=== PATIENT | female | born 1935 | race Caucasian/White ===

== ENCOUNTER 2017-09-27 10:52 | Emergency (ER) | payer OTHER, MEDICARE ==
--- NOTE | 2017-09-27 11:46 | ER ---
Nurse's Notes [facility] Name: Lillian Cabrera Age: 81 yrs Sex: Female : 1935 Arrival Date: 09/27/2017 Time: 11:03 Bed 20 Private MD: Diagnosis: weakness Presentation: 09/27 11:04 Presenting complaint: states: They were shopping in [place] when she began to aj1 look really shaky, so he asked the staff for help, they gave her a chair and she sat down. states that she has been having leg pain for the past few nights. Patient states that she has no complaints and feels fine. Patient and are poor historians, states patient has no medical history or allergies, she does not have a PHCP. Patient was hypertensive upon EMS arrival. FSBS 126. Transition of care: patient was not received from another setting of care. Onset of symptoms was September 27, 2017. Care prior to arrival: None. 11:04 Method Of Arrival: EMS: [facility] aj1 11:04 Acuity: JOBY 3 aj1 Triage Assessment: 11:08 General: Appears in no apparent distress. comfortable, Behavior is calm, cooperative. aj1 Pain: Denies pain. Historical: - Allergies: 11:08 No Known Allergies; aj1 - Home Meds: 11:08 None [Active]; aj1 - PMHx: 11:08 None; aj1 - PSHx: 11:08 None; aj1 - Immunization history:: Adult Immunizations up to date. - Social history:: Smoking status: Patient/guardian denies using tobacco. - Family history:: not pertinent. - Hospitalizations: : No recent hospitalization is reported. - History obtained from: spouse. Screenin:27 Abuse screen: Denies threats or abuse. Denies injuries from another. Nutritional aj1 screening: No deficits noted. Tuberculosis screening: No symptoms or risk factors identified. 12:02 Fall Risk None identified. aj1 Assessment: 11:27 General: Appears in no apparent distress. comfortable, Behavior is calm, cooperative, aj1 appropriate for age. Pain: Denies pain. Neuro: Level of Consciousness is awake, alert, obeys commands, Yolk Spray Drier are equal bilaterally Moves all extremities. Full function Speech is normal, Facial symmetry appears normal, Pupils are PERRLA, Intact Denies weakness dizziness, numbness headache. Cardiovascular: Denies chest pain, lightheadedness, nausea, palpitations, shortness of breath, syncope, vomiting, Heart tones S1 S2 present Patient's skin is warm and dry. Respiratory: Airway is patent Respiratory effort is even, unlabored, Respiratory pattern is regular, symmetrical, Denies cough, shortness of breath. GI: No signs and/or symptoms were reported involving the gastrointestinal system. : No signs and/or symptoms were reported regarding the genitourinary system. EENT: No signs and/or symptoms were reported regarding the EENT system. Derm: No signs and/or symptoms reported regarding the dermatologic system. Skin is pink, warm \T\ dry. normal. Musculoskeletal: No signs and/or symptoms reported regarding the musculoskeletal system. Circulation, motion, and sensation intact. 11:35 Reassessment: Son at bedside, appears agitated, talking on cell phone. patient and aj1 family refusing head CT at this time, wants to talk to physician again because pt son states he does not feel like its needed. Dr. Osuna notified and will see the patient. 11:39 Reassessment: Dr. Osuna at bedside. aj1 11:45 Reassessment: Patient states that she does not want any tests to be done, she just aj1 wants to go home. Dr. Osuna to discharge patient. Vital Signs: 11:08 BP 148 / 97; Pulse 110; Resp 20; Temp 98.6; Pulse Ox 92% on R/A; Pain 0/10; aj1 ED Course: 11:03 Patient arrived in ED. aj1 11:07 Triage completed. aj1 11:08 Arm band placed on. aj1 11:10 Laverne Mendoza, RN is Primary Nurse. aj1 11:23 Deric Osuna MD is Attending Physician. wa 11:27 Patient has correct armband on for positive identification. Bed in low position. Call aj1 light in reach. Side rails up X 1. shelter monitor on. Pulse ox on. NIBP on. 11:27 No provider procedures requiring assistance completed. aj1 11:30 Maintain EMS IV. Good blood return noted. Site clean \T\ dry. Gauge \T\ site: 20 g left AC. aj 1 12:01 IV discontinued, intact, bleeding controlled, No redness/swelling at site. Pressure aj1 dressing applied. Administered Medications: No medications were administered Outcome: 11:45 Discharge ordered by . rodney 12:01 Discharged to home via wheelchair, with family. aj1 12:01 Condition: stable 12:01 Discharge instructions given to patient, family, Instructed on discharge instructions, follow up and referral plans. Demonstrated understanding of instructions, follow-up care. 12:02 Patient left the ED. aj1 Signatures: Laverne Mendoza RN RN aj1 Deric Osuna MD MD wa Corrections: (The following items were deleted from the chart) 11:10 11:04 Presenting complaint: states: They were shopping in [place] when she aj1 began to look really shaky, so he asked the staff for help, they gave her a chair and she sat down. states that she has been having leg pain for the past few nights. Patient states that she has no complaints and feels fine. Patient and are poor historians aj1
--- NOTE | 2017-09-27 11:46 | EDPHYS ---
Physician Documentation [facility] Name: Lillian Cabrera Age: 81 yrs Sex: Female : 1935 Arrival Date: 09/27/2017 Time: 11:03 Bed 20 Private MD: ED Physician Deric Osuna HPI: 09/27 11:53 This 81 yrs old Female presents to ER via EMS with complaints of shaking. wa 11:53 pt and spouse both poor historians. per spouse, pt was pushing the cart at [facility] and wa noted shaking. spouse asked personnel to get pt a chair which they did. pt otherwise denies complaints and wants to go home. states was just another day at the store and does not want to be seen. denies leg pain to me. denies CP, SOB, dizziness, PARSONS pr abd pain. denies fever, cough or dysuria. Onset: The symptoms/episode began/occurred just prior to arrival. Severity of symptoms: At their worst the symptoms were mild in the emergency department the symptoms have resolved. The patient has not experienced similar symptoms in the past. The patient has not recently seen a physician. . Historical: - Allergies: 11:08 No Known Allergies; aj1 - Home Meds: 11:08 None [Active]; aj1 - PMHx: 11:08 None; aj1 - PSHx: 11:08 None; aj1 - Immunization history:: Adult Immunizations up to date. - Social history:: Smoking status: Patient/guardian denies using tobacco. - Family history:: not pertinent. - Hospitalizations: : No recent hospitalization is reported. - History obtained from: spouse. ROS: 11:56 Constitutional: Negative for fever, chills, and weight loss, Eyes: Negative for injury, wa pain, redness, and discharge, ENT: Negative for injury, pain, and discharge, Neck: Negative for injury, pain, and swelling, Cardiovascular: Negative for chest pain, palpitations, and edema, Respiratory: Negative for shortness of breath, cough, wheezing, and pleuritic chest pain, Abdomen/GI: Negative for abdominal pain, nausea, vomiting, diarrhea, and constipation, Back: Negative for injury and pain, : Negative for injury, bleeding, discharge, and swelling, MS/Extremity: Negative for injury and deformity, Skin: Negative for injury, rash, and discoloration, Neuro: Negative for headache, weakness, numbness, tingling, and seizure, Psych: Negative for depression, anxiety, suicide ideation, homicidal ideation, and hallucinations. 11:56 All other systems are negative. Exam: 11:56 Constitutional: This is a well developed, well nourished patient who is awake, alert, wa and in no acute distress. Head/Face: Normocephalic, atraumatic. Eyes: Pupils equal round and reactive to light, extra-ocular motions intact. Lids and lashes normal. Conjunctiva and sclera are non-icteric and not injected. Cornea within normal limits. Periorbital areas with no swelling, redness, or edema. ENT: Nares patent. No nasal discharge, no septal abnormalities noted. Tympanic membranes are normal and external auditory canals are clear. Oropharynx with no redness, swelling, or masses, exudates, or evidence of obstruction, uvula midline. Mucous membranes moist. Neck: Trachea midline, no thyromegaly or masses palpated, and no cervical lymphadenopathy. Supple, full range of motion without nuchal rigidity, or vertebral point tenderness. No Meningismus. Chest/axilla: Normal chest wall appearance and motion. Nontender with no deformity. No lesions are appreciated. Respiratory: Lungs have equal breath sounds bilaterally, clear to auscultation and percussion. No rales, rhonchi or wheezes noted. No increased work of breathing, no retractions or nasal flaring. Abdomen/GI: Soft, non-tender, with normal bowel sounds. No distension or tympany. No guarding or rebound. No evidence of tenderness throughout. Back: No spinal tenderness. No costovertebral tenderness. Full range of motion. Skin: Warm, dry with normal turgor. Normal color with no rashes, no lesions, and no evidence of cellulitis. MS/ Extremity: Pulses equal, no cyanosis. Neurovascular intact. Full, normal range of motion. Neuro: Awake and alert, GCS 15, oriented to person, place, time, and situation. Cranial nerves II-XII grossly intact. Motor strength 5/5 in all extremities. Sensory grossly intact. Cerebellar exam normal. Normal gait. Psych: Awake, alert, with orientation to person, place and time. Behavior, mood, and affect are within normal limits. 11:56 Cardiovascular: Rate: tachycardic, Rhythm: Pulses: no pulse deficits are appreciated, Heart sounds: normal, Edema: is not appreciated, JVD: is not appreciated. Vital Signs: 11:08 BP 148 / 97; Pulse 110; Resp 20; Temp 98.6; Pulse Ox 92% on R/A; Pain 0/10; aj1 MDM: 11:23 Patient medically screened. in 11:57 Differential Diagnosis nml exam of lower extremities. no swelling or redness. no wa lateralizing neuro signs. tachy however. pt desires to go home and does not want anything done. discussed concern of tachycardia and to allow for further eval. pt agreed. However, after putting orders in computer, pt's son arrived in ED and wanted to know findings requiring work up. after further discussion, he and mom decided to decline further care and return if any concerns. risks discussed and accepted. understood may return if any symptoms of concern and to see PMD for f/u within 48 hours. Data reviewed: vital signs, nurses notes. 09/27 11:29 Order name: Urine Microscopic Only in 09/27 11:29 Order name: Basic Metabolic Panel in 09/27 11:29 Order name: Cardiac monitoring in 09/27 11:29 Order name: EKG - Nurse/Tech in 09/27 11:29 Order name: IV Saline Lock in 09/27 11:29 Order name: Labs collected and sent in 09/27 11:29 Order name: NPO; Complete Time: 11:31 in 09/27 11:29 Order name: O2 Per Protocol; Complete Time: 11:31 in 09/27 11:29 Order name: O2 Sat Monitoring; Complete Time: 11:31 in Administered Medications: No medications were administered Disposition: 09/27/17 11:45 Discharged to Home. Impression: weakness. - Condition is Stable. - Discharge Instructions: Weakness, [id number]. - Medication Reconciliation Form, Thank You Letter, Antibiotic Education, Prescription Opioid Use form. - Follow up: Private Physician; When: As needed. - Problem is new. - Symptoms have improved. - Notes: please return here immediately if any concerns such as dizziness, weakness, or shortness of breath. otherwise follow up with your doctor per your regular appointments Signatures: Dispatcher [employer] Laverne Diallo RN RN aj1 Deric Osuna MD MD in
[2017-09-27 12:15] VITALS: BP 148/97; TEMP 98.6; O2SAT 92
== END 2017-09-27 12:02 | disposition home or self-care (01) ==
LOC: ER 10:52
DX: R53.1 Weakness (principal)
CPT/HCPCS: 99284

== ENCOUNTER 2017-11-21 10:48 | Inpatient (IN) | payer OTHER, MEDICARE ==
--- NOTE | 2017-11-21 11:39 | EDPHYS ---
Physician Documentation [facility] Name: Lillian Cabrera Age: 82 yrs Sex: Female : 1935 Arrival Date: 11/21/2017 Time: 10:54 Bed 16 Private MD: ED Physician Geovany Han HPI: 11/21 16:21 This 82 yrs old Female presents to ER via Wheelchair with complaints of SENT gs BY 16:21 The patient presents with urinary symptoms, dysuria. Unable to obtain HPI due to gs baseline dementia. sent with positive urine culture needs iv abx. Historical: - Allergies: 11:03 No Known Allergies; aa5 - PMHx: 11:03 Glaucoma; Hyperlipidemia; Dementia; aa5 - PSHx: 11:03 None; aa5 - Immunization history:: Adult Immunizations unknown. - Social history:: Smoking status: Patient/guardian denies using tobacco. - Ebola Screening: : No symptoms or risks identified at this time. ROS: 16:21 All other systems are negative. gs Exam: 16:21 Head/Face: Normocephalic, atraumatic. Eyes: Pupils equal round and reactive to light, gs extra-ocular motions intact. Lids and lashes normal. Conjunctiva and sclera are non-icteric and not injected. Cornea within normal limits. Periorbital areas with no swelling, redness, or edema. ENT: Nares patent. No nasal discharge, no septal abnormalities noted. Tympanic membranes are normal and external auditory canals are clear. Oropharynx with no redness, swelling, or masses, exudates, or evidence of obstruction, uvula midline. Mucous membranes moist. Neck: Trachea midline, no thyromegaly or masses palpated, and no cervical lymphadenopathy. Supple, full range of motion without nuchal rigidity, or vertebral point tenderness. No Meningismus. Chest/axilla: Normal chest wall appearance and motion. Nontender with no deformity. No lesions are appreciated. Cardiovascular: Regular rate and rhythm with a normal S1 and S2. No gallops, murmurs, or rubs. Normal PMI, no JVD. No pulse deficits. Respiratory: Lungs have equal breath sounds bilaterally, clear to auscultation and percussion. No rales, rhonchi or wheezes noted. No increased work of breathing, no retractions or nasal flaring. Abdomen/GI: Soft, non-tender, with normal bowel sounds. No distension or tympany. No guarding or rebound. No evidence of tenderness throughout. Back: No spinal tenderness. No costovertebral tenderness. Full range of motion. Skin: Warm, dry with normal turgor. Normal color with no rashes, no lesions, and no evidence of cellulitis. MS/ Extremity: Pulses equal, no cyanosis. Neurovascular intact. Full, normal range of motion. 16:21 Constitutional: The patient appears alert, awake. 16:21 ECG was reviewed by the Attending Physician. gs 16:21 Neuro: Cranial nerves: CN II- XII are normal as tested, Motor: moves all fours, strength is normal, Sensation: no obvious gross deficits. Vital Signs: 11:03 BP 143 / 102; Pulse 92; Resp 16 S; Temp 98.9(TE); Pulse Ox 92% on R/A; Pain 0/10; aa5 12:35 BP 145 / 83; Pulse 70; Resp 16; Temp 98.3; Pulse Ox 99% on R/A; Pain 0/10; ch MDM: 11:17 Patient medically screened. gs 16:21 Differential diagnosis: nonspecific abdominal pain, urinary tract infection, sepsis gs pyelonephritis. Data reviewed: vital signs, nurses notes. 11/21 11:36 Order name: Basic Metabolic Panel 11/21 11:36 Order name: Blood Culture Adult (2) 11/21 11:36 Order name: CBC with Diff; Complete Time: 16:28 11/21 11:36 Order name: Lactate; Complete Time: 13:02 11/21 11:36 Order name: LFT's; Complete Time: 13:02 11/21 11:36 Order name: Lipase; Complete Time: 13:02 11/21 11:36 Order name: Procalcitonin; Complete Time: 16:28 11/21 11:36 Order name: Protime (+inr); Complete Time: 13:02 11/21 11:36 Order name: Troponin (emerg Dept Use Only); Complete Time: 13:02 11/21 11:36 Order name: Urine Culture 11/21 11:36 Order name: Urine Microscopic Only; Complete Time: 16:28 11/21 11:36 Order name: Basic Metabolic Panel; Complete Time: 13:02 EDMS 11/21 11:36 Order name: Blood Culture [facility] 11/21 13:09 Order name: Urine Dipstick--Ancillary (enter results) 11/21 11:36 Order name: Chest Single View XRAY 11/21 11:36 Order name: Cardiac monitoring; Complete Time: 13:46 11/21 11:36 Order name: EKG - Nurse/Tech; Complete Time: 13:46 11/21 11:36 Order name: IV Saline Lock - Large Bore; Complete Time: 12:42 11/21 11:36 Order name: Labs collected and sent; Complete Time: 12:42 11/21 11:36 Order name: O2 Per Protocol; Complete Time: 12:42 11/21 11:36 Order name: O2 Sat Monitoring; Complete Time: 12:43 11/21 11:36 Order name: Urine Dipstick-Ancillary (obtain specimen); Complete Time: 12:42 11/21 11:36 Order name: Cruz; Complete Time: 12:42 11/21 11:44 Order name: Regular; Complete Time: 12:59 [facility] 11/21 13:07 Order name: RAD; Complete Time: 16:28 [facility] 11/21 13:17 Order name: Urine Dipstick-Ancillary; Complete Time: 16:28 EDMS EC:21 Rate is 77 beats/min. Rhythm is regular. PA interval is normal. QRS interval is normal. gs Q waves are Old. T waves are Normal. No ST changes noted. Clinical impression: NSR w/ Non-specific ST/T Changes. Administered Medications: 13:23 Drug: Potassium Effervescent Tablet 50 mEq Route: PO; dm5 13:45 Follow up: Response: No adverse reaction; Marked relief of symptoms ch Disposition: 11/21/17 11:38 Hospitalization ordered by Dewayne Daigle for Observation. Preliminary diagnosis is Cystitis. - Bed requested for Telemetry/MedSurg (observation). - Status is Observation. ch - Condition is Stable. - Problem is new. - Symptoms are unchanged. UTI on Admission? Yes Signatures: Dispatcher [employer] EDAZ Xena Elmore Christina, RN RN Malorie Aquino RN RN dm5 Emiliana Pérez RN RN aa5 Geovany Han MD MD Corrections: (The following items were deleted from the chart) 13:26 11:35 Accucheck ordered. dm5 13:33 11:38 Hospitalization Ordered by Dewayne Daigle MD for Observation. Preliminary diagnosis bd is Cystitis. Bed requested for Telemetry/MedSurg (observation). Status is Observation. Condition is Stable. Problem is new. Symptoms are unchanged. UTI on Admission? Yes. 14:27 13:33 11/21/2017 11:38 Hospitalization Ordered by Dewayne Daigle MD for Observation. ch Preliminary diagnosis is Cystitis. Bed requested for Telemetry/MedSurg (observation). Status is Observation. Condition is Stable. Problem is new. Symptoms are unchanged. UTI on Admission? Yes. bd 16:26 16:21 Head/Face: Normocephalic, atraumatic. Eyes: Pupils equal round and reactive to gs light, extra-ocular motions intact. Lids and lashes normal. Conjunctiva and sclera are non-icteric and not injected. Cornea within normal limits. Periorbital areas with no swelling, redness, or edema. ENT: Nares patent. No nasal discharge, no septal abnormalities noted. Tympanic membranes are normal and external auditory canals are clear. Oropharynx with no redness, swelling, or masses, exudates, or evidence of obstruction, uvula midline. Mucous membranes moist. Neck: Trachea midline, no thyromegaly or masses palpated, and no cervical lymphadenopathy. Supple, full range of motion without nuchal rigidity, or vertebral point tenderness. No Meningismus. Chest/axilla: Normal chest wall appearance and motion. Nontender with no deformity. No lesions are appreciated. Cardiovascular: Regular rate and rhythm with a normal S1 and S2. No gallops, murmurs, or rubs. Normal PMI, no JVD. No pulse deficits. Respiratory: Lungs have equal breath sounds bilaterally, clear to auscultation and percussion. No rales, rhonchi or wheezes noted. No increased work of breathing, no retractions or nasal flaring. Abdomen/GI: Soft, non-tender, with normal bowel sounds. No distension or tympany. No guarding or rebound. No evidence of tenderness throughout. Back: No spinal tenderness. No costovertebral tenderness. Full range of motion. Skin: Warm, dry with normal turgor. Normal color with no rashes, no lesions, and no evidence of cellulitis. MS/ Extremity: Pulses equal, no cyanosis. Neurovascular intact. Full, normal range of motion. Neuro: Awake and alert, GCS 15, oriented to person, place, time, and situation. Cranial nerves II-XII grossly intact. Motor strength 5/5 in all extremities. Sensory grossly intact. Cerebellar exam normal. Normal gait. gs
--- NOTE | 2017-11-21 11:39 | ER ---
Nurse's Notes [facility] Name: Lillian Cabrera Age: 82 yrs Sex: Female : 1935 Arrival Date: 11/21/2017 Time: 10:54 Bed 16 Private MD: Diagnosis: Cystitis Presentation: 11/21 11:02 Presenting complaint: Pt's son states "her urine culture came back and Dr. Daigle sent us aa5 here for her to be treated". Transition of care: patient was not received from another setting of care. Onset of symptoms was November 21, 2017. Risk Assessment: Do you want to hurt yourself or someone else? Patient reports no desire to harm self or others. Initial Sepsis Screen: Does the patient meet any 2 criteria? No. Patient's initial sepsis screen is negative. Does the patient have a suspected source of infection? No. Patient's initial sepsis screen is negative. Care prior to arrival: None. 11:02 Method Of Arrival: Wheelchair aa5 11:02 Acuity: JOBY 3 aa5 Historical: - Allergies: 11:03 No Known Allergies; aa5 - PMHx: 11:03 Glaucoma; Hyperlipidemia; Dementia; aa5 - PSHx: 11:03 None; aa5 - Immunization history:: Adult Immunizations unknown. - Social history:: Smoking status: Patient/guardian denies using tobacco. - Ebola Screening: : No symptoms or risks identified at this time. Screenin:35 Abuse screen: Denies threats or abuse. Denies injuries from another. Nutritional ch screening: No deficits noted. Tuberculosis screening: No symptoms or risk factors identified. Fall Risk None identified. Assessment: 12:35 General: Appears in no apparent distress. comfortable, Behavior is calm, cooperative, ch appropriate for age. Pain: Denies pain. Neuro: Level of Consciousness is awake, alert, obeys commands, Oriented to person, place, Metal Rivet Machine Operator are equal bilaterally Moves all extremities. Weakness Gait is unsteady, pt uses walker. Speech is normal, Facial symmetry appears normal, Facial symmetry: tongue is midline, Pupils are PERRLA. Respiratory: Airway is patent Respiratory effort is even, unlabored, Breath sounds are clear. GI: No signs and/or symptoms were reported involving the gastrointestinal system. Abdomen is round non-distended, Bowel sounds present X 4 quads. Abd is soft and non tender X 4 quads. : No signs and/or symptoms were reported regarding the genitourinary system. Derm: Skin is pink, warm \\T\\ dry. 14:03 Reassessment: Patient appears in no apparent distress at this time. Patient and/or ch family updated on plan of care and expected duration. Pain level reassessed. Patient states feeling better. report called to claudia. . Vital Signs: 11:03 BP 143 / 102; Pulse 92; Resp 16 S; Temp 98.9(TE); Pulse Ox 92% on R/A; Pain 0/10; aa5 12:35 BP 145 / 83; Pulse 70; Resp 16; Temp 98.3; Pulse Ox 99% on R/A; Pain 0/10; ch ED Course: 10:54 Patient arrived in ED. jb7 11:02 Triage completed. aa5 11:02 Arm band placed on. aa5 11:07 Geovany Han MD is Attending Physician. gs 11:38 Dewayne Daigle MD is Hospitalizing Provider. gs 11:45 Yu Prabhakar, MARIANA is Primary Nurse. ch 12:35 No apparent distress. Resting quietly. ch 12:35 Patient has correct armband on for positive identification. Placed in gown. Bed in low ch position. Call light in reach. Side rails up X 1. Adult w/ patient. Pulse ox on. NIBP on. 12:35 No provider procedures requiring assistance completed. Initial lab(s) drawn, by me, ch sent to lab. Urine collected:. Cruz cath inserted, using sterile technique, 16 Fr., by me, balloon inflated, to gravity drainage, urine specimen collected. returned clear yellow urine. Patient tolerated well. Inserted saline lock: 20 gauge in left forearm, using aseptic technique. Blood collected. Patient maintains SpO2 saturation greater than 95% on room air. 13:08 Chest Single View XRAY Sent. iw 13:23 Urine Dipstick--Ancillary (enter results) Sent. dm5 13:23 Basic Metabolic Panel Sent. dm5 13:23 Blood Culture Adult (2) Sent. dm5 13:40 EKG done, by senior technical business analyst. reviewed by Geovany Han MD. at1 Administered Medications: 13:23 Drug: Potassium Effervescent Tablet 50 mEq Route: PO; dm5 13:45 Follow up: Response: No adverse reaction; Marked relief of symptoms ch Outcome: 11:38 Decision to Hospitalize by Provider. 14:27 Patient left the ED. Signatures: Yu Prabhakar RN RN Malorie Georges RN RN dm5 Juli Toledo RN Emiliana Dickson RN RN aa5 Nadine dickey, dishwashing machine operator EKG Tat1 Brandon Prado jb7 Geovany Han MD MD
[2017-11-21] MEDS ORDERED: ACETAMINOPHEN 500 MG TAB PO PRN (11:42)
[2017-11-21 12:36] LABS: Absolute Lymphocytes (CBC) 1.4 K/uL (0.7-4.9); Absolute Monocytes 0.4 K/uL (0.1-1.3); Absolute Neutrophil 4.4 K/uL (1.8-8.0); Basophils % 0.8 % (0-1.3); Eosinophils % 1.3 % (0-4.4); Hematocrit 34.2 % (36.0-45.0); MCH 31.7 pg (27.0-35.0); MCV 95.3 fL (80-100); MPV 6.9 fL (7.6-11.3); Monocytes % 6.7 % (3.3-12.3); RBC Red Blood Cell Count 3.59 M/uL (3.86-4.86)
[2017-11-21 12:37] LABS: Protime INR 1.16
[2017-11-21 12:47] LABS: Albumin 3.6 g/dL (3.2-5.5); Bilirubin Direct 0.1 mg/dL (0-0.2); Bilirubin Total 0.6 mg/dL (0.3-1.2)
[2017-11-21 12:57] LABS: Potassium 2.7 mEq/L (3.6-5.0)
--- NOTE | 2017-11-21 13:07 | RAD REPORT ---
EXAM DESCRIPTION: RAD - Chest Single View - 11/21/2017 12:47 pm CLINICAL HISTORY: Chest pain. COMPARISON: 03/30/2009 FINDINGS: Portable technique limits examination quality. The lungs are grossly clear. The heart is mildly prominent size with a tortuous thoracic aorta. No di splaced fractures. IMPRESSION: No acute intrathoracic process suspected.
[2017-11-21] MEDS ORDERED: POTASSIUM 25 MEQ EFFERV TAB ONE (13:16)
[2017-11-21 13:17] LABS: Urine Blood TRACE (NEG); Urine Glucose NEGATIVE (NEG); Urine Protein NEGATIVE (NEG); Urine Specific Gravity 1.015 (1.005-1.030); Urine pH 6.5 (5.0-7.0)
[2017-11-21 13:20] LABS: Urine Amorphous Sediment 1+ /HPF (NONE SEEN); Urine Bacteria <20 /HPF (<20); Urine Mucus 2+ /HPF (NONE SEEN)
[2017-11-21 13:22] LABS: Urine Culture Reflex Order NOT NEEDED
[2017-11-21] MEDS: NA CHLORIDE 0.9% 1,000 ML IV SCH ×2 (14:48→20:05)
[2017-11-21 14:59] VITALS: BMI 20.7
[2017-11-21] MEDS: ENOXAPARIN 40 MG/0.4 ML SQ SCH (16:48)
[2017-11-21] MEDS: CEFTAZIDIME IV SCH (17:57)
[2017-11-21] MEDS: FLUCONAZOLE 200mg IVPB 200 MG/100 ML BAG IV SCH (18:00)
[2017-11-21] MEDS: KCL 20 MEQ/100 mL IVPB 20 MEQ/100 ML BAG IV SCH ×2 (20:05→21:51)
[2017-11-21] MEDS: CIPROFLOXACIN HCL 500 MG TAB PO SCH (21:50)
[2017-11-22] MEDS: MIRTAZAPINE 15 MG TAB PO SCH ×2 (00:49→22:16)
[2017-11-22] MEDS: CEFTAZIDIME IV SCH ×3 (00:49→17:48)
[2017-11-22] MEDS ORDERED: CEFTAZIDIME 1 GM VIAL IV SCH (01:00)
--- NOTE | 2017-11-22 01:59 | HP ---
Date of Admission: 11/21/2017 Reason For Admission: Urinary tract infection. History Of Present Illness: Ms. Cabrera is a pleasant 82-year-old female patient, who was admitted to [facility] recently. She had urinary tract infection and she received antibiotic for that. She had a repeat urine analysis, [facility] and her repeat urine culture, this was a straight cath urine specimen, grew Jose Alfredo, E. coli and Pseudomonas. E. coli is sensitive to multip le antibiotics including Cipro and Levaquin, also sensitive to nitrofurantoin, cephalexin, cefuroxime , and some other cephalosporins. Pseudomonas is sensitive only to IV antibiotics like ceftazidime, Z osyn, Azactam, colistin, gentamicin, and cefepime. Her jose alfredo is sensitive to fluconazole, amphoter icin. Once I receive this culture result this morning, decision was made to send patient to emergenc y room. After she was evaluated, she was admitted to the hospital. When I saw her this evening, her son and were present with her at bedside. Allergies: NO KNOWN ALLERGIES. Medications: List reviewed. Review of Systems: Genitourinary; as mentioned above. PERFORATOR: The patient has impaired memory. All other systems reviewed and negative. Past Medical History: Significant for senile dementia, mixed hyperlipidemia, glaucoma, and weight lo ss. Past Surgical History: Negative. Family History: Significant for unknown type of cancer and cardiovascular disease. Social History: Negative for smoking or alcohol use. Physical Examination: Vital Signs: Height 5 feet 5 inches, weight 160 pounds, temperature 98.3, pulse 82, blood pressure 1 60/89, oxygen saturation 92%. General: The patient is awake, alert but not oriented. HEENT: Head atraumatic, normocephalic. Conjunctivae nonerythematous. Sclerae white. Mouth, no thr ush or edema noted. Ears/Nose, no mass, lesion, discharge noted. Neck: Supple. No JVD, lymph nodes, bruit, thyromegaly noted. Lungs: Bilateral good equal air entry. Clear to auscultation. No rhonchi. No rales. Heart: Normal heart sounds, no murmur or gallop. Abdomen: Soft, bowel sounds normal. No guarding, rigidity, tenderness, mass, hepatosplenomegaly, dis tention, or bruit noted. Extremities: No leg edema. No calf tenderness. Skin: No rash, ulcer, cellulitis. Lymphatics: No lymph node enlargement in neck, supraclavicular, infraclavicular region. Neuro: No focal neurological deficit. Chest: Unremarkable. External Genitalia: Deferred. Rectal: Deferred. Laboratory Data: White count 6.3, hemoglobin 11.4, platelets 330. Sodium 140, potassium 2.7, chlori de 99, bicarb 29. BUN 15, creatinine 1.06, glucose 90. Liver function test unremarkable. Procalcit onin less than 0.05. INR 1.16. Urinalysis; 1+ esterase, 10-20 wbc's, bacteria less than 20. Trace blood. Impression: 1.Urinary tract infection. 2.Senile dementia. 3.Hypokalemia. 4.Glaucoma. 5.Mixed hyperlipidemia. 6.Weight loss. Plan: Admit the patient to hospital for further evaluation and management of this problem. The armida ent is appropriate for inpatient and is expected to spend 2 midnights in hospital. We will continue [facility] medications. Start the patient on IV fluconazole, IV ceftazidime, and oral Cipro. PICC line was ordered. Details and plan of treatment discussed with the patient's and family member. I will see her tomorrow for followup. DVT prophylaxis will be given per order. DANIELA/ADRIEL Voice ID: [id number]
--- NOTE | 2017-11-22 07:43 | EKG ---
Test Date: 2017-11-21 Test Time: 13:32:23 Therapist Rrt: AAMIR MEASUREMENT RESULTS: Intervals: Rate: 80 NC: 190 QRSD: 84 QT: 362 QTc: 417 [place]: P: 22 NC: 190 QRS: -41 T: -9 INTERPRETIVE STATEMENTS: Sinus rhythm with occasional premature ventricular complexes and premature atrial complexes Left axis deviation Inferior infarct, age undetermined Anterolateral infarct, age undetermined Abnormal ECG Compared to ECG 03/30/2009 14:58:04 Atrial premature complex(es) now present Ventricular premature complex(es) now present Left-axis deviation now present Sinus arrhythmia no longer present Myocardial infarct finding still present Electronically Signed On 11-22-17 07:42:55 CDT by Eric Bermeo
[2017-11-22] MEDS: DONEPEZIL HCL 5 MG TAB PO SCH (08:26)
[2017-11-22] MEDS: CIPROFLOXACIN HCL 500 MG TAB PO SCH ×2 (08:26→22:16)
[2017-11-22] MEDS: DOCUSATE NA 100 MG CAP PO SCH ×2 (08:26→22:16)
[2017-11-22] MEDS: ACETAMINOPHEN 500 MG TAB PO SCH (08:37)
[2017-11-22] MEDS ORDERED: MAGNESIUM SULFATE 1 gm IVPB 1 GM/100 ML BAG IV ONE (08:40)
[2017-11-22] MEDS ORDERED: POTASSIUM 25 MEQ EFFERV TAB PO ONE ×2 (09:00→21:00)
--- NOTE | 2017-11-22 15:09 | RAD REPORT ---
EXAM DESCRIPTION: RAD - Chest Single View - 11/22/2017 2:57 pm CLINICAL HISTORY: PICC line placement COMPARISON: November 21 FINDINGS: Portable chest was obtained following placement of a right upper extremity PICC line. The catheter tip is in the right atrium. Retraction of the PICC line [address] the tip in the mid to distal SVC.
[2017-11-22] MEDS: ENOXAPARIN 40 MG/0.4 ML SQ SCH (17:47)
[2017-11-22] MEDS: FLUCONAZOLE 200mg IVPB 200 MG/100 ML BAG IV SCH (17:48)
[2017-11-22] MEDS ORDERED: LIDOCAINE 1% 20 ML MDV ONE (18:43)
--- NOTE | 2017-11-22 19:17 | PN ---
Date of Progress Note: 11/22/2017 Subjective: The patient was seen this morning for followup. No new complaints or problems reported by her. Objective: Vital Signs: Reviewed. HEENT: Unremarkable. Lungs: Clear to auscultation. Heart: Heart sounds normal. Abdomen: Soft, bowel sounds normal. No guarding, rigidity, tenderness, or distention. Extremities: No leg edema. Laboratory Data: Potassium is 3.3. Impression: 1.Urinary tract infection. 2.Senile dementia. 3.Hypokalemia. Plan: We will continue current medications. Replace potassium per protocol. Check magnesium and if it is low then replace per protocol as well. Continue current antibiotics. Repeat urine culture do ne at the hospital. Result is pending. PICC line order is in place and hopefully we will get PICC i n place today, and Social Service to assist with arrangements for IV antibiotics to be done at [facility] upon discharge. DANIELA/MODL Voice ID: [id number] Report ID: [id number]
[2017-11-22] MEDS: NA CHLORIDE 0.9% 1,000 ML IV SCH (22:18)
[2017-11-23] MEDS: CEFTAZIDIME IV SCH ×3 (00:10→17:41)
[2017-11-23 05:23] LABS: Absolute Lymphocytes (CBC) 1.2 K/uL (0.7-4.9); Absolute Monocytes 0.4 K/uL (0.1-1.3); Absolute Neutrophil 3.6 K/uL (1.8-8.0); Eosinophils % 1.2 % (0-4.4); Lymphocytes % 23.2 % (15.3-44.8); MCH 32.7 pg (27.0-35.0); MCV 94.3 fL (80-100); MPV 6.9 fL (7.6-11.3); Monocytes % 8.4 % (3.3-12.3)
[2017-11-23 05:46] LABS: Magnesium 1.9 mg/dL (1.8-2.5); Potassium 3.7 mEq/L (3.6-5.0)
[2017-11-23] MEDS: DOCUSATE NA 100 MG CAP PO SCH ×2 (08:49→20:59)
[2017-11-23] MEDS: CIPROFLOXACIN HCL 500 MG TAB PO SCH ×2 (08:49→21:00)
[2017-11-23] MEDS: ACETAMINOPHEN 500 MG TAB PO SCH (08:49)
[2017-11-23] MEDS: CARVEDILOL 3.125 MG TAB PO SCH ×2 (08:50→21:00)
[2017-11-23] MEDS: DONEPEZIL HCL 5 MG TAB PO SCH (08:52)
[2017-11-23] MEDS ORDERED: POTASSIUM 25 MEQ EFFERV TAB PO ONE (09:00)
[2017-11-23] MEDS: FLUCONAZOLE 200mg IVPB 200 MG/100 ML BAG IV SCH (17:41)
[2017-11-23] MEDS: ENOXAPARIN 40 MG/0.4 ML SQ SCH (17:41)
[2017-11-23] MEDS: MIRTAZAPINE 15 MG TAB PO SCH (21:00)
[2017-11-24] MEDS: CEFTAZIDIME IV SCH ×2 (00:23→09:17)
[2017-11-24 02:49] VITALS: O2SAT 96
--- NOTE | 2017-11-24 08:36 | RAD REPORT ---
EXAM DESCRIPTION: RAD - Chest Single View - 11/23/2017 11:44 pm CLINICAL HISTORY: PICC line placement. COMPARISON: None. FINDINGS: Portable chest was obtained following placement of a right upper extremity PICC line. The catheter tip is in the SVC.
[2017-11-24 08:48] VITALS: BP 171/101; TEMP 98.8
[2017-11-24] MEDS: ACETAMINOPHEN 500 MG TAB PO SCH (09:16)
[2017-11-24] MEDS: DONEPEZIL HCL 5 MG TAB PO SCH (09:17)
[2017-11-24] MEDS: CARVEDILOL 3.125 MG TAB PO SCH (09:17)
[2017-11-24] MEDS: CIPROFLOXACIN HCL 500 MG TAB PO SCH (09:17)
[2017-11-24] MEDS: DOCUSATE NA 100 MG CAP PO SCH (09:17)
--- NOTE | 2017-11-25 11:12 | PN ---
Date of Progress Note: 11/23/2017 Subjective: The patient was seen for followup in the morning. No new complaints, problems reported by her, lying in bed, not in any distress. Objective: Vital Signs: Reviewed. Blood pressure remains elevated. HEENT: Unremarkable. Lungs: Clear to auscultation. Heart: Sounds normal. Abdomen: Soft, bowel sounds normal. No guarding, rigidity, tenderness, or distention. Extremities: No leg edema. Laboratory Data: White count 5.4, hemoglobin 11.8, platelets 294. Sodium 140, potassium 3.7, chlori de 106, bicarb 28, BUN 9, creatinine 0.93, glucose 101, magnesium 1.9. Impression: 1.Urinary tract infection. 2.Hypertension. 3.Anemia. 4.Hypomagnesemia. Plan: The patient's magnesium is normal today. Anemia is stable. No need for any further intervent ion. Will continue current antibiotics for hypertension. Will go ahead and start the patient on car vedilol. Possible discharge to go to [facility] tomorrow with IV antibiotics which will be ceftazi dime and Cipro as well as fluconazole will be oral. DANIELA/MODL Voice ID: [id number] Report ID: [id number]
--- NOTE | 2017-11-26 16:21 | DS ---
Date of Discharge: 11/24/2017 Disposition: Discharged to go to [facility]. Discharge Medications And Instructions: 1.Continue all prior home medication. 2.The patient will take carvedilol 3.125 mg 2 times a day, ceftazidime 1 g IV piggyback every 8 hour s for 1 week, Cipro 500 mg twice a day for 1 week, fluconazole 100 mg p.o. daily for 1 week. 3.Nursing staff to flush PICC line per protocol. 4.Change PICC line dressing per protocol. 5.Obtain straight cath urine specimen for urinalysis and urine culture after 1 week of IV antibiotic therapy completed and notify Dr. Daigle with result and discuss about removal of PICC line at that [facility]. 6.Fall precautions. 7.Consult Physical Therapy. 8.Start medications as mentioned above. Physical Examination: HEENT: Unremarkable. Lungs: Clear to auscultation. Heart: Sounds normal. Abdomen: Soft. Bowel sounds normal. No guarding, rigidity, tenderness, or distention. Extremities: No leg edema. Hospital Course: This is an 82-year-old female patient, who was admitted to the hospital from [facility] after she was diagnosed as having urinary tract infection. The patient had a straight cath ur ine specimen collected at the [facility] for followup on urinary tract infection that she already h ad and this straight cath urine specimen was sent to lab in [place] and this is a new lab at [facility], has started using and according to that lab results, it grew Nolvia, E. coli and Pseudomonas a nd as per sensitivity result, Pseudomonas is only sensitive to IV antibiotics, so the patient was bro ught into hospital. After she was evaluated in the ER, she was admitted to the hospital. IV ceftazi dime was started and the patient was started on fluconazole and Cipro. The patient tolerated IV anti biotics very well and Social Service was consulted to help make arrangements for antibiotic IV ceftaz idime to be continued at the intermediate. The patient's blood pressure was elevated and she was sta rted on carvedilol. She tolerated that very well. Final Diagnoses: 1.Urinary tract infection. 2.Senile dementia. 3.Hypokalemia. 4.Hypertension. 5.Glaucoma. 6.Hyperlipidemia. 7.Weight loss. 8.Hypomagnesemia. Laboratory Data: Initial white count was 6.5, hemoglobin 11.4, platelets 330. Repeat white count 5. 4, hemoglobin 11.8, platelets 294. Last chemistry; sodium 140, potassium 4, chloride 104, bicarb 27, BUN 14, creatinine 1.08, glucose 97, lowest magnesium 1.6, lowest potassium 2.7 upon admission. DANIELA/MODL Voice ID: [id number] Report ID: [id number]
== END 2017-11-24 11:40 | DRG 690 ==
LOC: ER 10:48 → ERHOLD 11:42 → OBSVTOIN 13:01 → 2ND 14:04
PROVIDERS: ADMIT Internal Medicine; ATTEND Internal Medicine
PROC: 02HV33Z Insertion of Infusion Device into Superior Vena Cava, Percutaneous Approach (ICD-10-PCS; principal; 2017-11-22)
DX: N39.0 Urinary tract infection, site not specified (principal); B96.20 Unspecified Escherichia coli [E. coli] as the cause of diseases classified elsewhere; B96.5 Pseudomonas (aeruginosa) (mallei) (pseudomallei) as the cause of diseases classified elsewhere; F03.90 Unspecified dementia, unspecified severity, without behavioral disturbance, psychotic disturbance, mood disturbance, and anxiety; E78.2 Mixed hyperlipidemia; H40.9 Unspecified glaucoma; E87.6 Hypokalemia; E83.42 Hypomagnesemia; D64.9 Anemia, unspecified; R63.4 Abnormal weight loss; Z68.26 Body mass index [BMI] 26.0-26.9, adult
CPT/HCPCS: 36415; 51702; 71045; 80048; 80076; 81003; 81015; 83605; 83690; 83735; 84132; 84145; 84484; 85025; 85610; 87040; 87077; 87086; 87088; 87186; 93005; 99285; J0713; J1450; J1650; J3475; J7030

== ENCOUNTER 2018-08-27 07:39 | Inpatient (IN) | payer OTHER, MEDICARE ==
[2018-08-27 08:12] LABS: Absolute Lymphocytes (CBC) 1.4 K/uL (0.7-4.9); Absolute Monocytes 0.4 K/uL (0.1-1.3); Absolute Neutrophil 2.7 K/uL (1.8-8.0); Basophils % 1.2 % (0-1.3); Eosinophils % 2.1 % (0-4.4); Hematocrit 38.1 % (36.0-45.0); Lymphocytes % 30.1 % (15.3-44.8); MPV 7.1 fL (7.6-11.3); Monocytes % 7.9 % (3.3-12.3)
[2018-08-27 08:14] LABS: Protime INR 1.15
[2018-08-27 08:17] LABS: Potassium 3.6 mmol/L (3.5-5.1)
[2018-08-27] MEDS ORDERED: MORPHINE 2 MG/ML SYR ONE (08:28)
[2018-08-27] MEDS ORDERED: ONDANSETRON 4 MG/2 ML VIAL ONE (08:28)
--- NOTE | 2018-08-27 08:34 | ER ---
Nurse's Notes [facility] Name: Lillian Cabrera Age: 82 yrs Sex: Female : 1935 Arrival Date: 08/27/2018 Time: 07:40 Bed 17 Private MD: Diagnosis: Displaced subtrochanteric fracture of left femur Presentation: 08/27 07:45 Acuity: JOBY 3 bp 07:45 Care prior to arrival: None. Mechanism of Injury: Fall from standing position. Trauma bp event details: Injury occurred in the [facility], Injury occurred: at home. Injury occurred: August 27, 2018 Injury occurred at: 07:00. 07:46 Presenting complaint: Patient states: left leg pain secondary to fall from standing pc1 position at [facility]. Transition of care: [facility]. Onset of symptoms was August 27, 2018 at 07:20. Risk Assessment: Do you want to hurt yourself or someone else? Patient reports no desire to harm self or others. Initial Sepsis Screen: Does the patient meet any 2 criteria? No. Patient's initial sepsis screen is negative. Does the patient have a suspected source of infection? No. Patient's initial sepsis screen is negative. 07:46 Method Of Arrival: EMS: [facility] pc1 Triage Assessment: 07:55 General: Appears distressed, uncomfortable, Behavior is calm, cooperative. Pain: pc1 Complains of pain in left leg Pain does not radiate. Pain currently is 8 out of 10 on a pain scale. Quality of pain is described as Aggravated by increased activity, weight bearing. Musculoskeletal: Shorting and external rotation of the left leg noted. Left leg skin is warn dry and appropriate color. Tenderness present in left leg Reports pain in left leg. Injury Description: Deformity sustained to left leg. Trauma Activation: Consult Physician: ED Physician; Name: ; Notified At: ; Arrived At: Physician: General Surgeon; Name: ; Notified At: ; Arrived At: Physician: Radiology; Name: ; Notified At: ; Arrived At: Physician: Respiratory; Name: ; Notified At: ; Arrived At: Physician: Lab; Name: ; Notified At: ; Arrived At: Historical: - Allergies: 07:55 No Known Allergies; pc1 - Home Meds: 07:55 acetaminophen 500 mg Oral tab [Active]; Acidophilus Oral chew [Active]; Aricept 23 mg pc1 Oral tab [Active]; aspirin 81 mg Oral chew [Active]; carvedilol 3.125 mg oral tab [Active]; Docusate Sodium Oral [Active]; mirtazapine 15 mg Oral TbDL [Active]; Namenda 10 mg oral tab [Active]; - PMHx: 07:55 Hyperlipidemia; Glaucoma; UTI; Hypertension; pc1 - Immunization history:: Adult Immunizations unknown. - Social history:: Smoking status: unknown. - Immunization history: Last tetanus immunization: - up to date. - Family history:: not pertinent. - Ebola Screening: : Patient negative for fever greater than or equal to 101.5 degrees Fahrenheit, and additional compatible Ebola Virus Disease symptoms Patient denies exposure to infectious person Patient denies travel to an Ebola-affected area in the 21 days before illness onset. - Hospitalizations: : No recent hospitalization is reported. Screenin:01 Abuse screen: Denies threats or abuse. Denies injuries from another. Nutritional pc1 screening: No deficits noted. Tuberculosis screening: No symptoms or risk factors identified. Fall Risk Fall in past 12 months (25 points). Secondary diagnosis (15 points) dementia, Gait- Mental Status-. Primary Survey: 08:00 NO uncontrolled hemorrhage observed. A: Airway: patent. Breathing/Chest: Respiratory bp pattern: regular, Respiratory effort: spontaneous, unlabored, Breath sounds: clear. Circulation: Skin color: pink, Skin temperature: warm, dry. Disability Alert. Exposure/Environment: All clothing and personal items were removed. Forensic evidence collection is not deemed to be indicated at this time. Items placed in patient belonging bag. There is no evidence of uncontrolled external bleeding. Obvious injury(ies) are noted at this time: SHORTENING AND EXTERNAL ROTATION OF LEFT LEG A warming method has been applied: A warm blanket has been provided to the patient. 15:18 Reassessment Airway Airway Patent Breathing/Chest Respiratory pattern Regular bp Respiratory effort Spontaneous Unlabored. Secondary Survey: 08:00 HEENT: No deficits noted. Gastrointestinal: No deficits noted. : No signs and/or bp symptoms were reported regarding the genitourinary system. Musculoskeletal: Bony deformity noted of left leg. Assessment: 08:03 Reassessment: Patient and/or family updated on plan of care and expected duration. Pain pc1 level reassessed. Patient is alert, oriented x 3, equal unlabored respirations, skin warm/dry/pink. See Triage notes. 09:24 Reassessment: Patient and/or family updated on plan of care and expected duration. Pain pc1 level reassessed. Pain: Complains of pain in left leg Pain currently is 5 out of 10 on a pain scale. Quality of pain is described as sharp, Alleviated by rest, Aggravated by increased activity. 11:32 Reassessment: ALL CURRENT ORDERS COMPLETED, ADMIT IN PROCESS. bp Vital Signs: 07:55 BP 191 / 95; Pulse 50; Resp 17; Temp 97.9; Pulse Ox 95% on R/A; Weight 63.5 kg; Height pc1 5 ft. 3 in. (160.02 cm); Pain 8/10; 09:25 BP 167 / 87; Pulse 57; Resp 16; Pulse Ox 95% on R/A; Pain 5/10; pc1 10:30 BP 145 / 94; Pulse 56; Resp 14; Pulse Ox 95% ; bp 11:30 BP 148 / 86; Pulse 72; Resp 14; Pulse Ox 95% ; bp 13:00 BP 140 / 76; Pulse 62; Resp 14; Pulse Ox 95% ; bp 14:00 BP 126 / 87; Pulse 64; Resp 16; Pulse Ox 98% ; bp 15:00 BP 132 / 83; Pulse 67; Resp 14; Pulse Ox 91% on R/A; bp 07:55 Body Mass Index 24.80 (63.50 kg, 160.02 cm) pc1 Eulalia Coma Score: 08:00 Eye Response: spontaneous(4). Verbal Response: oriented(5). Motor Response: obeys bp commands(6). Total: 15. Trauma Score (Adult): 08:00 Eye Response: spontaneous(1); Verbal Response: oriented(1); Motor Response: obeys bp commands(2); Systolic BP: > 89 mm Hg(4); Respiratory Rate: 10 to 29 per min(4); [place] Score: 15; Trauma Score: 12 ED Course: 07:40 Patient arrived in ED. hj 07:40 Varghese Shafer, MARIANA is Primary Nurse. bp 07:42 Bobby Flores MD is Attending Physician. rn 07:50 Initial lab(s) drawn, by al, sent to lab. Inserted saline lock: 22 gauge in right hj antecubital area, using aseptic technique. Blood collected. 07:57 CBC with Diff Sent. hj 07:57 Basic Metabolic Panel Sent. hj 07:57 Ptt, Activated Sent. hj 07:57 Protime (+inr) Sent. hj 08:00 Patient maintains SpO2 saturation greater than 95% on room air. Thermoregulation: warm bp blanket given to patient. 08:01 Arm band placed on. pc1 08:02 Patient has correct armband on for positive identification. Call light in reach. Side pc1 rails up X2. Warm blanket given. 08:08 X-ray completed. Portable x-ray completed in exam room. Patient tolerated procedure jb2 well. 08:09 XRAY Pelvis In Process Unspecified. EDMS 08:09 XRAY Hip LEFT 2 view In Process Unspecified. EDMS 08:19 EKG done, by photo technologist. reviewed by Bobby Flores MD. at1 08:32 Larissa Daigle MD is Hospitalizing Provider. rn 09:35 Triage completed. bp 14:24 Cruz cath inserted, using sterile technique, 16 Fr., by al, balloon inflated, to ag gravity drainage, clamped. urine specimen collected. 15:17 No provider procedures requiring assistance completed. Patient admitted, IV remains in bp place. Administered Medications: 08:10 Drug: morphine 2 mg Route: IVP; Site: right antecubital; bp 10:11 Follow up: Response: No adverse reaction bp 08:10 Drug: Zofran 4 mg Route: IVP; Site: right antecubital; bp 10:12 Follow up: Response: No adverse reaction bp Intake: 08:00 PO: 0ml; Total: 0ml. bp Output: 08:00 Urine: 0ml; Total: 0ml. bp Outcome: 08:33 Decision to Hospitalize by Provider. rn 15:16 Admitted to Med/surg accompanied by tech, family with patient, via stretcher, room 217, bp with chart, Report called to LAURA PEÑA 15:16 Condition: stable 15:16 Patient's length of stay was extended due to the trauma surgeon being unavailable when called. 15:17 Attestation : I AGREE TO THE ABOVE. bp 15:48 Patient left the ED. bp Signatures: Dispatcher [employer] EDMS Sae Monaco jb2 Bobby Flores MD MD rn Nadine Knott, crocodile farmer EKG Tat1 Ara Rodriguez Henry, RN RN hj Peltier, Brian, RN RN Lazaro Card pc1 Corrections: (The following items were deleted from the chart) 09: 08:03 Reassessment: Patient and/or family updated on plan of care and expected pc1 duration. Pain level reassessed. Patient is alert, oriented x 3, equal unlabored respirations, skin warm/dry/pink. See Triage notes pc1
--- NOTE | 2018-08-27 08:34 | EDPHYS ---
Physician Documentation [facility] Name: Lillian Cabrera Age: 82 yrs Sex: Female : 1935 Arrival Date: 08/27/2018 Time: 07:40 Bed 17 Private MD: ED Physician Bobby Flores HPI: 08/27 07:48 This 82 yrs old Female presents to ER via Unassigned with complaints of Fall rn Injury. 07:48 The patient or guardian reports decreased range of motion, an injury, pain. that rn occurred at a jail or assisted living facility, sustained from a fall, the left lower extremity is shortened, left leg is externally rotated, The patient is not able to ambulate. Patient is not able to bear weight. There is no radiation of the patient's discomfort. The complaints affect the left leg. Onset: The symptoms/episode began/occurred just prior to arrival. Modifying factors: The symptoms are alleviated by nothing, the symptoms are aggravated by any movement. Severity of symptoms: At their worst the symptoms were moderate, in the emergency department the symptoms are unchanged. The patient has not experienced similar symptoms in the past. The patient has not recently seen a physician. Reports went to bathroom, slipped on way out, + left hip injury and pain, no other injury, no LOC, no head injury, not on blood thinners, remembers all events. . Historical: - Allergies: 07:55 No Known Allergies; pc1 - Home Meds: 07:55 acetaminophen 500 mg Oral tab [Active]; Acidophilus Oral chew [Active]; Aricept 23 mg pc1 Oral tab [Active]; aspirin 81 mg Oral chew [Active]; carvedilol 3.125 mg oral tab [Active]; Docusate Sodium Oral [Active]; mirtazapine 15 mg Oral TbDL [Active]; Namenda 10 mg oral tab [Active]; - PMHx: 07:55 Hyperlipidemia; Glaucoma; UTI; Hypertension; pc1 - Immunization history:: Adult Immunizations unknown. - Social history:: Smoking status: unknown. - Immunization history: Last tetanus immunization: - up to date. - Family history:: not pertinent. - Ebola Screening: : Patient negative for fever greater than or equal to 101.5 degrees Fahrenheit, and additional compatible Ebola Virus Disease symptoms Patient denies exposure to infectious person Patient denies travel to an Ebola-affected area in the 21 days before illness onset. - Hospitalizations: : No recent hospitalization is reported. ROS: 07:48 Constitutional: Negative for fever, chills, and weight loss, Eyes: Negative for injury, rn pain, redness, and discharge, Neck: Negative for injury, pain, and swelling, Cardiovascular: Negative for chest pain, palpitations, and edema, Respiratory: Negative for shortness of breath, cough, wheezing, and pleuritic chest pain, Abdomen/GI: Negative for abdominal pain, nausea, vomiting, diarrhea, and constipation, MS/Extremity: + left hip injury and pain Skin: Negative for injury, rash, and discoloration, Neuro: Negative for headache, weakness, numbness, tingling, and seizure. Exam: 07:48 Constitutional: This is a well developed, well nourished patient who is awake, alert, rn and in no acute distress. Neck: No midline tenderness Chest/axilla: Normal chest wall, Nontender with no deformity. Cardiovascular: Regular rate and rhythm. No pulse deficits. Respiratory: Lungs have equal breath sounds bilaterally, clear to auscultation. No increased work of breathing, no retractions or nasal flaring. Abdomen/GI: soft, non-tender, no ecchymosis Skin: Warm, dry MS/ Extremity: Pulses equal, no cyanosis. Neurovascular intact. LLE externally rotated and shortened. + proximal left hip tenderness and painful ROM. No tenderness or deformity at knee or below. Neuro: Awake and alert, GCS 15, oriented to person, place, and situation. Motor strength 5/5 in all extremities. Sensory grossly intact. Vital Signs: 07:55 BP 191 / 95; Pulse 50; Resp 17; Temp 97.9; Pulse Ox 95% on R/A; Weight 63.5 kg; Height pc1 5 ft. 3 in. (160.02 cm); Pain 8/10; 09:25 BP 167 / 87; Pulse 57; Resp 16; Pulse Ox 95% on R/A; Pain 5/10; pc1 10:30 BP 145 / 94; Pulse 56; Resp 14; Pulse Ox 95% ; bp 11:30 BP 148 / 86; Pulse 72; Resp 14; Pulse Ox 95% ; bp 13:00 BP 140 / 76; Pulse 62; Resp 14; Pulse Ox 95% ; bp 14:00 BP 126 / 87; Pulse 64; Resp 16; Pulse Ox 98% ; bp 15:00 BP 132 / 83; Pulse 67; Resp 14; Pulse Ox 91% on R/A; bp 07:55 Body Mass Index 24.80 (63.50 kg, 160.02 cm) pc1 Eulalia Coma Score: 08:00 Eye Response: spontaneous(4). Verbal Response: oriented(5). Motor Response: obeys bp commands(6). Total: 15. Trauma Score (Adult): 08:00 Eye Response: spontaneous(1); Verbal Response: oriented(1); Motor Response: obeys bp commands(2); Systolic BP: > 89 mm Hg(4); Respiratory Rate: 10 to 29 per min(4); [place] Score: 15; Trauma Score: 12 MDM: 07:43 Patient medically screened. rn 08:31 Differential diagnosis: hip fracture, intertrochanteric fracture, femoral neck rn fracture. Data reviewed: vital signs, nurses notes, lab test result(s), EKG, radiologic studies, and as a result, I will admit patient. Counseling: I had a detailed discussion with the patient and/or guardian regarding: the historical points, exam findings, and any diagnostic results supporting the discharge/admit diagnosis, lab results, radiology results, the need for further work-up and treatment in the hospital. Admission orders: after a detailed discussion of the patient's condition and case, the admit orders are written by me. ED course: Pt with left hip fracture, Dr. Daigle in ER evaluating patient, will admit and consult Dr. Henao.. 08/27 07:43 Order name: CBC with Diff; Complete Time: 08:23 rn 08/27 07:43 Order name: Basic Metabolic Panel; Complete Time: 08:23 rn 08/27 07:43 Order name: Protime (+inr); Complete Time: 08:23 rn 08/27 07:43 Order name: Ptt, Activated; Complete Time: 08:23 rn 08/27 14:20 Order name: Urine Culture aa5 08/27 14:25 Order name: Urine Dipstick--Ancillary (enter results) bd 08/27 07:43 Order name: XRAY Pelvis; Complete Time: 08:56 rn 08/27 07:43 Order name: XRAY Hip LEFT 2 view rn 08/27 07:43 Order name: IV Start; Complete Time: 07:57 rn 08/27 07:52 Order name: EKG; Complete Time: 07:52 rn 08/27 07:52 Order name: EKG - Nurse/Tech; Complete Time: 08:15 rn 08/27 09:52 Order name: NPO; Complete Time: 10:11 rn Administered Medications: 08:10 Drug: morphine 2 mg Route: IVP; Site: right antecubital; bp 10:11 Follow up: Response: No adverse reaction bp 08:10 Drug: Zofran 4 mg Route: IVP; Site: right antecubital; bp 10:12 Follow up: Response: No adverse reaction bp Disposition: 08/27/18 08:33 Hospitalization ordered by Larissa Daigle for Inpatient Admission. Preliminary diagnosis is Displaced subtrochanteric fracture of left femur. - Bed requested for Telemetry/MedSurg (Inpatient). - Status is Inpatient Admission. bp - Condition is Stable. - Problem is new. - Symptoms have improved. UTI on Admission? No Signatures: Dispatcher [employer] EDMS Xena Elmore Roman, MD MD rn Peltier, Brian, RN RN Lazaro Card Corrections: (The following items were deleted from the chart) 14:52 08:33 Hospitalization Ordered by A Pilo ROBERTSON for Inpatient Admission. Preliminary bd diagnosis is Displaced subtrochanteric fracture of left femur. Bed requested for Telemetry/MedSurg (Inpatient). Status is Inpatient Admission. Condition is Stable. Problem is new. Symptoms have improved. UTI on Admission? No. rn 15:48 14:52 08/27/2018 08:33 Hospitalization Ordered by A Pilo ROBERTSON for Inpatient Admission. bp Preliminary diagnosis is Displaced subtrochanteric fracture of left femur. Bed requested for Telemetry/MedSurg (Inpatient). Status is Inpatient Admission. Condition is Stable. Problem is new. Symptoms have improved. UTI on Admission? No. bd
--- NOTE | 2018-08-27 08:51 | RAD REPORT ---
EXAM DESCRIPTION: RAD - Pelvis - 08/27/2018 8:12 am CLINICAL HISTORY: BLUNT TRAUMA Fall, trauma, pain COMPARISON: None FINDINGS: AP pelvis and left hip - multiple projections are submitted Intratrochanteric and subtrochanteric fracture of the proximal left femur is seen with varus angulati on. No dislocation. Amorphous calcification in the pelvis likely related to a calcified fibroid.
--- NOTE | 2018-08-27 10:15 | RAD REPORT ---
EXAM DESCRIPTION: RAD - Hip Left 2 View - 08/27/2018 8:10 am CLINICAL HISTORY: BLUNT TRAUMA Fall, trauma, pain COMPARISON: None FINDINGS: AP pelvis and left hip - multiple projections are submitted Intratrochanteric and subtrochanteric fracture of the proximal left femur is seen with varus angulati on. No dislocation. Amorphous calcification in the pelvis likely related to a calcified fibroid.
[2018-08-27] MEDS ORDERED: ONDANSETRON 4 MG/2 ML VIAL IV PRN (15:42)
[2018-08-27] MEDS: D5.45NS W/KCL 20MEQ 1,000 ML IV SCH (16:29)
--- NOTE | 2018-08-27 18:44 | P.CNS ---
Date of Consult: 08/27/18 Reason for Consult: left hip fracture Chief Complaint: left hip pain History of Present Illness: slef hip pain s/p fall at a nursing faility today. she has deformity to her left hip and her left foot is turned out, she was not able to bare weight on her left leg. pain is exacerbated by motion. she was admitted thought the ED with a left hip intertrochanteric fracture. she has dementia and memory loss but was able to localize her pain to her left lower extremity. she has been cleared by cardiology Allergies No Known Allergies Allergy (Unverified 09/27/17 12:06) Home medications list reviewed: Yes Home Medications: Acetaminophen [Acetaminophen Extra Strength] 1 tab PO Q6HP PRN 11/21/17 Docusate Sodium 100 mg PO BID 11/21/17 Mirtazapine 15 mg PO BEDTIME 11/21/17 Acidophilus/Bifido Longum [Lactobacillus Capsule] 16 mg PO BID 08/27/18 Carvedilol [Coreg*] 6.25 mg PO BID 08/27/18 Cholecalciferol (Vitamin D3) [Vitamin D3] 1 cap PO BID 08/27/18 Donepezil HCl [Aricept] 23 mg PO BEDTIME 08/27/18 Memantine HCl [Namenda] 10 mg PO BID 08/27/18 - Past Medical/Surgical History Diabetic: No -: dementia -: hyperlipidemia -: glaucoma -: elevated wbc -: volume depeletion -: uti (chronic) -: constipation -: muscle weakness (generalized) - Social History Smoking Status: Unknown if ever smoked Alcohol use: No CD- Drugs: No Caffeine use: Yes Place of Residence: [facility] Review of Systems is unable to be obtained Physical Examination Temp Pulse Resp BP Pulse Ox 98.7 F 71 20 158/85 H 91 08/27/18 16:00 08/27/18 16:00 08/27/18 16:00 08/27/18 16:00 08/27/18 16:00 General: Alert, Cooperative, Demented HEENT: Atraumatic, Normocephalic Respiratory: Normal air movement Musculoskeletal: Other (she has deformity to her left hip and her left foot is turned out) Laboratory Data (last 24 hrs) 08/27/18 07:50: PT 13.5 H, INR 1.15, APTT 31.5 08/27/18 07:50: Sodium 141, Potassium 3.6, BUN 16, Creatinine 1.06, Glucose 86 08/27/18 07:50: WBC 4.5, Hgb 13.3, Hct 38.1, Plt Count 207 - Problems (1) Closed intertrochanteric fracture of left hip Onset Date: ~08/27/18 Current Visit: Yes Status: Acute Plan: she has been cleared by cardiology, we will plan to do a left hip intramedulary rodding tomorrow at 5:00 pm, NPO after midnight. her family was INTERVIEWED AND CONSENTED BY Dr. Puentes Qualifiers: Encounter type: initial encounter Fracture alignment: displaced Qualified Code(s): S72.142A - Displaced intertrochanteric fracture of left femur , initial encounter for closed fracture
[2018-08-27] MEDS: MORPHINE 2 MG/ML SYR IV PRN (20:14)
--- NOTE | 2018-08-27 21:37 | HP ---
Date of Admission: 08/27/2018 Chief Complaint: Fall and hip pain. History Of Present Illness: This is an 82-year-old very pleasant female patient living at [facility], ambulates with a walker, and this morning she slipped and fell down in her room as she was coming out of the bathroom as I understand by talking to nursing staff. The patient immediately started complaining of hip pain and she was brought into the emergency room where further evaluation revealed presence of left hip fracture. I saw her in the emergency room this morning. Her son was with her at bedside. The patient has significant dementia problem and her memory has declined significantly. She does not remember when was the last time she saw me and in fact the last time I visited her at assisted was yesterday. Allergies: NO KNOWN ALLERGIES. Medications: List reviewed. Review of Systems: Musculoskeletal: As mentioned above. All other systems reviewed and negative. Past Medical History: Significant for dementia, mixed hyperlipidemia, glaucoma. Also significant for urinary tract infection. Past Surgical History: Negative. Family History: Significant for unknown type of cancer and cardiovascular disease. Social History: Negative for smoking and alcohol use. Physical Examination: Vital Signs: Height 5 feet, 3 inches, weight 63.5 kg, blood pressure 191/95, pulse 50, respiratory rate 17, temperature 97.9, oxygen saturation 95%. General: The patient awake alert, but not oriented due to her underlying dementia problem. HEENT: Head atraumatic, normocephalic. Conjunctivae nonerythematous. Sclerae white. Mouth, no thrush or edema noted. Ears/Nose, no mass, lesion, discharge noted. Neck: Supple. No JVD, lymph nodes, bruit, thyromegaly noted. Lungs: Bilateral good equal air entry. Clear to auscultation. No rhonchi. No rales. Heart: Normal heart sounds, no murmur or gallop. Abdomen: Soft, bowel sounds normal. No guarding, rigidity, tenderness, mass, hepatosplenomegaly, distention, or bruit noted. Extremities: Left leg is externally rotated. Skin: No rash, ulcer, cellulitis. Lymphatics: No lymph node enlargement in neck, supraclavicular, infraclavicular region. Neuro: No focal neurological deficit. Chest: Unremarkable. External Genitalia: Deferred. Rectal: Deferred. Laboratory Data: INR 1.15. White count 4.5, hemoglobin 13.3, platelets 207. Sodium 141, potassium 3.6, chloride 104, bicarb 31, BUN 16, creatinine 10.6, glucose 86. Hip and pelvis x-ray shows presence of left hip fracture. Impression: 1. Fracture, left hip. 2. Senile dementia. 3. Mixed hyperlipidemia. 4. Glaucoma. Plan: We will go ahead and admit the patient to hospital for further evaluation and management of this problem. The patient is appropriate for inpatient and is expected to spend 2 midnights in hospital. The patient's home medications will be continued per order. Dr. Puentes from Orthopedic Surgery has been consulted. He is planning to do surgery later today, so we will keep her n.p.o. and the patient is at acceptable risk from planned surgery. Her electrocardiogram was normal sinus rhythm. No acute ST-T changes noted. The patient may have some problem with the confusion, hallucination, agitation, etc. , during this hospitalization, which is expected with her underlying history and all these details were discussed with the patient's son and if such problem arises, requiring certain medications, then we will consider appropriate intervention at that time. All these details were discussed with the patient and her son in the emergency room. I will see her tomorrow for followup. After the surgery, once her condition is stable, our plan is to discharge her to go back to assisted for rehab therapy to be done at assisted for her. DANIELA/ADRIEL Voice ID: [id number] MTDMarco Antonio
--- NOTE | 2018-08-27 22:34 | CON ---
History Of Present Illness: Mrs. Cabrera is 82. She has enjoyed good health most of her life. She is 2, para 2. Never had any surgeries before other than LASIK eye surgery. She lives in a nurs ing home and stumbled and fell yesterday. Her left femur is fractured. It is below the trochanters. At this point, she has not had surgery. I am asked to evaluate her to see if she would be a good s urgical candidate. The patient does not have any cardiac symptoms. No history of syncope. No histo ry of pacemakers, heart surgery, stents, myocardial infarction, or stroke. She has never used tobacc o or alcohol. Yesterday's event was a trip and fall, not a dizzy spell or loss of consciousness. Physical Examination: General: 5 feet 3 inches, 150 pounds. She appears to be her stated age. No acute distress. Lungs: Clear. Cardiac Exam: Normal. Abdomen: Soft. Extremities: Normal. Imaging Data: EKG reveals a questionable old anterior MD. It is actually just poor R-wave progressi on and may not mean an infarct at all, but it is unchanged from old EKGs. Impression: My impression is that the patient has a fracture that will need surgical repair most lik radha. The surgeon has not seen her yet, but I believe she is a very good candidate for going through the surgery. We do not need to do any other tests before she has it. AVILA/ADRIEL Voice ID: [id number] Report ID: [id number]
[2018-08-28] MEDS: D5.45NS W/KCL 20MEQ 1,000 ML IV SCH ×2 (02:17→11:22)
[2018-08-28] MEDS: MORPHINE 2 MG/ML SYR IV PRN ×2 (03:08→15:04)
[2018-08-28 06:06] LABS: Potassium 3.8 mmol/L (3.5-5.1)
[2018-08-28 06:14] LABS: Absolute Lymphocytes (CBC) 0.9 K/uL (0.7-4.9); Absolute Monocytes 0.7 K/uL (0.1-1.3); Absolute Neutrophil 5.6 K/uL (1.8-8.0); Basophils % 0.3 % (0-1.3); Hematocrit 31.8 % (36.0-45.0); Lymphocytes % 12.4 % (15.3-44.8); MPV 7.7 fL (7.6-11.3); Monocytes % 9.3 % (3.3-12.3); RBC Red Blood Cell Count 3.29 M/uL (3.86-4.86)
[2018-08-28] MEDS ORDERED: ONDANSETRON 4 MG/2 ML VIAL IV PRN (07:23)
--- NOTE | 2018-08-28 14:26 | PN ---
Date of Progress Note: 08/28/2018 Subjective: The patient was seen this morning for followup. No new complaints or problems reported by patient. Lying in bed, not in distress. Complains of left hip pain but no nausea, vomiting, ches t pain. No shortness of breath. Objective: Vital Signs: Reviewed. HEENT: Unremarkable. Lungs: Clear to auscultation. Heart: Sounds normal. Abdomen: Soft. Bowel sounds normal. No guarding, rigidity, tenderness, distention. Extremities: No leg edema. Laboratory Data: White count 7.2, hemoglobin 10.9, platelets 185. Sodium 139, potassium 3.8, chlori de 105, bicarb 27, BUN 26, creatinine 1.31, glucose 129. Impression: 1.Left hip fracture. 2.Senile dementia. 3.Anemia due to acute blood loss. 4.Volume depletion. Plan: We will go ahead and continue IV fluid that she is currently getting. Continue to monitor blo od work. The patient's hemoglobin has dropped between yesterday and today, but no need for any blood transfusion yet. We will consider blood transfusion if it becomes necessary during this hospitaliza tion. The patient is at acceptable risk for planned hip surgery and my understanding is that she pro bably will have hip surgery today after talking to nursing staff this morning. Continue current pain medication and nausea medication and her custodial medications will be resumed after surgery as the patient is currently n.p.o. for her surgery. DANIELA/MODL Voice ID: [id number] Report ID: [id number]
[2018-08-28] MEDS ORDERED: Ringers Lactate 1,000 ML IV ONE (15:31)
[2018-08-28] MEDS ORDERED: PROPOFOL 200 MG/20 ML VIAL IV ONE (16:07)
[2018-08-28] MEDS ORDERED: FENTANYL CITR 100 MCG/2 ML ONE (16:07)
[2018-08-28] MEDS ORDERED: LIDOCAINE 2% MPF 5 ML VIAL ONE (16:07)
[2018-08-28] MEDS: CEFAZOLIN SODIUM 1 GM/VIAL ONE ×2 (16:44→17:00)
[2018-08-28] MEDS ORDERED: EPHEDRINE SULF 50 MG/ML VIAL ONE (17:02)
--- NOTE | 2018-08-28 18:12 | RAD REPORT ---
EXAM DESCRIPTION: RAD - Hip In Or - 08/28/2018 6:01 pm CLINICAL HISTORY: LEFT HIP RODDING COMPARISON: Pelvis dated 08/27/2018 FINDINGS: Fluoroscopy time 2.4 minutes.
[2018-08-28] MEDS ORDERED: HYDROMORPHONE HCL 1 MG/ML INJ ONE (18:37)
--- NOTE | 2018-08-28 18:49 | RAD REPORT ---
EXAM DESCRIPTION: RAD - Pelvis - 08/28/2018 6:40 pm CLINICAL HISTORY: post op Left hip fracture COMPARISON: Hip In Or dated 08/28/2018 FINDINGS: IM rodding has been performed with reduction of the previously noted proximal femur fractu re. Calcification of the pelvis is compatible with a calcified fibroid.
[2018-08-28] MEDS ORDERED: NACHLORIDE 0.45% 1,000 ML IV ONE (19:20)
--- NOTE | 2018-08-28 20:17 | OP ---
Surgeon: Chano Puentes MD Preoperative Diagnosis: Left 4-part intertrochanteric hip fracture. Postoperative Diagnosis: Left 4-part intertrochanteric hip fracture. Procedure Performed: Left hip intramedullary rodding. Licensed Massage Practitioner: Remberto Morales PA-C. Complications: None. Disposition: Recovery room, stable. Procedure In Detail: The patient was taken to the operative suite, placed in supine position, induce d anesthesia. Left hip was prepped and draped in usual sterile fashion. Incision created at tip of the greater trochanter. Reduction maneuver was quite difficult to achieve. The fracture shaft had b een fractured and twisted completely posteriorly to the neck and shaft. The neck and shaft were osorio rectly reduced with a guidewire. An 11 mm x 125 nail was placed across the fracture site in the subc hondral bone of the femoral head. Verified on biplane radiography. The patient tolerated the proced ure well, was reversed from anesthesia, and should be in the recovery room shortly. TINY/ADRIEL Voice ID: [id number] Report ID: [id number]
[2018-08-28] MEDS: DOCUSATE NA 100 MG CAP PO SCH (21:00)
[2018-08-29] MEDS: MORPHINE 2 MG/ML SYR IV PRN ×3 (00:55→23:06)
[2018-08-29] MEDS: D5.45NS W/KCL 20MEQ 1,000 ML IV SCH ×3 (00:56→17:42)
[2018-08-29] MEDS: DOCUSATE NA 100 MG CAP PO SCH ×3 (00:56→21:57)
[2018-08-29] MEDS ORDERED: CEFAZOLIN/NS 1gm 1 GM/50 ML BAG IVPB SCH (01:00)
[2018-08-29] MEDS ORDERED: CEFAZOLIN SODIUM 1 GM/VIAL ONE (01:59)
[2018-08-29] MEDS ORDERED: NA CHLORIDE 0.9% 50 ML ONE (02:03)
[2018-08-29 04:49] LABS: Absolute Lymphocytes (CBC) 0.5 K/uL (0.7-4.9); Absolute Monocytes 0.7 K/uL (0.1-1.3); Absolute Neutrophil 7.8 K/uL (1.8-8.0); Basophils % 0.2 % (0-1.3); Lymphocytes % 5.3 % (15.3-44.8); MPV 7.2 fL (7.6-11.3); Monocytes % 7.9 % (3.3-12.3); RBC Red Blood Cell Count 2.78 M/uL (3.86-4.86)
[2018-08-29 05:10] LABS: Albumin 2.8 g/dL (3.4-5.0); Bilirubin Total 0.4 mg/dL (0.2-1.0); Potassium 4.4 mmol/L (3.5-5.1); Protein, Total 5.9 g/dL (6.4-8.2)
[2018-08-29 05:27] LABS: Blood Morphology Comment NOT SEEN (NOT SEEN); Platelet Estimate ADEQ
[2018-08-29 06:56] VITALS: BMI 26.4
[2018-08-29] MEDS: SMZ./TMP. 800/160 MG TABLET PO SCH ×2 (08:42→21:57)
[2018-08-29] MEDS: MEMANTINE HCL 10 MG TABLET PO SCH ×2 (08:42→21:58)
[2018-08-29] MEDS ORDERED: CEFAZOLIN/SWI 1gm 1 GM/10 ML SYR IV SCH (09:00)
[2018-08-29] MEDS ORDERED: HOME MED 1 EA UNK (Docusate Sodium [Docusate Sodium] 100 MG) PO SCH (09:00)
[2018-08-29] MEDS ORDERED: CARVEDILOL 3.125 MG TAB PO ONE (09:09)
--- NOTE | 2018-08-29 13:48 | PN ---
Date of Progress Note: 08/29/2018 Subjective: The patient was seen for followup. She was in ICU after her hip surgery. She was admit bethel to intensive care unit. Overnight, her condition has remained stable. This morning when I saw h er, she was sleeping, arousable, not in distress. She has underlying dementia problem and after surg chelita she has little more harder time communicating or following simple commands. She was noted to be moving her head and eyes when we call her, she also moves both upper extremities spontaneously. Ther e was no focal weakness or any facial asymmetry noted. Objective: Vital Signs: Reviewed. HEENT: Unremarkable. Lungs: Clear to auscultation. Heart: Sounds normal. Abdomen: Soft. Bowel sounds normal. No guarding, rigidity, tenderness, or distention. Extremities: No leg edema. Laboratory Data: White count 9, hemoglobin 9.3, platelets 156. Sodium 140, potassium 4.4, chloride 107, bicarb 28, BUN 25, creatinine 1.16, glucose 148. Liver function tests unremarkable. Impression: 1.Left hip fracture. 2.Anemia due to acute blood loss. 3.Mild dementia. 4.Volume depletion. 5.Urinary tract infection. Plan: We will continue current medications. Continue current IV fluid. The patient's urine culture that was collected on a urine specimen when she first came into emergency room. We will start armidae nt on Bactrim according to sensitivity result and this urinary tract infection she has, was present u tianna admission and it is not related to Cruz catheter placement. We will transfer her out of ICU to regular room today. The patient will receive Xarelto for DVT prophylaxis. DANIELA/MODL Voice ID: [id number] Report ID: [id number]
[2018-08-29] MEDS: RIVAROXABAN 10 MG TABLET PO SCH (15:00)
--- NOTE | 2018-08-29 20:00 | P.PN ---
Subjective Date of Service: 08/29/18 Chief Complaint: left hip pain Subjective: No new changes Review of Systems 10-point ROS is otherwise unremarkable Physical Examination - Vital Signs Temperature: 98.6 F Blood Pressure: 132/72 Pulse: 96 Respirations: 18 Pulse Ox (%): 92 - Physical Exam General: Demented HEENT: Atraumatic, Normocephalic Musculoskeletal: Other (dressings c/d/i) Assessment And Plan - Current Problems (Diagnosis) (1) Closed intertrochanteric fracture of left hip Onset Date: ~08/27/18 Current Visit: Yes Status: Acute Plan: s/p intretrochanteric fracture of left hip intramedullary rodding pod1, she can transfer to a rehab facility when she is safe and stable, she will be touchdown weight baring only for 6 weeks post op, follow up in the office 2 weeks post op. she should have anticoagulation with Xarelto 10 mg po qd for 28 days from discharge Qualifiers: Encounter type: initial encounter Fracture alignment: displaced Qualified Code(s): S72.142A - Displaced intertrochanteric fracture of left femur , initial encounter for closed fracture Discharge Plan: Other (rehab or custodial unit)
[2018-08-29] MEDS ORDERED: CARVEDILOL 3.125 MG TAB PO SCH (21:00)
[2018-08-29] MEDS: DONEPEZIL HCL 5 MG TAB PO SCH (21:57)
[2018-08-29] MEDS: MIRTAZAPINE 15 MG TAB PO SCH (21:58)
[2018-08-30] MEDS: D5.45NS W/KCL 20MEQ 1,000 ML IV SCH ×3 (00:44→13:42)
[2018-08-30 06:02] LABS: Absolute Lymphocytes (CBC) 1.3 K/uL (0.7-4.9); Absolute Monocytes 0.9 K/uL (0.1-1.3); Absolute Neutrophil 6.3 K/uL (1.8-8.0); Basophils % 0.6 % (0-1.3); Eosinophils % 0.4 % (0-4.4); Hematocrit 25.4 % (36.0-45.0); Lymphocytes % 14.8 % (15.3-44.8); MPV 7.2 fL (7.6-11.3); Monocytes % 10.8 % (3.3-12.3); RBC Red Blood Cell Count 2.63 M/uL (3.86-4.86)
[2018-08-30 06:21] LABS: Albumin 2.5 g/dL (3.4-5.0); Bilirubin Total 0.4 mg/dL (0.2-1.0); Potassium 4.6 mmol/L (3.5-5.1); Protein, Total 5.6 g/dL (6.4-8.2)
[2018-08-30] MEDS ORDERED: CARVEDILOL 6.25 MG TAB PO SCH (09:00)
[2018-08-30] MEDS: RIVAROXABAN 10 MG TABLET PO SCH (09:00)
[2018-08-30] MEDS: DOCUSATE NA 100 MG CAP PO SCH ×2 (09:28→22:05)
[2018-08-30] MEDS: MEMANTINE HCL 10 MG TABLET PO SCH ×2 (09:28→22:04)
[2018-08-30] MEDS: SMZ./TMP. 800/160 MG TABLET PO SCH ×2 (09:29→22:03)
--- NOTE | 2018-08-30 11:09 | RAD REPORT ---
EXAM DESCRIPTION: CT - Head Brain Wo Cont - 08/30/2018 10:57 am CLINICAL HISTORY: Alteration of awareness/confusion COMPARISON: January 2008 MRI TECHNIQUE: Computed axial tomography of the head was obtained. IV contrast was not requested. All CT scans are performed using dose optimization technique as appropriate and may include automated exposure control or mA/KV adjustment according to patient size. FINDINGS: A 5 centimeter low-density area has developed within the left parietal lobe. 3 centimeter low-density area has developed within the right frontal lobe An intracranial bleed is not seen . The ventricles are normal in caliber. No extra-axial fluid collection is noted. Moderate low-density areas within periventricular, deep and subcortical white matter likely represent ischemic changes secondary to small vessel disease. Fluid within the sinuses/ mastoids is not seen. IMPRESSION: Development of a 5 centimeter low-density area within the left parietal lobe. 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 Further evaluation with MRI recommended Patient's nurse Ladonna notified 11 a.m. August 30, 2018
[2018-08-30] MEDS ORDERED: ASPIRIN EC 81 MG TAB PO ONE (11:27)
--- NOTE | 2018-08-30 12:43 | RAD REPORT ---
EXAM DESCRIPTION: USCarotid Artery Bilateral08/30/2018 12:31 pm CLINICAL HISTORY: CVA COMPARISON: None FINDINGS: The velocity of the right internal carotid artery equals 62 cm/sec. The right ICA/CCA rati o 0.9 The velocity of the left internal carotid artery equals 76 cm/sec. The left ICA/CCA ratio 1 Mild plaque is present within the carotid arteries. The vertebral arteries demonstrate antegrade flow IMPRESSION: Mild plaque within the carotid arteries without evidence of a hemodynamically significan t stenosis NASCET criteria used. Mild 0-49% stenosis Moderate 50-69% stenosis Severe 70-99% stenosis
--- NOTE | 2018-08-30 14:30 | PN ---
Date of Progress Note: 08/30/2018 Subjective: The patient was seen this morning for followup. She was lying in bed, sleeping, arousable, but did not communicate with me like she did yesterday and did not follow commands, but she was noted to be moving her hands spontaneously. Objective: Vital Signs: Reviewed. HEENT: Unremarkable. Lungs: Clear to auscultation. Heart: Sounds normal. Abdomen: Soft. Bowel sounds normal. No guarding, rigidity, tenderness, or distention. Extremities: No leg edema. Laboratory Data: White count 8.6, hemoglobin 8.8, platelets 162. Sodium 139, potassium 4.6, chloride 106, bicarb 28, BUN 24, creatinine 1.01, glucose 116. Liver function tests unremarkable. Impression: 1. Hip fracture, status post surgery. 2. Acute blood loss anemia. 3. Senile dementia. 4. Hypertension. 5. Urinary tract infection. Plan: We will continue current antibiotics, which is her Bactrim. Continue DVT prophylaxis with Xarelto. We will increase dose of her antihypertensive medication carvedilol from 3.125 mg to 6.25 mg 2 times a day, which is her usual dose at the shelter. She had low-grade fever around 99.0 to 99.3 and we will continue to monitor that. As per my discussion with the nursing staff, she is taking her oral medications very well and she is not eating quite well, but she does drink her Ensure very well, so nurse as advised to give her Ensure 4 times a day. We will get a CAT scan of the head done today, considering she is not quite communicating as well as yesterday to rule out stroke, but at the same time, other explanation for this is her underlying dementia and could be the urinary tract infection plus after effect of surgery anesthesia and pain medication, etc. I will see her tomorrow for followup. DANIELA/MODL Voice ID: [id number] Report ID: [id number] MEME
[2018-08-30] MEDS: D5 0.45 NS 1,000 ML IV SCH (16:18)
[2018-08-30] MEDS: ENSURE ENLIVE 237 ML CAN PO SCH ×2 (16:19→22:02)
--- NOTE | 2018-08-30 17:09 | ECHO ---
HEIGHT: 5 ft 3 in WEIGHT: 148 lb 14.4 oz DATE OF STUDY: 08/30/[address]: Dewayne Daigle MD 2-DIMENSIONAL: YES M.MODE: YES DOPPLER: YES COLOR FLOW: YES TDS: PORTABLE: DEFINITY: BUBBLE STUDY: DIAGNOSIS: STROKE CARDIAC HISTORY: CATHERIZATION: NO SURGERY: NO PROSTHETIC VALVE: NO PACEMAKER: NO MEASUREMENTS (cm) DIASTOLIC (NORMALS) SYSTOLIC (NORMALS) IVSd 0.9 (0.6-1.2) LA Diam 3.8 (1.9-4.0) LVEF 73% LVIDd 3.6 (3.5-5.7) LVIDs 2.1 (2.0-3.5) %FS 41% LVPWd 1.2 (0.6-1.2) Ao Diam 2.9 (2.0-3.7) 2 DIMENSIONAL ASSESSMENT: RIGHT ATRIUM: NORMAL LEFT ATRIUM: NORMAL RIGHT VENTRICLE: NORMAL LEFT VENTRICLE: NORMAL TRICUSPID VALVE: NORMAL MITRAL VALVE: MITRAL ANNULAR CALCIFICATION PULMONIC VALVE: NORMAL AORTIC VALVE: NORMAL PERICARDIAL EFFUSION: NONE AORTIC ROOT: NORMAL LEFT VENTRICULAR WALL MOTION: NORMAL DOPPLER/COLOR FLOW: MILD TRICUSPID REGURGITATION. NORMAL RIGHT VENTRICULAR SYSTOLIC PRESSURE. COMMENTS: NORMAL LEFT VENTRICULAR EJECTION FRACTION. MITRAL ANNULAR CALCIFICATION. MILD TRICUSPID REGURGITATION. TECHNOLOGIST: LONNIE LOPEZ
--- NOTE | 2018-08-30 18:29 | P.PN ---
Subjective Date of Service: 08/30/18 Chief Complaint: left hip pain Subjective: No new changes Review of Systems 10-point ROS is otherwise unremarkable Physical Examination - Vital Signs Temperature: 98.8 F Blood Pressure: 133/77 Pulse: 94 Respirations: 17 Pulse Ox (%): 94 - Physical Exam Musculoskeletal: Other (dressing C/D/I) Assessment And Plan - Current Problems (Diagnosis) (1) Closed intertrochanteric fracture of left hip Onset Date: ~08/27/18 Current Visit: Yes Status: Acute Plan: s/p intretrochanteric fracture of left hip intramedullary rodding pod1, she can transfer to a rehab facility when she is safe and stable, she will be touchdown weight baring only for 6 weeks post op, follow up in the office 2 weeks post op. she should have anticoagulation with Xarelto 10 mg po qd for 28 days from discharge Qualifiers: Encounter type: initial encounter Fracture alignment: displaced Qualified Code(s): S72.142A - Displaced intertrochanteric fracture of left femur , initial encounter for closed fracture
[2018-08-30] MEDS: DONEPEZIL HCL 5 MG TAB PO SCH (22:03)
[2018-08-30] MEDS: CARVEDILOL 3.125 MG TAB PO SCH (22:04)
[2018-08-30] MEDS: MIRTAZAPINE 15 MG TAB PO SCH (22:05)
[2018-08-31] MEDS ORDERED: AMPICILLIN/SULBACT 1.5GM VIAL IVPB SCH (09:00)
[2018-08-31] MEDS: AMPICILLIN/SULB 1.5 GM/100 ML BAG IV SCH ×3 (09:46→18:11)
[2018-08-31] MEDS: ASPIRIN EC 81 MG TAB PO SCH (09:47)
[2018-08-31] MEDS: FOLIC ACID 1 MG TABLET PO SCH (09:47)
[2018-08-31] MEDS: DOCUSATE NA 100 MG CAP PO SCH ×2 (09:47→21:43)
[2018-08-31] MEDS: MEMANTINE HCL 10 MG TABLET PO SCH ×2 (09:47→21:43)
[2018-08-31] MEDS: CARVEDILOL 3.125 MG TAB PO SCH ×2 (09:48→21:00)
[2018-08-31] MEDS: ENOXAPARIN 40 MG/0.4 ML SQ SCH (09:48)
[2018-08-31] MEDS: ENSURE ENLIVE 237 ML CAN PO SCH ×4 (09:48→21:44)
--- NOTE | 2018-08-31 12:44 | PN ---
Date of Progress Note: 08/31/2018 Subjective: The patient was seen this morning for followup. She was lying in bed with her eyes open, not in distress. Did not communicate or did not follow any commands, but when I was trying to talk to her, she was trying to talk back , but she could not communicate much. Objective: Vital signs: Reviewed. Temperature this morning was 99.7, pulse 110, respiratory rate 19, blood pressure 133/77, oxygen saturation 96%. HEENT: Unremarkable. Lungs: Clear to auscultation. Heart: Sounds normal. Abdomen: Soft. Bowel sounds normal. No guarding, rigidity, tenderness, distention. Extremities: No leg edema. Neurologic: The patient does not follow any commands. She does withdraw both upper extremity on gentle painful stimuli at the nail bed. Laboratory Data: Urine culture growing Klebsiella. Carotid Doppler from yesterday shows mild plaquing without any hemodynamically significant stenotic lesion. Echocardiogram shows normal ejection fraction, otherwise echocardiogram was unremarkable. CAT scan of the brain had shown evidence of acute stroke involving frontal and parietal region. Impression: 1. Stroke. 2. Urinary tract infection. 3. Hip fracture. 4. Senile dementia. 5. Hypertension. Plan: After yesterday CAT scan was ordered, result was available and I immediately contacted the neurologist, Dr. Hernandes, requested his consultation. Details were discussed with him. Carotid Doppler and echocardiogram were ordered. The patient is not a candidate for any other aggressive treatment except supportive care. So aspirin was started, folic acid was started, and order was written to reduce carvedilol dose down to 3.125 mg twice a day again with the holding parameter to hold this if systolic blood pressure less than 150. We will continue IV fluid. Speech therapy was ordered. The patient was evaluated by speech therapist and diet order was written per recommendation from speech therapist which is pureed diet. So far, the patient is swallowing okay and we will continue that. We will continue to monitor for any worsening problem. We will consult Physical Therapy. Considering her having low grade fever, will discontinue oral antibiotic and start her on IV antibiotic, Unasyn per order. I did contact the patient's son yesterday after the CAT scan result was available, and details were discussed with him as well. DANIELA/MODL Voice ID: [id number] Report ID: [id number] MTDD
[2018-08-31] MEDS: D5 0.45 NS 1,000 ML IV SCH (12:53)
--- NOTE | 2018-08-31 20:20 | CON ---
Reason For Consultation: Consultation called because of altered mental status by Dr. Daigle. History Of Present Illness: Ms. Cabrera is an 82-year-old patient whom I see in clinic for moderate to advanced vascular dementia with possible Alzheimer's component. She came into [facility] af ter a fall while at [facility]. She slipped and fell in the room as she was coming out of the bathroom and developed pain in the left hip. When she was brought in, her evaluation identified by a hip and pelvic x-ray, intertrochanteric and subtrochanteric fracture of the proximal left femur with valgus angulation. There was no dislocation. Also amorphous calcification in the pelvis was l ikely related to calcified fibroid, it was an incidental finding. The patient was evaluated by Dr. Logan Yu of the Orthopedic [facility] and determined to require acute surgery for the hip fracture. On t , a day following admission, she did have a left 4-part intertrochanteric fracture treated by left hip intramedullary fito fixation. There was an 11 mm x 125 mm nail placed across the fracture si te. During her recovery, it was determined that she did not respond as she did previously to verbal interaction or tactile stimulation and she had the following day a head CT scan done. The study iden tified a 5 cm acute stroke in the left parietal lobe that is acute and a 3 cm right frontal lobe that is also acute. She has not had an MRI. It was determined that these findings likely occurred at th e same time from acute stroke. Her echocardiogram of the heart, which is a possible source, did not show a thrombus. There was normal left ventricular ejection fraction of 72%. There was mitral annul ar calcification and tricuspid regurgitation. Her carotid artery ultrasound showed mild plaque in th e carotid arteries without evidence of hemodynamically significant stenosis. Her blood pressures sin ce being in the operating room have not shown any significant hypotension. The blood pressures durin g the operative procedure are not available in the system for review at this time. However, from her admission, blood pressure on was systolic 191/95 and throughout her hospitalization as document ed in the charting system, the lowest systolic blood pressure was around 117. Her recent blood press ures are actually in the 130s. At the time I came to evaluate the patient, she is asleep. The nurse at bedside said she had to be a ssisted with her meals and was not following even simple commands, but appeared to be alert at the ti me of her meal and then became very sleepy and went back to sleep right after. Past Medical History: Significant for a moderate to advanced vascular dementia in addition to dyslip idemia, glaucoma, and recent urinary tract infection. Surgical History: Left hip surgery now. Social History: No alcohol, tobacco, or IV drug use. She does reside at [facility]. Review of Systems: Not possible as the patient is not able to give any verbal responses to verbal stimulation. Physical Examination: Vital Signs: Blood pressure 118/68, pulse 90, respiratory rate 18, temperature 98.2, oxygen saturati on 94%. Weight 148 pounds. Height 5 feet 3 inches, BMI 26. General: Ms. Cabrera is resting in bed. She is somewhat sleepy, but arousable and does track with eyes . She makes what appears to be an attempt at smiling when has to, but no clear smiling seen. She do es not follow verbal commands to move her arms, open her eyes, blink, lifts her legs or arms off the bed, or point towards objects when asked to. She does have good air movement bilaterally. No signif icant edema, cyanosis, or clubbing noted. Abdomen: Soft. Neurologic: Again, she is somewhat sleepy, but easily aroused, and will track with eyes, but not fol low verbal commands. She has good facial symmetry with obvious change side to side, but a full smili ng could not be obtained as the patient did not follow instructions for that. She has good, however, nasolabial folds appearing on both sides. Her motor examination, she does move her arms when stimul ated symmetrically, but no voluntary movement there. She does also move her legs when stimulating th e feet by withdrawing and symmetrically. Unable to fully assess sensory responses other than she res ponds to stimulation by withdrawal equally. Coordination unable to assess. Gait unable to assess. Tone and reflexes are symmetric. Laboratory Studies: White blood cell count 8.6, hemoglobin 8.8, hematocrit 25.4, platelets 162. INR 1.15. Chemistries show creatinine 1.01. Sodium and carbon dioxide are normal. BUN is slightly colin vated at 24. Liver function studies essentially unremarkable, although AST and ALT are slightly low. Her alkaline phosphatase is normal. Glucose ranged from 89 to 148. Urine cultures from did g row Klebsiella pneumoniae and she is on Unasyn for that. Assessment: Ms. Cabrera is an 82-year-old patient with multifactorial reasons for her encephalopathy. She has an acute and chronic process. Her acute process is likely urinary tract infection, recent falcon rgery, and the after effects of the anesthesia and pain medications which is morphine, which she has received yesterday and Mcneal, which she has not received today. That is superimposed on moderate vas cular dementia with possibility of Alzheimer's as well. At this point, she has had acute strokes ayaka aterally that is a significant contributing factor to her encephalopathy. The strokes likely produce d a global aphasia superimposed on a moderate to advanced vascular dementia. This was discussed with Dr. Daigle. Plan: The patient's current cognitive state of functioning is likely to leave her with need for 24-h our care and supervision because of very poor safety awareness and inability to communicate very effe ctively. However, some patients can recover more meaningful communication with time even with bilate ral strokes. She is not in any significant risk of herniation as she does have significant atrophy t o her brain and these areas likely will result in some swelling but not swelling that is expected to cause herniation. In any event, she needs to be watched for the possibility of any acute worsening, which may signal hemorrhagic conversion. At this point, aspirin 81 mg, folate 1 mg. Continue Aricept and donepezil. Continue DVT prophylaxis . Continue antibiotics as per Dr. Daigle and try to hold off on sedation as much as possible. The pat ient will likely have a great need for 24-hour supervision and care at this point that can be done at her long-term and in the future depending on how she is doing given the risk of possible aspiration and poor safety awareness, family may want to discuss other means of managing her condition including down the road potentially hospice. However, at this point, it too early to determine how the patien t outcome may be months down the road. After discharge, she may follow up in Dr. Hernandes's office in 1 month. BULMARO/ADRIEL Voice ID: [id number] Report ID: [id number]
[2018-08-31] MEDS: MIRTAZAPINE 15 MG TAB PO SCH (21:43)
[2018-08-31] MEDS: DONEPEZIL HCL 5 MG TAB PO SCH (21:43)
[2018-09-01] MEDS: AMPICILLIN/SULB 1.5 GM/100 ML BAG IV SCH ×4 (00:23→17:09)
[2018-09-01 06:57] LABS: Absolute Lymphocytes (CBC) 1.1 K/uL (0.7-4.9); Absolute Monocytes 0.6 K/uL (0.1-1.3); Absolute Neutrophil 3.7 K/uL (1.8-8.0); Basophils % 0.9 % (0-1.3); Eosinophils % 1.6 % (0-4.4); Hematocrit 24.2 % (36.0-45.0); Lymphocytes % 20.3 % (15.3-44.8); MPV 7.2 fL (7.6-11.3); Monocytes % 10.2 % (3.3-12.3); RBC Red Blood Cell Count 2.49 M/uL (3.86-4.86)
[2018-09-01 07:42] LABS: Potassium 4.6 mmol/L (3.5-5.1)
[2018-09-01] MEDS: D5 0.45 NS 1,000 ML IV SCH (08:50)
[2018-09-01] MEDS: MEMANTINE HCL 10 MG TABLET PO SCH ×2 (08:51→21:05)
[2018-09-01] MEDS: FOLIC ACID 1 MG TABLET PO SCH (08:51)
[2018-09-01] MEDS: ASPIRIN EC 81 MG TAB PO SCH (08:51)
[2018-09-01] MEDS: DOCUSATE NA 100 MG CAP PO SCH ×2 (08:51→21:05)
[2018-09-01] MEDS: CARVEDILOL 3.125 MG TAB PO SCH ×2 (08:52→21:00)
[2018-09-01] MEDS: ENSURE ENLIVE 237 ML CAN PO SCH ×4 (08:53→21:08)
[2018-09-01] MEDS: ENOXAPARIN 40 MG/0.4 ML SQ SCH (08:53)
--- NOTE | 2018-09-01 10:38 | P.PN ---
Subjective Date of Service: 09/01/18 Chief Complaint: left hip pain Subjective: No C/O voiced (patient nonverbal this am but alert), Working w/ PT (slow progress with p.t. not sure of rehab potential at this time), Demented ( labs okay for now) Physical Examination - Vital Signs Temperature: 98 F Blood Pressure: 137/81 Pulse: 81 Respirations: 16 Pulse Ox (%): 98
--- NOTE | 2018-09-01 13:27 | PN ---
Date of Progress Note: 09/01/2018 Subjective: The patient was seen this morning for followup. No new complaints or problems reported by patient. Lying in bed. She tries to communicate. Her son was present with her at bedside. Toda y, her condition was better than last couple of days. Today, she started to turn her head and roll h er eyes on the right side that she did not do it for last couple of days. Also noted that she is mor e awake, alert today, and she is speaking few words and a small sentence today and tries to communica te and answer simple questions. She is tolerating diet well. Objective: Vital Signs: Reviewed. She remains afebrile now. HEENT: Unremarkable. Lungs: Clear to auscultation. Heart: Sounds normal. Abdomen: Soft. Bowel sounds normal. No guarding, rigidity, tenderness, distention. Extremities: No leg edema. Neurologic: The patient is not showing any focal deficit. No facial asymmetry. She is smiling, jena mati few words as well as able to move both upper extremities equally. Laboratory Data: White count 5.4, hemoglobin 8.4, platelets 214. Sodium 138, potassium 3.6, chlorid e 106, bicarb 26, BUN 30, creatinine 0.89, glucose 96. Impression: 1.Stroke. 2.Hip fracture. 3.Hypertension. 4.Senile dementia. 5.Urinary tract infection. 6.Acute blood loss anemia. Plan: We will go ahead and continue current IV antibiotic Unasyn, and the patient has become afebril e after this IV antibiotic was started. We will continue that. Continue aspirin and folic acid. Co beth Carvalhox and current diet order, and physical therapy and speech therapy to work with the patie nt. I will see her tomorrow for followup. Yesterday, Dr. Hernandes did call me and details were disc ussed with him as well. I did talk to patient's son, explained him details, and I will see her again tomorrow for followup. Our plan is to discharge her [facility] time next week, whic h may happen Monday or Monday depending on her condition. DANIELA/MODL Voice ID: [id number] Report ID: [id number]
[2018-09-01] MEDS: DONEPEZIL HCL 5 MG TAB PO SCH (21:05)
[2018-09-01] MEDS: MIRTAZAPINE 15 MG TAB PO SCH (21:08)
[2018-09-01] MEDS: MORPHINE 2 MG/ML SYR IV PRN (22:49)
[2018-09-02] MEDS: AMPICILLIN/SULB 1.5 GM/100 ML BAG IV SCH ×4 (00:26→17:26)
[2018-09-02] MEDS: D5 0.45 NS 1,000 ML IV SCH (04:00)
[2018-09-02] MEDS: ENSURE ENLIVE 237 ML CAN PO SCH ×4 (09:00→21:45)
[2018-09-02] MEDS: CARVEDILOL 3.125 MG TAB PO SCH ×2 (09:00→21:00)
[2018-09-02] MEDS: ASPIRIN EC 81 MG TAB PO SCH (10:26)
[2018-09-02] MEDS: DOCUSATE NA 100 MG CAP PO SCH ×2 (10:26→21:44)
[2018-09-02] MEDS: FOLIC ACID 1 MG TABLET PO SCH (10:26)
[2018-09-02] MEDS: MEMANTINE HCL 10 MG TABLET PO SCH ×2 (10:26→21:45)
[2018-09-02] MEDS: ENOXAPARIN 40 MG/0.4 ML SQ SCH (10:26)
[2018-09-02] MEDS: HYDROCODONE/APAP 5/325 MG TAB PO PRN ×2 (15:43→21:44)
--- NOTE | 2018-09-02 15:44 | PN ---
Date of Progress Note: 09/02/2018 Subjective: The patient was seen this morning for followup. She was lying in bed, not in distress, and she was trying to communicate just like yesterday, no better, no worse. There were no family mem bers at bedside when I saw her this morning. Objective: Vital Signs: Reviewed. HEENT: Unremarkable. Lungs: Clear to auscultation. Heart: Sounds normal. Abdomen: Soft. Bowel sounds normal. No guarding, rigidity, tenderness, or distention. Extremities: No leg edema. Impression: 1.Left hip fracture. 2.Stroke. 3.Hypertension. 4.Senile dementia. 5.Urinary tract infection. Plan: We will continue current medication, IV antibiotic, aspirin, Lovenox, folic acid. We will see her tomorrow for followup, possible discharge to go to intermediate in next day or 2 days. We will repeat blood work tomorrow morning. DANIELA/ADRIEL Voice ID: [id number] Report ID: [id number]
[2018-09-02] MEDS: MIRTAZAPINE 15 MG TAB PO SCH (21:45)
[2018-09-02] MEDS: DONEPEZIL HCL 5 MG TAB PO SCH (21:45)
[2018-09-02] MEDS: MORPHINE 2 MG/ML SYR IV PRN (23:56)
[2018-09-03] MEDS: AMPICILLIN/SULB 1.5 GM/100 ML BAG IV SCH ×5 (01:05→23:38)
[2018-09-03] MEDS: HYDROCODONE/APAP 5/325 MG TAB PO PRN (02:38)
[2018-09-03 06:39] LABS: Absolute Lymphocytes (CBC) 0.7 K/uL (0.7-4.9); Absolute Monocytes 0.6 K/uL (0.1-1.3); Basophils % 0.6 % (0-1.3); Eosinophils % 1.9 % (0-4.4); Lymphocytes % 10.5 % (15.3-44.8); MPV 7.2 fL (7.6-11.3); Monocytes % 8.8 % (3.3-12.3); RBC Red Blood Cell Count 2.37 M/uL (3.86-4.86)
[2018-09-03 06:47] LABS: Potassium 4.1 mmol/L (3.5-5.1)
[2018-09-03] MEDS: ASPIRIN EC 81 MG TAB PO SCH (08:55)
[2018-09-03] MEDS: DOCUSATE NA 100 MG CAP PO SCH ×2 (08:55→23:23)
[2018-09-03] MEDS: FOLIC ACID 1 MG TABLET PO SCH (08:55)
[2018-09-03] MEDS: ENSURE ENLIVE 237 ML CAN PO SCH ×4 (08:55→23:35)
[2018-09-03] MEDS: MEMANTINE HCL 10 MG TABLET PO SCH ×2 (08:55→23:23)
[2018-09-03] MEDS: ENOXAPARIN 40 MG/0.4 ML SQ SCH (08:55)
[2018-09-03] MEDS: CARVEDILOL 3.125 MG TAB PO SCH ×2 (08:56→23:23)
[2018-09-03] MEDS: CODEINE 30MG/APAP 300MG TAB PO PRN (08:59)
--- NOTE | 2018-09-03 14:12 | CON ---
Date of Consultation: 09/03/2018 Reason: Sacral decubitus. History Of Present Illness: The patient is an 82-year-old female with multiple medical problems, inc luding dementia, who fell at her care home about a week ago, had a left hip fracture, underwent falcon rgery and then on evaluation was found to have sacral decubitus. I was asked to evaluate. No fever or chills and no purulent discharge. Review of Systems: The patient is unable to provide an adequate review of systems because of her dementia and review of systems was otherwise unremarkable. Past Medical History: Significant for dementia, hyperlipidemia, glaucoma and history of UTI. Past Surgical History: Recent left hip surgery. Allergies: NO ALLERGIES. Social History: She does not smoke or drink. Family History: Significant for cardiovascular disease. Physical Examination: Vital Signs: Stable. Blood pressure is 157/81, she is afebrile. General: She is awake, confused. Head and Neck: No masses. Chest: Clear. Heart: S1, S2. Abdomen: Soft. Extremities: Neurovascularly intact. Neuro: Nonfocal. Skin: On the sacrum, there are area mostly of stage I, there are two areas of stage II with a little blistering of the skin which was removed with gauze. There is some fibrin present on the dermis. I t does not appear to be a stage III at this time and on the right superior side, there is approximate ly a 1 cm area. On the left side, there is approximately a 2 cm area. There is no surrounding eryth dwight, warmth, or edema. Laboratory Data: Reviewed. Her white count is normal. H and H are 8 and 23. Her albumin is 2.5. Assessment: An 82-year-old female with multiple medical problems, and recent left hip fracture, now with sacral decubitus stage I and II. Recommendation: Nutritional optimization. The patient is getting Ensure, vitamins, and offloading a ir mattress. Once the patient is sent to [facility], I will follow her over there and col lagenase dressing for the time being, until the fibrin is under better control, then a collagen based dressing will be applied. SEAN/ADRIEL Voice ID: [id number] Report ID: [id number]
--- NOTE | 2018-09-03 18:15 | P.PN ---
Please not that Ms. Cabrera has multifactorial reasons for her acute on chronic cognitive impairment including toxic encephalopathy secondary to the systemic effects of her bacterial urinary tract infection.
[2018-09-03 21:07] VITALS: O2SAT 92
[2018-09-03] MEDS: D5 0.45 NS 1,000 ML IV SCH ×2 (23:22)
[2018-09-03] MEDS: DONEPEZIL HCL 5 MG TAB PO SCH (23:23)
[2018-09-03] MEDS: MIRTAZAPINE 15 MG TAB PO SCH (23:23)
--- NOTE | 2018-09-04 02:34 | PN ---
Date of Progress Note: 09/03/2018 Subjective: The patient was seen this morning for followup. No new complaints or problems reported by nursing staff. She was lying in bed, communicating, and answering simple questions. Objective: Vital Signs: Reviewed. HEENT: Unremarkable. Lungs: Clear to auscultation. Heart: Sounds normal. Abdomen: Soft. Bowel sounds normal. No guarding, rigidity, tenderness, or distention. Extremities: No leg edema. Skin: Two small decubitus ulcers on each side, 1 on each buttock noted. It is about 2 mm in size. DuoDERM was present, which was removed for examination purpose and new patch was applied by nursing s laurie. Heel examination does not show any decubitus. Laboratory Data: White count 6.4, hemoglobin 8, and platelets 262. Sodium 137, potassium 4.1, chlor omero 102, bicarb 29, BUN 26, creatinine 0.75, and glucose 123. Impression: 1.Left hip fracture. 2.Decubitus ulcer. 3.Stroke. 4.Anemia due to acute blood loss. 5.Senile dementia. 6.Hypertension. Plan: We will go ahead and continue current Lovenox for DVT prophylaxis, aspirin, folic acid. Osman nue current antibiotic for urinary tract infection. Dr. Regalado was requested to provide consultation for wound management and he will continue to follow up on the patient at skilled nursing as well. [facility] was consulted to assist with discharge planning with possible discharge to go to skilled nursing tomorrow. The nurse was advised to change position every 2 hours, and I will see her to [facility]dr[facility] for followup. DANIELA/MODL Voice ID: [id number] Report ID: [id number]
[2018-09-04] MEDS: AMPICILLIN/SULB 1.5 GM/100 ML BAG IV SCH ×2 (05:07→11:04)
[2018-09-04] MEDS ORDERED: COLLAGENASE 30 GM OINTMENT TOP SCH (09:00)
[2018-09-04] MEDS: ENSURE ENLIVE 237 ML CAN PO SCH ×2 (09:00→13:00)
[2018-09-04] MEDS: ASPIRIN EC 81 MG TAB PO SCH (09:16)
[2018-09-04] MEDS: MEMANTINE HCL 10 MG TABLET PO SCH (09:16)
[2018-09-04] MEDS: FOLIC ACID 1 MG TABLET PO SCH (09:16)
[2018-09-04] MEDS: DOCUSATE NA 100 MG CAP PO SCH (09:16)
[2018-09-04] MEDS: ENOXAPARIN 40 MG/0.4 ML SQ SCH (09:17)
[2018-09-04] MEDS: CARVEDILOL 3.125 MG TAB PO SCH (09:17)
[2018-09-04] MEDS: CODEINE 30MG/APAP 300MG TAB PO PRN (13:22)
[2018-09-04 15:13] VITALS: BP 141/77; TEMP 98.6
--- NOTE | 2018-09-05 05:53 | DS ---
Date of Discharge: 09/04/2018 Disposition: Discharged to go to [facility]. Physical Examination: HEENT: Unremarkable. Lungs: Clear to auscultation. Heart: Sounds normal. Abdomen: Soft, bowel sounds normal. No guarding, rigidity, tenderness, or distention. Extremities: No leg edema. Laboratory Data: Yesterday, white count 6.4, hemoglobin 8, platelets 262. When she first came in, w caitlin count 4.5, hemoglobin 13.3, platelets 207. Yesterday, sodium 137, potassium 4.1, chloride 102, bicarb 29, BUN 26, creatinine 0.75, glucose 123. When she came in, sodium 141, potassium 3.6, chlori de 104, bicarb 31, BUN 16, creatinine 1.06, glucose 86. Urine culture growing Klebsiella. Hospital Course: This is an 82-year-old pleasant female [place], fell down at [facility], was brought into the emergency room. After she was evaluated in the ER, she was jordyn gnosed as having left hip fracture and she was admitted to the hospital. After the patient was admit bethel to the hospital, she was evaluated by orthopedic surgeon and the patient had surgery done for thi s by Dr. Puentes. The patient did very well during surgery. After the surgery, she was in ICU and once her condition was stable, she was transferred out of ICU. The patient has significant senile de mentia problem, but it was noted that after surgery she was not quite responding as well as what she should and she was neglecting on the right side and kept on looking at the left side, not communicati ve quite as well and did not follow commands, so we started getting some concerns about possibility o f stroke. CAT scan of the brain was done which unfortunately did reveal presence of non-hemorrhagic stroke involving both right and left side and it was frontal lobe on 1 side, parietal lobe on other s omero. With that in mind, Neurology consultation was obtained from Dr. Hernandes. The patient was not a candidate for any kind of thrombolytic therapy. Aspirin was started on her for this and Cruz cath eter was started. Her blood pressure medication was ordered to be kept on hold if systolic blood pre ssure remains less than 150. IV fluid was given. Physical Therapy and Speech Therapy were consulted . Speech therapist gave order for pureed diet and she tolerated diet very well. She was tolerating medications very well. Urine culture grew Klebsiella and initially she was given oral antibiotic Christine trim, but because she had low-grade fever, it was changed to Unasyn and she became afebrile when she was started on Unasyn. Carotid Doppler was unremarkable for any hemodynamically significant stenotic lesion. Echocardiogram showed normal ejection fraction, otherwise unremarkable. All these details and findings were discussed with the patient's son. Over a period of last few days, her condition gaines s stabilized and improved. Her speech has improved. She is communicating. Today was probably her day, she was communicating well, answering questions, and did not have any complaints. She was d ischarged to go to [facility] in stable condition with following discharge medications and instruct ions. Final Diagnoses: 1.Left hip intertrochanteric fracture, status post surgery. 2.Stroke. 3.Anemia due to acute blood loss. 4.Senile dementia. 5.Mixed hyperlipidemia. 6.Glaucoma. 7.Urinary tract infection. Discharge Medications And Instructions: Continue all prior home medications and take following new m edications: 1.Augmentin 875 mg 1 tablet by mouth 2 times a day with food for 1 week. 2.Ferrous sulfate 325 mg p.o. daily. 3. . 4.Change position every 2 hours. 5.Wound care dressing changes to decubitus ulcer as per instruction from Dr. Regalado and consult Dr. Tabatha emanuel at [facility] for wound care management. 6.Fall precautions. 7.Consult Physical Therapy, Occupational Therapy, and Speech Therapy at [facility]. 8.Pureed diet, treat the patient in upright position, support while treating with assistance. 9.Ensure 1 can by mouth 2 times a day. 10.Lovenox 40 mg subcutaneous injection daily for 1 month. 11.CBC, Chem-7 in 1 week, 2 weeks, and then in 1 month. 12.Check blood pressure before giving carvedilol and hold if systolic blood pressure less than 140, pulse less than 60. 13.Aspirin 81 mg p.o. daily. 14.Follow up with Dr. Puentes next week and remove lewis as per instruction from Dr. Puentes. DANIELA/MODL Voice ID: [id number] Report ID: [id number]
== END 2018-09-04 15:17 | DRG 480 ==
LOC: ER 07:39 → ERHOLD 08:54 → 2ND 15:17 → 3RD-ICU 08-28 17:31 → 2ND 08-29 11:45
PROVIDERS: ADMIT Internal Medicine; ATTEND Internal Medicine
PROC: 0QS706Z Reposition Left Upper Femur with Intramedullary Internal Fixation Device, Open Approach (ICD-10-PCS; principal; 2018-08-28 17:00)
DX: S72.142A Displaced intertrochanteric fracture of left femur, initial encounter for closed fracture (principal); I63.9 Cerebral infarction, unspecified; G92 Toxic encephalopathy; D62 Acute posthemorrhagic anemia; N39.0 Urinary tract infection, site not specified; R47.01 Aphasia; W01.0XXA Fall on same level from slipping, tripping and stumbling without subsequent striking against object, initial encounter; Y93.01 Activity, walking, marching and hiking; Y92.122 Bedroom in nursing home as the place of occurrence of the external cause; E78.2 Mixed hyperlipidemia; H40.9 Unspecified glaucoma; E86.9 Volume depletion, unspecified; B96.1 Klebsiella pneumoniae [K. pneumoniae] as the cause of diseases classified elsewhere; F01.50 Vascular dementia, unspecified severity, without behavioral disturbance, psychotic disturbance, mood disturbance, and anxiety; L89.151 Pressure ulcer of sacral region, stage 1; L89.152 Pressure ulcer of sacral region, stage 2; R41.841 Cognitive communication deficit; I10 Essential (primary) hypertension; I36.1 Nonrheumatic tricuspid (valve) insufficiency
CPT/HCPCS: 36415; 51702; 70450; 72170; 73530; 80048; 80053; 83735; 85025; 85610; 85730; 87077; 87086; 87088; 87186; 92523; 92610; 93005; 93306; 93880; 96374; 96375; 97110; 97161; 97530; 99285; J0295; J0690; J1170; J1650; J2270; J2405; J2704; J3010; J3590

== ENCOUNTER 2018-10-01 16:46 | Inpatient (IN) | payer OTHER, MEDICARE ==
--- OUTSIDE RECORDS SUMMARY | 2018-10-01 16:48 | XMS REPORT ---
:1935 [facility] Address [address] [place] [address] Dr. Pimentel [address] [place] [id number] Care Team Providers Name Role Phone Unavailable Unavailable Unavailable Problems This patient has no known problems. Allergies, Adverse Reactions, Alerts This patient has no known allergies or adverse reactions. Medications This patient has no known medications.
--- NOTE | 2018-10-01 18:00 | ER ---
Nurse's Notes [facility] Name: Lillian Cabrera Age: 82 yrs Sex: Female : 1935 Arrival Date: 10/01/2018 Time: 17:01 Bed 16 Private MD: Diagnosis: Fever, unspecified;Weakness;Volume depletion;Altered mental status, unspecified;Urinary tract infection, site not specified;Hydronephrosis with renal and ureteral calculous obstruction-11 mm distal right ureter stone Presentation: 10/01 17:02 Presenting complaint: EMS states: Pt from [place], staff reports fever of 99.9, ph axillary temp for EMS 97.1, staff also reports that pt is normally A\T\O x 1-2 and is only A\T\O x 1 today, pt denies pain, N/V, drowsy upon arrival. Transition of care: patient was not received from another setting of care. Onset of symptoms was October 01, 2018. Risk Assessment: Do you want to hurt yourself or someone else? Patient reports no desire to harm self or others. Initial Sepsis Screen: Does the patient meet any 2 criteria? No. Patient's initial sepsis screen is negative. Does the patient have a suspected source of infection? No. Patient's initial sepsis screen is negative. Care prior to arrival: None. 17:02 Method Of Arrival: EMS: [facility] ph 17:02 Acuity: JOBY 3 ph Historical: - Allergies: 17:08 No Known Allergies; ph - Home Meds: 17:44 acetaminophen 500 mg Oral tab [Active]; Acidophilus Oral chew [Active]; Aricept 23 mg ph Oral tab [Active]; aspirin 81 mg Oral chew [Active]; carvedilol 3.125 mg Oral tab [Active]; Depakote Sprinkles 125 mg Oral cpSP 2 caps every 12 hours [Active]; Docusate Sodium Oral [Active]; enoxaparin 40 mg/0.4 mL subcutaneous syrg once daily [Active]; ferrous sulfate 325 mg (65 mg iron) Oral tab [Active]; folic acid 1 mg Oral tab 1 tab once daily [Active]; mirtazapine 15 mg Oral TbDL 1 tab nightly [Active]; Namenda 10 mg Oral tab 1 tab 2 times per day [Active]; tramadol 50 mg Oral tab 1 tab every 6 hours [Active]; Vitamin D Oral [Active]; - PMHx: 17:44 Dementia; Glaucoma; Hyperlipidemia; Hypertension; UTI; ph - Immunization history:: Adult Immunizations unknown. - Social history:: Smoking status: Patient/guardian denies using tobacco. - Ebola Screening: : No symptoms or risks identified at this time. Screenin:34 Abuse screen: Denies threats or abuse. Denies injuries from another. Nutritional ph screening: No deficits noted. Tuberculosis screening: No symptoms or risk factors identified. Fall Risk No fall in past 12 months (0 pts). Secondary diagnosis (15 points) dementia, IV access (20 points). Ambulatory Aid- None/Bed Rest/Nurse Assist (0 pts). Gait- Weak (10 pts.). Mental Status- Overestimates/Forgets Limitations (15 pts.). Total Easley Fall Scale indicates High Risk Score (45 or more points). Fall prevention measures have been instituted. Side Rails Up X 2 Placed Close to Nursing Station Frequent Obs/Assessments Occuring As available patient and family educated on Fall Prevention Program and Strategies. Assessment: 17:33 General: Appears in no apparent distress. comfortable, Behavior is cooperative, drowsy, ph quiet. Pain: Denies pain. Neuro: Level of Consciousness is obeys commands, confused, lethargic, Oriented to person, Moves all extremities. Cardiovascular: Capillary refill < 3 seconds in bilateral fingers Patient's skin is warm and dry. Respiratory: Airway is patent Respiratory effort is even, unlabored, Respiratory pattern is regular, symmetrical. GI: Abdomen is flat, non-distended, Patient currently denies abdominal pain, nausea. Derm: Skin is fragile, is thin, Skin is pink, warm \T\ dry. Musculoskeletal: Circulation, motion, and sensation intact. Range of motion: intact in all extremities. 18:45 Reassessment: Patient appears in no apparent distress at this time. No changes from previously documented assessment. Patient and/or family updated on plan of care and expected duration. Pain level reassessed. Pt denies pain or nausea at this time VSS, son at bedside. 19:00 General: Appears in no apparent distress. comfortable, Behavior is calm, cooperative, rr5 quiet. Pain: Denies pain. Neuro: Level of Consciousness is obeys commands, confused, Oriented to person, Moves all extremities. Cardiovascular: Capillary refill < 3 seconds Patient's skin is warm and dry. Respiratory: Airway is patent Respiratory effort is even, unlabored, Respiratory pattern is regular, symmetrical. GI: Patient currently denies abdominal pain, nausea. : Urine is cloudy. EENT: No signs and/or symptoms were reported regarding the EENT system. Derm: Skin is fragile, is thin. Musculoskeletal: Circulation, motion, and sensation intact. Range of motion:. 20:00 Reassessment: Patient appears in no apparent distress at this time. complaints of IV rr5 site pain. positive swelling. IV removed pressure dressing applied.explained patient is for admission. patient and disability insurance claim examiner agreed. 21:00 Reassessment: Patient appears in no apparent distress at this time. no complaints made. rr5 patient responded to her disability insurance claim examiner appropriately. Vital Signs: 17:07 BP 115 / 82; Pulse 97; Resp 18; Temp 98.2(A); Pulse Ox 95% on R/A; ph 18:20 BP 127 / 86; Pulse 78; Resp 18; Pulse Ox 97% on R/A; ph 19:15 BP 123 / 70; Pulse 86; Resp 17; Temp 98.1; Pulse Ox 98% on R/A; rr5 20:06 BP 135 / 94; Pulse 84; Resp 20; Pulse Ox 99% on R/A; mt 21:00 BP 133 / 85; Pulse 80; Resp 19; Pulse Ox 99% ; rr5 Vitals: 18:20 Cardiac Rhythm Assessment Atrial fibrillation. ph Eulalia Coma Score: 19:15 Eye Response: spontaneous(4). Verbal Response: confused(4). Motor Response: obeys rr5 commands(6). Total: 14. ED Course: 17:01 Patient arrived in ED. ph 17:02 Olayinka Rothman MD is Attending Physician. kasie 17:07 Triage completed. ph 17:33 Annika Mauro, RN is Primary Nurse. ph 17:35 Arm band placed on. ph 17:35 Patient has correct armband on for positive identification. Placed in gown. Bed in low ph position. Call light in reach. Side rails up X2. card puncher on. Pulse ox on. NIBP on. Warm blanket given. 17:40 No provider procedures requiring assistance completed. Inserted saline lock: 22 gauge ph in left hand, using aseptic technique. Patient admitted, IV remains in place. 17:[address] via stretcher. jg6 17:59 Dewayne Daigle MD is Hospitalizing Provider. [facility] 18:00 CT completed. Patient tolerated procedure well. Patient moved back from CT. wi 18:00 CT Stone Protocol In Process Unspecified. EDMS 19:00 Lazaro Quintero NP is PHCP. pm1 19:40 Cruz cath inserted, using sterile technique, 16 Fr., by ms, balloon inflated, to ph gravity drainage, urine specimen collected. returned walker urine. Patient tolerated well. 20:00 IV discontinued, positive infiltration at left hand. Inserted saline lock: 22 gauge in rr5 left forearm, using aseptic technique. Administered Medications: 19:15 Drug: NS 0.9% 1000 ml Route: IV; Rate: 1 bolus; Site: left hand; ph 20:35 Follow up: Response: No adverse reaction; IV Status: Completed infusion; IV Intake: rr5 1000ml 19:15 Drug: Rocephin - (cefTRIAXone) 1 grams Route: IVPB; Infused Over: 30 mins; Site: left ph hand; 19:44 Follow up: IV Status: Completed infusion ph 20:35 Drug: Potassium Effervescent Tablet 50 mEq Route: PO; rr5 21:12 Follow up: Response: No adverse reaction rr5 20:40 Drug: NS 0.9% 1000 ml Route: IV; Rate: 125 ml/hr; Site: right forearm; rr5 21:15 Follow up: Response: No adverse reaction; IV Status: Infusion continued upon admission; rr5 IV Intake: 62.5ml 20:40 Drug: levofloxacin 500 mg Volume: 100 ml; Route: IVPB; Infused Over: 60 mins; Site: rr5 left forearm; 21:15 Follow up: IV Status: Infusion continued upon admission rr5 Intake: 20:35 IV: 1000ml; Total: 1000ml. rr5 21:15 IV: 63ml; Total: 1063ml. rr5 Outcome: 18:00 Decision to Hospitalize by Provider. kasie 21:15 Admitted to Med/surg accompanied by tech, via stretcher, with chart, Report called to rr5 quan 21:15 Condition: stable rr5 21:15 Instructed on the need for admit. 21:29 Patient left the ED. rr5 Signatures: Dispatcher [employer] Olayinka Fishman MD MD cha Hall, Patricia, RN RN ph Lazaro Quintero, INSPECTOR BARREL INSPECTOR BARREL pm1 Ck Cardenas Moriah mt Garcia, Jessica j Josh Anton, RN RN rr5
--- NOTE | 2018-10-01 18:00 | EDPHYS ---
Physician Documentation [facility] Name: Lillian Cabrera Age: 82 yrs Sex: Female : 1935 Arrival Date: 10/01/2018 Time: 17:01 Bed 16 Private MD: ED Physician Olayinka Rothman HPI: 10/01 17:46 This 82 yrs old Female presents to ER via EMS with complaints of Fever. kasie 17:46 The patient reports fever, that was measured at 100 degrees Fahrenheit. Onset: The kasie symptoms/episode began/occurred 2 day(s) ago. Modifying factors: there are no obvious modifying factors. Associated signs and symptoms: Pertinent positives: cough. Severity of symptoms: At their worst the symptoms were moderate in the emergency department the symptoms are unchanged. The patient has experienced similar episodes in the past, a few times. Historical: - Allergies: 17:08 No Known Allergies; ph - Home Meds: 17:44 acetaminophen 500 mg Oral tab [Active]; Acidophilus Oral chew [Active]; Aricept 23 mg ph Oral tab [Active]; aspirin 81 mg Oral chew [Active]; carvedilol 3.125 mg Oral tab [Active]; Depakote Sprinkles 125 mg Oral cpSP 2 caps every 12 hours [Active]; Docusate Sodium Oral [Active]; enoxaparin 40 mg/0.4 mL subcutaneous syrg once daily [Active]; ferrous sulfate 325 mg (65 mg iron) Oral tab [Active]; folic acid 1 mg Oral tab 1 tab once daily [Active]; mirtazapine 15 mg Oral TbDL 1 tab nightly [Active]; Namenda 10 mg Oral tab 1 tab 2 times per day [Active]; tramadol 50 mg Oral tab 1 tab every 6 hours [Active]; Vitamin D Oral [Active]; - PMHx: 17:44 Dementia; Glaucoma; Hyperlipidemia; Hypertension; UTI; ph - Immunization history:: Adult Immunizations unknown. - Social history:: Smoking status: Patient/guardian denies using tobacco. - Ebola Screening: : No symptoms or risks identified at this time. ROS: 17:48 Constitutional: Negative for fever, chills, and weight loss, Eyes: Negative for injury, kasie pain, redness, and discharge, ENT: Negative for injury, pain, and discharge, Neck: Negative for injury, pain, and swelling, Cardiovascular: Negative for chest pain, palpitations, and edema, Abdomen/GI: Negative for abdominal pain, nausea, vomiting, diarrhea, and constipation, Back: Negative for injury and pain, : Negative for injury, bleeding, discharge, and swelling, MS/Extremity: Negative for injury and deformity, Skin: Negative for injury, rash, and discoloration, Neuro: Negative for headache, weakness, numbness, tingling, and seizure, Allergy/Immunology: Negative for hives, rash, and allergies, Endocrine: Negative for neck swelling, polydipsia, polyuria, polyphagia, and marked weight changes, Hematologic/Lymphatic: Negative for swollen nodes, abnormal bleeding, and unusual bruising. 17:48 Respiratory: Positive for cough, shortness of breath. 17:48 Neuro: Positive for weakness. Exam: 17:48 Head/Face: Normocephalic, atraumatic. Eyes: Pupils equal round and reactive to light, kasie extra-ocular motions intact. Lids and lashes normal. Conjunctiva and sclera are non-icteric and not injected. Cornea within normal limits. Periorbital areas with no swelling, redness, or edema. ENT: Nares patent. No nasal discharge, no septal abnormalities noted. Tympanic membranes are normal and external auditory canals are clear. Oropharynx with no redness, swelling, or masses, exudates, or evidence of obstruction, uvula midline. Mucous membranes moist. Neck: Trachea midline, no thyromegaly or masses palpated, and no cervical lymphadenopathy. Supple, full range of motion without nuchal rigidity, or vertebral point tenderness. No Meningismus. Chest/axilla: Normal chest wall appearance and motion. Nontender with no deformity. No lesions are appreciated. Cardiovascular: Regular rate and rhythm with a normal S1 and S2. No gallops, murmurs, or rubs. Normal PMI, no JVD. No pulse deficits. Respiratory: Lungs have equal breath sounds bilaterally, clear to auscultation and percussion. No rales, rhonchi or wheezes noted. No increased work of breathing, no retractions or nasal flaring. Abdomen/GI: Soft, non-tender, with normal bowel sounds. No distension or tympany. No guarding or rebound. No evidence of tenderness throughout. Back: No spinal tenderness. No costovertebral tenderness. Full range of motion. Skin: Warm, dry with normal turgor. Normal color with no rashes, no lesions, and no evidence of cellulitis. MS/ Extremity: Pulses equal, no cyanosis. Neurovascular intact. Full, normal range of motion. Neuro: Awake and alert, GCS 15, oriented to person, place, time, and situation. Cranial nerves II-XII grossly intact. Motor strength 5/5 in all extremities. Sensory grossly intact. Cerebellar exam normal. Normal gait. Psych: Awake, alert, with orientation to person, place and time. Behavior, mood, and affect are within normal limits. 17:48 Constitutional: The patient appears febrile, lethargic. Vital Signs: 17:07 BP 115 / 82; Pulse 97; Resp 18; Temp 98.2(A); Pulse Ox 95% on R/A; ph 18:20 BP 127 / 86; Pulse 78; Resp 18; Pulse Ox 97% on R/A; ph 19:15 BP 123 / 70; Pulse 86; Resp 17; Temp 98.1; Pulse Ox 98% on R/A; rr5 20:06 BP 135 / 94; Pulse 84; Resp 20; Pulse Ox 99% on R/A; mt 21:00 BP 133 / 85; Pulse 80; Resp 19; Pulse Ox 99% ; rr5 [place] Coma Score: 19:15 Eye Response: spontaneous(4). Verbal Response: confused(4). Motor Response: obeys rr5 commands(6). Total: 14. MDM: 17:02 Patient medically screened. [facility] [place] 17:48 Data reviewed: vital signs, nurses notes, lab test result(s), EKG, radiologic studies, [facility] [place] CT scan, plain films. 10/01 17:46 Order name: Basic Metabolic Panel; Complete Time: 20:01 [facility] [place] 10/01 17:46 Order name: CBC with Diff; Complete Time: 19:39 [facility] [place] 10/01 17:46 Order name: LFT's; Complete Time: 20:01 [facility] [place] 10/01 17:46 Order name: Magnesium; Complete Time: 20:01 [facility] [place] 10/01 17:46 Order name: NT PRO-BNP; Complete Time: 20:01 [facility] [place] 10/01 17:46 Order name: PT-INR [facility] [place] 10/01 17:46 Order name: Troponin (emerg Dept Use Only); Complete Time: 20:01 [facility] [place] 10/01 17:46 Order name: Blood Culture Adult (2) 10/01 17:46 Order name: Urine Culture [facility] [place] 10/01 17:46 Order name: Procalcitonin; Complete Time: 20:01 [facility] [place] 10/01 17:46 Order name: Lactate; Complete Time: 19:39 [facility] [place] 10/01 17:48 Order name: Flu; Complete Time: 19:39 [facility] [place] 10/01 17:48 Order name: Depakote; Complete Time: 20:01 [facility] [place] 10/01 19:44 Order name: Urine Dipstick--Ancillary (enter results) fl 10/01 17:46 Order name: XRAY Chest (1 view) [facility] [place] 10/01 17:46 Order name: EKG; Complete Time: 17:47 [facility] [place] 10/01 17:46 Order name: Cardiac monitoring; Complete Time: 19:44 [facility] [place] 10/01 17:46 Order name: IV Saline Lock; Complete Time: 19:44 [facility] [place] 10/01 17:46 Order name: Labs collected and sent; Complete Time: 19:44 [facility] [place] 10/01 17:46 Order name: O2 Per Protocol; Complete Time: 19:45 [facility] [place] 10/01 17:46 Order name: CT Stone Protocol; Complete Time: 18:39 [facility] [place] 10/01 19:29 Order name: RAD; Complete Time: 19:39 EDMS 10/01 20:14 Order name: Urine Dipstick-Ancillary; Complete Time: 20:35 EDMS 10/01 17:46 Order name: O2 Sat Monitoring; Complete Time: 19:45 [facility] [place] 10/01 17:46 Order name: Urine Dipstick-Ancillary (obtain specimen); Complete Time: 19:44 [facility] [place] 10/01 17:46 Order name: Cruz; Complete Time: 19:44 [facility] [place] 10/01 19:16 Order name: Labs - recollect needed; Complete Time: 20:13 ms Administered Medications: 19:15 Drug: NS 0.9% 1000 ml Route: IV; Rate: 1 bolus; Site: left hand; ph 20:35 Follow up: Response: No adverse reaction; IV Status: Completed infusion; IV Intake: rr5 1000ml 19:15 Drug: Rocephin - (cefTRIAXone) 1 grams Route: IVPB; Infused Over: 30 mins; Site: left ph hand; 19:44 Follow up: IV Status: Completed infusion ph 20:35 Drug: Potassium Effervescent Tablet 50 mEq Route: PO; rr5 21:12 Follow up: Response: No adverse reaction rr5 20:40 Drug: NS 0.9% 1000 ml Route: IV; Rate: 125 ml/hr; Site: right forearm; rr5 21:15 Follow up: Response: No adverse reaction; IV Status: Infusion continued upon admission; rr5 IV Intake: 62.5ml 20:40 Drug: levofloxacin 500 mg Volume: 100 ml; Route: IVPB; Infused Over: 60 mins; Site: rr5 left forearm; 21:15 Follow up: IV Status: Infusion continued upon admission rr5 Disposition: 10/01/18 18:00 Hospitalization ordered by Dewayne Daigle for Inpatient Admission. Preliminary diagnosis are Fever, unspecified, Weakness, Volume depletion, Altered mental status, unspecified, Urinary tract infection, site not specified, Hydronephrosis with renal and ureteral calculous obstruction - 11 mm distal right ureter stone. - Bed requested for Telemetry/MedSurg (Inpatient). - Status is Inpatient Admission. rr5 - Condition is Stable. - Problem is new. - Symptoms have improved. UTI on Admission? Yes Signatures: Dispatcher [employer] EDSC Xena Elmore Corey, MD MD cha Solis, Maria ms Hall, Patricia, RN RN ph Lazaro Quintero, HORTENSIA LENS EXAMINER pm1 Josh Anton RN RN rr5 Corrections: (The following items were deleted from the chart) 18:09 18:00 Hospitalization Ordered by Dewayne Daigle MD for Inpatient Admission. Preliminary kasie diagnosis is Fever, unspecified; Weakness; Volume depletion. Bed requested for Telemetry/MedSurg (Inpatient). Status is Inpatient Admission. Condition is Stable. Problem is new. Symptoms have improved. UTI on Admission? No. kasie 18:23 18:04 Head Brain Wo Cont+CT.RAD.BRZ ordered. EDSC EDSC 18:42 18:09 10/01/2018 18:00 Hospitalization Ordered by Dewayne Daigle MD for Inpatient bd Admission. Preliminary diagnosis is Fever, unspecified; Weakness; Volume depletion; Altered mental status, unspecified. Bed requested for Telemetry/MedSurg (Inpatient). Status is Inpatient Admission. Condition is Stable. Problem is new. Symptoms have improved. UTI on Admission? No. kasie 18:42 18:42 10/01/2018 18:00 Hospitalization Ordered by Dewayne Daigle MD for Inpatient kasie Admission. Preliminary diagnosis is Fever, unspecified; Weakness; Volume depletion; Altered mental status, unspecified. Bed requested for Telemetry/MedSurg (Inpatient). Status is Inpatient Admission. Condition is Stable. Problem is new. Symptoms have improved. UTI on Admission? No. bd 21:29 18:42 10/01/2018 18:00 Hospitalization Ordered by Dewayne Daigle MD for Inpatient rr5 Admission. Preliminary diagnosis is Fever, unspecified; Weakness; Volume depletion; Altered mental status, unspecified; Urinary tract infection, site not specified; Hydronephrosis with renal and ureteral calculous obstruction - 11 mm distal right ureter stone. Bed requested for Telemetry/MedSurg (Inpatient). Status is Inpatient Admission. Condition is Stable. Problem is new. Symptoms have improved. UTI on Admission? Yes. kasie
--- NOTE | 2018-10-01 18:33 | RAD REPORT ---
EXAM DESCRIPTION: CT - Stone Protocol - 10/01/2018 6:00 pm CLINICAL HISTORY: Abdominal pain. COMPARISON: 2008 TECHNIQUE: Computed axial tomography of the abdomen pelvis was obtained without oral or IV contrast. Lack of IV and oral contrast limits evaluation of solid organs, bowel, and vessels. Coronal reformat bethel images were obtained and reviewed. All CT scans are performed using dose optimization technique as appropriate and may include automated exposure control or mA/KV adjustment according to patient size. FINDINGS: Tiny nonobstructing right renal calculus. Moderate right hydronephrosis. The right ureter is dilated. The millimeter calculus distal right ureter Hounsfield unit 1452. Staghorn calculus left kidney measuring 4.5 centimeters. No hydronephrosis. The liver, spleen, pancreas and adrenals appear grossly normal There is no evidence of diverticulitis. The rectum is mildly distended with stool. Calcified uterine fibroids. 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
[2018-10-01 19:22] LABS: Absolute Lymphocytes (CBC) 1.9 K/uL (0.7-4.9); Absolute Monocytes 0.7 K/uL (0.1-1.3); Absolute Neutrophil 4.6 K/uL (1.8-8.0); Basophils % 0.5 % (0-1.3); Hematocrit 39.8 % (36.0-45.0); MPV 7.3 fL (7.6-11.3); Monocytes % 9.2 % (3.3-12.3); RBC Red Blood Cell Count 3.99 M/uL (3.86-4.86)
--- NOTE | 2018-10-01 19:26 | RAD REPORT ---
EXAM DESCRIPTION: Facundo Single View10/01/2018 7:14 pm CLINICAL HISTORY: Cough COMPARISON: November 2017 FINDINGS: The lungs appear clear of acute infiltrate. The heart is mildly enlarged IMPRESSION: No acute abnormalities displayed
[2018-10-01] MEDS ORDERED: Levofloxacin500mg IV 500 MG/100 ML BAG IV ONE (19:29)
[2018-10-01] MEDS ORDERED: NA CHLORIDE 0.9% 1,000 ML ONE ×2 (19:29→19:30)
[2018-10-01] MEDS ORDERED: CEFTRIAXONE/SWI 1gm 1 GM/10 ML SYR ONE (19:29)
[2018-10-01 19:39] LABS: ALT/SGPT 14 U/L (12-78); AST/SGOT 12 U/L (15-37); Alkaline Phosphatase 131 U/L (45-117); BUN Blood Urea Nitrogen 48 mg/dL (7-18); Bicarbonate 31 mmol/L (21-32); Bilirubin Direct 0.1 mg/dL (0-0.2); Bilirubin Total 0.4 mg/dL (0.2-1.0); Glucose Level 101 mg/dL (74-106); Magnesium 2.2 mg/dL (1.8-2.4); NT PRO-BNP 383 pg/mL (<450); Protein, Total 6.9 g/dL (6.4-8.2); Sodium Level 146 mmol/L (136-145); Troponin (Emerg Dept Use Only) < 0.02 ng/mL (0.0-0.045)
[2018-10-01 20:13] LABS: Urine Blood 2+ (NEG); Urine Glucose NEGATIVE (NEG); Urine Protein 2+ (NEG); Urine Specific Gravity 1.015 (1.005-1.030); Urine pH 8.5 (5.0-7.0)
[2018-10-01 20:30] LABS: Protime INR 1.24
[2018-10-01] MEDS ORDERED: POTASSIUM 25 MEQ EFFERV TAB ONE (20:41)
[2018-10-01] MEDS ORDERED: CEFTRIAXONE 1 GM/NS 50 ML 1 GM/50 ML BAG IV SCH (21:38)
[2018-10-01] MEDS ORDERED: ONDANSETRON 4 MG/2 ML VIAL IV PRN (21:38)
[2018-10-01] MEDS: LEVALBUTEROL 1.25 MG/3 ML NEB NEB SCH (21:38)
[2018-10-01] MEDS ORDERED: ACETAMINOPHEN 500 MG TAB PO PRN (21:38)
[2018-10-01] MEDS: Levofloxacin 250mg IV 250 MG/50 ML BAG IV SCH (21:38)
[2018-10-01] MEDS: NA CHLORIDE 0.9% 1,000 ML IV SCH (21:38)
[2018-10-01 22:04] VITALS: BMI 24.4
[2018-10-01] MEDS: FAMOTIDINE 20 MG/2 ML VIAL IV SCH (23:53)
[2018-10-02] MEDS: LEVALBUTEROL 1.25 MG/3 ML NEB NEB SCH ×4 (02:00→20:01)
[2018-10-02 04:16] LABS: Absolute Lymphocytes (CBC) 1.8 K/uL (0.7-4.9); Absolute Monocytes 0.5 K/uL (0.1-1.3); Absolute Neutrophil 3.5 K/uL (1.8-8.0); Basophils % 0.5 % (0-1.3); Eosinophils % 1.4 % (0-4.4); Hematocrit 37.3 % (36.0-45.0); Lymphocytes % 29.9 % (15.3-44.8); MPV 7.2 fL (7.6-11.3); Monocytes % 8.7 % (3.3-12.3); RBC Red Blood Cell Count 3.71 M/uL (3.86-4.86)
[2018-10-02 04:25] LABS: Potassium 3.7 mmol/L (3.5-5.1)
--- NOTE | 2018-10-02 05:43 | EKG ---
Test Date: 2018-10-01 Test Time: 23:01:52 [employer] Chain Offbearer: TAYLOR MEASUREMENT RESULTS: Intervals: Rate: 79 TX: 152 QRSD: 66 QT: 398 QTc: 456 [place]: P: 15 TX: 152 QRS: -45 T: 23 INTERPRETIVE STATEMENTS: Sinus rhythm with premature supraventricular complexes Left axis deviation Inferior infarct, age undetermined Abnormal ECG Compared to ECG 10/01/2018 23:00:50 no significant change from previous ECG Electronically Signed On 10-02-18 05:42:59 CDT by Eric Bermeo
--- NOTE | 2018-10-02 05:43 | EKG ---
Test Date: 2018-10-01 Test Time: 23:03:09 Exchange Clerk: TAYLOR MEASUREMENT RESULTS: Intervals: Rate: 77 IA: 156 QRSD: 88 QT: 412 QTc: 466 [place]: P: 16 IA: 156 QRS: -43 T: 27 INTERPRETIVE STATEMENTS: Sinus rhythm with premature atrial complexes Left axis deviation Low voltage QRS Inferior infarct, age undetermined Abnormal ECG Compared to ECG 10/01/2018 23:01:52 Low QRS voltage now present Supraventricular premature complex(es) no longer present Myocardial infarct finding still present Electronically Signed On 10-02-18 05:42:14 CDT by Eric Bermeo
--- NOTE | 2018-10-02 05:43 | EKG ---
Test Date: 2018-10-01 Test Time: 23:00:50 School Cleaner: TAYLOR MEASUREMENT RESULTS: Intervals: Rate: 83 [place]: QRSD: 94 QT: 394 QTc: 462 [place]: P: [place]: QRS: -35 T: 25 INTERPRETIVE STATEMENTS: Sinus rhythm with premature atrial complexes Left axis deviation Inferior infarct, age undetermined Abnormal ECG Compared to ECG 08/27/2018 07:13:34 Sinus bradycardia no longer present Myocardial infarct finding still present Electronically Signed On 10-02-18 05:43:29 CDT by Eric Bermeo
[2018-10-02] MEDS: NA CHLORIDE 0.9% 1,000 ML IV SCH (06:44)
--- NOTE | 2018-10-02 08:38 | RAD REPORT ---
EXAM DESCRIPTION: Facundo Single View10/02/2018 4:43 am CLINICAL HISTORY: Chest pain COMPARISON: October 01, 2018 FINDINGS: The lungs appear clear of acute infiltrate. The heart is mildly enlarged. Aorta is tortuous/ectatic the. The patient is rotated limiting evaluation of mediastinum IMPRESSION: No acute abnormalities displayed
[2018-10-02] MEDS: DONEPEZIL HCL 5 MG TAB PO SCH ×2 (09:00→21:59)
[2018-10-02] MEDS: FOLIC ACID 1 MG TABLET PO SCH (09:00)
[2018-10-02] MEDS: FERROUS SULFATE 325 MG TAB PO SCH (09:00)
[2018-10-02] MEDS: DIVALPROEX DR 250 MG TAB PO SCH ×2 (09:00→21:58)
[2018-10-02] MEDS: MEMANTINE HCL 10 MG TABLET PO SCH ×2 (09:00→21:59)
[2018-10-02] MEDS: DOCUSATE NA 100 MG CAP PO SCH ×2 (09:00→21:58)
[2018-10-02] MEDS: D5 0.45 NS 1,000 ML IV SCH ×3 (09:17→21:20)
[2018-10-02] MEDS: CARVEDILOL 6.25 MG TAB PO SCH ×2 (09:18→21:58)
[2018-10-02] MEDS: CEFTRIAXONE/SWI 1gm 1 GM/10 ML SYR IV SCH ×2 (09:19→21:50)
--- NOTE | 2018-10-02 09:34 | HP ---
Date of Admission: 10/01/2018 Chief Complaint: Fever and chills. History Of Present Illness: This is a pleasant 82-year-old female patient [facility] who has prior history of recurrent urinary tract infection, was doing fine in her normal usual state of health until this afternoon all of a sudden she had low-grade fever and chills. Nurse contacted me w ith this information and it was advised to send the patient to emergency room. One dose of Tylenol w as ordered. After she was evaluated in the emergency room, she was diagnosed as having urinary tract infection with kidney stone and hydronephrosis and decision was made to admit her to the hospital. Allergies: NO KNOWN ALLERGIES. Medications: List reviewed. Review of Systems: Constitutional: As mentioned above. Genitourinary: As mentioned above. All other systems reviewed and negative. Medications: List reviewed. Past Surgical History: Surgery for hip fracture done last month. Family History: Significant for unknown type of cancer and cardiovascular disease. Social History: Negative for smoking or alcohol use. Past Medical History: Significant for dementia, mixed hyperlipidemia, glaucoma, urinary tract infect ion and stroke during last month's hospital admission. Physical Examination: Vital Signs: When she first came in, blood pressure 115/82, pulse 97, respiratory rate 18, temperatu re 98.2, pulse ox 95%. General: Awake, alert, oriented, not in distress. HEENT: Head atraumatic, normocephalic. Conjunctivae nonerythematous. Sclerae white. Mouth, no thr ush or edema noted. Ears/Nose, no mass, lesion, discharge noted. Neck: Supple. No JVD, lymph nodes, bruit, thyromegaly noted. Lungs: Bilateral good equal air entry. Clear to auscultation. No rhonchi. No rales. Heart: Normal heart sounds, no murmur or gallop. Abdomen: Soft, bowel sounds normal. No guarding, rigidity, tenderness, mass, hepatosplenomegaly, dis tention, or bruit noted. Extremities: No leg edema. No calf tenderness. Skin: No rash, ulcer, cellulitis. Lymphatics: No lymph node enlargement in neck, supraclavicular, infraclavicular region. Neuro: No focal neurological deficit. Chest: Unremarkable. External Genitalia: Deferred. Rectal: Deferred. Laboratory Data: White count 7.3, hemoglobin 13.6, platelet count 287. Sodium 146, potassium 3, chl oride 106, bicarb 31, BUN 48, creatinine 1.02, glucose 101. Liver function tests unremarkable. Proc alcitonin less than 0.05. Urinalysis, nitrite negative, leukocyte esterase 3+, protein 2+. CAT scan of the abdomen per kidney stone protocol, 11-mm calculus, distal right ureter resulting in moderate hydronephrosis on the right side. Chest x-ray, no acute cardiopulmonary changes. Impression: 1.Right-sided ureteric stone with hydronephrosis. 2.Urinary tract infection. 3.Rule out sepsis. 4.Senile dementia. 5.Stroke. 6.Mixed hyperlipidemia. 7.Urinary tract infection. Plan: Admit the patient to hospital for further evaluation and management of this problem. The armida ent is appropriate for inpatient and is expected to spend 2 midnights in the hospital. We will quinton nue current medications, IV fluid, IV antibiotics. Consult Dr. Maciel for Urology, and I will see her tomorrow for followup. Details and plan of treatment discussed with the patient and her son, who wa s at bedside in the emergency room. We will continue empiric antibiotics. Follow up on the urine cu lture and then decide about culture specific antibiotics. The patient had a Cruz catheter placed in emergency room. It is showing presence of dark yellow urine and it is cloudy. For her kidney stone , she may need a cystoscopy with possibility of either right ureter stent and/or lithotripsy procedur e with Urologist. Details were discussed with family and the patient. DANIELA/ADRIEL Voice ID: [id number]
[2018-10-02] MEDS ORDERED: GENTAMICIN 100 MG/100 ML BAG 100 ML IV ONE (10:34)
[2018-10-02] MEDS ORDERED: PROPOFOL 200 MG/20 ML VIAL IV ONE (10:39)
[2018-10-02] MEDS ORDERED: FENTANYL CITR 100 MCG/2 ML ONE (10:39)
[2018-10-02] MEDS ORDERED: LIDOCAINE 2% MPF 5 ML VIAL ONE (10:39)
[2018-10-02] MEDS ORDERED: EPHEDRINE SULF 50 MG/ML VIAL ONE (10:49)
[2018-10-02] MEDS ORDERED: Ringers Lactate 1,000 ML IV ONE (11:03)
--- NOTE | 2018-10-02 12:11 | RAD REPORT ---
EXAM DESCRIPTION: RAD - Cystography - 10/02/2018 12:04 pm CLINICAL HISTORY: CYSTO WITH STENT COMPARISON: Pelvis dated 08/28/2018 FINDINGS: Fluoroscopic imaging from cystoscopy procedure is submitted. Details of the procedure not available. Total fluoro time: 0.36 minutes
--- NOTE | 2018-10-02 14:35 | CON ---
History Of Present Illness: An 82-year-old female, demented, came in from [facility], low -grade fever at 99.9. In the ER, she got a CT scan revealing a staghorn stone on the left, but no hy dronephrosis on the left. Staghorn stone I measured was 25 x 26 cm from the mid pole to the lower po le about half of the kidney. Then, she had a small stone in the right lower pole of the kidney and a nother 11 mm stone in right lower ureter. She is afebrile, white count is normal, now she is not sep tic, I was going to plan to do a stent. Probably, she can do a ureteroscopy stone extraction and josé miguel nt placement on that side. She will also need another stent on the left side to do the left staghorn another time, possible ESWL. Verbal consent has been obtained from the children and her son. Allergies: NO KNOWN DRUG ALLERGIES. Medications: Tylenol, acidophilus, Aricept, aspirin, carvedilol, Depakote, docusate, enoxaparin, bautista dixie sulfate, folic acid, mirtazapine, Namenda, tramadol, vitamin D. Past Medical History: Dementia, glaucoma, hyperlipidemia, hypertension, UTI. Immunizations: Up-to-date. Social History: No smoking or tobacco reported. Physical Examination: Current Vital Signs: 97.3, 66, 20, 131/97, sats 96%. General: The patient is demented, alert, oriented x1. HEENT: Atraumatic, normocephalic. Lungs: Clear. Heart: S1, S2. Abdomen: Soft, nontender. Extremities: Normal range of motion. Laboratory Data: White count 6.0, H and H 12.6 and 37.3, platelets 241. Coags; PT 14.5, INR 1.2. C hemistry shows sodium of 139, potassium 3.7, chloride 110, carbon dioxide 32, BUN 35, creatinine 0.88 , GFR 62, glucose 86, calcium 8.6. Urine shows pH 8.5, ketone 1+, blood 2+, nitrite negative, estera se 3+. Microbiology is growing greater than 100,000 CFUs gram-negative rods. Assessment: The patient with Staghorn on the left and 11 mm stone on the right lower ureter, came in with fever. She needs to be unobstructed, possible stone removal, possible stent placement. We al l see how she is doing. Microbiology so far she is growing 100,000 CFU per/mL, which is not surprisi ng with a staghorn stone. In terms of antibiotics, she is getting Rocephin currently and Levaquin wh ich is an excellent coverage. SURYA/ADRIEL Voice ID: [id number] Report ID: [id number]
[2018-10-02] MEDS: FAMOTIDINE 20 MG/2 ML VIAL IV SCH (21:51)
[2018-10-02] MEDS: Levofloxacin 250mg IV 250 MG/50 ML BAG IV SCH (21:53)
[2018-10-02] MEDS: MIRTAZAPINE 15 MG TAB PO SCH (21:58)
--- NOTE | 2018-10-02 23:32 | PN ---
Date of Progress Note: 10/02/2018 Subjective: The patient was seen this morning for followup. She was lying in bed. Denied any compl aints. No abdominal pain, nausea, vomiting. Objective: Vital Signs: Reviewed. HEENT: Unremarkable. Lungs: Clear to auscultation. Heart: Sounds normal. Abdomen: Soft. Bowel sounds normal. No guarding, rigidity, tenderness, distention. Extremities: No leg edema. Laboratory Data: White count 6, hemoglobin 12.6, platelets 241. Sodium 149, potassium 3.7, chloride 110, bicarb 32, BUN 35, creatinine 0.88, glucose 86. Impression: 1.Right ureteric stone with hydronephrosis. 2.Hypertension. 3.Senile dementia. 4.Stroke. Plan: We will go ahead and continue current medications, antibiotics. IV fluid will be changed to D 5 half NS per order. Details were discussed with Dr. Maciel before and after surgery, which was done by him. He was able to remove the stone from the right ureter and he has placed a stent in the right ureter. He has given me his okay to restart aspirin, Plavix, Lovenox type of medications starting t omorrow. I will see her tomorrow for followup. DANIELA/MODL Voice ID: [id number] Report ID: [id number]
[2018-10-03] MEDS: LEVALBUTEROL 1.25 MG/3 ML NEB NEB SCH ×5 (01:31→20:00)
[2018-10-03] MEDS: D5 0.45 NS 1,000 ML IV SCH ×2 (03:49→07:45)
[2018-10-03] MEDS ORDERED: NACL 0.9% IRR SOLN 2,000 ML IRR ONE (04:12)
[2018-10-03 06:30] LABS: Absolute Lymphocytes (CBC) 1.5 K/uL (0.7-4.9); Absolute Monocytes 0.5 K/uL (0.1-1.3); Absolute Neutrophil 3.9 K/uL (1.8-8.0); Basophils % 0.5 % (0-1.3); Eosinophils % 1.8 % (0-4.4); Hematocrit 34.6 % (36.0-45.0); MPV 7.5 fL (7.6-11.3); Monocytes % 8.4 % (3.3-12.3); RBC Red Blood Cell Count 3.47 M/uL (3.86-4.86)
[2018-10-03 06:31] LABS: Magnesium 1.7 mg/dL (1.8-2.4); Potassium 3.1 mmol/L (3.5-5.1)
[2018-10-03] MEDS: ENOXAPARIN 40 MG/0.4 ML SQ SCH (08:11)
[2018-10-03] MEDS: DOCUSATE NA 100 MG CAP PO SCH ×2 (08:11→21:13)
[2018-10-03] MEDS: MEMANTINE HCL 10 MG TABLET PO SCH ×2 (08:12→21:14)
[2018-10-03] MEDS: FERROUS SULFATE 325 MG TAB PO SCH (08:12)
[2018-10-03] MEDS: DONEPEZIL HCL 5 MG TAB PO SCH ×2 (08:12→21:19)
[2018-10-03] MEDS: ASPIRIN 81 MG CHEWABLE TABLET PO SCH (08:12)
[2018-10-03] MEDS: CARVEDILOL 6.25 MG TAB PO SCH ×2 (08:12→21:13)
[2018-10-03] MEDS: FOLIC ACID 1 MG TABLET PO SCH (08:12)
[2018-10-03] MEDS ORDERED: POTASSIUM 25 MEQ EFFERV TAB PO ONE ×2 (09:00→17:00)
[2018-10-03] MEDS ORDERED: MAGNESIUM SULFATE 1 gm IVPB 1 GM/100 ML BAG IV ONE (09:00)
[2018-10-03] MEDS: DIVALPROEX DR 250 MG TAB PO SCH ×2 (09:31→21:13)
[2018-10-03] MEDS: SODIUM CHL 0.9% IRR SOLN 2000 ML IRR SCH ×2 (14:48→18:26)
--- NOTE | 2018-10-03 20:03 | PN ---
Subjective: The patient is resting. Spoke to her son today that she was recovering well from surger y. The patient is back on aspirin and Lovenox. Urine is looking pretty good. Still on very minimal CBI. We will keep the CBI going to possible tomorrow prior to her discharge, not sure how many days . Dr. No would like to keep her. Her urine culture did grow Klebsiella pneumoniae and sensitiviti es to Bactrim, Augmentin, Levaquin and ciprofloxacin, most antibiotics except ampicillin. She is rec eiving Levaquin right now, which is a good choice. Laboratory Data: White count stable 6.1, H and H 11 and 34, platelet 220. Chemistry, potassium slig htly low at 3.18. GFR is up to 82. Assessment: Status post ureteroscopy, laser lithotripsy, stone basket removal, stent placement and F oley catheter placement. Plan: Continue therapy. Continue antibiotics for the Klebsiella. Continue irrigation and plan for discharge soon. SURYA/MODL Voice ID: [id number] Report ID: [id number]
[2018-10-03] MEDS: Levofloxacin500mg IV 500 MG/100 ML BAG IV SCH (21:11)
[2018-10-03] MEDS: MIRTAZAPINE 15 MG TAB PO SCH (21:14)
[2018-10-03] MEDS: FAMOTIDINE 20 MG/2 ML VIAL IV SCH (21:19)
--- NOTE | 2018-10-03 22:54 | PN ---
Date of Progress Note: 10/03/2018 Subjective: The patient was seen this morning for followup. No new complaints or problems reported by her, lying in bed, not in distress. Nurse reported that the patient had a bowel movement yesterda y. Objective: Vital Signs: Reviewed. HEENT: Unremarkable. Lungs: Clear to auscultation. Heart: Sounds normal. Abdomen: Soft. Bowel sounds normal. No guarding, rigidity, tenderness, distention. Extremities: No leg edema. Laboratory Data: White count 6.1, hemoglobin 11.9, platelets 220. Sodium 142, potassium 3.1, chlori de 105, bicarb 30, BUN 18, creatinine 0.69, glucose 81, magnesium 1.7. Impression: 1.Urinary tract infection. 2.Right ureter stone with hydronephrosis, status post surgery. 3.Hypokalemia. 4.Hypomagnesemia. 5.Anemia. 6.Hypertension. 7.Dementia. Plan: We will replace electrolytes per protocol. Continue IV fluid, IV antibiotics per order. The patient's urine culture grew klebsiella and it is sensitive to ceftriaxone as well as Levaquin that t he patient is currently on. We will discontinue ceftriaxone and continue her Levaquin and upon disch arge from the hospital when she goes back to long term, we will continue Levaquin tablets. Jonnie dupreepardeep, she is on IV Levaquin. Possible discharge to go home either tomorrow or day after tomorrow depe nding on her condition and when okay with urologist. Currently, she has a 3-way Cruz catheter in place with bladder irrigation per urologist. DANIELA/MODL Voice ID: [id number] Report ID: [id number]
[2018-10-04] MEDS: SODIUM CHL 0.9% IRR SOLN 2000 ML IRR SCH (00:58)
[2018-10-04] MEDS: LEVALBUTEROL 1.25 MG/3 ML NEB NEB SCH ×4 (02:00→19:49)
[2018-10-04 02:49] VITALS: O2SAT 94
[2018-10-04 06:44] LABS: Magnesium 1.9 mg/dL (1.8-2.4); Potassium 4.1 mmol/L (3.5-5.1)
[2018-10-04 06:47] LABS: Absolute Lymphocytes (CBC) 1.3 K/uL (0.7-4.9); Absolute Monocytes 0.4 K/uL (0.1-1.3); Basophils % 0.6 % (0-1.3); Eosinophils % 3.3 % (0-4.4); Hematocrit 34.1 % (36.0-45.0); Lymphocytes % 26.6 % (15.3-44.8); MPV 7.5 fL (7.6-11.3); Monocytes % 8.2 % (3.3-12.3); RBC Red Blood Cell Count 3.44 M/uL (3.86-4.86)
[2018-10-04] MEDS ORDERED: FUROSEMIDE 40 MG/4 ML VIAL ONE (06:53)
[2018-10-04] MEDS: D5 0.45 NS 1,000 ML IV SCH (08:00)
--- NOTE | 2018-10-04 08:48 | RAD REPORT ---
EXAM DESCRIPTION: NM - Kidney Imag W/Flow F W - 10/04/2018 8:26 am CLINICAL HISTORY: Abnormal renal function, hydronephrosis, renal calculi COMPARISON: CT imaging October 01 TECHNIQUE: Patient was administered 10.9 millicuries technetium 99 M Mag 3. Dynamic flow imaging was performed with time activity curves generated and reviewed. Patient was administered 31.4 milligrams Lasix 10 minutes after initial radiopharmaceutical injection. FINDINGS: Patient demonstrated a steep slope in time activity curve row of the initial 2 minutes of the examination. Time activity curves flattened over the next 7-8 minutes of the examination. Peak ac tivity of the left kidney is approximately 8 minutes with peak activity of the right kidney approxima tely 7 minutes. Response to Lasix was observed bolus somewhat tempered. Split function measurements w ere 55% left and 45% right bilateral hydronephrosis is present. IMPRESSION: Bilateral hydronephrosis pattern showing minimal or no obstruction.
[2018-10-04] MEDS: MEMANTINE HCL 10 MG TABLET PO SCH ×2 (08:54→20:51)
[2018-10-04] MEDS: DOCUSATE NA 100 MG CAP PO SCH ×2 (08:54→20:51)
[2018-10-04] MEDS: CARVEDILOL 6.25 MG TAB PO SCH ×2 (08:54→20:51)
[2018-10-04] MEDS: DONEPEZIL HCL 5 MG TAB PO SCH ×2 (08:54→20:51)
[2018-10-04] MEDS: ASPIRIN 81 MG CHEWABLE TABLET PO SCH (08:54)
[2018-10-04] MEDS: FERROUS SULFATE 325 MG TAB PO SCH (08:54)
[2018-10-04] MEDS: DIVALPROEX DR 250 MG TAB PO SCH ×2 (08:55→20:56)
[2018-10-04] MEDS: FOLIC ACID 1 MG TABLET PO SCH (08:55)
[2018-10-04] MEDS: ENOXAPARIN 40 MG/0.4 ML SQ SCH (08:55)
[2018-10-04] MEDS: Levofloxacin500mg IV 500 MG/100 ML BAG IV SCH (20:49)
[2018-10-04] MEDS: MIRTAZAPINE 15 MG TAB PO SCH (20:50)
[2018-10-04] MEDS: FAMOTIDINE 20 MG/2 ML VIAL IV SCH (20:52)
--- NOTE | 2018-10-04 22:18 | PN ---
Subjective: The patient is stable. Objective: Vital Signs: Afebrile. Stable. Laboratory Data: Urine has been clear. Plan: The patient will be going home tomorrow. Nurse went ahead and removed the 3-way Cruz for me today. However, she said that the string is attached to the stent, so I came by and checked and inde ed there is no string on the urethral meatus. She will need flexible cystoscopy, stent removal in th e office, so she can follow up next week for that. SURYA/ADRIEL Voice ID: [id number] Report ID: [id number]
--- NOTE | 2018-10-05 00:28 | PN ---
Date of Progress Note: 10/04/2018 Subjective: The patient was seen this morning for followup. No new complaints , problems reported by the patient lying in bed, not in distress. Objective: Vital Signs: Reviewed. HEENT: Unremarkable. Lungs: Clear to auscultation. Heart: Normal. Abdomen: Soft. Bowel sounds normal. No guarding, rigidity, tenderness, distention. Extremities: No leg edema. Laboratory Data: White count 4.9, hemoglobin 12.1, platelets 224. Sodium 140, potassium 4.1, chloride 104, bicarb 29, BUN 13, creatinine 0.74, glucose 88, magnesium 1.9. Impression: 1. Right-sided ureteric stone with hydronephrosis. 2. Hypokalemia. 3. Hypomagnesemia. 4. Hypertension. 5. Senile dementia. 6. Urinary tract infection. Plan: Continue current antibiotic, I did talk to Dr. Maciel and he is going to remove her 3-way Cruz catheter that the patient currently has and getting bladder irrigation. He removed that as well as he will also remove stent from her right ureter and from his point of view, he has informed me that the patient can go back to residential tomorrow. I will see her tomorrow and if she is stable, I will plan to discharge her to go back to residential. DANIELA/ADRIEL Voice ID: [id number] Report ID: [id number] MTDD
[2018-10-05] MEDS: LEVALBUTEROL 1.25 MG/3 ML NEB NEB SCH ×3 (01:50→13:49)
[2018-10-05] MEDS: D5 0.45 NS 1,000 ML IV SCH (06:26)
[2018-10-05] MEDS: FERROUS SULFATE 325 MG TAB PO SCH (09:09)
[2018-10-05] MEDS: DIVALPROEX DR 250 MG TAB PO SCH (09:09)
[2018-10-05] MEDS: ENOXAPARIN 40 MG/0.4 ML SQ SCH (09:09)
[2018-10-05] MEDS: CARVEDILOL 6.25 MG TAB PO SCH (09:10)
[2018-10-05] MEDS: DONEPEZIL HCL 5 MG TAB PO SCH (09:10)
[2018-10-05] MEDS: ASPIRIN 81 MG CHEWABLE TABLET PO SCH (09:10)
[2018-10-05] MEDS: DOCUSATE NA 100 MG CAP PO SCH (09:10)
[2018-10-05] MEDS: FOLIC ACID 1 MG TABLET PO SCH (09:10)
[2018-10-05] MEDS: MEMANTINE HCL 10 MG TABLET PO SCH (09:10)
--- NOTE | 2018-10-05 10:49 | PN ---
Subjective: The patient is resting. The nurse had to straight cath around midnight last night for 5 00 cc. She was unable to void on her own. We called her senior care this morning. They said she d id have a chronic catheter in the senior care, so we are going to replace that. They do not want to do clean intermittent catheterization. She is afebrile, stable. Urine output is good. She does gaines ve her double-J stent inside. We are going to remove that next week in the office. She still has he r staghorn on the left side and her urine culture grew Klebsiella pneumoniae, so we can send her home on antibiotic for that, although it will make a difference since she has a staghorn stone on the lef t. She will always have a urinary tract infection with it. SURYA/ADRIEL Voice ID: [id number] Report ID: [id number]
[2018-10-05 16:12] VITALS: BP 146/92; TEMP 97.9
--- NOTE | 2018-10-10 18:26 | DS ---
Date of Discharge: 10/05/2018 Disposition: Discharged to go to senior care. Physical Examination: HEENT: Unremarkable. Lungs: Clear to auscultation. Heart: Sounds normal. Abdomen: Soft. Bowel sounds normal. No guarding, rigidity, tenderness, distention. Extremities: No leg edema. Discharge Medications And Instructions: 1.Continue all prior senior care medications. 2.Followup with Dr. Maciel. 3.Dr. Maciel to remove her Cruz catheter and stent next week. 4.Levaquin 500 mg by mouth daily for 1 week. Laboratory Data: Labs done during this hospitalization; initial white count 7.3, hemoglobin 13.6, pl atelets 287; last white count 4.9, hemoglobin 12.1, platelets 224. Last chemistry; sodium 140, potas sium 4.1, chloride 104, bicarb 29, BUN 13, creatinine 0.74, glucose 88. Initial chemistry; sodium 14 6, potassium 3, chloride 106, bicarb 31, BUN 48, creatinine 1.02, glucose 101. Hospital Course: This is an 82-year-old female patient admitted to the hospital after she presented to emergency room from senior care with problem of fever and chills. Please see dictated H and P fo r more information. The patient was evaluated in the ER and was diagnosed as having right-sided uret rachel stone with hydronephrosis and urinary tract infection. She also had volume depletion. IV fluid was started. IV antibiotics were started. Dr. Maciel was consulted from Urology Service and he did a cystoscopy, removal of stones from the right ureter, and was able to put a stent. Her IV antibioti cs were continued. Urine culture came back and culture specific antibiotic was given. Her urine cul ture grew 2 different bacteria. It was Klebsiella and Enterococcus. Postoperatively, she did very w ell. She had a 3-way Cruz catheter for bladder irrigation, which was removed by Dr. Maciel and after that, the patient had urinary retention, so he did replace Cruz catheter and his plan is to remove Cruz catheter when he sees her on outpatient basis. Dr. Maciel's impression was that the patient had an indwelling Cruz at senior care and he was made aware of the fact that the patient did not have a Cruz catheter at senior care. Final Diagnoses: 1.Right-sided ureteric stone with hydronephrosis. 2.Urinary tract infection. 3.Volume depletion. 4.Mild dementia. 5.Stroke. 6.Mixed hyperlipidemia. DANIELA/MODL Voice ID: [id number] Report ID: [id number]
== END 2018-10-05 17:50 | DRG 661 ==
LOC: ER 16:46 → ERHOLD 18:02 → 2ND 20:45
PROVIDERS: ADMIT Internal Medicine; ATTEND Internal Medicine
PROC: 0T768DZ Dilation of Right Ureter with Intraluminal Device, Via Natural or Artificial Opening Endoscopic (ICD-10-PCS; 2018-10-02)
PROC: BT1DZZZ Fluoroscopy of Right Kidney, Ureter and Bladder (ICD-10-PCS; 2018-10-02)
PROC: 0TC68ZZ Extirpation of Matter from Right Ureter, Via Natural or Artificial Opening Endoscopic (ICD-10-PCS; principal; 2018-10-02 12:00)
DX: N13.6 Pyonephrosis (principal); B95.2 Enterococcus as the cause of diseases classified elsewhere; B96.1 Klebsiella pneumoniae [K. pneumoniae] as the cause of diseases classified elsewhere; E86.9 Volume depletion, unspecified; F03.90 Unspecified dementia, unspecified severity, without behavioral disturbance, psychotic disturbance, mood disturbance, and anxiety; Z86.73 Personal history of transient ischemic attack (TIA), and cerebral infarction without residual deficits; E78.2 Mixed hyperlipidemia; N20.0 Calculus of kidney; Z87.442 Personal history of urinary calculi; E87.6 Hypokalemia; E83.42 Hypomagnesemia; I10 Essential (primary) hypertension
CPT/HCPCS: 36415; 51600; 51702; 71045; 74176; 74430; 76377; 78708; 80048; 80076; 80164; 81003; 82360; 83605; 83735; 83880; 84132; 84145; 84484; 85025; 85610; 87040; 87077; 87086; 87088; 87186; 87804; 88300; 93005; 94640; 99285; A9562; J0696; J1580; J1650; J1940; J2704; J3010; J3475; J7030; Q9967

== ENCOUNTER 2018-10-12 11:53 | Emergency (ER) | payer OTHER, MEDICARE ==
--- OUTSIDE RECORDS SUMMARY | 2018-10-12 11:54 | XMS REPORT ---
:1935 [facility] Address [address] [place] [address] Dr. Pimentel [address] [place] [id number] Care Team Providers Name Role Phone Unavailable Unavailable Unavailable Problems This patient has no known problems. Allergies, Adverse Reactions, Alerts This patient has no known allergies or adverse reactions. Medications This patient has no known medications.
--- NOTE | 2018-10-12 12:47 | RAD REPORT ---
EXAM DESCRIPTION: CT - Head C Spine Cap Wo Con - 10/12/2018 12:27 pm CLINICAL HISTORY: Fall, head, neck, chest and abdomen pain COMPARISON: CT October 01, 2018. TECHNIQUE: Axial [address] head images were obtained. Axial [address] cervical spine images were obtain ed with sagittal and coronal reconstruction images reviewed. Axial 5 mm images of the chest, abdomen and pelvis were obtained. All CT scans are performed using dose optimization technique as appropriate and may include automated exposure control or mA/KV adjustment according to patient size. FINDINGS: No intracranial hemorrhage, mass or edema. No midline shift or abnormal fluid collection. Mastoid air cells and paranasal sinuses are clear. No skull fracture. Patient has prominent hyperost osis frontalis interna. Moderate atrophy changes are present. Ventricles are in proportion to volume loss. Very extensive chronic ischemic change present. 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 No cortical edema or sulcal effacement. Cervical bodies are normal in height and alignment. No fracture or acute bone finding.C5-6 disc space narrowing present.No prevertebral soft tissue thickening or paraspinal mass.Central canal detail is inherently limited on CT imaging. CT chest shows no pneumothorax, pulmonary contusion or pleural fluid collection. In the posterior gut ter on the right there is a 17 millimeter focal opacification present. This is believed be remnant pa renchymal opacification from the changes seen October 01. Focal atelectasis or remnant infiltrate most likely. This is not suspicious for a mass lesion. No mediastinal hematoma and the aorta and pulmonary arteries are unremarkable. No chest will mass or abnormal axillary finding. No displaced rib fractur e or other significant bony finding. No posttraumatic injury to the solid abdominal viscera. Multiple upper pole left renal cysts are agai n noted. Lower pole staghorn calculus on the left again noted. Right-sided hydronephrosis is present. The large 11 millimeter distal ureteral calculus has been removed. A punctate 1 mm calcification is seen in the distal ureter and there is a punctate 1 mm calcification in the bladder. Gallbladder is distended without wall thickening or pericholecystic fluid. No biliary tree dilatatio n. No bowel injury or significant finding. No free air, free fluid or abnormal stranding. No hernia, mass or bulky lymphadenopathy. Punctate focus of air in the urinary bladder may be from catheterizat ion procedure or may be remnant from a stone extraction. Patient has advanced lower lumbar degenerative change spanning L2-L5. Foraminal stenosis is seen at m ultiple levels. New concavity has developed in the superior endplate L1 body. This is new from October 01. Posterior wall height is preserved with no encroachment into the canal. Height loss is estimated 10-15%. No fracture of the bony pelvis identified. Proximal right femur is intact. Surgical hardware is in pl dayana in the proximal left femur from prior fracture repair. No acute proximal left femur findings. IMPRESSION: Advanced chronic ischemic change and moderate atrophy with no acute intracranial finding . Chronic ischemic changes can mask nonhemorrhagic acute CVA. Cervical spine degenerative change without acute finding. No posttraumatic injury to the chest. Minimal nodularity posterior gutter on the right is believed be remnant atelectasis or infiltrate. Hydronephrosis of the right kidney remains. The large distal right ureter stone detailed October 01 has been removed. There is a remnant 1 mm calcification in the distal ureter and 1 mm calcification in t he bladder. No posttraumatic soft tissue injury to the abdomen or pelvis identifiable. Approximately 10-15% acute compression fracture L1 body. Posterior wall height is preserved with no c anal encroachment.
--- NOTE | 2018-10-12 12:58 | EDPHYS ---
Physician Documentation [facility] Name: Lillian Cabrera Age: 82 yrs Sex: Female : 1935 Arrival Date: 10/12/2018 Time: 12:01 Bed 20 Private MD: ED Physician Richard Kang HPI: 10/12 12:03 This 82 yrs old Female presents to ER via Unassigned with complaints of fall ma2 head trauma. 12:03 Details of fall: The patient fell from seated position, out of a chair. Onset: The ma2 symptoms/episode began/occurred suddenly, 1 day(s) ago. Associated injuries: The patient sustained injury to the head, neck injury. Severity of symptoms: in the emergency department the symptoms have resolved, shortness of breath. The patient has not experienced similar symptoms in the past. mechanical fall. Historical: - Allergies: 12:11 No Known Allergies; em - Home Meds: 12:11 acetaminophen 500 mg Oral tab [Active]; Acidophilus Oral chew [Active]; Aricept 23 mg em Oral tab [Active]; aspirin 81 mg Oral chew [Active]; carvedilol 3.125 mg Oral tab [Active]; Depakote Sprinkles 125 mg Oral cpSP 2 caps every 12 hours [Active]; Docusate Sodium Oral [Active]; folic acid 1 mg Oral tab 1 tab once daily [Active]; mirtazapine 30 mg oral tab [Active]; Namenda 10 mg Oral tab 1 tab 2 times per day [Active]; tramadol 50 mg Oral tab 1 tab every 6 hours [Active]; Vitamin D Oral [Active]; - PMHx: 12:11 Dementia; Glaucoma; Hyperlipidemia; Hypertension; UTI; em - Immunization history:: Adult Immunizations up to date. - Social history:: Patient/guardian denies using alcohol, street drugs, The patient lives with family, Smoking status: Patient/guardian denies using tobacco. - Family history:: not pertinent. - Ebola Screening: : Patient negative for fever greater than or equal to 101.5 degrees Fahrenheit, and additional compatible Ebola Virus Disease symptoms Patient denies exposure to infectious person Patient denies travel to an Ebola-affected area in the 21 days before illness onset No symptoms or risks identified at this time. ROS: 12:03 Constitutional: Negative for fever, chills, and weight loss. ma2 12:03 Unable to obtain ROS due to baseline dementia. Exam: 12:03 Constitutional: This is a well developed, well nourished patient who is awake, alert, ma2 and in no acute distress. Chest/axilla: Normal chest wall appearance and motion. Nontender with no deformity. No lesions are appreciated. Cardiovascular: Regular rate and rhythm with a normal S1 and S2. No gallops, murmurs, or rubs. Normal PMI, no JVD. No pulse deficits. Respiratory: Lungs have equal breath sounds bilaterally, clear to auscultation and percussion. No rales, rhonchi or wheezes noted. No increased work of breathing, no retractions or nasal flaring. Abdomen/GI: Soft, non-tender, with normal bowel sounds. No distension or tympany. No guarding or rebound. No evidence of tenderness throughout. MS/ Extremity: Pulses equal, no cyanosis. Neurovascular intact. Full, normal range of motion. Neuro: Awake and alert, GCS 15, oriented to person, place, time, and situation. Cranial nerves II-XII grossly intact. Motor strength 5/5 in all extremities. Sensory grossly intact. Cerebellar exam normal. Normal gait. 12:03 Back: pain, that is mild, of the thoracic area and lumbar area. Vital Signs: 12:11 BP 138 / 78; Pulse 72; Resp 21; Temp 98.6(O); Pulse Ox 98.6% on R/A; em 13:50 BP 132 / 81; Pulse 68; Resp 20; Pulse Ox 97% on R/A; em MDM: 12:01 Patient medically screened. ma2 12:03 Differential diagnosis: closed head injury, fracture, multiple trauma, sprain, strain. ma2 12:48 Data reviewed: vital signs, nurses notes. ma2 12:48 Counseling: I had a detailed discussion with the patient and/or guardian regarding: the [facility] historical points, exam findings, and any diagnostic results supporting the discharge/admit diagnosis, the presence of at least one elevated blood pressure reading (>120/80) during this emergency department visit, the need for outpatient follow up. Response to treatment: the patient's symptoms have mildly improved after treatment. 12:55 ED course: compression frx of L1 discussed with dr. caldwell . ma2 10/12 12:03 Order name: CT Traumagram (Head C Spine CAP wo con); Complete Time: 12:47 ma2 Administered Medications: No medications were administered Disposition: 10/12/18 12:57 Discharged to Home. Impression: Fall due to bumping against object, Stable burst fracture of first lumbar vertebra. - Condition is Stable. - Medication Reconciliation Form, Thank You Letter, Antibiotic Education, Prescription Opioid Use form. - Follow up: Dewayne Caldwell MD; When: Tomorrow; Reason: Continuance of care. Signatures: Dispatcher [employer] EDMS Nolberto Mast, POSTING CLERK POSTING CLERK Juli Page RN RN Richard Mahoney MD MD ma2 Corrections: (The following items were deleted from the chart) 14:12 12:57 10/12/2018 12:57 Discharged to Home. Impression: Fall due to bumping against iw object; Stable burst fracture of first lumbar vertebra. Condition is Stable. Forms are Medication Reconciliation Form, Thank You Letter, Antibiotic Education, Prescription Opioid Use. Follow up: Dewayne Caldwell; When: Tomorrow; Reason: Continuance of care. ma2
--- NOTE | 2018-10-12 12:58 | ER ---
Nurse's Notes [facility] Name: Lillian Cabrear Age: 82 yrs Sex: Female : 1935 Arrival Date: 10/12/2018 Time: 12:01 Bed 20 Private MD: Diagnosis: Fall due to bumping against object;Stable burst fracture of first lumbar vertebra Presentation: 10/12 12:03 Presenting complaint: EMS states: called out for a fall from wheelchair at [facility], Dr. Daigle wants her to have aykaa. hip x-rays and head CT, pt A\T\O x 2. Transition of care: patient was not received from another setting of care. Onset of symptoms was October 12, 2018. Risk Assessment: Do you want to hurt yourself or someone else? Unable to obtain. Initial Sepsis Screen: Does the patient meet any 2 criteria? No. Patient's initial sepsis screen is negative. Does the patient have a suspected source of infection? No. Patient's initial sepsis screen is negative. Care prior to arrival: None. 12:03 Method Of Arrival: EMS: [facility] em 12:21 Acuity: JOBY 3 iw Triage Assessment: 12:11 General: Appears in no apparent distress. comfortable, Behavior is calm, cooperative. em Pain: Complains of pain in pelvis. Historical: - Allergies: 12:11 No Known Allergies; em - Home Meds: 12:11 acetaminophen 500 mg Oral tab [Active]; Acidophilus Oral chew [Active]; Aricept 23 mg em Oral tab [Active]; aspirin 81 mg Oral chew [Active]; carvedilol 3.125 mg Oral tab [Active]; Depakote Sprinkles 125 mg Oral cpSP 2 caps every 12 hours [Active]; Docusate Sodium Oral [Active]; folic acid 1 mg Oral tab 1 tab once daily [Active]; mirtazapine 30 mg oral tab [Active]; Namenda 10 mg Oral tab 1 tab 2 times per day [Active]; tramadol 50 mg Oral tab 1 tab every 6 hours [Active]; Vitamin D Oral [Active]; - PMHx: 12:11 Dementia; Glaucoma; Hyperlipidemia; Hypertension; UTI; em - Immunization history:: Adult Immunizations up to date. - Social history:: Patient/guardian denies using alcohol, street drugs, The patient lives with family, Smoking status: Patient/guardian denies using tobacco. - Family history:: not pertinent. - Ebola Screening: : Patient negative for fever greater than or equal to 101.5 degrees Fahrenheit, and additional compatible Ebola Virus Disease symptoms Patient denies exposure to infectious person Patient denies travel to an Ebola-affected area in the 21 days before illness onset No symptoms or risks identified at this time. Screenin:05 Abuse screen: no apparent signs ntoed. Nutritional screening: No deficits noted. em Tuberculosis screening: No symptoms or risk factors identified. Fall Risk None identified. Assessment: 12:08 General: Appears in no apparent distress. comfortable, Behavior is calm, cooperative. em Pain: Complains of pain in pelvis Unable to use pain scale. FLACC scale score is 5 out of 10. Neuro: Level of Consciousness is awake, alert, obeys commands, Oriented to person, place. Cardiovascular: Capillary refill < 3 seconds Patient's skin is warm and dry. Respiratory: Airway is patent Respiratory effort is even, unlabored, Respiratory pattern is regular, symmetrical. Derm: Skin is intact, is fragile, Skin is pink, warm \T\ dry. Musculoskeletal: Capillary refill < 3 seconds, Range of motion: limited in left hip. 12:15 Reassessment: Patient appears in no apparent distress at this time. I agree with above iw assessment by Nolberto Mast. ACTIVITY THERAPIST. 12:35 Reassessment: grandson at bedside. em 13:47 Reassessment: report given to Chelsea at [facility], pending transportation. em Vital Signs: 12:11 BP 138 / 78; Pulse 72; Resp 21; Temp 98.6(O); Pulse Ox 98.6% on R/A; em 13:50 BP 132 / 81; Pulse 68; Resp 20; Pulse Ox 97% on R/A; em ED Course: 12:01 Patient arrived in ED. em 12:01 Richard Kang MD is Attending Physician. ma2 12:10 Patient has correct armband on for positive identification. Placed in gown. Bed in low em position. Call light in reach. Side rails up X2. Adult w/ patient. manager monitoring on. Pulse ox on. NIBP on. 12:11 Arm band placed on. em 12:21 Triage completed. iw 12:[address] via stretcher. vr 12:27 CT Traumagram (Head C Spine CAP wo con) In Process Unspecified. EDMS 12:36 Nolberto Mast LVN is Primary Nurse. em 12:55 Dewayne Daigle MD is Referral Physician. ma2 14:10 No provider procedures requiring assistance completed. Patient did not have IV access iw during this emergency room visit. Administered Medications: No medications were administered Outcome: 12:57 Discharge ordered by . ma2 14:11 Discharged to residential. Report called to Chelsea iw 14:11 Condition: good 14:11 Discharge instructions given to family, Instructed on discharge instructions, follow up and referral plans. 14:12 Patient left the ED. iw Signatures: Dispatcher [employer] EDWA Nolberto Mast LVN LVN em Williams, Irene, RN RN Iesha Carey vr Richard Kang MD MD orSamy
[2018-10-12 14:25] VITALS: TEMP 98.6
[2018-10-12 14:28] VITALS: BP 132/81; O2SAT 97
== END 2018-10-12 14:12 | disposition home or self-care (01) ==
LOC: ER 11:53
DX: S32.011A Stable burst fracture of first lumbar vertebra, initial encounter for closed fracture (principal); I10 Essential (primary) hypertension; F03.90 Unspecified dementia, unspecified severity, without behavioral disturbance, psychotic disturbance, mood disturbance, and anxiety; W17.89XA Other fall from one level to another, initial encounter; Y93.9 Activity, unspecified; Y92.129 Unspecified place in nursing home as the place of occurrence of the external cause
CPT/HCPCS: 70450; 71250; 72125; 99284

== ENCOUNTER 2019-05-07 07:48 | Emergency (ER) | payer OTHER ==
--- OUTSIDE RECORDS SUMMARY | 2019-05-07 07:49 | XMS REPORT ---
:1935 [facility] Address [address] [place] [address] Dr. Pimentel [address] [place] [id number] Care Team Providers Name Role Phone Unavailable Unavailable Unavailable Problems This patient has no known problems. Allergies, Adverse Reactions, Alerts This patient has no known allergies or adverse reactions. Medications This patient has no known medications.
--- NOTE | 2019-05-07 08:35 | RAD REPORT ---
EXAM DESCRIPTION: CT - CTHCSPWOC - 05/07/2019 8:23 am CLINICAL HISTORY: Trauma, head and neck injury. fall hx of dementia. COMPARISON: Head C Spine Cap Wo Con dated 10/12/2018 TECHNIQUE: Axial 5 mm thick images of the head were obtained. Axial 2 mm thick images of the cervical spine were obtained with sagittal and coronal reconstruction images generated and reviewed. All CT scans are performed using dose optimization technique as appropriate and may include automated exposure control or mA/KV adjustment according to patient size. FINDINGS: CT HEAD WITHOUT CONTRAST: No acute hemorrhage, hydrocephalus or extra-axial collection is identified.Advanced generalized brain atrophy is present with advanced periventricular and deep white matter chronic microvascular ischemi c changes.No areas of brain edema or midline shift. Mild paranasal sinus thickening involving the maxillary antra.The calvarium is intact. CT CERVICAL SPINE WITHOUT CONTRAST: No fracture or subluxation.No prevertebral soft tissues swelling is identified. IMPRESSION: No acute intracranial or cervical spine findings.
--- NOTE | 2019-05-07 09:17 | RAD REPORT ---
EXAM DESCRIPTION: RAD - Chest Single View - 05/07/2019 9:00 am CLINICAL HISTORY: fall Chest pain. COMPARISON: Chest Single View dated 10/02/2018; Chest Single View dated 10/01/2018; Chest Single View dated 11/23/2017; Chest Single View dated 11/22/2017 FINDINGS: Portable technique limits examination quality. The lungs are grossly clear. The heart is mildly prominent size with a tortuous thoracic aorta. No di splaced fractures. IMPRESSION: No acute intrathoracic process suspected.
--- NOTE | 2019-05-07 09:32 | ER ---
Nurse's Notes [facility] Name: Lillian Cabrera Age: 83 yrs Sex: Female : 1935 Arrival Date: 05/07/2019 Time: 07:48 Bed 5 Private MD: Diagnosis: Fall on anticoagulant therapy;Head injury;Hx of dementia Presentation: 05/07 07:49 Presenting complaint: EMS states: NH staff report finding the patient on the ground of sg the dining cooper at [facility]. It is believed the pt slid from her wheelchair while eating this morning. pt baseline mentation of aa\\T\\ox1 due to dementia, pt states "probably" when asked if she has pain in the head per EMS. Transition of care: patient was received from another setting of care (long-term care facility), [facility]. Mechanism of Injury: The problem was sustained at a assisted or assisted living facility, resulted from a fall, from a seated position. Onset of symptoms was May 07, 2019. Risk Assessment: Do you want to hurt yourself or someone else? Patient reports no desire to harm self or others. Initial Sepsis Screen: Does the patient meet any 2 criteria? No. Patient's initial sepsis screen is negative. Does the patient have a suspected source of infection? No. Patient's initial sepsis screen is negative. Care prior to arrival: None. Mechanism of Injury: Fall sitting position in wheelchair. 07:49 Method Of Arrival: EMS: [facility] 07:49 Acuity: JOBY 3 sg Historical: - Allergies: 08:02 No Known Allergies; sg - Home Meds: 08:02 acetaminophen 500 mg Oral tab 1 tab every 6 hours for Pain [Active]; Acidophilus Oral sg chew twice a day [Active]; Aricept 23 mg Oral tab 1 tab once daily [Active]; aspirin 81 mg Oral chew 1 tab once daily [Active]; Coreg 6.25 mg Oral tab 1 tab 2 times per day [Active]; Depakote Sprinkles 125 mg Oral cpSP 6 caps daily [Active]; docusate sodium 100 mg oral tab 1 tab 2 times per day [Active]; folic acid 1 mg Oral tab 1 tab once daily [Active]; mirtazapine 30 mg Oral tab 2 tab once daily [Active]; Namenda 10 mg Oral tab 1 tab 2 times per day [Active]; tramadol 50 mg Oral tab 1 tab every 6 hours [Active]; Vitamin D Oral [Active]; zinc sulfate 220 mg Oral tab 220 mg twice a day [Active]; Arginaid 4.5 gram-156 mg/9.2 gram oral pwpk twice a day [Active]; ascorbic acid (vitamin C) 500 mg tab daily [Active]; - PMHx: 08:02 Dementia; Glaucoma; Hyperlipidemia; Hypertension; UTI; sg - Immunization history:: Adult Immunizations up to date. - Social history:: Smoking status: Patient/guardian denies using tobacco. - Ebola Screening: : Patient negative for fever greater than or equal to 101.5 degrees Fahrenheit, and additional compatible Ebola Virus Disease symptoms Patient denies exposure to infectious person Patient denies travel to an Ebola-affected area in the 21 days before illness onset No symptoms or risks identified at this time. Screenin:38 Abuse screen: Denies threats or abuse. Denies injuries from another. Nutritional sg screening: No deficits noted. Tuberculosis screening: No symptoms or risk factors identified. Fall Risk None identified. Assessment: 07:53 General: Appears in no apparent distress. slender, well developed, well nourished, sg Behavior is cooperative, quiet. Pain: Complains of pain in back of head Quality of pain is described as "probably hurts". Neuro: Level of Consciousness is awake, confused, Oriented to person, Senior Qualitative Researcher are equal bilaterally Speech is normal, Facial symmetry appears normal. Cardiovascular: Patient's skin is warm and dry. Chest pain is denied. Respiratory: Airway is patent Respiratory effort is even, unlabored, Respiratory pattern is regular, symmetrical. GI: Abdomen is round non-distended. :. EENT: Nares are clear bilaterally Oral mucosa is dry. Throat is pink. Derm: Skin is pink, warm \\T\\ dry. Musculoskeletal: Swelling absent. 07:53 Reassessment: hematoma to occipital area of scalp. sg 08:40 Reassessment: Patient appears in no apparent distress at this time. Patient and/or sg family updated on plan of care and expected duration. Pain level reassessed. xray at bedside at this time. 08:50 Reassessment: Patient appears in no apparent distress at this time. Patient is alert, sg oriented x 3, equal unlabored respirations, skin warm/dry/pink. pt family at bedside at this time, awaiting radiology results, no new orders received, pt appears quiet and comfortable at this time. 09:55 Reassessment: Patient appears in no apparent distress at this time. Patient and/or sg family updated on plan of care and expected duration. Pain level reassessed. pt son/family at bedside at this time, report called to [facility], awaiting transport at this time. 10:24 Reassessment: Patient appears in no apparent distress at this time. Patient and/or sg family updated on plan of care and expected duration. Pain level reassessed. awaiting pt transport to [place], report has been called to Twila who took report for Wilber pt nurse at [facility]. 10:38 Reassessment: Patient appears in no apparent distress at this time. pt assisted to wheelchair, tolerated well, pt [place] to [place] transport service from [place]. Vital Signs: 07:53 BP 140 / 84; Pulse 66; Resp 18; Temp 97.6; Pulse Ox 93% on R/A; Weight 61.23 kg; Height sg 5 ft. 7 in. (170.18 cm); 07:53 Body Mass Index 21.14 (61.23 kg, 170.18 cm) Eulalia Coma Score: 07:49 Eye Response: spontaneous(4). Verbal Response: confused(4). Motor Response: withdraws sg from pain(4). Total: 12. 09:25 Eye Response: spontaneous(4). Verbal Response: oriented(5). Motor Response: obeys ps1 commands(6). Total: 15. ED Course: 07:48 Patient arrived in ED. sg 07:49 Maurice Gurrola MD is Attending Physician. ps1 07:53 Triage completed. sg 07:54 Arm band placed on. sg 08:00 Patient has correct armband on for positive identification. Bed in low position. Call light in reach. Pulse ox on. NIBP on. 08:03 Zan Phan, MARIANA is Primary Nurse. sg 08:10 EKG done, by plant and maintenance technician. reviewed by Maurice Gurrola MD. at1 08:20 Patient moved back from radiology. sg 08:23 CT Head C Spine In Process Unspecified. EDMS 08:36 CXR XRAY In Process Unspecified. EDMS 10:38 No provider procedures requiring assistance completed. sg 10:38 Patient did not have IV access during this emergency room visit. sg Administered Medications: No medications were administered Outcome: :31 Discharge ordered by . ps1 10:38 Discharged to home via wheelchair. sg 10:38 Condition: good 10:38 Discharge instructions given to assisted, Instructed on discharge instructions, follow up and referral plans. safety practices, Demonstrated understanding of instructions, follow-up care. 10:39 Patient left the ED. bd Signatures: Dispatcher [employer] EDMS Xena Elmore Steven, RN RN Nadine Sims, pulp operator EKG Tat1 Maurice Gurrola MD MD ps1
--- NOTE | 2019-05-07 09:32 | EDPHYS ---
Physician Documentation [facility] Name: Lillian Cabrera Age: 83 yrs Sex: Female : 1935 Arrival Date: 05/07/2019 Time: 07:48 Bed 5 Private MD: ED Physician Maurice Gurrola HPI: 05/07 07:50 This 83 yrs old Female presents to ER via Unassigned with complaints of Head ps1 Injury-Adult. 07:50 patient BIBEMS. Hx of dementia. From [facility]. Reportedly wheelchair bound and fell ps1 forward out of chair. Patient is pleasant and does not appear to be in pain. She is usually AOX1. She does not attest to any pain and when asked if she is in pain states "probably" but does not wince or react to palpation. No obvious signs of trauma. No LOC per EMS. On ASA therapy. . Historical: - Allergies: 08:02 No Known Allergies; sg - Home Meds: 08:02 acetaminophen 500 mg Oral tab 1 tab every 6 hours for Pain [Active]; Acidophilus Oral sg chew twice a day [Active]; Aricept 23 mg Oral tab 1 tab once daily [Active]; aspirin 81 mg Oral chew 1 tab once daily [Active]; Coreg 6.25 mg Oral tab 1 tab 2 times per day [Active]; Depakote Sprinkles 125 mg Oral cpSP 6 caps daily [Active]; docusate sodium 100 mg oral tab 1 tab 2 times per day [Active]; folic acid 1 mg Oral tab 1 tab once daily [Active]; mirtazapine 30 mg Oral tab 2 tab once daily [Active]; Namenda 10 mg Oral tab 1 tab 2 times per day [Active]; tramadol 50 mg Oral tab 1 tab every 6 hours [Active]; Vitamin D Oral [Active]; zinc sulfate 220 mg Oral tab 220 mg twice a day [Active]; Arginaid 4.5 gram-156 mg/9.2 gram oral pwpk twice a day [Active]; ascorbic acid (vitamin C) 500 mg tab daily [Active]; - PMHx: 08:02 Dementia; Glaucoma; Hyperlipidemia; Hypertension; UTI; sg - Immunization history:: Adult Immunizations up to date. - Social history:: Smoking status: Patient/guardian denies using tobacco. - Ebola Screening: : Patient negative for fever greater than or equal to 101.5 degrees Fahrenheit, and additional compatible Ebola Virus Disease symptoms Patient denies exposure to infectious person Patient denies travel to an Ebola-affected area in the 21 days before illness onset No symptoms or risks identified at this time. ROS: 07:50 Unable to obtain ROS due to baseline dementia. ps1 Exam: 07:50 Head/Face: Normocephalic, atraumatic. ENT: Nares patent. No nasal discharge, no ps1 septal abnormalities noted. Tympanic membranes are normal and external auditory canals are clear. Oropharynx with no redness, swelling, or masses, exudates, or evidence of obstruction, uvula midline. Mucous membranes moist. Chest/axilla: Normal chest wall appearance and motion. Nontender with no deformity. No lesions are appreciated. Cardiovascular: Regular rate and rhythm. No gallops, murmurs, or rubs. Normal PMI, no JVD. No pulse deficits. Respiratory: Lungs have equal breath sounds bilaterally, clear to auscultation and percussion. No rales, rhonchi or wheezes noted. No increased work of breathing, no retractions or nasal flaring. Abdomen/GI: Soft, non-tender, with normal bowel sounds. No distension or tympany. No guarding or rebound. No evidence of tenderness throughout. MS/ Extremity: Pulses equal, no cyanosis. Neurovascular intact. Full, normal range of motion. 07:50 Constitutional: The patient appears in no acute distress, alert, disoriented from baseline dementia 07:50 Head/face: Exam is negative for acute changes, obvious evidence of injury or deformity, abrasion(s), hematoma, tenderness. 07:50 Neuro: Orientation: unable to test, the patient has a history of dementia, Mentation: is normal, Memory: unable to test, the patient has a history of dementia, Motor: is normal. Vital Signs: 07:53 BP 140 / 84; Pulse 66; Resp 18; Temp 97.6; Pulse Ox 93% on R/A; Weight 61.23 kg; Height sg 5 ft. 7 in. (170.18 cm); 07:53 Body Mass Index 21.14 (61.23 kg, 170.18 cm) sg Eulalia Coma Score: 07:49 Eye Response: spontaneous(4). Verbal Response: confused(4). Motor Response: withdraws sg from pain(4). Total: 12. 09:25 Eye Response: spontaneous(4). Verbal Response: oriented(5). Motor Response: obeys ps1 commands(6). Total: 15. MDM: 07:49 Patient medically screened. ps1 09:25 Differential diagnosis: Contusion of head, Intracranial bleed- Concussion without LOC. ps1 Data reviewed: vital signs, nurses notes, EMS record, EKG, radiologic studies, and as a result, I will discharge patient. Counseling: I had a detailed discussion with the patient and/or guardian regarding: the historical points, exam findings, and any diagnostic results supporting the discharge/admit diagnosis, the presence of at least one elevated blood pressure reading (>120/80) during this emergency department visit, radiology results, to return to the emergency department if symptoms worsen or persist or if there are any questions or concerns that arise at home. ED course: No acute changes. CT Head and Cspine negative. CXR negative. No other complaints. Stable for discharge. . 05/07 07:49 Order name: CT Head C Spine; Complete Time: 08:42 ps1 05/07 07:54 Order name: CXR XRAY ps1 05/07 07:54 Order name: EKG - Nurse/Tech; Complete Time: 08:24 ps1 05/07 09:08 Order name: EKG Electrocardiogram EDMS EC:06 Rate is 63 beats/min. Rhythm is regular. Left axis deviation noted. SC interval is ps1 prolonged at 210 msec. QRS interval is normal. QT interval is normal. Q waves are Old in leads V5, V6. T waves are Normal. No ST changes noted. Clinical impression: Abnormal EKG without significant change and Lateral MD - age indeterminate. Administered Medications: No medications were administered Disposition: 09:32 Chart complete. ps1 Disposition: 05/07/19 09:31 Discharged to Home. Impression: Fall on anticoagulant therapy, Head injury, Hx of dementia. - Condition is Stable. - Discharge Instructions: Head Injury, Adult, Fall Prevention in Hospitals, Adult. - Medication Reconciliation Form, Thank You Letter, Antibiotic Education, Prescription Opioid Use form. - Follow up: Emergency Department; When: As needed; Reason: Further diagnostic work-up, Recheck today's complaints, Continuance of care, Re-evaluation by your physician. Follow up: Private Physician; When: As needed; Reason: Recheck today's complaints, Continuance of care, Re-evaluation by your physician. - Problem is new. - Symptoms have improved. Signatures: Dispatcher [employer] EDMS Xena Elmore Zan Donovan RN RN Maurice Abarca MD MD ps1 Corrections: (The following items were deleted from the chart) 10:39 09:31 05/07/2019 09:31 Discharged to Home. Impression: Fall on anticoagulant therapy; bd Head injury; Hx of dementia. Condition is Stable. Forms are Medication Reconciliation Form, Thank You Letter, Antibiotic Education, Prescription Opioid Use. Follow up: Emergency Department; When: As needed; Reason: Further diagnostic work-up, Recheck today's complaints, Continuance of care, Re-evaluation by your physician. Follow up: Private Physician; When: As needed; Reason: Recheck today's complaints, Continuance of care, Re-evaluation by your physician. Problem is new. Symptoms have improved. ps1
--- NOTE | 2019-05-07 09:42 | EKG ---
Test Date: 2019-05-07 Test Time: 08:06:21 Data Processing Systems Project Planner: AAMIR MEASUREMENT RESULTS: Intervals: Rate: 63 OR: 206 QRSD: 98 QT: 412 QTc: 421 [place]: P: 28 OR: 206 QRS: -60 T: 13 INTERPRETIVE STATEMENTS: Normal sinus rhythm Left axis deviation Possible Anterolateral infarct, age undetermined Abnormal ECG Compared to ECG 10/01/2018 23:03:09 Atrial premature complex(es) no longer present Myocardial infarct finding still present Electronically Signed On 05-07-19 09:41:36 TURRET PUNCH OPERATOR by Callum Bergeron
[2019-05-07 10:57] VITALS: BP 140/84; TEMP 97.6; O2SAT 93
== END 2019-05-07 10:39 | disposition home or self-care (01) ==
LOC: ER 07:48
DX: S09.90XA Unspecified injury of head, initial encounter (principal); W07.XXXA Fall from chair, initial encounter; Y93.89 Activity, other specified; Y92.128 Other place in nursing home as the place of occurrence of the external cause; F03.90 Unspecified dementia, unspecified severity, without behavioral disturbance, psychotic disturbance, mood disturbance, and anxiety; Z99.3 Dependence on wheelchair; I10 Essential (primary) hypertension; E78.5 Hyperlipidemia, unspecified
CPT/HCPCS: 70450; 71045; 72125; 93005; 99284

== ENCOUNTER 2019-06-19 16:44 | Emergency (ER) | payer OTHER ==
--- OUTSIDE RECORDS SUMMARY | 2019-06-19 16:45 | XMS REPORT ---
:1935 [facility] Address [address] [place] [address] Dr. Pimentel [address] [place] [id number] Care Team Providers Name Role Phone Unavailable Unavailable Unavailable Problems This patient has no known problems. Allergies, Adverse Reactions, Alerts This patient has no known allergies or adverse reactions. Medications This patient has no known medications.
--- NOTE | 2019-06-19 19:05 | RAD REPORT ---
EXAM DESCRIPTION: CT - [id number] - 06/19/2019 6:46 pm CLINICAL HISTORY: Fall, head and neck injury COMPARISON: CT head and cervical May 07, 2019 TECHNIQUE: Axial 5 mm thick images of the head were obtained. Axial 2 mm thick images of the cervic al spine were obtained with sagittal and coronal reconstruction images generated and reviewed. All CT scans are performed using dose optimization technique as appropriate and may include automated exposure control or mA/KV adjustment according to patient size. FINDINGS: No intracranial hemorrhage, mass, edema or acute intracranial finding. No acute cortical based infarc tion. Prominent atrophy and chronic ischemic change matches comparison. 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 Ventricles are in proportion to volume loss. Small left frontal scalp hematoma is prese nt. Mastoid air cells and paranasal sinuses are clear. No globe or orbit abnormality seen. Cervical body height and alignment are normal. C5-6 disc space narrowing present with mild endplate s purring and mild foraminal encroachment. No fracture or acute bony abnormality. Central canal detail is inherently limited. Facet degenerative changes mild. No paraspinal mass or hematoma. IMPRESSION: Advanced atrophy and chronic ischemic change similar to comparison. No acute intracrania l finding. Cervical spine degenerative change without acute finding identifiable.
--- NOTE | 2019-06-19 20:09 | ER ---
Nurse's Notes [facility] Name: Lillian Cabrera Age: 83 yrs Sex: Female : 1935 Arrival Date: 06/19/2019 Time: 16:50 Bed 18 Private MD: Diagnosis: Fall from bed Presentation: 06/19 16:53 Presenting complaint: EMS states: pt fell from seated position, hitting right side back sg of head, no LOC, pt is not currently on any blood thinning medications, pt reports pain in the right shoulder and right wrist as well, pt is aa\T\ox1 which is pt baseline per [place] staff. Transition of care: patient was received from another setting of care (long-term care facility). Onset of symptoms was June 19, 2019. Risk Assessment: Do you want to hurt yourself or someone else? Patient reports no desire to harm self or others. Initial Sepsis Screen: Does the patient meet any 2 criteria? No. Patient's initial sepsis screen is negative. Does the patient have a suspected source of infection? No. Patient's initial sepsis screen is negative. Care prior to arrival: None. 16:53 Method Of Arrival: EMS: [facility] sg 16:53 Acuity: JOBY 3 sg Historical: - Allergies: 16:53 No Known Allergies; sg - PMHx: 16:53 Dementia; Glaucoma; Hyperlipidemia; Hypertension; UTI; sg - Immunization history:: Adult Immunizations up to date. - Social history:: Smoking status: Patient/guardian denies using tobacco. - Ebola Screening: : Patient negative for fever greater than or equal to 101.5 degrees Fahrenheit, and additional compatible Ebola Virus Disease symptoms Patient denies exposure to infectious person Patient denies travel to an Ebola-affected area in the 21 days before illness onset No symptoms or risks identified at this time. Screenin:55 Abuse screen: Denies threats or abuse. Denies injuries from another. Nutritional sg screening: No deficits noted. Tuberculosis screening: No symptoms or risk factors identified. Never had TB. Fall Risk None identified. Assessment: 16:55 General: Appears in no apparent distress. well groomed, well developed, well nourished, sg Behavior is calm, cooperative, appropriate for age. 16:55 Pain: Pain: Complains of pain in right parietal area and right wrist Quality of pain is sg described as tender. 16:55 Neuro: Level of Consciousness is awake, alert, obeys commands, Oriented to person, sg Artist Woodblock are equal bilaterally Speech is normal, Facial symmetry appears normal. Cardiovascular: Patient's skin is warm and dry. Chest pain is denied. Respiratory: Airway is patent Respiratory effort is even, unlabored, Respiratory pattern is regular, symmetrical. GI: Abdomen is round non-distended. : No signs and/or symptoms were reported regarding the genitourinary system. EENT: No signs and/or symptoms were reported regarding the EENT system. Derm: Skin is pale, Skin temperature is warm. Musculoskeletal: Circulation, motion, and sensation intact. Range of motion: intact in all extremities. 17:50 Reassessment: Patient appears in no apparent distress at this time. Patient and/or sg family updated on plan of care and expected duration. Pain level reassessed. Patient is alert, oriented x 3, equal unlabored respirations, skin warm/dry/pink. pt family at bedside at this time, pt awaiting CT scan at this time. 19:18 Reassessment: Bradley CHIEF INSPECTOR in to speak with pt and her son re: test results. Pt to be fc discharged back to [facility]. 19:20 General: Appears in no apparent distress. comfortable, Behavior is calm, cooperative. fc Pain: Denies pain. Neuro: Level of Consciousness is awake, alert, confused, Oriented to person, hx dementia. Artist Woodblock are equal bilaterally Moves all extremities. Full function Weakness Gait is unable to access. Speech garbled at times with some occasional sentences which son states is normal for pt. Facial symmetry appears normal. Cardiovascular: Denies chest pain, Capillary refill < 3 seconds Pulses are all present. Chest pain is denied. Respiratory: Airway is patent Respiratory effort is even, unlabored, Respiratory pattern is regular, symmetrical, Breath sounds are clear bilaterally. GI: Abdomen is round non-distended, Bowel sounds present X 4 quads. : No signs and/or symptoms were reported regarding the genitourinary system. EENT: No signs and/or symptoms were reported regarding the EENT system. Derm: Skin is pink, warm \T\ dry. Musculoskeletal: Circulation, motion, and sensation intact. Capillary refill < 3 seconds, Range of motion: intact in all extremities. 19:25 Reassessment: Son spoke with [facility] and they will make arrangements to transport pt fc back to [facility]. 19:41 Reassessment: spoke with Casie from [facility] and gave her report. She states that fc [facility] transportation will be here within the hr. 20:17 Reassessment: No changes from previously documented assessment. Patient and/or family fc updated on plan of care and expected duration. Pain level reassessed. Pt resting quietly. 20:40 Reassessment: No changes from previously documented assessment. Patient and/or family fc updated on plan of care and expected duration. Pain level reassessed. Pt cleaned of incont urine. 20:51 Reassessment: [facility] here to transport pt back to [facility]. fc Vital Signs: 16:54 BP 145 / 94; Pulse 72; Resp 18; Temp 97.2; Pulse Ox 96% on R/A; Pain 7/10; sg 19:20 BP 112 / 77; Pulse 63; Resp 18; Pulse Ox 95% on R/A; fc 20:15 BP 107 / 72; Pulse 78; Resp 18; Pulse Ox 94% on R/A; Pain 0/10; fc 20:52 BP 132 / 87; Pulse 61; Resp 18; Temp 97.8; Pulse Ox 94% on R/A; Pain 0/10; fc ED Course: 16:50 Patient arrived in ED. iw 16:52 Zan Phan, RN is Primary Nurse. sg 16:55 Triage completed. sg 16:55 Arm band placed on. sg 16:55 No provider procedures requiring assistance completed. Patient did not have IV access sg during this emergency room visit. 16:56 Bradley Wing FNP-C [facility]. la1 16:56 Richard Kang MD is Attending Physician. la1 18:[address] sg 18:53 CT Head C Spine In Process Unspecified. EDMS 20:00 Patient has correct armband on for positive identification. Placed in gown. Bed in low fc position. Call light in reach. Side rails up X2. Pulse ox on. NIBP on. Administered Medications: No medications were administered Outcome: 19:24 Discharge ordered by . la1 20:53 Discharged to [facility]. Report called to [facility]ie Transfer form completed. per [facility] fc transportation 20:53 Condition: good 20:53 Discharge instructions given to [facility], Instructed on discharge instructions, follow up and referral plans. Demonstrated understanding of instructions, follow-up care, Prescriptions given X none 21:07 Patient left the ED. fc Signatures: Dispatcher [employer] Zan Miller RN RN Kamila Cross RN RN Juli Toledo RN RN Bradley Wing, PLUSH CUTTER-C PLUSH CUTTER-Cla1 Corrections: (The following items were deleted from the chart) 18:37 16:55 Pain: [facility] 20:52 20:15 BP 107 / ???; Pulse 78bpm; Resp 18bpm; Pulse Ox 94% RA; Pain 0/10; fc fc
--- NOTE | 2019-06-19 20:10 | EDPHYS ---
Physician Documentation [facility] Name: Lillian Cabrera Age: 83 yrs Sex: Female : 1935 Arrival Date: 06/19/2019 Time: 16:50 Bed 18 Private MD: ED Physician Richard Kang HPI: 06/19 17:09 This 83 yrs old Female presents to ER via EMS with complaints of fall injury. la1 17:09 Details of fall: The patient fell from a supine position, out of bed, and struck padded la1 floor. Onset: The symptoms/episode began/occurred just prior to arrival. Associated injuries: The patient sustained no obvious injury. Severity of symptoms: At their worst the symptoms were mild. The patient has experienced similar episodes in the past. Pt had reported fall from bed on to padded floor, pt oriented only person, no pain with passive ROM or palpation of extremities, chest, or abd.. Historical: - Allergies: 16:53 No Known Allergies; sg - PMHx: 16:53 Dementia; Glaucoma; Hyperlipidemia; Hypertension; UTI; sg - Immunization history:: Adult Immunizations up to date. - Social history:: Smoking status: Patient/guardian denies using tobacco. - Ebola Screening: : Patient negative for fever greater than or equal to 101.5 degrees Fahrenheit, and additional compatible Ebola Virus Disease symptoms Patient denies exposure to infectious person Patient denies travel to an Ebola-affected area in the 21 days before illness onset No symptoms or risks identified at this time. ROS: 17:10 Unable to obtain ROS due to baseline dementia. la1 Exam: 17:10 Eyes: Pupils equal round and reactive to light, extra-ocular motions intact. Lids and la1 lashes normal. Conjunctiva and sclera are non-icteric and not injected. Cornea within normal limits. Periorbital areas with no swelling, redness, or edema. ENT: Nares patent. No nasal discharge, no septal abnormalities noted. Tympanic membranes are normal and external auditory canals are clear. Oropharynx with no redness, swelling, or masses, exudates, or evidence of obstruction, uvula midline. Mucous membranes moist. Neck: Supple without nuchal rigidity, or vertebral point tenderness. No Meningismus. Chest/axilla: Normal chest wall appearance and motion. Nontender with no deformity. No lesions are appreciated. Cardiovascular: Regular rate and rhythm with a normal S1 and S2. No gallops, murmurs, or rubs. Normal PMI, no JVD. No pulse deficits. Respiratory: Lungs have equal breath sounds bilaterally, clear to auscultation. No rales, rhonchi or wheezes noted. No increased work of breathing, no retractions or nasal flaring. Abdomen/GI: Soft, non-tender, with normal bowel sounds. No distension or tympany. No guarding or rebound. No evidence of tenderness throughout. Back: No spinal tenderness. No costovertebral tenderness. Full range of motion. Skin: Warm, dry with normal turgor. Normal color with no rashes, no lesions, and no evidence of cellulitis. MS/ Extremity: Pulses equal, no cyanosis. Neurovascular intact. 17:10 Constitutional: The patient appears alert, awake. 17:10 Neuro: Orientation: to person, Mentation: confused. Vital Signs: 16:54 BP 145 / 94; Pulse 72; Resp 18; Temp 97.2; Pulse Ox 96% on R/A; Pain 7/10; sg 19:20 BP 112 / 77; Pulse 63; Resp 18; Pulse Ox 95% on R/A; fc 20:15 BP 107 / 72; Pulse 78; Resp 18; Pulse Ox 94% on R/A; Pain 0/10; fc 20:52 BP 132 / 87; Pulse 61; Resp 18; Temp 97.8; Pulse Ox 94% on R/A; Pain 0/10; fc MDM: 16:56 Patient medically screened. la1 19:22 Data reviewed: vital signs, nurses notes, radiologic studies, and as a result, I will la1 discharge patient. Data interpreted: Pulse oximetry: on room air is 96 %. Interpretation: normal. Counseling: I had a detailed discussion with the patient and/or guardian regarding: the historical points, exam findings, and any diagnostic results supporting the discharge/admit diagnosis, radiology results, the need for outpatient follow up, a family practitioner, to return to the emergency department if symptoms worsen or persist or if there are any questions or concerns that arise at home. ED course: Son at bedside, discussed plan of care, pt with no pain during passive ROM or palpation to any extremities, chest, or abd.. 06/19 17:09 Order name: CT Head C Spine; Complete Time: 19:11 la1 Administered Medications: No medications were administered Disposition: 06/19/19 19:24 Discharged to Home. Impression: Fall from bed. - Condition is Stable. - Discharge Instructions: Head Injury, Adult, Fall Prevention in the Home, Fall Prevention in Hospitals, Adult. - Medication Reconciliation Form, Thank You Letter form. - Follow up: Private Physician; When: 2 - 3 days; Reason: Recheck today's complaints, Re-evaluation by your physician. Follow up: Emergency Department; When: As needed. - Problem is new. - Symptoms are unchanged. Addendum: 06/30/2019 21:35 Co-signature as Attending Physician, Richard Kang MD. m a2 Signatures: Dispatcher [employer] EDMS Zan Phan, RN RN Kamila Wood RN RN fc Bradley Wing, BRADDISHER-C BRADDISHER-Cla1 Richard Kang MD MD ma2 Corrections: (The following items were deleted from the chart) 06/19 21:07 19:24 06/19/2019 19:24 Discharged to Home. Impression: Fall from bed. Condition is fc Stable. Forms are Medication Reconciliation Form, Thank You Letter, Antibiotic Education, Prescription Opioid Use. Follow up: Private Physician; When: 2 - 3 days; Reason: Recheck today's complaints, Re-evaluation by your physician. Follow up: Emergency Department; When: As needed. Problem is new. Symptoms are unchanged. la1
[2019-06-19 21:27] VITALS: O2SAT 94
[2019-06-19 21:28] VITALS: BP 132/87; TEMP 97.8
== END 2019-06-19 21:07 | disposition home or self-care (01) ==
LOC: ER 16:44
DX: M25.531 Pain in right wrist (principal); W06.XXXA Fall from bed, initial encounter; Y93.89 Activity, other specified; Y92.122 Bedroom in nursing home as the place of occurrence of the external cause; I10 Essential (primary) hypertension; F03.90 Unspecified dementia, unspecified severity, without behavioral disturbance, psychotic disturbance, mood disturbance, and anxiety
CPT/HCPCS: 70450; 72125; 99284

== ENCOUNTER 2019-07-25 08:16 | Emergency (ER) | payer OTHER ==
--- OUTSIDE RECORDS SUMMARY | 2019-07-25 08:19 | XMS REPORT ---
:1935 [facility] Address [address] [place] [address] Dr. Pimentel [address] [place] [id number] Care Team Providers Name Role Phone Unavailable Unavailable Unavailable Problems This patient has no known problems. Allergies, Adverse Reactions, Alerts This patient has no known allergies or adverse reactions. Medications This patient has no known medications.
--- NOTE | 2019-07-25 09:01 | RAD REPORT ---
EXAM DESCRIPTION: CT - Head C Spine Mpr Wo Con - 07/25/2019 8:39 am CLINICAL HISTORY: Head and neck injury status post fall. Head and neck pain COMPARISON: June 2019 TECHNIQUE: Computed axial tomography of the head and cervical spine was obtained. Sagittal and coronal reconstruction was performed. All CT scans are performed using dose optimization technique as appropriate and may include automated exposure control or mA/KV adjustment according to patient size. FINDINGS: A left occipital scalp hematoma is present. An underlying skull fracture is not noted. 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 Moderate low-density within periventricular, deep and subcortical white matter likely ischemic change s secondary to small vessel disease An intracranial bleed is not seen. The ventricles are normal in caliber. An extra-axial fluid collect ion is not noted.Fluid within the sphenoid sinus may indicate sinusitis A cervical fracture is not visualized. No dislocation is noted. IMPRESSION: No acute intracranial abnormality is seen. A cervical fracture is not visualized. If the patient continues to have symptoms to suggest intracra nial /spinal cord pathology then MRI would be recommended
--- NOTE | 2019-07-25 09:39 | RAD REPORT ---
EXAM DESCRIPTION: RAD - Pelvis - 07/25/2019 9:08 am CLINICAL HISTORY: Pelvic pain status post injury FINDINGS: Compression screw and intramedullary fito affix a relatively old left femoral fracture. The bones are osteoporotic. A linear area of increased density is present within the right femoral subcapital region. Lucency is present within the greater trochanter. One of these may represent a fracture. If clinically indicated MRI could be obtained for further evaluation
--- NOTE | 2019-07-25 09:39 | RAD REPORT ---
EXAM DESCRIPTION: RAD - Hip Right 2 View - 07/25/2019 9:09 am CLINICAL HISTORY: Right hip pain FINDINGS: The bones are osteoporotic. A linear area of increased density is present within the right femoral subcapital region. Lucency is present within the greater trochanter. One of these may represent a fracture. If clinically indicated MRI could be obtained for further evaluation
--- NOTE | 2019-07-25 09:39 | RAD REPORT ---
EXAM DESCRIPTION: RAD - Hip Left 2 View - 07/25/2019 9:09 am CLINICAL HISTORY: Left hip pain status post injury FINDINGS: Compression screw and intramedullary fito affix a relatively old left femoral fracture. The bones are osteoporotic. No dislocation
--- NOTE | 2019-07-25 10:50 | RAD REPORT ---
EXAM DESCRIPTION: CT - Hip Right Wo Con - 07/25/2019 10:41 am CLINICAL HISTORY: Right hip pain status post fall COMPARISON: X-rays on the same date. TECHNIQUE: Computed axial tomography of the right hip were obtained. Coronal and sagittal reconstruc tion was performed. All CT scans are performed using dose optimization technique as appropriate and may include automated exposure control or mA/KV adjustment according to patient size. FINDINGS: The bones are osteoporotic. No fracture or dislocation is seen. The surrounding muscles of the right hip are normal size and density. IMPRESSION: No evidence of a right hip fracture. If the patient continues to have symptoms to suggest an occult fracture MRI would be recommended
--- NOTE | 2019-07-25 11:25 | ER ---
Nurse's Notes [facility] Name: Lillian Cabrera Age: 83 yrs Sex: Female : 1935 Arrival Date: 07/25/2019 Time: 08:18 Bed 8 Private MD: Unknown, Unknown Diagnosis: Superficial injury of head;Contusion of right hip Presentation: 07/25 08:21 Presenting complaint: EMS states: Pt from [facility], had "unwitnessed" fall in dining ph room, normally does not ambulated and is in wheelchair, which was found with wheels locked, hematoma to L side of head and deformity noted to R hip, hx of hip fracture but staff did not know when or which hip, hx of dementia, A\\T\\O x 1 at baseline, no blood thinners. Care prior to arrival: Cervical collar in place. Mechanism of Injury: Fall wheelchair. Trauma event details: Injury occurred in the [facility], Injury occurred: [facility]. 08:21 Acuity: JOBY 3 ph 08:21 Method Of Arrival: EMS: [facility] ph 08:35 Transition of care: patient was received from another setting of care (long-term care facility), [facility]. Onset of symptoms was July 25, 2019. Risk Assessment: Do you want to hurt yourself or someone else? Patient reports no desire to harm self or others. Initial Sepsis Screen: Does the patient meet any 2 criteria? No. Patient's initial sepsis screen is negative. Does the patient have a suspected source of infection? No. Patient's initial sepsis screen is negative. Trauma Activation: Alert Physician: ED Physician; Name: ; Notified At: ; Arrived At: Physician: General Surgeon; Name: ; Notified At: ; Arrived At: Physician: Radiology; Name: ; Notified At: ; Arrived At: Physician: Respiratory; Name: ; Notified At: ; Arrived At: Physician: Lab; Name: ; Notified At: ; Arrived At: Historical: - Allergies: 08:29 No Known Allergies; ph - Home Meds: 08:29 acetaminophen 500 mg Oral tab 1 tab every 6 hours for Pain [Active]; Acidophilus Oral ph chew twice a day [Active]; Arginaid 4.5 gram-156 mg/9.2 gram Oral pwpk twice a day [Active]; Aricept 23 mg Oral tab 1 tab once daily [Active]; ascorbic acid (vitamin C) 500 mg tab daily [Active]; aspirin 81 mg Oral chew 1 tab once daily [Active]; Coreg 6.25 mg Oral tab 1 tab 2 times per day [Active]; Depakote Sprinkles 125 mg Oral cpSP 6 caps daily [Active]; docusate sodium 100 mg Oral tab 1 tab 2 times per day [Active]; folic acid 1 mg Oral tab 1 tab once daily [Active]; mirtazapine 30 mg Oral tab 2 tab once daily [Active]; Namenda 10 mg Oral tab 1 tab 2 times per day [Active]; tramadol 50 mg Oral tab 1 tab every 6 hours [Active]; Vitamin D Oral [Active]; zinc sulfate 220 mg Oral tab 220 mg twice a day [Active]; - PMHx: 08:29 Dementia; Glaucoma; Hyperlipidemia; Hypertension; UTI; ph - Immunization history: Last tetanus immunization: unknown. - Coronavirus screen:: The patient has NOT traveled to [place], [place], or [place] in the past 14 days. The patient has NOT had contact with known/suspected case of Coronavirus?. - Family history:: not pertinent. - Social history:: Smoking status: Patient denies any tobacco usage or history of. - Hospitalizations: : No recent hospitalization is reported. - Ebola Screening: : No symptoms or risks identified at this time. Screenin:34 Abuse screen: Denies threats or abuse. Denies injuries from another. Nutritional ph screening: No deficits noted. Tuberculosis screening: No symptoms or risk factors identified. Fall Risk Fall in past 12 months (25 points). Secondary diagnosis (15 points) Alzheimer's, No IV (0 pts). Ambulatory Aid- None/Bed Rest/Nurse Assist (0 pts). Gait- Impaired (20 pts.). Mental Status- Overestimates/Forgets Limitations (15 pts.). Total [place] Fall Scale indicates High Risk Score (45 or more points). Fall prevention measures have been instituted. Side Rails Up X 2 Placed Close to Nursing Station Frequent Obs/Assessments Occuring As available patient and family educated on Fall Prevention Program and Strategies. Primary Survey: 08:31 NO uncontrolled hemorrhage observed. A: The patient is alert. Airway: patent, No ph supplemental oxygen in use on arrival. Oral cavity: clear, Trachea midline. Breathing/Chest: Respiratory pattern: regular, Respiratory effort: spontaneous, unlabored. Circulation: Skin color: pink, Skin temperature: warm. Disability Alert. Exposure/Environment: There is no evidence of uncontrolled external bleeding. Obvious injury(ies) are noted at this time: bruising noted to L side of head A warming method has been applied: A warm blanket has been provided to the patient. 12:45 Reassessment Airway Airway Breathing/Chest Respiratory pattern Regular Respiratory ph effort Spontaneous Unlabored Circulation Color [place] Temperature Warm Dry Disability Alert. Assessment: 08:32 General: Appears in no apparent distress. uncomfortable, slender, Behavior is calm, ph cooperative. Pain: Denies pain. Neuro: Level of Consciousness is awake, alert, obeys commands, Oriented to person. Cardiovascular: Capillary refill < 3 seconds in bilateral fingers. Respiratory: Airway is patent Respiratory effort is even, unlabored. Derm: Skin is fragile, is thin, Skin is pink, warm \\T\\ dry. Musculoskeletal: Circulation, motion, and sensation intact. pt noted to be lying on L side w/ bilateral legs curled, has difficulty straightening both legs but denies pain. 10:06 Reassessment: Patient appears in no apparent distress at this time. Patient and/or ph family updated on plan of care and expected duration. Pain level reassessed. Pt resting quietly, continues to deny pain, c-collar removed per ERP, awaiting CT scan of hip to check for fracture. 11:00 Reassessment: Patient appears in no apparent distress at this time. No changes from ph previously documented assessment. Patient and/or family updated on plan of care and expected duration. Pain level reassessed. 12:12 Reassessment: Patient appears in no apparent distress at this time. No changes from ph previously documented assessment. Patient and/or family updated on plan of care and expected duration. Pain level reassessed. Report called to [facility], was told that he would call back when he arranged transportation for pt back to facility. 13:00 Reassessment: Patient appears in no apparent distress at this time. Patient and/or ph family updated on plan of care and expected duration. Pain level reassessed. 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 Vital Signs: 08:29 BP 153 / 97; Pulse 60; Resp 18; Temp 97.7; Pulse Ox 94% on R/A; Weight 58.97 kg; ph 09:30 BP 147 / 86; Pulse 61; Resp 18; Pulse Ox 97% on R/A; ph 11:00 BP 138 / 89; Pulse 61; Resp 18; Pulse Ox 95% on R/A; ph Eulalia Coma Score: 08:29 Eye Response: spontaneous(4). Verbal Response: confused(4). Motor Response: obeys ph commands(6). Total: 14. 11:00 Eye Response: spontaneous(4). Verbal Response: confused(4). Motor Response: obeys ph commands(6). Total: 14. Trauma Score (Adult): 08:29 Eye Response: spontaneous(1); Verbal Response: confused(1); Motor Response: obeys ph commands(2); Systolic BP: > 89 mm Hg(4); Respiratory Rate: 10 to 29 per min(4); [place] Score: 14; Trauma Score: 12 09:30 Eye Response: spontaneous(1); Verbal Response: confused(1); Motor Response: obeys ph commands(2); Systolic BP: > 89 mm Hg(4); Respiratory Rate: 10 to 29 per min(4); [place] Score: 14; Trauma Score: 12 11:00 Eye Response: spontaneous(1); Verbal Response: confused(1); Motor Response: obeys ph commands(2); Systolic BP: > 89 mm Hg(4); Respiratory Rate: 10 to 29 per min(4); [place] Score: 14; Trauma Score: 12 ED Course: 08:18 Patient arrived in ED. mr 08:19 None, None is Private Physician. mr 08:19 Unknown, Unknown is Private Physician. mr 08:20 Gentry Hernandez MD is Attending Physician. tw4 08:20 Attending Physician role handed off by Gentry Hernandez MD rn 08:20 Bobby Flores MD is Attending Physician. rn 08:21 Annika Mauro RN is Primary Nurse. ph 08:25 Triage completed. ph 08:31 Patient has correct armband on for positive identification. Bed in low position. Call ph light in reach. Side rails up X2. 08:35 Arm band placed on Patient placed in an exam room, on a stretcher. ph 08:35 Patient maintains SpO2 saturation greater than 95% on room air. Thermoregulation: warm ph blanket given to patient. 13:05 No provider procedures requiring assistance completed. Patient did not have IV access ph during this emergency room visit. Administered Medications: No medications were administered Intake: 08:29 PO: 0ml; Total: 0ml. ph Output: 08:29 Urine: 0ml; Total: 0ml. ph Outcome: 11:25 Discharge ordered by rn 13:06 Patient left the ED. ph 13:06 Discharged to [facility]. Report called to Johnie 13:06 Condition: good 13:06 Discharge instructions given to [facility], Instructed on discharge instructions, follow up and referral plans. Demonstrated understanding of instructions, follow-up care. 13:06 Patient's length of stay in the Emergency Department was greater than 2 hours. Awaiting ph transport from nursing homePatient's length of stay extended due to Signatures: Madhuri Garcia Roman, MD MD rn [place], MARIANA Roblero RN, ph, Terrence, MD MD tw4
--- NOTE | 2019-07-25 11:26 | EDPHYS ---
Physician Documentation [facility] Name: Lillian Cabrera Age: 83 yrs Sex: Female : 1935 Arrival Date: 07/25/2019 Time: 08:18 Bed 8 Private MD: Unknown, Unknown ED Physician Bobby Flores HPI: 07/25 08:23 This 83 yrs old Female presents to ER via Unassigned with complaints of Fall rn Injury. 08:23 Details of fall: The patient fell from an upright position, while standing. Onset: The rn symptoms/episode began/occurred just prior to arrival. Associated injuries: The patient sustained injury to the head. Severity of symptoms: At their worst the symptoms were mild, in the emergency department the symptoms are unchanged. The patient has experienced similar episodes in the past. The patient has not recently seen a physician. EMS reports fall, happened in cafeteria, not witnessed, + bump to head, takes aspirin but no other blood thinner. . Pt with dementia but denies focal pain. Historical: - Allergies: : No Known Allergies; ph - Home Meds: : acetaminophen 500 mg Oral tab 1 tab every 6 hours for Pain [Active]; Acidophilus Oral ph chew twice a day [Active]; Arginaid 4.5 gram-156 mg/9.2 gram Oral pwpk twice a day [Active]; Aricept 23 mg Oral tab 1 tab once daily [Active]; ascorbic acid (vitamin C) 500 mg tab daily [Active]; aspirin 81 mg Oral chew 1 tab once daily [Active]; Coreg 6.25 mg Oral tab 1 tab 2 times per day [Active]; Depakote Sprinkles 125 mg Oral cpSP 6 caps daily [Active]; docusate sodium 100 mg Oral tab 1 tab 2 times per day [Active]; folic acid 1 mg Oral tab 1 tab once daily [Active]; mirtazapine 30 mg Oral tab 2 tab once daily [Active]; Namenda 10 mg Oral tab 1 tab 2 times per day [Active]; tramadol 50 mg Oral tab 1 tab every 6 hours [Active]; Vitamin D Oral [Active]; zinc sulfate 220 mg Oral tab 220 mg twice a day [Active]; - PMHx: 08:29 Dementia; Glaucoma; Hyperlipidemia; Hypertension; UTI; ph - Immunization history: Last tetanus immunization: unknown. - Coronavirus screen:: The patient has NOT traveled to [place], [place], or [place] in the past 14 days. The patient has NOT had contact with known/suspected case of Coronavirus?. - Family history:: not pertinent. - Social history:: Smoking status: Patient denies any tobacco usage or history of. - Hospitalizations: : No recent hospitalization is reported. - Ebola Screening: : No symptoms or risks identified at this time. ROS: 08:23 Constitutional: Negative for fever, chills, and weight loss, Eyes: Negative for injury, rn pain, redness, and discharge, Neck: Negative for injury, pain, and swelling, Cardiovascular: Negative for chest pain, palpitations, and edema, Respiratory: Negative for shortness of breath, cough, wheezing, and pleuritic chest pain, Abdomen/GI: Negative for abdominal pain, nausea, vomiting, diarrhea, and constipation, MS/Extremity: Negative for injury and deformity, Skin: Negative for injury, rash, and discoloration, Neuro: Negative for headache, weakness, numbness, tingling, and seizure. Exam: 08:23 Constitutional: Thin female, no acute distress, both legs flexed and in ccollar rn Head/Face: + small contusion/hematoma left fronto-parietal region ENT: no oral trauma Neck: In ccollar, no midline tenderness Chest/axilla: Normal chest wall appearance and motion. Nontender with no deformity. No lesions are appreciated. Cardiovascular: Regular rate and rhythm. No pulse deficits. Respiratory: Equal breath sounds. No increased work of breathing, no retractions or nasal flaring. Abdomen/GI: soft, non-tender Back: No spinal tenderness. No costovertebral tenderness. Full range of motion. MS/ Extremity: Pulses equal, no cyanosis. Mild painful ROM bilateral hips without swelling or deformity. NO shortening or rotation. Neuro: Awake and alert, moves all 4 ext Vital Signs: 08:29 BP 153 / 97; Pulse 60; Resp 18; Temp 97.7; Pulse Ox 94% on R/A; Weight 58.97 kg; ph 09:30 BP 147 / 86; Pulse 61; Resp 18; Pulse Ox 97% on R/A; ph 11:00 BP 138 / 89; Pulse 61; Resp 18; Pulse Ox 95% on R/A; ph [place] Coma Score: 08:29 Eye Response: spontaneous(4). Verbal Response: confused(4). Motor Response: obeys ph commands(6). Total: 14. 11:00 Eye Response: spontaneous(4). Verbal Response: confused(4). Motor Response: obeys ph commands(6). Total: 14. Trauma Score (Adult): 08:29 Eye Response: spontaneous(1); Verbal Response: confused(1); Motor Response: obeys ph commands(2); Systolic BP: > 89 mm Hg(4); Respiratory Rate: 10 to 29 per min(4); [place] Score: 14; Trauma Score: 12 09:30 Eye Response: spontaneous(1); Verbal Response: confused(1); Motor Response: obeys ph commands(2); Systolic BP: > 89 mm Hg(4); Respiratory Rate: 10 to 29 per min(4); [place] Score: 14; Trauma Score: 12 11:00 Eye Response: spontaneous(1); Verbal Response: confused(1); Motor Response: obeys ph commands(2); Systolic BP: > 89 mm Hg(4); Respiratory Rate: 10 to 29 per min(4); [place] Score: 14; Trauma Score: 12 MDM: 08:21 Patient medically screened. rn 11:23 Differential diagnosis: closed head injury, contusion, fracture, sprain, strain. Data rn reviewed: vital signs, nurses notes, radiologic studies, CT scan, plain films, and as a result, I will discharge patient. Counseling: I had a detailed discussion with the patient and/or guardian regarding: the historical points, exam findings, and any diagnostic results supporting the discharge/admit diagnosis, radiology results, the need for outpatient follow up, to return to the emergency department if symptoms worsen or persist or if there are any questions or concerns that arise at home. Special discussion: I discussed with the patient/guardian in detail that at this point there is no indication for admission to the hospital. It is understood, however, that if the symptoms persist or worsen the patient needs to return immediately for re-evaluation. ED course: Questionable lucency right hip on xray, ct hip neg for acute fracture, neg ct head/cspine, will dc home.. 07/25 08:22 Order name: CT Head C Spine rn 07/25 08:22 Order name: XRAY Pelvis rn 07/25 08:22 Order name: XRAY Hip LEFT 2 view rn 07/25 08:22 Order name: XRAY Hip RIGHT 2 view rn Administered Medications: No medications were administered Disposition: 07/25/19 11:25 Discharged to Home. Impression: Superficial injury of head, Contusion of right hip. - Condition is Stable. - Discharge Instructions: Contusion, Head Injury, Adult. - Medication Reconciliation Form, Thank You Letter, Antibiotic Education, Prescription Opioid Use form. - Follow up: Private Physician; When: As needed; Reason: Recheck today's complaints, Re-evaluation by your physician. - Problem is new. - Symptoms have improved. Signatures: Dispatcher [employer] EDMS Bobby Flores MD MD rn Hall, Patricia, RN RN ph Corrections: (The following items were deleted from the chart) 13:06 11:25 07/25/2019 11:25 Discharged to Home. Impression: Superficial injury of head; ph Contusion of right hip. Condition is Stable. Forms are Medication Reconciliation Form, Thank You Letter, Antibiotic Education, Prescription Opioid Use. Follow up: Private Physician; When: As needed; Reason: Recheck today's complaints, Re-evaluation by your physician. Problem is new. Symptoms have improved. rn
[2019-07-25 13:46] VITALS: TEMP 97.7
[2019-07-25 13:49] VITALS: BP 138/89; O2SAT 95
== END 2019-07-25 13:06 | disposition home or self-care (01) ==
LOC: ER 08:16
DX: S70.01XA Contusion of right hip, initial encounter (principal); W19.XXXA Unspecified fall, initial encounter; Y93.9 Activity, unspecified; Y92.511 Restaurant or cafe as the place of occurrence of the external cause; I10 Essential (primary) hypertension; E78.5 Hyperlipidemia, unspecified; F03.90 Unspecified dementia, unspecified severity, without behavioral disturbance, psychotic disturbance, mood disturbance, and anxiety; Z79.82 Long term (current) use of aspirin
CPT/HCPCS: 70450; 72125; 72170; 73700; 99284

== ENCOUNTER 2019-09-11 10:50 | Inpatient (IN) | payer OTHER ==
[2019-09-11 18:04] VITALS: BMI 22.1
[2019-09-18 06:00] VITALS: O2SAT 95
[2019-09-19 17:10] VITALS: BP 116/87; TEMP 97.8
== END 2019-09-19 18:31 | DRG 682 ==
LOC: ER 10:50 → ERHOLD 13:45 → 4TH 14:58 → 2ND 09-17 18:01
PROVIDERS: ADMIT Internal Medicine; ATTEND Internal Medicine
PROC: 0DB78ZX Excision of Stomach, Pylorus, Via Natural or Artificial Opening Endoscopic, Diagnostic (ICD-10-PCS; principal; 2019-09-17)
PROC: 0DH63UZ Insertion of Feeding Device into Stomach, Percutaneous Approach (ICD-10-PCS; 2019-09-17)
PROC: 30233R1 Transfusion of Nonautologous Platelets into Peripheral Vein, Percutaneous Approach (ICD-10-PCS; 2019-09-17)
DX: N17.9 Acute kidney failure, unspecified (principal); G92 Toxic encephalopathy; N39.0 Urinary tract infection, site not specified; E87.0 Hyperosmolality and hypernatremia; Z66 Do not resuscitate; I10 Essential (primary) hypertension; E86.9 Volume depletion, unspecified; F03.90 Unspecified dementia, unspecified severity, without behavioral disturbance, psychotic disturbance, mood disturbance, and anxiety; R63.4 Abnormal weight loss; E78.2 Mixed hyperlipidemia; Z79.899 Other long term (current) drug therapy; Z11.59 Encounter for screening for other viral diseases; E87.6 Hypokalemia; Z79.82 Long term (current) use of aspirin; D69.6 Thrombocytopenia, unspecified; D64.9 Anemia, unspecified; E83.42 Hypomagnesemia; Z86.73 Personal history of transient ischemic attack (TIA), and cerebral infarction without residual deficits; E86.0 Dehydration; K22.2 Esophageal obstruction; K29.70 Gastritis, unspecified, without bleeding; I48.0 Paroxysmal atrial fibrillation
CPT/HCPCS: 36415; 51702; 71045; 80048; 80076; 80164; 81003; 81015; 82550; 82553; 82607; 82746; 83605; 83690; 83735; 83880; 84132; 84145; 84484; 85025; 85049; 85610; 85730; 86900; 86901; 87040; 87086; 87088; 87804; 88305; 88312; 93005; 96361; 96365; 99285; C9113; J0360; J0690; J0696; J2704; J3475; J7030; J7799; P9035; U0001

== ENCOUNTER 2019-10-15 11:26 | Inpatient (IN) | payer OTHER ==
[2019-10-15 12:01] LABS: Absolute Lymphocytes (CBC) 1.3 K/uL (0.7-4.9); Basophils % 0.7 % (0-1.3); Hematocrit 34.7 % (36.0-45.0); Lymphocytes % 18.2 % (15.3-44.8); MPV 7.4 fL (7.6-11.3); RBC Red Blood Cell Count 3.23 M/uL (3.86-4.86)
--- OUTSIDE RECORDS SUMMARY | 2019-10-15 12:02 | XMS REPORT ---
:[address] [facility] t Address [address] [place] [address] Dr. Pimentel [address] [place] [id number] Care Team Providers Name Role Phone Unavailable Unavailable Unavailable Problems This patient has no known problems. Allergies, Adverse Reactions, Alerts This patient has no known allergies or adverse reactions. Medications This patient has no known medications.
[2019-10-15 12:04] LABS: Protime INR 1.07
[2019-10-15 12:19] LABS: BUN Blood Urea Nitrogen 32 mg/dL (7-18); Bicarbonate 32 mmol/L (21-32); Ferritin 672.8 ng/mL (8-388); Glucose Level 104 mg/dL (74-106); Sodium Level 139 mmol/L (136-145); Troponin (Emerg Dept Use Only) < 0.02 ng/mL (0.0-0.045)
--- NOTE | 2019-10-15 13:14 | RAD REPORT ---
EXAM DESCRIPTION: Facundo Single View10/15/2019 1:00 pm CLINICAL HISTORY: cough COMPARISON: August 2019 FINDINGS: The lungs appear clear of acute infiltrate. The heart is mildly enlarged. Aorta is tortuo us/ectatic IMPRESSION: No acute abnormalities displayed
[2019-10-15 13:24] LABS: Blood Morphology Comment NOTED (NOT SEEN); Macrocytosis 1+; Platelet Estimate ADEQ; Urine White Blood Cell Casts OK
[2019-10-15 13:40] LABS: Calcium Oxalate Crystals- Ur PRESENT (NONE SEEN); Urine Bacteria <20 /HPF (<20); Urine Culture Reflex Order REFLEXED
[2019-10-15] MEDS ORDERED: CEFTRIAXONE/SWI 1gm 0 GM/0 ML SYR ONE (13:52)
--- NOTE | 2019-10-15 13:53 | EDPHYS ---
Physician Documentation [facility] Name: Lillian Cabrera Age: 83 yrs Sex: Female : 1935 Arrival Date: 10/15/2019 Time: 11:31 Bed 3 Private MD: ED Physician Bobby Flores HPI: 10/14 11:36 This 83 yrs old Female presents to ER via Unassigned with complaints of rn cough, sob. 11:36 The patient or guardian reports cough, difficulty breathing. Onset: The rn symptoms/episode began/occurred this morning. Severity of symptoms: At their worst the symptoms were moderate, in the emergency department the symptoms have improved. Modifying factors: The symptoms are alleviated by nothing, the symptoms are aggravated by nothing. It is unknown whether or not the patient has had similar symptoms in the past. The patient has been recently been admitted at [facility]. Per EMS and jail, patient began with "wet cough" and difficulty breathing since this AM, no known fever, patient near baseline per jail. Oxygen mid 80s per EMS, improved with 3 then 5L O2. . Historical: - Allergies: 12:32 No Known Allergies; sv - Home Meds: 14:41 acetaminophen 500 mg Oral tab 1 tab every 6 hours for Pain [Active]; Acidophilus Oral jl7 chew twice a day [Active]; Arginaid 4.5 gram-156 mg/9.2 gram Oral pwpk twice a day [Active]; Aricept 23 mg Oral tab 1 tab once daily [Active]; ascorbic acid (vitamin C) 500 mg tab daily [Active]; aspirin 81 mg Oral chew 1 tab once daily [Active]; Coreg 6.25 mg Oral tab 1 tab 2 times per day [Active]; Depakote Sprinkles 125 mg Oral cpSP 6 caps daily [Active]; docusate sodium 100 mg Oral tab 1 tab 2 times per day [Active]; folic acid 1 mg Oral tab 1 tab once daily [Active]; mirtazapine 30 mg Oral tab 2 tab once daily [Active]; Namenda 10 mg Oral tab 1 tab 2 times per day [Active]; tramadol 50 mg Oral tab 1 tab every 6 hours [Active]; Vitamin D Oral [Active]; zinc sulfate 220 mg Oral tab 220 mg twice a day [Active]; - PMHx: 12:32 Dementia; Glaucoma; Hyperlipidemia; Hypertension; UTI; sv - Immunization history:: Adult Immunizations up to date. - Family history:: not pertinent. - Social history:: Smoking status: Patient denies any tobacco usage or history of. - Hospitalizations: : No recent hospitalization is reported. ROS: 11:36 Unable to obtain ROS due to baseline dementia. rn Exam: 11:36 Constitutional: Elderly female, moderate tachypnea, follows commands, difficult to rn understand. Head/Face: Normocephalic, atraumatic. ENT: dry MM, no stridor Cardiovascular: Irregular rhythm, regular rate, intact distal pulses Respiratory: Moderate tachypnea with crackles at bases Abdomen/GI: soft, non-tender Skin: Warm, dry MS/ Extremity: Pulses equal, no cyanosis. Neuro: Awake, alert, follows commands Vital Signs: 11:45 BP 122 / 77; Pulse 81; Resp 26 S; Pulse Ox 84% on R/A; jl7 12:05 BP 159 / 84; Pulse 88; Resp 22 S; Pulse Ox 100% on Non-rebreather mask; jl7 12:31 BP 142 / 92; Pulse 88; Resp 19 S; Temp 98(C); Pulse Ox 99% on Non-rebreather mask; jl7 13:37 BP 110 / 85; Pulse 90; Resp 14; Temp 98.5(C); Pulse Ox 96% on 100% Non-rebreather mask; sv 14:15 BP 130 / 87; Pulse 95; Resp 12; Temp 98.6; Pulse Ox 95% on Non-rebreather mask; sv 15:00 BP 145 / 86; Pulse 85; Resp 15; Temp 98.3(C); Pulse Ox 100% on Non-rebreather mask; sv MDM: 11:34 Patient medically screened. rn 12:54 ED course: No code status supplied or informed by jail or EMS, contacted Dr. solomon Daigle, her physician, is going to check with family and get back to me. . 13:47 Differential Diagnosis: Bronchitis Influenza Upper Respiratory Infection Viral Syndrome rn Pneumonia Other pulmonary edema. Data reviewed: vital signs, nurses notes, lab test result(s), EKG, radiologic studies, plain films, and as a result, I will admit patient. 13:49 Counseling: I had a detailed discussion with the patient and/or guardian regarding: the rn historical points, exam findings, and any diagnostic results supporting the discharge/admit diagnosis, lab results, radiology results, the need for further work-up and treatment in the hospital. Response to treatment: the patient's symptoms have mildly improved after treatment, and as a result, I will admit patient. Admission orders: after a detailed discussion of the patient's condition and case, the admit orders are written by me. ED course: Pt with no acute findings on xray, COVID-19 test sent, will cover with abx given productive cough and hypoxemia, admitted to Dr. Daigle. . 10/14 11:33 Order name: Blood Culture Adult (2) rn 10/14 11:33 Order name: BMP; Complete Time: 12:53 rn 10/14 11:33 Order name: C-Reactive Protein; Complete Time: 12:53 rn 10/14 11:33 Order name: CBC with Diff; Complete Time: 13:36 rn 10/14 11:33 Order name: COVID-19 rn 10/14 11:33 Order name: Ferritin; Complete Time: 12:53 10/14 11:33 Order name: Flu; Complete Time: 12:53 rn 10/14 11:33 Order name: Lactate; Complete Time: 12:53 rn 10/14 11:33 Order name: Procalcitonin; Complete Time: 13:26 rn 10/14 11:33 Order name: PT-INR; Complete Time: 12:53 rn 10/14 11:33 Order name: Ptt, Activated; Complete Time: 12:53 rn 10/14 11:33 Order name: Strep; Complete Time: 12:53 rn 10/14 11:33 Order name: Troponin (emerg Dept Use Only); Complete Time: 12:53 rn 10/14 11:33 Order name: Urine Microscopic Only; Complete Time: 13:47 10/14 11:33 Order name: CXR XRAY; Complete Time: 13:26 10/14 11:33 Order name: EKG; Complete Time: 11:34 10/14 11:33 Order name: Cardiac monitoring; Complete Time: 12:46 10/14 11:33 Order name: Droplet/Contact Precautions; Complete Time: 12:47 10/14 11:33 Order name: EKG - Nurse/Tech; Complete Time: 12:47 10/14 11:33 Order name: IV Start; Complete Time: 12:47 rn 10/14 11:33 Order name: Labs collected and sent; Complete Time: 12:47 rn 10/14 12:08 Order name: Throat Culture [facility] 10/14 12:55 Order name: BNP; Complete Time: 13:26 rn 10/14 13:24 Order name: CBC Smear Scan; Complete Time: 13:36 EDOR 10/14 13:41 Order name: Urine Culture [facility] 10/14 13:57 Order name: Urine Dipstick--Ancillary (enter results) [facility] 10/14 11:33 Order name: O2 Per Protocol; Complete Time: 12:47 rn 10/14 11:33 Order name: O2 Sat Monitoring; Complete Time: 12:47 rn 10/14 11:33 Order name: Urine Dipstick-Ancillary (obtain specimen); Complete Time: 12:47 rn Administered Medications: 13:51 CANCELLED (Duplicate Order): Rocephin 1 grams IV at calculated rate once; Given slow delivery rn push per pharmacy instructions 13:51 CANCELLED (Duplicate Order): Zithromax 500 mg IVPB once over 1 hrs; mix in 250 mL NS rn 14:34 Drug: NS 0.9% 250 ml Route: IV; Rate: bolus; Site: left hand; [facility] 15:00 Follow up: Response: No adverse reaction; IV Status: Completed infusion; IV Intake: jl7 250ml 14:35 Drug: Zosyn 3.375 grams Route: IVPB; Infused Over: 60 mins; Site: left hand; [facility] 15:10 Follow up: Response: No adverse reaction; IV Status: Infusion continued upon admission jl Disposition: 10/15/19 13:54 Hospitalization ordered by Larissa Daigle for Inpatient Admission. Preliminary diagnosis are Hypoxemia, Pneumonia, unspecified organism, Dehydration. - Bed requested for Telemetry/MedSurg (Inpatient). - Status is Inpatient Admission. jl7 - Condition is Stable. - Problem is new. - Symptoms have improved. Critical care time excluding procedures: 13:53 Critical care time: Bedside Care: 20 minutes, Consultation: 10 minutes. Total time: 30 rn minutes Signatures: Dispatcher [employer] Devi Rivers RN RN sv Woody, Diana, RN RN dw Nieto, Roman, MD MD rn Leal, Jahala RN RN jl7 Corrections: (The following items were deleted from the chart) 13:51 13:37 Rocephin 1 grams IV at calculated rate once; Given slow IV push per pharmacy rn instructions ordered. rn 13:51 13:37 Zithromax 500 mg IVPB once over 1 hrs; mix in 250 mL NS ordered. rn rn 13:53 13:52 10/15/2019 13:52 Discharged to Home. Impression: Hypoxemia; Dehydration; rn Pneumonia. Condition is Stable. Forms are Medication Reconciliation Form, Thank You Letter, Antibiotic Education, Prescription Opioid Use. Follow up: Private Physician; When: As needed; Reason: Recheck today's complaints, Re-evaluation by your physician. Problem is new. Symptoms have improved. rn 14:29 13:54 Hospitalization Ordered by A Pilo ROBERTSON for Inpatient Admission. Preliminary dw diagnosis is Hypoxemia; Pneumonia, unspecified organism; Dehydration. Bed requested for Telemetry/MedSurg (Inpatient). Status is Inpatient Admission. Condition is Stable. Problem is new. Symptoms have improved. rn 15:17 14:29 10/15/2019 13:54 Hospitalization Ordered by A Pilo ROBERTSON for Inpatient Admission. jl7 Preliminary diagnosis is Hypoxemia; Pneumonia, unspecified organism; Dehydration. Bed requested for Telemetry/MedSurg (Inpatient). Status is Inpatient Admission. Condition is Stable. Problem is new. Symptoms have improved. dw
--- NOTE | 2019-10-15 13:53 | ER ---
Nurse's Notes [facility] Name: Lillian Cabrera Age: 83 yrs Sex: Female : 1935 Arrival Date: 10/15/2019 Time: 11:31 Bed 3 Private MD: Diagnosis: Hypoxemia;Pneumonia, unspecified organism;Dehydration Presentation: 10/14 11:26 Chief complaint: EMS states: called out for dyspnea that started this morning. On EMS sv arrival pt was on O2 \T\ 3L per NC with O2 sat of 88%. EMS increased it to 5L and O2 sat up to 93%. c/o productive cough and fci attempted to suction pt. EKG-Afib w/ PVCs BP 135/100 96.7 ax 20G L FA. Ebola Screen: No symptoms or risks identified at this time. Risk Assessment: Do you want to hurt yourself or someone else? Patient reports no desire to harm self or others. Onset of symptoms was October 15, 2019. 11:26 Method Of Arrival: EMS: [facility] sv 11:26 Acuity: JOBY 2 sv 11:30 Coronavirus screen: Surgical mask placed on patient. Patient moved to private room, jl7 placed in contact and droplet isolation with eye protection until further assessment. Patient reports a cough. Patient reports shortness of breath or difficulty breathing. Patient denies measured and/or subjective temperature greater than 100.4F prior to today's visit. Patient denies travel on a cruise ship or to a country the [facility] currently lists as an affected area. Patient denies contact with known and/or suspected case of COVID-19. 11:30 Initial Sepsis Screen: Does the patient meet any 2 criteria? No. Patient's initial jl7 sepsis screen is negative. Does the patient have a suspected source of infection? Yes: Productive cough/pneumonia. Triage Assessment: 11:30 General: Appears in no apparent distress. uncomfortable, slender, Behavior is jl7 uncooperative. Pain: Unable to use pain scale. FLACC scale score is 1 out of 10. Neuro: Level of Consciousness is awake, Oriented to none. Cardiovascular: Patient's skin is warm and dry. Respiratory: Reports fci reports wet cough Airway is patent Respiratory effort is even, unlabored, Respiratory pattern is regular, symmetrical, audible congestion noted Onset: The symptoms/episode began/occurred the patient has moderate shortness of breath. GI: PEG tube in place, clamped. Site clean. Derm: Skin is pink, warm \T\ dry. Historical: - Allergies: 12:32 No Known Allergies; sv - Home Meds: 14:41 acetaminophen 500 mg Oral tab 1 tab every 6 hours for Pain [Active]; Acidophilus Oral jl7 chew twice a day [Active]; Arginaid 4.5 gram-156 mg/9.2 gram Oral pwpk twice a day [Active]; Aricept 23 mg Oral tab 1 tab once daily [Active]; ascorbic acid (vitamin C) 500 mg tab daily [Active]; aspirin 81 mg Oral chew 1 tab once daily [Active]; Coreg 6.25 mg Oral tab 1 tab 2 times per day [Active]; Depakote Sprinkles 125 mg Oral cpSP 6 caps daily [Active]; docusate sodium 100 mg Oral tab 1 tab 2 times per day [Active]; folic acid 1 mg Oral tab 1 tab once daily [Active]; mirtazapine 30 mg Oral tab 2 tab once daily [Active]; Namenda 10 mg Oral tab 1 tab 2 times per day [Active]; tramadol 50 mg Oral tab 1 tab every 6 hours [Active]; Vitamin D Oral [Active]; zinc sulfate 220 mg Oral tab 220 mg twice a day [Active]; - PMHx: 12:32 Dementia; Glaucoma; Hyperlipidemia; Hypertension; UTI; sv - Immunization history:: Adult Immunizations up to date. - Family history:: not pertinent. - Social history:: Smoking status: Patient denies any tobacco usage or history of. - Hospitalizations: : No recent hospitalization is reported. Screenin:30 Abuse screen: Denies threats or abuse. Denies injuries from another. Nutritional jl7 screening: No deficits noted. Tuberculosis screening: No symptoms or risk factors identified. Fall Risk No fall in past 12 months (0 pts). Secondary diagnosis (15 points) dementia, IV access (20 points). Ambulatory Aid- None/Bed Rest/Nurse Assist (0 pts). Gait- Weak (10 pts.). Mental Status- Overestimates/Forgets Limitations (15 pts.). Total Easley Fall Scale indicates High Risk Score (45 or more points). Fall prevention measures have been instituted. Side Rails Up X 2 Placed Close to Nursing Station Frequent Obs/Assessments Occuring As available patient and family educated on Fall Prevention Program and Strategies. Assessment: 11:30 General: See triage assessment. jl7 12:05 Reassessment: COVID-19 obtained and sent to lab. sv 12:30 Reassessment: Patient appears in no apparent distress at this time. No changes from jl previously documented assessment. 14:36 Reassessment: Patient appears in no apparent distress at this time. Patient and/or jl7 family updated on plan of care and expected duration. Pain level reassessed. Neuro: Level of Consciousness is awake, alert, Oriented to person. Vital Signs: 11:45 BP 122 / 77; Pulse 81; Resp 26 S; Pulse Ox 84% on R/A; jl7 12:05 BP 159 / 84; Pulse 88; Resp 22 S; Pulse Ox 100% on Non-rebreather mask; jl7 12:31 BP 142 / 92; Pulse 88; Resp 19 S; Temp 98(C); Pulse Ox 99% on Non-rebreather mask; jl7 13:37 BP 110 / 85; Pulse 90; Resp 14; Temp 98.5(C); Pulse Ox 96% on 100% Non-rebreather mask; sv 14:15 BP 130 / 87; Pulse 95; Resp 12; Temp 98.6; Pulse Ox 95% on Non-rebreather mask; sv 15:00 BP 145 / 86; Pulse 85; Resp 15; Temp 98.3(C); Pulse Ox 100% on Non-rebreather mask; sv ED Course: 11:31 Patient arrived in ED. rn 11:34 Bobby Flores MD is Attending Physician. rn 12:00 Inserted saline lock: 20 gauge in left hand, using aseptic technique. Blood collected. jl7 12:00 Initial lab(s) drawn, by tn, sent to lab. First set of blood cultures drawn by tn. jl7 12:00 Speci-cath kit inserted, using sterile technique, 16 Fr., specimen obtained. returned jl7 clear yellow urine. Patient tolerated well. 12:02 Flu and/or RSV swab sent to lab. Strep swab sent to lab. sv 12:03 Triage completed. sv 12:15 Second set of blood cultures drawn by tn, Urine collected: Cruz catheter specimen, [facility] clear. 12:27 Wong, Jahala, RN is Primary Nurse. jl7 12:31 Arm band placed on right wrist. jl7 12:35 Patient has correct armband on for positive identification. Placed in gown. Bed in low jl7 position. Call light in reach. Side rails up X2. contract administration manager on. Pulse ox on. NIBP on. Warm blanket given. Patient is placed in psych hold. Patient is placed in psych hold. 12:46 X-ray(s) taken. 13:01 CXR XRAY In Process Unspecified. EDMS 13:53 Larissa Daigle MD is Hospitalizing Provider. rn 15:16 No provider procedures requiring assistance completed. Patient admitted, IV remains in jl7 place. intact, No redness/swelling at site. Administered Medications: 13:51 CANCELLED (Duplicate Order): Rocephin 1 grams IV at calculated rate once; Given slow antique furniture restorer push per pharmacy instructions 13:51 CANCELLED (Duplicate Order): Zithromax 500 mg IVPB once over 1 hrs; mix in 250 mL NS rn 14:34 Drug: NS 0.9% 250 ml Route: IV; Rate: bolus; Site: left hand; jl7 15:00 Follow up: Response: No adverse reaction; IV Status: Completed infusion; IV Intake: jl7 250ml 14:35 Drug: Zosyn 3.375 grams Route: IVPB; Infused Over: 60 mins; Site: left hand; jl7 15:10 Follow up: Response: No adverse reaction; IV Status: Infusion continued upon admission jl7 Intake: 15:00 IV: 250ml; Total: 250ml. jl7 Outcome: 13:52 Discharge ordered by MD. rn 13:54 Decision to Hospitalize by Provider. rn 15:16 Admitted to Tele accompanied by tech, via stretcher, room 414, with oxygen, with chart, jl7 Report called to MARIANA Reynaga 15:16 Condition: stable 15:16 Discharge instructions given to patient, Instructed on the need for admit. 15:17 Patient left the ED. jl7 Signatures: Dispatcher [employer] Devi Rivers, RN Bobby Peralta MD MD rn Leal, Jahala, RN RN jl7
[2019-10-15] MEDS ORDERED: AZITHROMYCIN IV 500 MG in NA CHLORIDE 0.9% 250 ML IVPB ONE (14:00)
[2019-10-15] MEDS ORDERED: NA CHLORIDE 0.9% 500 ML ONE (14:05)
[2019-10-15] MEDS ORDERED: PIPER/TAZO/NS 3.375gm 3.375 GM/100 ML BAG ONE (14:06)
[2019-10-15] MEDS ORDERED: ONDANSETRON 4 MG/2 ML VIAL IV PRN (14:50)
[2019-10-15 16:29] VITALS: BMI 26.8
[2019-10-15] MEDS: NA CHLORIDE 0.9% 1,000 ML IV SCH (16:57)
[2019-10-15] MEDS: PIPER/TAZO/NS 3.375gm 3.375 GM/100 ML BAG IVPB SCH (16:58)
[2019-10-15] MEDS: JEVITY 1.2 CAL LIQUID 1,000 ML BOT FT SCH (17:36)
[2019-10-16] MEDS: PIPER/TAZO/NS 3.375gm 3.375 GM/100 ML BAG IVPB SCH ×4 (01:06→23:59)
[2019-10-16 05:43] LABS: Absolute Lymphocytes (CBC) 1.2 K/uL (0.7-4.9); Basophils % 0.6 % (0-1.3); Hematocrit 31.8 % (36.0-45.0); Lymphocytes % 17.3 % (15.3-44.8); MPV 7.4 fL (7.6-11.3); RBC Red Blood Cell Count 2.93 M/uL (3.86-4.86)
[2019-10-16 06:14] LABS: Potassium 3.9 mmol/L (3.5-5.1)
--- NOTE | 2019-10-16 09:37 | RAD REPORT ---
EXAM DESCRIPTION: RAD - Chest Single View - 10/16/2019 9:28 am CLINICAL HISTORY: ?pneumonia Chest pain. COMPARISON: Chest Single View dated 10/15/2019; Chest Single View dated 09/11/2019; Chest Single View dated 05/07/2019; Chest Single View dated 10/02/2018 FINDINGS: Portable technique limits examination quality. Examination is limited by patient positioning and portable technique. Small opacity may be developing in the right base laterally which could be atelectasis or small pneumonia. The heart is prominent wi th a tortuous thoracic aorta, accentuated by patient positioning. No displaced fractures. IMPRESSION: Small opacity in the right lung base laterally may be atelectasis or a mild pneumonia de veloping.
[2019-10-16] MEDS: NA CHLORIDE 0.9% 1,000 ML IV SCH ×2 (13:00→23:58)
--- NOTE | 2019-10-16 18:08 | EKG ---
Test Date: 2019-10-15 Test Time: 11:50:30 Safety Aide: ALINA MEASUREMENT RESULTS: Intervals: Rate: 86 MT: 182 QRSD: 82 QT: 382 QTc: 457 Imbler: P: 53 MT: 182 QRS: -55 T: 52 INTERPRETIVE STATEMENTS: Sinus rhythm with frequent premature ventricular complexes and premature atrial complexes Left axis deviation Possible Lateral infarct, age undetermined Abnormal ECG Compared to ECG 09/17/2019 17:58:36 Atrial premature complex(es) now present Atrial fibrillation no longer present Myocardial infarct finding still present Electronically Signed On 10-16-19 18:06:40 CDT by Callum Bergeron
--- NOTE | 2019-10-16 22:45 | PN ---
Date of Progress Note: 10/16/2019 Subjective: Patient was seen this morning for followup. She was lying in bed, not in distress, smil ing, does not answer any questions with any pertinent details. Objective: Vital signs: Reviewed. HEENT: Unremarkable. Lungs: Clear to auscultation. Cardiac: Heart sounds normal. Abdomen: Soft, bowel sounds normal. No guarding, rigidity, tenderness, or distention. Extremities: No leg edema. Laboratory Data: White count 6.9, hemoglobin 10.9, platelets 224. Sodium 143, potassium 3.9, chlori de 109, bicarb 29, BUN 25, creatinine 0.83, glucose 97. Chest x-ray today shows right lower lobe inf iltrate. Impression: 1.Pneumonia. 2.Anemia. 3.Dementia. Plan: We will go ahead and continue current medication. IV fluid will be continued. Continue curre nt PEG tube feeding and will see her tomorrow for followup. I did call the patient's son and discuss ed details with him regarding her negative COVID-19 test and plan of treatment, possible discharge to go back to [facility] tomorrow depending on her condition. Her blood culture was reported as posi tive. We will phone upon finding culture results, chances are likely this could be skin contaminant, but we will wait until we get a more definitive answer on the blood culture results before we discha rge her. Patient has a DNR order in place while in the hospital. I talked to the son regarding out of hospital DNR today and he would like to have such order in place and I have advised him to sterlingi radha with the [facility] staff to fill out form for out of hospital DNR and I also called the [facility] tor of nurse at [facility] and communicated this information with the nurse, so that nurse can assist family member to go ahead and get such form ready for her. DANIELA/MODL Voice ID: [id number] Report ID: [id number]
[2019-10-17 05:37] LABS: Absolute Lymphocytes (CBC) 1.2 K/uL (0.7-4.9); Basophils % 0.5 % (0-1.3); Hematocrit 29.6 % (36.0-45.0); Lymphocytes % 20.8 % (15.3-44.8); MPV 7.4 fL (7.6-11.3); RBC Red Blood Cell Count 2.74 M/uL (3.86-4.86)
[2019-10-17 06:00] LABS: Magnesium 2.1 mg/dL (1.8-2.4); Potassium 3.7 mmol/L (3.5-5.1)
[2019-10-17] MEDS: D5 0.45 NS 1,000 ML IV SCH (08:45)
[2019-10-17] MEDS: PIPER/TAZO/NS 3.375gm 3.375 GM/100 ML BAG IVPB SCH ×2 (08:47→16:50)
[2019-10-17] MEDS: JEVITY 1.2 CAL LIQUID 1,000 ML BOT FT SCH (19:30)
--- NOTE | 2019-10-17 21:37 | PN ---
Date of Progress Note: 10/17/2019 Subjective: Patient was seen this morning for followup. She was lying in bed, not in distress. Objective: Vital Signs: Reviewed. HEENT: Unremarkable. Lungs: Clear to auscultation. Cardiac: Heart sounds normal. Abdomen: Soft, bowel sounds normal. No guarding, rigidity, tenderness, distention. Extremities: No leg edema. Laboratory Data: White count 5.9, hemoglobin 10.1, platelets 213. Sodium 147, potassium 3.7, chlori de 112, bicarb 29, BUN 24, creatinine 0.86, glucose 96. Procalcitonin less than 0.06. Magnesium 2.1 . Impression: 1.Pneumonia, likely aspiration pneumonia. 2.Senile dementia. 3.Anemia. 4.Volume depletion. Plan: We will continue current IV antibiotics. Repeat blood work tomorrow. Blood culture results s till growing gram-positive cocci, definite identification sensitivity results pending, hopefully to b e available tomorrow. Change IV fluid to D5 half-normal saline per order and I will see her tomorrow for followup. Continue back to feeding per order. Patient is already on air mattress per order. DANIELA/MODL Voice ID: [id number] Report ID: [id number]
--- NOTE | 2019-10-17 23:02 | HP ---
Date of Admission: 10/15/2019 Chief Complaint: Fever, cough, and hypoxia. History Of Present Illness: This is an 83-year-old female patient living at [facility] who has adv anced dementia recently about little over a month ago or so. She was admitted to the hospital with a cute kidney failure, volume depletion, and this was treated and subsequently she had a feeding tube p lacement. She has been getting all her medications and nutrition through PEG tube feeding. She was doing fine until today. Nurse from [facility] contacted and informed me that the patient was havin g low oxygen saturation anywhere between 82%-85% range. Cough and fever and with that I was concerne d about possibility of pneumonia. Patient was sent to emergency room. After she was evaluated, she was admitted to the hospital. Patient does not answer any questions because of her significant advan juan dementia problem and all the information on her was obtained by communicating with a nurse at [facility] as well as reviewing prior medical records. Allergies: NO KNOWN ALLERGIES. Medications: List reviewed. Review of Systems: Respiratory: As mentioned above. Constitutional: As mentioned above. All other systems reviewed and negative. Past Surgical History: Significant for hip fracture surgery, which was done in August 2018 and PEG tu be placement which was done last month. Family History: Significant for unknown type of cancer, cardiovascular disease. Social History: Negative for smoking or alcohol use. Past Medical History: Senile dementia, mixed hyperlipidemia, glaucoma, urinary tract infection, stro ke in August 2018. Physical Examination: Vital Signs: Temperature 98.1, pulse 86, respiratory rate 20, blood pressure 124/86, oxygen saturati on 95%. General: Patient is lying in bed, not in any distress, but does not answer any questions due to the dementia problem, not in any respiratory distress. HEENT: Head atraumatic, normocephalic. Conjunctivae nonerythematous. Sclerae white. Mouth, no thr ush or edema noted. Ears/Nose, no mass, lesion, discharge noted. Neck: Supple. No JVD, lymph nodes, bruit, thyromegaly noted. Lungs: Bilateral good equal air entry. Clear to auscultation. No rhonchi. No rales. Heart: Normal heart sounds, no murmur or gallop. Abdomen: PEG tube present left upper anterior abdominal wall. Surrounding skin looks normal. No gu arding, rigidity, tenderness, distention. Bowel sounds normoactive. Extremities: No leg edema. No calf tenderness. Skin: No rash, ulcer, cellulitis. Lymphatics: No lymph node enlargement in neck, supraclavicular, infraclavicular region. Neuro: No focal neurological deficit. Chest: Unremarkable. External Genitalia: Deferred. Rectal: Deferred. Laboratory Data: White count 7.2, hemoglobin 11.9, platelets 244. Sodium 139, potassium 4, chloride 103, bicarb 32, BUN 32, creatinine 0.83, glucose 104. Procalcitonin less than 0.05. C-reactive pro tein 90.20. Urinalysis negative. Chest x-ray was negative. Impression: 1.Rule out aspiration pneumonia. 2.Rule out Coronavirus disease-2019. 3.Senile dementia. 4.Volume depletion. 5.Mixed hyperlipidemia. 6.Glaucoma. 7.Stroke. Plan: Admit patient to hospital for further evaluation and management. Patient is appropriate for i npatient and is expected to spend 2 midnights in hospital. Patient will be kept in isolation. COVID -19 test was done in the emergency room and once the result comes back negative, then we will discont inue isolation. IV antibiotics will be given per order. [facility] medications will be continued per order. Give DVT prophylaxis per order. PEG tube feeding and IV fluid hydration will be given an d I did call the patient's son and details were discussed with him initially when patient was first b rought to emergency room and subsequently I talked to him second time to discuss advanced directives and he talked to his brother and they both decided to have DNR order in place and the patient's son h as medical power of attorney general as he reports. DNR order was written in the chart. We also talked abou t out of hospital DNR and he would like to have out of hospital DNR in place for [facility] as well and I did inform him to talk to director of nurse at the nursing facility to go ahead and get approp riate paperwork filled out for out of hospital DNR and soon after my discussion with the patient's so n, I did call director of nurse to inform her and see if she can assist family with appropriate paper work. I will see her tomorrow for followup. DANIELA/MODL Voice ID: [id number]
[2019-10-18] MEDS: PIPER/TAZO/NS 3.375gm 3.375 GM/100 ML BAG IVPB SCH ×3 (01:24→17:23)
[2019-10-18] MEDS: D5 0.45 NS 1,000 ML IV SCH (04:00)
[2019-10-18 05:39] LABS: Absolute Lymphocytes (CBC) 1.1 K/uL (0.7-4.9); Basophils % 0.9 % (0-1.3); Lymphocytes % 20.9 % (15.3-44.8); MPV 7.2 fL (7.6-11.3); RBC Red Blood Cell Count 2.76 M/uL (3.86-4.86)
[2019-10-18 05:54] LABS: Magnesium 2.1 mg/dL (1.8-2.4); Potassium 4.3 mmol/L (3.5-5.1)
--- NOTE | 2019-10-18 08:57 | RAD REPORT ---
EXAM DESCRIPTION: RAD - Chest Single View - 10/18/2019 8:09 am CLINICAL HISTORY: pneumonia COMPARISON: Portable October 15, portable October 14 TECHNIQUE: AP portable chest image was obtained 10/18/2019 8:09 am . FINDINGS: Lung volumes remain relatively low. No new or progressive lung parenchymal process. Defini tive infiltrate is not evident on chest imaging. Small calcified granuloma seen in the right lung fie ld. Scan artifacts overlie the left chest. Heart and vasculature are normal. No measurable pleural ef fusion and no pneumothorax. No acute bony abnormality seen. No acute aortic findings suspected. IMPRESSION: No new or progressive cardiopulmonary finding. No focal pneumonia evident on this examination.
--- NOTE | 2019-10-18 09:18 | PN ---
Date of Progress Note: 10/18/2019 Subjective: Patient was seen this morning for followup. She was lying in bed, awake, not in any dis tress. This morning, she did answer back by saying good morning. Objective: Vital Signs: Reviewed. HEENT: Unremarkable. Lungs: Clear to auscultation. Heart: Sounds normal. Abdomen: Soft. Bowel sounds normal. No guarding, rigidity, tenderness, or distention. Extremities: No leg edema. Laboratory Data: White count 5.4, hemoglobin 10.1, platelets 180. Sodium 148, potassium 4.3, chlori de 112, bicarb 31, BUN 21, creatinine 0.81, glucose 99, magnesium 2.1. Impression: 1.Aspiration pneumonia. 2.Volume depletion. 3.Senile dementia. 4.Anemia. Plan: We will go ahead and continue current medications. Final report on the blood culture is pendi keon. Hopefully, it will be ready today. Once we get that results, then we will decide if we can poss ibly discharge her to go back to retirement or not. Continue back to feeding water through feeding tube and IV fluid. DANIELA/MODL Voice ID: [id number] Report ID: [id number]
[2019-10-18] MEDS: D5W 1,000 ML IV SCH (16:05)
[2019-10-18] MEDS: JEVITY 1.2 CAL LIQUID 1,000 ML BOT FT SCH (20:15)
[2019-10-18] MEDS: carvediloL 6.25 MG TAB FT SCH (20:48)
[2019-10-19] MEDS: PIPER/TAZO/NS 3.375gm 3.375 GM/100 ML BAG IVPB SCH ×2 (00:13→09:37)
[2019-10-19] MEDS: D5W 1,000 ML IV SCH (03:20)
[2019-10-19 07:18] LABS: Absolute Lymphocytes (CBC) 1.1 K/uL (0.7-4.9); Basophils % 0.8 % (0-1.3); Hematocrit 28.7 % (36.0-45.0); Lymphocytes % 18.6 % (15.3-44.8); MPV 7.4 fL (7.6-11.3); RBC Red Blood Cell Count 2.67 M/uL (3.86-4.86)
[2019-10-19 07:22] LABS: Magnesium 1.9 mg/dL (1.8-2.4); Potassium 3.8 mmol/L (3.5-5.1)
[2019-10-19] MEDS: carvediloL 6.25 MG TAB FT SCH (09:36)
[2019-10-19 09:37] VITALS: BP 127/73
[2019-10-19 10:25] VITALS: TEMP 97.7
[2019-10-19 10:51] VITALS: O2SAT 94
--- NOTE | 2019-10-19 23:21 | DS ---
Date of Discharge: 10/19/2019 Disposition: Discharged to go to long term. Physical Examination: HEENT: Unremarkable. Lungs: Clear to auscultation. Cardiac: Heart sounds normal. Abdomen: Soft, bowel sounds normal. No guarding, rigidity, tenderness, or distention. Extremities: No leg edema. Laboratory Data: Upon admission, white count 7.2, hemoglobin 11.9, platelets 244. Today, white coun t 5.9, hemoglobin 10, platelets 179. On admission, sodium 139, potassium 4, chloride 103, bicarb 32, BUN 32, creatinine 0.83, glucose 104. Procalcitonin less than 0.05. Today, sodium 141, potassium 3 .8, chloride 107, bicarb 29, BUN 22, creatinine 0.74, glucose 115, magnesium 1.9. Hospital Course: 83-year-old female patient living at long term was sent to emergency room with f ever, cough, and hypoxia. Please see dictated H and P for more information. The patient was sent to emergency room. She was evaluated and admitted to the hospital. Initially, she was kept in isolati on to rule out COVID-19 and once her test came back negative, she was moved out of isolation to regul ar room. She was started on IV antibiotics Zosyn from the time of admission until the time of discha rge. This antibiotic was continued. Initial chest x-ray was negative for any acute infiltrate. Rep eat chest x-ray showed some small area of right lung infiltrate in the basal region and the last ches t x-ray was negative again. The patient remained afebrile, maintaining adequate level of oxygenation and her PEG tube feeding was started. IV fluid was given for her dehydration problem. Blood cultur e came back positive, which was gram-positive cocci in cluster and it is Staphylococcus coagulase neg ative, so I suspect that this is a skin contamination. Patient is hemodynamically stable. Afebrile, tolerating feeding very well and she is back to her normal baseline and today she will be discharged to go back to long term. Final Diagnoses: 1.Pneumonia, probable aspiration pneumonia. 2.Volume depletion. 3.Senile dementia. 4.Mixed hyperlipidemia. 5.Glaucoma. 6.Stroke. Discharge Medications And Instructions: 1.Continue all prior long term medications, PEG tube feeding and water per PEG tube as per dietit miranda at long term. 2.Give Augmentin 500 mg via PEG tube 2 times a day for 5 days. 3.Advance directive, DNR order was written in the chart as per discussion with the patient's son, griselda o has medical power of city attorney and he also has expressed desire to have out of hospital DNR in place at long term and he was advised to get appropriate paperwork taken care of at the long term [facility] director of nurse at long term was also made aware of this. DANIELA/MODL Voice ID: [id number] Report ID: [id number]
== END 2019-10-19 14:51 | DRG 179 ==
LOC: ER 11:26 → ERHOLD 13:56 → 4TH 14:46 → 2ND 21:56
PROVIDERS: ADMIT Internal Medicine; ATTEND Internal Medicine
PROC: 8E0ZXY6 Isolation (ICD-10-PCS; principal; 2019-10-15)
DX: J69.0 Pneumonitis due to inhalation of food and vomit (principal); E78.2 Mixed hyperlipidemia; E86.9 Volume depletion, unspecified; D64.9 Anemia, unspecified; H40.9 Unspecified glaucoma; B96.89 Other specified bacterial agents as the cause of diseases classified elsewhere; Z66 Do not resuscitate; Z93.1 Gastrostomy status; Z20.828 Contact with and (suspected) exposure to other viral communicable diseases; Z86.73 Personal history of transient ischemic attack (TIA), and cerebral infarction without residual deficits; Z79.82 Long term (current) use of aspirin; Z79.899 Other long term (current) drug therapy
CPT/HCPCS: 36415; 71045; 80048; 81015; 82728; 83605; 83735; 83880; 84145; 84484; 85025; 85610; 85730; 86140; 87040; 87070; 87077; 87081; 87086; 87088; 87186; 87205; 87804; 93005; 94760; 96365; 99285; J0456; J0696; J2543; J7030; J7040; J7799; U0002

== ENCOUNTER 2019-10-31 10:41 | Inpatient (IN) | payer OTHER ==
[2019-10-31 11:27] LABS: Protime INR 1.29
[2019-10-31 11:29] LABS: Absolute Lymphocytes (CBC) 1.3 K/uL (0.7-4.9); Basophils % 0.2 % (0-1.3); Lymphocytes % 9.6 % (15.3-44.8); MPV 7.3 fL (7.6-11.3); RBC Red Blood Cell Count 3.23 M/uL (3.86-4.86)
[2019-10-31 11:32] LABS: Arterial Blood Carboxyhemoglob 1.6 % (0-1.5); Blood Gas Oxyhemoglobin 90.9 % (94-97); Blood O2 Saturation 92.8 % (92-98.5)
--- OUTSIDE RECORDS SUMMARY | 2019-10-31 11:42 | XMS REPORT ---
:1935 Author Organization [facility] t Address [address] [place] [address] Dr. Pimentel [address] [place] [id number] Care Team Providers Name Role Phone Unavailable Unavailable Unavailable Problems This patient has no known problems. Allergies, Adverse Reactions, Alerts This patient has no known allergies or adverse reactions. Medications This patient has no known medications. Procedures This patient has no known procedures. Results This patient has no known results.
[2019-10-31 11:43] LABS: Albumin 2.8 g/dL (3.4-5.0); Bilirubin Direct 0.2 mg/dL (0-0.2); Bilirubin Total 0.4 mg/dL (0.2-1.0); Magnesium 2.4 mg/dL (1.8-2.4); Potassium 3.5 mmol/L (3.5-5.1); Protein, Total 7.1 g/dL (6.4-8.2); Troponin (Emerg Dept Use Only) 0.02 ng/mL (0.0-0.045)
[2019-10-31 12:12] LABS: Anisocytosis SLIGHT; Blood Morphology Comment NOTED (NOT SEEN); Macrocytosis 1+; Platelet Estimate ADEQ
--- NOTE | 2019-10-31 12:17 | RAD REPORT ---
EXAM DESCRIPTION: RAD - Chest Single View - 10/31/2019 12:03 pm CLINICAL HISTORY: DYSPNEA Chest pain. COMPARISON: Chest Single View dated 10/18/2019; Chest Single View dated 10/16/2019; Chest Single View d ated 10/15/2019; Chest Single View dated 09/11/2019 FINDINGS: Portable technique limits examination quality. The lungs are mildly emphysematous but grossly clear. The heart is normal in size. Tortuous thoracic aorta.
[2019-10-31] MEDS ORDERED: NA CHLORIDE 0.9% 1,000 ML ONE (12:33)
[2019-10-31] MEDS ORDERED: VANCOMYCIN/NS 1 gm 1 GM/250 ML BAG IV ONE (12:45)
[2019-10-31 13:12] LABS: Urine Blood TRACE (NEG); Urine Glucose 1+ (NEG); Urine Protein 1+ (NEG)
--- NOTE | 2019-10-31 13:26 | EDPHYS ---
Physician Documentation [facility] Name: Lillian Cabrera Age: 83 yrs Sex: Female : 1935 Arrival Date: 10/31/2019 Time: 10:47 Bed 2 Private MD: ED Physician Olayinka Rothman HPI: 10/30 11:50 This 83 yrs old Female presents to ER via EMS with complaints of Respiratory jr8 Distress. 11:50 The patient has shortness of breath at rest. Onset: The symptoms/episode began/occurred jr8 acutely, yesterday. Duration: The symptoms are continuous. The patient's shortness of breath has no apparent modifying factors. Associated signs and symptoms: The patient has no apparent associated signs or symptoms. Severity of symptoms: At their worst the symptoms were moderate in the emergency department the symptoms are unchanged. It is unknown whether or not the patient has had similar symptoms in the past. It is unknown whether or not the patient has recently seen a physician. [facility] who had been having breathing problems since last night but that are worsening. Stated that patient has audible crackles upon there arrival. Patient with dementia history and is non verbal. Patient in distress upon arrival . Historical: - Allergies: 10:56 No Known Allergies; jl7 - Home Meds: 10:56 Aricept 23 mg Oral tab 1 tab once daily [Active]; ascorbic acid (vitamin C) 500 mg tab jl7 daily [Active]; Coreg 6.25 mg Oral tab 1 tab 2 times per day [Active]; docusate sodium 100 mg Oral tab 1 tab 2 times per day [Active]; mirtazapine 30 mg Oral tab 2 tab once daily [Active]; acetaminophen 500 mg Oral tab 1 tab every 6 hours for Pain [Active]; - PMHx: 10:56 Hyperlipidemia; Glaucoma; Dementia; Hypertension; UTI; Atrial Fib; CVA; jl7 - Immunization history:: Adult Immunizations up to date. - Social history:: Smoking status: Patient denies any tobacco usage or history of. ROS: 11:50 Unable to obtain ROS due to baseline dementia. jr8 Exam: 11:50 Eyes: Pupils equal round and reactive to light, extra-ocular motions intact. Lids and jr8 lashes normal. Conjunctiva and sclera are non-icteric and not injected. Cornea within normal limits. Periorbital areas with no swelling, redness, or edema. ENT: Nares patent. No nasal discharge, no septal abnormalities noted. Tympanic membranes are normal and external auditory canals are clear. Oropharynx with no redness, swelling, or masses, exudates, or evidence of obstruction, uvula midline. Mucous membranes moist. Cardiovascular: Regular rate and rhythm with a normal S1 and S2. No gallops, murmurs, or rubs. Normal PMI, no JVD. No pulse deficits. 11:50 Respiratory: moderate respiratory distress is noted, Respirations: labored breathing, tachypnea, Breath sounds: rales, that are moderate, are heard diffusely. 11:50 Abdomen/GI: Inspection: distension, is not seen, Gastrostomy site present and patent with tube in place , Bowel sounds: active, Palpation: soft, in all quadrants. 11:50 Skin: cool and diaphoretic . 11:50 Neuro: Orientation: Not oriented to person, place, time, situation, Mentation: unable to follow commands, seizure activity, is not displayed by the patient, Abnormal movements: there are no abnormal movements. Vital Signs: 10:48 BP 167 / 110; Pulse 111; Resp 24; Pulse Ox 74% on Non-rebreather mask; jl7 11:29 BP 145 / 99; Pulse 89; Resp 29 A; Temp 97.5(A); Pulse Ox 95% on BiPAP; jl7 11:42 BP 122 / 95; Pulse 98; Resp 30; Pulse Ox 93% on BiPAP; jl7 12:00 BP 126 / 92; Pulse 97; Resp 29; Pulse Ox 100% ; 7 12:30 BP 126 / 87; Pulse 89; Resp 28; Pulse Ox 100% ; jl7 13:00 BP 134 / 98; Pulse 98; Resp 24; Pulse Ox 100% ; jl7 13:22 Weight 49.9 kg (R); jl7 13:30 BP 134 / 83; Pulse 94; Resp 21; Pulse Ox 100% ; jl7 14:00 BP 131 / 98; Pulse 90; Resp 21; Pulse Ox 100% ; jl7 14:30 BP 121 / 94; Pulse 76; Resp 20; Pulse Ox 100% ; jl7 15:00 BP 111 / 76; Pulse 79; Resp 21; Pulse Ox 100% ; jl7 15:30 BP 125 / 86; Pulse 75; Resp 19; Pulse Ox 100% ; jl7 16:27 BP 150 / 76; Pulse 83; Resp 19 A; Temp 99.8(R); Pulse Ox 100% on BiPAP; jl7 Eulalia Coma Score: 11:50 Eye Response: to voice(3). Verbal Response: none(1). Motor Response: withdraws from jr pain(4). Total: 8. MDM: 10:47 Patient medically screened. [facility] 11:50 ED course: Called patients son to notify him of his mothers state. Wants DNR revoked at [facility] this time. 13:21 Data reviewed: vital signs, nurses notes, lab test result(s), EKG, radiologic studies, [facility] plain films. Data interpreted: Pulse oximetry: on room air is 73 %. Interpretation: hypoxia. Counseling: I had a detailed discussion with the patient and/or guardian regarding: the historical points, exam findings, and any diagnostic results supporting the discharge/admit diagnosis, lab results, radiology results, the need for further work-up and treatment in the hospital. Response to treatment: the patient's symptoms have markedly improved after treatment. Physician consultation: A Pilo ROBERTSON was called at 13:23, was contacted at 13:23, regarding admission, to the ICU, and will see patient in unit. 10/30 10:48 Order name: Basic Metabolic Panel; Complete Time: 12:10/30 10:48 Order name: CBC with Diff; Complete Time: 12:22 10/30 10:48 Order name: LFT's; Complete Time: 12:22 10/30 10:48 Order name: Magnesium; Complete Time: 12:22 10/30 10:48 Order name: NT PRO-BNP; Complete Time: 12:22 10/30 10:48 Order name: PT-INR; Complete Time: 11:34 10/30 10:48 Order name: Troponin (emerg Dept Use Only); Complete Time: 12:22 10/30 10:48 Order name: Blood Culture Adult (2) 10/30 10:48 Order name: Procalcitonin; Complete Time: 12:01 10/30 10:49 Order name: Lactate; Complete Time: 12:22 10/30 11:16 Order name: ABG; Complete Time: 11:34 10/30 12:13 Order name: Manual Differential; Complete Time: 12:22 EDMS 10/30 12:24 Order name: Urine Microscopic Only; Complete Time: 14:12 10/30 13:06 Order name: Urine Dipstick--Ancillary (enter results); Complete Time: 13:18 em1 10/30 10:48 Order name: XRAY Chest (1 view); Complete Time: 12:22 10/30 10:48 Order name: EKG; Complete Time: 10:49 10/30 10:48 Order name: Cardiac monitoring; Complete Time: :58 10/30 10:48 Order name: EKG - Nurse/Tech; Complete Time: 10/30 10:48 Order name: IV Saline Lock; Complete Time: 10/30 10:48 Order name: Labs collected and sent; Complete Time: [facility] 10/30 10:48 Order name: O2 Per Protocol; Complete Time: 10/30 10:48 Order name: O2 Sat Monitoring; Complete Time: 10/30 10:49 Order name: BIPAP 10/30 13:36 Order name: Urine Culture [facility] 10/30 15:11 Order name: Lactate Sepsis 2 HR Follow-up; Complete Time: 15:13 EDDC 10/30 12:24 Order name: Urine Dipstick-Ancillary (obtain specimen); Complete Time: 13:00 jr8 Administered Medications: 11:46 Not Given (Physician Discretion): Nitro Drip - (Nitroglycerin 50 mg, D5W 250 ml) IV at jl7 5 mcg/min continuous; titrate until desired hemodynamic response. 12:30 Drug: Cefepime 1 grams Route: IVPB; Rate: 200 ml/hr; Infused Over: 30 mins; Site: left jl7 forearm; 13:07 Follow up: Response: No adverse reaction; IV Status: Completed infusion jl7 12:30 Drug: NS 0.9% 1000 ml Route: IV; Rate: 1000 ml; Site: left forearm; jl7 15:30 Follow up: IV Status: Completed infusion; IV Intake: 1000ml em 13:20 Drug: vancoMYCIN 1 grams Route: IVPB; Infused Over: 2 hrs; Site: left forearm; jl7 15:30 Follow up: Response: No adverse reaction; IV Status: Completed infusion; IV Intake: em 250ml 13:31 Drug: NS 0.9% (30 ml/kg) 30 ml/kg Route: IV; Rate: bolus; Site: left forearm; jl7 14:05 Follow up: IV Status: Completed infusion; IV Intake: 500ml jl7 Disposition: 10/31 05:42 Co-signature as Attending Physician, Olayinka Rothman MD I agree with the assessment and kasie plan of care. Disposition: 10/31/19 13:25 Hospitalization ordered by Larissa Daigle for Inpatient Admission. Preliminary diagnosis are Severe sepsis, Acute respiratory failure, Urinary tract infection, site not specified. - Bed requested for Intensive Care Unit. - Status is Inpatient Admission. jl7 - Condition is Fair. - Problem is new. - Symptoms have improved. Signatures: Dispatcher [employer] EDMS Xena Elmore Corey, MD MD cha Roszak, Josh, PA PA jr8 Adelina Wong RN RN jl7 Nolberto Mast RN em Corrections: (The following items were deleted from the chart) 10/30 14:13 13:25 Hospitalization Ordered by A Pilo ROBERTSON for Inpatient Admission. Preliminary jr8 diagnosis is Severe sepsis; Acute respiratory failure. Bed requested for Intensive Care Unit. Status is Inpatient Admission. Condition is Fair. Problem is new. Symptoms have improved. jr8 15:52 14:13 10/31/2019 13:25 Hospitalization Ordered by A Pilo ROBERTSON for Inpatient Admission. bd Preliminary diagnosis is Severe sepsis; Acute respiratory failure; Urinary tract infection, site not specified. Bed requested for Intensive Care Unit. Status is Inpatient Admission. Condition is Fair. Problem is new. Symptoms have improved. jr8 17:36 15:52 10/31/2019 13:25 Hospitalization Ordered by A Pilo ROBERTSON for Inpatient Admission. jl7 Preliminary diagnosis is Severe sepsis; Acute respiratory failure; Urinary tract infection, site not specified. Bed requested for Intensive Care Unit. Status is Inpatient Admission. Condition is Fair. Problem is new. Symptoms have improved. bd
--- NOTE | 2019-10-31 13:26 | ER ---
Nurse's Notes [facility] Name: Lillian Cabrera Age: 83 yrs Sex: Female : 1935 Arrival Date: 10/31/2019 Time: 10:47 Bed 2 Private MD: Diagnosis: Severe sepsis;Acute respiratory failure;Urinary tract infection, site not specified Presentation: 10/30 10:48 Chief complaint: EMS states: X-ray done at [facility] read negative; pt O2 sat at 85% on jl7 NC, changed to NRB and O2 sat at 88-90%, audible congestion. Ebola Screen: No symptoms or risks identified at this time. Risk Assessment: Do you want to hurt yourself or someone else? Patient reports no desire to harm self or others. Onset of symptoms was October 30, 2019. Care prior to arrival: Medication(s) given: 0.25 mg terbutaline IVP IV initiated. 22 GA, in the left forearm. Transition of care: patient was received from another setting of care (long-term care facility), [facility]. 10:48 Method Of Arrival: EMS: [facility] jl7 10:48 Acuity: JOBY 2 jl7 10:48 Coronavirus screen: Proceed with normal triage. Patient reports a cough. Patient jl7 reports shortness of breath or difficulty breathing. Patient denies measured and/or subjective temperature greater than 100.4F prior to today's visit. Patient denies travel on a cruise ship or to a country the [facility] currently lists as an affected area. Patient denies contact with known and/or suspected case of COVID-19. Initial Sepsis Screen: Does the patient meet any 2 criteria? RR > 20 per min. HR > 90 bpm. Does the patient have a suspected source of infection? Yes: Productive cough/pneumonia If YES to both, name of provider notified: Dario VELÁZQUEZ Triage Assessment: 10:48 General: Appears distressed, uncomfortable, Behavior is agitated, restless. Pain: jl7 Unable to use pain scale. FLACC scale score is 2 out of 10. Neuro: Level of Consciousness is awake, alert, Oriented to none. Cardiovascular: Heart tones present. Respiratory: Reports shortness of breath Airway is patent Respiratory effort is labored, Respiratory pattern is symmetrical, tachypnea audible congestion Onset: The symptoms/episode began/occurred yesterday, the patient has severe shortness of breath. Derm: Skin is diaphoretic, Skin is pale, Skin temperature is cool. Historical: - Allergies: 10:56 No Known Allergies; jl7 - Home Meds: 10:56 Aricept 23 mg Oral tab 1 tab once daily [Active]; ascorbic acid (vitamin C) 500 mg tab jl7 daily [Active]; Coreg 6.25 mg Oral tab 1 tab 2 times per day [Active]; docusate sodium 100 mg Oral tab 1 tab 2 times per day [Active]; mirtazapine 30 mg Oral tab 2 tab once daily [Active]; acetaminophen 500 mg Oral tab 1 tab every 6 hours for Pain [Active]; - PMHx: 10:56 Hyperlipidemia; Glaucoma; Dementia; Hypertension; UTI; Atrial Fib; CVA; jl7 - Immunization history:: Adult Immunizations up to date. - Social history:: Smoking status: Patient denies any tobacco usage or history of. Screenin:29 Abuse screen: unable to obtain. Abuse screen:. Nutritional screening: On NPO diet, jl7 Enteral feeding. Tuberculosis screening: No symptoms or risk factors identified. Fall Risk No fall in past 12 months (0 pts). Secondary diagnosis (15 points) dementia, IV access (20 points). Ambulatory Aid- None/Bed Rest/Nurse Assist (0 pts). Gait- Weak (10 pts.). Mental Status- Overestimates/Forgets Limitations (15 pts.). Total Easley Fall Scale indicates High Risk Score (45 or more points). Fall prevention measures have been instituted. Side Rails Up X 2 Placed Close to Nursing Station Frequent Obs/Assessments Occuring As available patient and family educated on Fall Prevention Program and Strategies. Assessment: 10:48 General: See triage assessment. jl7 11:00 Reassessment: RT at bedside with BiPap. jl7 12:00 Cardiovascular: Patient's skin is warm and dry. Rhythm is sinus tachycardia. jl7 Respiratory: Airway is patent Respiratory effort is even, labored, Respiratory pattern is symmetrical, tachypnea. 12:35 Reassessment: Pt's brief changed, red, excoriated skin noted around buttocks, calazime jl7 cream applied to skin. 12:40 Reassessment: Ladonna, RT at bedside to deep suction pt. jl7 13:30 Reassessment: Pt laying in bed, BiPap in use, no apparent distress noted. jl7 14:37 Reassessment: repeat lactate sent. em 16:20 Reassessment: Cleaned pt of BM, hemorrhoids and red, excoriated skin noted noted, pt jl7 pulled away when wiping her, applied viscous lidocaine to hemorrhoids and calazime cream applied to excoriated skin. Vital Signs: 10:48 BP 167 / 110; Pulse 111; Resp 24; Pulse Ox 74% on Non-rebreather mask; jl7 11:29 BP 145 / 99; Pulse 89; Resp 29 A; Temp 97.5(A); Pulse Ox 95% on BiPAP; jl7 11:42 BP 122 / 95; Pulse 98; Resp 30; Pulse Ox 93% on BiPAP; jl7 12:00 BP 126 / 92; Pulse 97; Resp 29; Pulse Ox 100% ; jl7 12:30 BP 126 / 87; Pulse 89; Resp 28; Pulse Ox 100% ; jl7 13:00 BP 134 / 98; Pulse 98; Resp 24; Pulse Ox 100% ; jl7 13:22 Weight 49.9 kg (R); jl7 13:30 BP 134 / 83; Pulse 94; Resp 21; Pulse Ox 100% ; jl7 14:00 BP 131 / 98; Pulse 90; Resp 21; Pulse Ox 100% ; jl7 14:30 BP 121 / 94; Pulse 76; Resp 20; Pulse Ox 100% ; jl7 15:00 BP 111 / 76; Pulse 79; Resp 21; Pulse Ox 100% ; jl7 15:30 BP 125 / 86; Pulse 75; Resp 19; Pulse Ox 100% ; jl7 16:27 BP 150 / 76; Pulse 83; Resp 19 A; Temp 99.8(R); Pulse Ox 100% on BiPAP; jl7 Eulalia Coma Score: 11:50 Eye Response: to voice(3). Verbal Response: none(1). Motor Response: withdraws from jr8 pain(4). Total: 8. ED Course: 10:47 Patient arrived in ED. jl7 10:47 Dario Suggs PA is PHCP. jr8 10:47 Olayinka Rothman MD is Attending Physician. jr8 10:51 EKG done, by ED staff, reviewed by Olayinka Rothman MD. tc 10:53 Triage completed. jl7 10:56 Arm band placed on right wrist. jl7 10:58 Adelina Wong RN is Primary Nurse. jl7 11:00 Maintain EMS IV. Dressing intact. Site clean \T\ dry. Gauge \T\ site: 22 left FA. Inserted jl 7 saline lock: 22 gauge in left forearm, using aseptic technique. Blood collected. 11:00 Patient has correct armband on for positive identification. Placed in gown. Bed in low jl7 position. Call light in reach. Side rails up X2. compliance monitor on. Pulse ox on. NIBP on. 11:11 Initial lab(s) drawn, by ED staff, sent to lab. First set of blood cultures drawn by ED jl7 staff. 11:18 Second set of blood cultures drawn by me. jl7 11:21 BIPAP Sent. jl7 12:04 XRAY Chest (1 view) In Process Unspecified. EDMS 12:45 Straight cath inserted, using sterile technique, 14 Fr. Specimen obtained. Returned em cloudy urine. Patient tolerated well. 13:25 Larissa Daigle MD is Hospitalizing Provider. jr8 16:47 No provider procedures requiring assistance completed. Patient admitted, IV remains in jl7 place. intact, No redness/swelling at site. Administered Medications: 11:46 Not Given (Physician Discretion): Nitro Drip - (Nitroglycerin 50 mg, D5W 250 ml) IV at jl7 5 mcg/min continuous; titrate until desired hemodynamic response. 12:30 Drug: Cefepime 1 grams Route: IVPB; Rate: 200 ml/hr; Infused Over: 30 mins; Site: left jl7 forearm; 13:07 Follow up: Response: No adverse reaction; IV Status: Completed infusion jl7 12:30 Drug: NS 0.9% 1000 ml Route: IV; Rate: 1000 ml; Site: left forearm; jl7 15:30 Follow up: IV Status: Completed infusion; IV Intake: 1000ml em 13:20 Drug: vancoMYCIN 1 grams Route: IVPB; Infused Over: 2 hrs; Site: left forearm; jl7 15:30 Follow up: Response: No adverse reaction; IV Status: Completed infusion; IV Intake: em 250ml 13:31 Drug: NS 0.9% (30 ml/kg) 30 ml/kg Route: IV; Rate: bolus; Site: left forearm; jl7 14:05 Follow up: IV Status: Completed infusion; IV Intake: 500ml jl7 Intake: 14:05 IV: 500ml; Total: 500ml. jl7 15:30 IV: 250ml; Total: 750ml. em 15:30 IV: 1000ml; Total: 1750ml. em Outcome: 13:25 Decision to Hospitalize by Provider. jr8 16:50 Admitted to ICU accompanied by nurse, accompanied by tech, via stretcher, room 6, with jl7 oxygen, on monitor, with chart, Report called to MARIANA Diaz 16:50 Condition: stable jl7 16:50 Discharge instructions given to patient, Instructed on the need for admit. 17:36 Patient left the ED. jl7 Signatures: Dispatcher [employer] Nolberto Zepeda, RN RN Dario Gee PA PA jr8 Ophelia Willis, field support engineer EKG Ttc Adelina Wong RN RN jl7 Corrections: (The following items were deleted from the chart) 13:07 13:06 Cefepime 1 grams IVPB at 200 ml/hr in left forearm over 30 mins jl7 jl7
[2019-10-31 13:35] LABS: Urine Bacteria 20-50 /HPF (<20); Urine Culture Reflex Order REFLEXED
[2019-10-31] MEDS ORDERED: NA CHLORIDE 0.9% 500 ML ONE (13:36)
[2019-10-31] MEDS ORDERED: LIDOCAINE VISCOUS 2% SOLN 15 ML UDC ONE (16:16)
[2019-10-31] MEDS ORDERED: ONDANSETRON 4 MG/2 ML VIAL IV PRN (17:13)
[2019-10-31] MEDS ORDERED: CEFEPIME/SWI 1gm 10 ML IVP SCH (18:00)
[2019-10-31 18:02] VITALS: BMI 22.3
[2019-10-31] MEDS: NA CHLORIDE 0.9% 1,000 ML IV SCH (19:32)
[2019-10-31] MEDS: ENOXAPARIN 40 MG/0.4 ML SQ SCH (19:34)
[2019-10-31] MEDS ORDERED: ACETAMINOPHEN 500 MG TAB FT PRN (20:50)
[2019-10-31] MEDS ORDERED: VANCOMYCIN 250 MG in NA CHLORIDE 0.9% 100 ML IVPB ONE (21:00)
[2019-10-31] MEDS: CEFEPIME/SWI 1gm 10 ML IVP SCH (21:00)
[2019-10-31] MEDS ORDERED: PNEUMOCOCCAL VACCINE 0.5 ML IMVAC ONE (21:00)
[2019-10-31] MEDS ORDERED: CEFEPIME 1 GM/VIAL IV SCH (21:00)
[2019-10-31] MEDS ORDERED: ACETAMINOPHEN 500 MG TAB ONE (21:16)
--- NOTE | 2019-10-31 23:29 | HP ---
Date of Admission: 10/31/2019 Chief Complaint: Low blood pressure, low oxygen level, and cough. History Of Present Illness: This is an 83-year-old female patient living at [facility] who has a feeding tube and gets all her medication and nutrition through the feeding tube. Recently, she was in the hospital, maybe about a month ago or less than that for pneumonia type of illness. Yesterday, nurse from [facility] contacted and informed me that the patient was noted to have diminished breath sounds in both lung blair. She was not in any respiratory distress. Her temperature was around 99 degree or so and he had suctioned some thick mucus from her oral cavity. Stat chest x-ray was done at [facility], which came by another which was reported as negative for any kind of pneumonia. Subsequently today during the course of day, patient was noted to have hypoxia with hypotension and cough and she was sent to emergency room. After she arrived to the emergency room, emergency room provider evaluated her and she was in respiratory distress. BiPAP was placed. IV fluid, IV antibiotic was started and when emergency room provider contacted patient's son, he revoked decision for do not resuscitate which was in place during last hospital stay as well as at the [facility], but now since DNR order is revoked and she is a full code. Patient was admitted to ICU. When I saw her she was lying in bed, not in any distress. She did not tolerate BiPAP as well in ICU and when I saw her, she was on nasal cannula oxygen with oxygen saturation around 96% when I saw her. She did have 1 episode of vomiting in ICU and she vomited approximately 50 mL. Medications: List reviewed. Review of Systems: Respiratory: As mentioned above. Constitutional: Has fever. EDGER OPERATOR: Has advanced dementia problem. All other systems reviewed and negative. Allergies: NO KNOWN ALLERGIES. Medications: List reviewed. Past Surgical History: Significant for hip fracture surgery, which was done in August 2018, PEG tube placement which was done in August 2019. Family History: Significant for unknown type of cancer, cardiovascular disease. Social History: Negative for smoking, alcohol use. Past Medical History: Senile dementia, mixed hyperlipidemia, glaucoma, urinary tract infections, stroke in August 2018. Physical Examination: Vitals Signs: Temperature 99.3, pulse 92, respiratory rate 26, blood pressure 119/76, oxygen saturation 97%. General: Awake, alert, oriented, not in distress. HEENT: Head atraumatic, normocephalic. Conjunctivae nonerythematous. Sclerae white. Mouth, no thrush or edema noted. Ears/Nose, no mass, lesion, discharge noted. Neck: Supple. No JVD, lymph nodes, bruit, thyromegaly noted. Lungs: Bilateral good equal air entry. Clear to auscultation. No rhonchi. No rales. Heart: Normal heart sounds, no murmur or gallop. Abdomen: Presence of PEG tube in left upper anterior abdominal wall area. Abdomen is soft. Bowel sounds normoactive. No guarding, rigidity, tenderness, or distention. Extremities: No leg edema. No calf tenderness. Skin: No rash, ulcer, cellulitis. Lymphatics: No lymph node enlargement in neck, supraclavicular, infraclavicular region. Neuro: Patient not oriented, does not answer any questions, does not communicate. Chest: Unremarkable. External Genitalia: Deferred. Rectal: Deferred. Laboratory Data: White count 14, hemoglobin 11.7, platelets 380. Blood gas; pH 7.39, pCO2 41.6, PO2 72.9, oxygen saturation 92.8% on 100% FiO2. Sodium 141, potassium 3.5, chloride 103, bicarb 29, BUN 43, creatinine 1, glucose 176, magnesium 2.4. Liver function tests unremarkable. Procalcitonin 0.55. Urinalysis; 5 to 10 wbc, bacteria 20 to 50, 1+ protein, negative for nitrite. Imaging Studies: Chest x-ray; no acute cardiopulmonary changes noted. Impression: 1. Acute respiratory failure. 2. Rule out pneumonia. 3. Anemia. 4. Senile dementia. 5. Mixed hyperlipidemia. 6. Stroke. Plan: Admit patient to hospital for further evaluation and management. At this point, patient is appropriate for inpatient and is expected to spend 2 midnights in the hospital. Patient is in ICU, hemodynamically stable. We will continue IV fluid, IV antibiotics. PEG tube feeding will be started as of tomorrow. Home medications will be continued per order. I have ordered COVID-19 test on her and she will be kept in isolation until result comes back negative. Overall, prognosis is guarded. Empiric antibiotics started in the emergency room, we will continue that. She also has some diarrhea as reported by nursing staff and we will go ahead order stool for C. diff. DANIELA/ADRIEL Voice ID: [id number] MTDMarco Antonio
[2019-11-01] MEDS ORDERED: VANCOMYCIN/NS 1 gm 1 GM/250 ML BAG IVPB SCH (02:00)
[2019-11-01 05:21] LABS: MPV 7.7 fL (7.6-11.3)
[2019-11-01 05:28] LABS: Absolute Lymphocytes (CBC) 1.2 K/uL (0.7-4.9); Basophils % 0.2 % (0-1.3); Hematocrit 30.2 % (36.0-45.0); Lymphocytes % 13.4 % (15.3-44.8); RBC Red Blood Cell Count 2.81 M/uL (3.86-4.86)
[2019-11-01 05:29] LABS: Potassium 3.7 mmol/L (3.5-5.1)
[2019-11-01] MEDS: NA CHLORIDE 0.9% 1,000 ML IV SCH (06:01)
[2019-11-01] MEDS: CEFEPIME/SWI 1gm 10 ML IVP SCH ×2 (08:03→21:03)
[2019-11-01] MEDS: JEVITY 1.2 CAL LIQUID 1,000 ML BOT FT SCH ×4 (09:00→20:52)
[2019-11-01] MEDS ORDERED: ONDANSETRON 4 MG/2 ML VIAL IV PRN (09:24)
[2019-11-01] MEDS: D5 0.45 NS 1,000 ML IV SCH ×2 (10:51→20:51)
--- NOTE | 2019-11-01 11:24 | EKG ---
Test Date: 2019-10-31 Test Time: 10:49:47 Dye Winch Operator: ALINA MEASUREMENT RESULTS: Intervals: Rate: 109 TN: 180 QRSD: 92 QT: 358 QTc: 482 [place]: P: 59 TN: 180 QRS: -65 T: 40 INTERPRETIVE STATEMENTS: Sinus tachycardia Left axis deviation Possible Lateral infarct, age undetermined Abnormal ECG Compared to ECG 10/15/2019 11:50:30 Sinus rhythm no longer present Atrial premature complex(es) no longer present Ventricular premature complex(es) no longer present Myocardial infarct finding still present Electronically Signed On 11-01-19 11:21:52 CDT by Callum Bergeron
[2019-11-01] MEDS: ENOXAPARIN 40 MG/0.4 ML SQ SCH (16:48)
--- NOTE | 2019-11-01 18:43 | PN ---
Date of Progress Note: 11/01/2019 Subjective: Patient was seen this morning for followup. She was lying in bed. She was overall bett er this morning than yesterday, more awake, smiling, and trying to hold my hand when I was trying to examine her. Not in respiratory distress. Her COVID-19 test came back negative, so she does not nee d any isolation. Objective: Vital Signs: Reviewed. Hemodynamically, she is stable. HEENT: Unremarkable. Lungs: Clear to auscultation. Heart: Sounds normal. Abdomen: Soft. Bowel sounds normal. No guarding, rigidity, tenderness, dist ention. Extremities: No leg edema. Laboratory Data: White count 8.8, hemoglobin 9.6, platelets 210. Sodium 146, potassium 3.7, Chlorid e 114, bicarb 25, BUN 38, creatinine 0.82, glucose 74. Impression: 1.Possible pneumonia. 2.Volume depletion. 3.Anemia. 4.Senile dementia. Plan: The patient has excessive amount of oropharyngeal secretion and is a good possibility, she is having trouble clearing those secretions and this might increase her risk of recurrent pneumonia type of problem. We will continue antibiotics. White blood cell count is better today compared to yeste rday. Hemodynamically, she is stable. We will continue IV fluid for volume depletion problem. Malhotra ge IV fluid to D5 half NS per order. Repeat blood work tomorrow and depending on her condition and b lood work tomorrow, we will decide if she can possibly be discharged to go to assisted tomorrow o r not. I did call the patient's son, Michael Cabrera and details were discussed with him. We also talke d about advanced directives and she did confirm that family has revoked DNR and the patient is full c ode and I have contacted the nurse at the assisted and informed her about family's decision to re voke DNR and patient is full code, so she will put appropriate note in the patient's assisted kasie rt as well. Skin examination done today. There is no evidence of any decubitus ulcer. Patient will be transferred to medical floor, see transfer order for details. DANIELA/MODL Voice ID: [id number] Report ID: [id number]
[2019-11-01] MEDS: HOME MED 1 EA UNK (Donepezil Hcl [Aricept] 23 MG) FT SCH (20:41)
[2019-11-01] MEDS: MIRTAZAPINE FT SCH (20:41)
[2019-11-02] MEDS ORDERED: VANCOMYCIN 750 MG in NA CHLORIDE 0.9% 150 ML IVPB SCH ×2 (05:00→09:00)
[2019-11-02 07:40] LABS: Absolute Lymphocytes (CBC) 1.1 K/uL (0.7-4.9); Basophils % 0.8 % (0-1.3); Hematocrit 29.3 % (36.0-45.0); Lymphocytes % 17.2 % (15.3-44.8); MPV 7.3 fL (7.6-11.3); RBC Red Blood Cell Count 2.72 M/uL (3.86-4.86)
[2019-11-02 08:00] LABS: BUN Blood Urea Nitrogen 24 mg/dL (7-18); Bicarbonate 28 mmol/L (21-32); Glucose Level 96 mg/dL (74-106); Magnesium 2.1 mg/dL (1.8-2.4); Potassium 3.7 mmol/L (3.5-5.1); Sodium Level 142 mmol/L (136-145)
[2019-11-02] MEDS: JEVITY 1.2 CAL LIQUID 1,000 ML BOT FT SCH ×4 (09:46→21:12)
[2019-11-02] MEDS: CEFEPIME/SWI 1gm 10 ML IVP SCH ×2 (09:46→21:10)
[2019-11-02] MEDS: D5 0.45 NS 1,000 ML IV SCH (12:18)
[2019-11-02] MEDS: ENOXAPARIN 40 MG/0.4 ML SQ SCH (17:36)
[2019-11-02] MEDS: MIRTAZAPINE FT SCH (21:00)
[2019-11-02] MEDS: HOME MED 1 EA UNK (Donepezil Hcl [Aricept] 23 MG) FT SCH (21:00)
[2019-11-02 23:54] VITALS: O2SAT 91
[2019-11-03] MEDS: D5 0.45 NS 1,000 ML IV SCH (02:00)
[2019-11-03] MEDS: CEFEPIME/SWI 1gm 10 ML IVP SCH (08:52)
[2019-11-03] MEDS: JEVITY 1.2 CAL LIQUID 1,000 ML BOT FT SCH ×2 (08:53→13:29)
[2019-11-03] MEDS ORDERED: VANCOMYCIN 750 MG in NA CHLORIDE 0.9% 150 ML IVPB SCH (09:00)
--- NOTE | 2019-11-03 09:55 | PN ---
Date of Progress Note: 11/02/2019 Subjective: Patient was seen this morning for followup. No new complaints or problems reported. Ketan sherwood was lying in bed, tolerating her tube feeding well, not in any respiratory distress, smiling at me, but does not answer any questions. Objective: Vital Signs: Reviewed. HEENT: Unremarkable. Lungs: Clear to auscultation. Cardiac: Heart sounds normal. Abdomen: Soft, bowel sounds normal. No guarding, rigidity, tenderness, or distention. Extremities: No leg edema. Laboratory Data: White count 6.5, hemoglobin 10.1, platelets 260. Sodium 142, potassium 3.7, chlori de 110, bicarb 28, BUN 24, creatinine 0.60, glucose 96, magnesium 2.1. Impression: 1.Acute respiratory failure with hypoxia. 2.Rule out pneumonia. 3.Anemia. 4.Senile dementia. 5.Volume depletion. Plan: We will continue current medications. Continue current IV antibiotics, current tube feeding a nd I will see her tomorrow. Possible discharge to go to custodial tomorrow. DANIELA/MODL Voice ID: [id number] Report ID: [id number]
[2019-11-03 16:51] VITALS: BP 134/89; TEMP 98.7
--- NOTE | 2019-11-03 23:31 | DS ---
Date of Discharge: 11/03/2019 Disposition: Discharged to go home. Physical Examination: HEENT: Unremarkable. Lungs: Clear to auscultation. Heart: Heart sounds normal. Abdomen: Soft, bowel sounds normal. No guarding, rigidity, tenderness, or distention. Extremities: No leg edema. Discharge Medications And Instructions: 1.Continue all prior home medications. 2.Cefuroxime 250 mg 2 times a day per PEG tube for 1 week. 3.Keep chest and head elevated all the time. 4.Change position every 2 hours. 5.Offload heels all the time. Hospital Course: An 83-year-old female patient admitted to the hospital from intermediate after she was sent to emergency room with low blood pressure, low oxygen level, and cough. Please see dictated H and P for more information. The patient was evaluated in the ER, she was admitted to intensive ca re unit. Initially, she was in respiratory distress and BiPAP was started, but she did not tolerate BiPAP that well and she was doing fine with nasal cannula oxygen in ICU, maintaining adequate level o f oxygenation. She was kept in isolation until her COVID-19 test results came back negative and then isolation was discontinued. She was transferred to medical floor. Hemodynamically, she remained st able and empiric antibiotics were given to her cefepime and vancomycin. Cultures remained negative. Chest x-ray has not shown any definite infiltrate, but that is currently a concern on basis of clini adriana picture. There is a possibility that the patient may not be able to clear her own oropharyngeal secretion effectively and might result in this kind of problem with aspiration leading to infection l zaheer pneumonia. We definitely did not see any pneumonia on a chest x-ray, but we treated her as if sh e did have pneumonia and she has improved very well. Her initial white count was 14, and that has co me down to normal with appropriate antibiotics. Details were discussed with the patient's family andrae t is patient's son, Michael, may that family has decided to revoke DNR and patient is full code and I have called director of nurse at the intermediate to inform her about family's decision to revoke DNR and to make sure to put an order that the patient is full code in intermediate documentation as well . Today, she is being discharged in stable condition to go back to intermediate. Final Diagnoses: 1.Acute respiratory failure with hypoxia. 2.Rule out pneumonia. 3.Anemia. 4.Senile dementia. 5.Mixed hyperlipidemia. 6.Stroke. Laboratory Data: Last chemistry from yesterday, sodium 142, potassium 3.7, chloride 110, bicarb 28, BUN 24, creatinine 0.60, glucose 96. Upon admission, sodium 141, potassium 3.5, chloride 103, bicarb 29, BUN 43, creatinine 1, glucose 176, procalcitonin 0.55. Lactic acid level 2.9. Her white count upon admission was 14, hemoglobin 11.7, platelets 387. Yesterday, white count 6.5, hemoglobin 10.1, platelets 260. DANIELA/MODL Voice ID: [id number] Report ID: [id number]
== END 2019-11-03 16:42 | DRG 189 ==
LOC: ER 10:41 → ERHOLD 14:30 → 3RD-ICU 16:53 → 2ND 11-01 10:47
PROVIDERS: ADMIT Internal Medicine; ATTEND Internal Medicine
PROC: 8E0ZXY6 Isolation (ICD-10-PCS; principal; 2019-10-31)
DX: J96.01 Acute respiratory failure with hypoxia (principal); J18.9 Pneumonia, unspecified organism; D64.9 Anemia, unspecified; F03.90 Unspecified dementia, unspecified severity, without behavioral disturbance, psychotic disturbance, mood disturbance, and anxiety; E78.2 Mixed hyperlipidemia; I10 Essential (primary) hypertension; E86.9 Volume depletion, unspecified; Z79.899 Other long term (current) drug therapy; Z93.1 Gastrostomy status; Z20.828 Contact with and (suspected) exposure to other viral communicable diseases; Z86.73 Personal history of transient ischemic attack (TIA), and cerebral infarction without residual deficits
CPT/HCPCS: 36415; 51702; 71045; 80048; 80076; 80202; 81003; 81015; 82805; 83605; 83735; 83880; 84145; 84484; 85025; 85610; 87040; 87086; 87088; 93005; 94660; 94760; 96365; 96366; 96367; 96368; 99285; J0692; J1650; J2405; J3370; J7030; J7040; J7799

== ENCOUNTER 2019-12-08 07:05 | Emergency (ER) | payer OTHER ==
--- OUTSIDE RECORDS SUMMARY | 2019-12-08 07:08 | XMS REPORT | Continuity of Care Document ---
:1935 Author Organization [facility] t Address [address] [place] [address] Dr. Pimentel [address] [place] [id number] Care Team Providers Name Role Phone Unavailable Unavailable Unavailable Problems This patient has no known problems. Allergies, Adverse Reactions, Alerts This patient has no known allergies or adverse reactions. Medications This patient has no known medications. Procedures This patient has no known procedures. Results This patient has no known results.
--- NOTE | 2019-12-08 08:24 | RAD REPORT ---
EXAM DESCRIPTION: RAD - ENTEROSTOMY TUBE CHECK W/CONTR - 12/08/2019 8:15 am CLINICAL HISTORY: Gastrostomy tube placement FINDINGS: Contrast was administered into the percutaneous gastrostomy tube. The stomach and proximal duodenum are opacified.. No extravasation contrast Zero fluoroscopy performed. Zero fluoroscopic spot images obtained
--- NOTE | 2019-12-08 08:37 | ER ---
Nurse's Notes [facility] Name: Lillian Cabrera Age: 84 yrs Sex: Female : 1935 Arrival Date: 12/08/2019 Time: 07:10 Bed 7 Private MD: Diagnosis: Encounter for fitting and adjustment of other gastrointestinal appliance and device Presentation: 12/07 07:14 Chief complaint: EMS states: Pt from [facility], staff reports that while they were ph changing pt this morning she pulled out her PEG tube, VSS, PEG at bedside. Coronavirus screen: Patient denies a cough. Patient denies shortness of breath or difficulty breathing. Patient denies measured and/or subjective temperature greater than 100.4F prior to today's visit. Patient denies travel on a cruise ship or to a country the [facility] currently lists as an affected area. Patient denies contact with known and/or suspected case of COVID-19. Ebola Screen: No symptoms or risks identified at this time. Initial Sepsis Screen: Does the patient meet any 2 criteria? No. Patient's initial sepsis screen is negative. Does the patient have a suspected source of infection? No. Patient's initial sepsis screen is negative. Risk Assessment: Do you want to hurt yourself or someone else? Patient reports no desire to harm self or others. Onset of symptoms was December 08, 2019. 07:14 Method Of Arrival: EMS: [facility] 07:14 Acuity: JOBY 4 ph Historical: - Allergies: 07:19 No Known Allergies; ph - Home Meds: 07:19 Aricept 23 mg Oral tab 1 tab once daily [Active]; ascorbic acid (vitamin C) 500 mg tab ph daily [Active]; Coreg 6.25 mg Oral tab 1 tab 2 times per day [Active]; docusate sodium 100 mg Oral tab 1 tab 2 times per day [Active]; mirtazapine 30 mg Oral tab 2 tab once daily [Active]; acetaminophen 500 mg Oral tab 1 tab every 6 hours for Pain [Active]; - PMHx: 07:19 Atrial Fib; CVA; Dementia; Glaucoma; Hyperlipidemia; Hypertension; UTI; ph - Immunization history:: Adult Immunizations unknown. - Social history:: Smoking status: unknown. Screenin:14 Abuse screen: Denies threats or abuse. Denies injuries from another. Nutritional sv screening: No deficits noted. Tuberculosis screening: No symptoms or risk factors identified. Fall Risk None identified. Assessment: 07:19 General: Appears in no apparent distress. comfortable, slender, Behavior is calm, ph cooperative. Pain: Unable to use pain scale. Patient is disoriented. Does not appear to understand pain scale. Neuro: Level of Consciousness is awake, alert, obeys commands, Oriented to person. Cardiovascular: Capillary refill < 3 seconds in bilateral fingers Patient's skin is warm and dry. Respiratory: Airway is patent Respiratory effort is even, unlabored. 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 Derm: Skin is fragile, is thin, Skin is pink, warm \T\ dry. 07:32 Reassessment: Casie ANIMAL TRAINER at bedside placing the PEG tube. sv 09:27 Reassessment: Patient appears in no apparent distress at this time. Patient and/or ph family updated on plan of care and expected duration. Pain level reassessed. Report called to MARIANA Jett at [facility], awaiting transport back to facility. 10:04 Reassessment: Patient appears in no apparent distress at this time. Patient and/or ph family updated on plan of care and expected duration. Pain level reassessed. Dressing placed to PEG tube, [facility] at bedside, pt transported back to [facility]. Vital Signs: 07:14 BP 127 / 71; Pulse 62; Resp 18; Temp 97.8; Pulse Ox 95% on R/A; ph 08:18 BP 154 / 90; Pulse 74; Resp 18; Pulse Ox 95% ; sv 09:28 BP 139 / 93; Pulse 68; Resp 18; Temp 97.5; Pulse Ox 95% on R/A; ph ED Course: 07:10 Patient arrived in ED. em1 07:10 [facility] Graves [facility]C [facility]. snw 07:10 Richard Kang MD is Attending Physician. snw 07:11 Jose Guillen, RN is Primary Nurse. mg2 07:12 Annika Mauro, MARIANA is Primary Nurse. ph 07:14 Patient has correct armband on for positive identification. Bed in low position. Call sv light in reach. Side rails up X2. Pulse ox on. NIBP on. Head of bed elevated. 07:16 Triage completed. ph 07:19 Arm band placed on Patient placed in an exam room, on a stretcher, on pulse oximetry. ph 07:42 replacing PEG, 18 Fr tube inserted by Casie Lobo NP, balloon inflated w/ 20cc NS, pt ph tolerated well. 08:16 Enterostomy Tube Check w/contr In Process Unspecified. EDMS 09:29 Patient did not have IV access during this emergency room visit. ph Administered Medications: No medications were administered Outcome: 08:36 Discharge ordered by . bj 09:28 Discharged to residential. Report called to Joanna 09:28 Condition: good 09:28 Discharge instructions given to residential, Instructed on discharge instructions, follow up and referral plans. Demonstrated understanding of instructions, follow-up care. 10:05 Patient left the ED. ph Signatures: Dispatcher [employer] Devi Rivers, RN RN Casie Graves, TRIMMER OPERATOR THREE KNIFE-C TRIMMER OPERATOR THREE KNIFE-Nakul Newman em1 Annika Mauro, RN RN Jose Guillen RN RN mg2
--- NOTE | 2019-12-08 08:37 | EDPHYS ---
Physician Documentation [facility] Name: Lillian Cabrera Age: 84 yrs Sex: Female : 1935 Arrival Date: 12/08/2019 Time: 07:10 Bed 7 Private MD: ED Physician Richard Kang HPI: 12/07 07:46 This 84 yrs old Female presents to ER via EMS with complaints of PEG tub snw removed. 07:46 Onset: The symptoms/episode began/occurred acutely. Modifying factors: The patient snw symptoms are alleviated by nothing. It is unknown whether or not the patient has had similar symptoms in the past. It is unknown whether or not the patient has recently seen a physician. Historical: - Allergies: 07:19 No Known Allergies; ph - Home Meds: 07:19 Aricept 23 mg Oral tab 1 tab once daily [Active]; ascorbic acid (vitamin C) 500 mg tab ph daily [Active]; Coreg 6.25 mg Oral tab 1 tab 2 times per day [Active]; docusate sodium 100 mg Oral tab 1 tab 2 times per day [Active]; mirtazapine 30 mg Oral tab 2 tab once daily [Active]; acetaminophen 500 mg Oral tab 1 tab every 6 hours for Pain [Active]; - PMHx: 07:19 Atrial Fib; CVA; Dementia; Glaucoma; Hyperlipidemia; Hypertension; UTI; ph - Immunization history:: Adult Immunizations unknown. - Social history:: Smoking status: unknown. ROS: 07:45 Constitutional: Negative for fever, chills, and weight loss, Eyes: Negative for injury, snw pain, redness, and discharge, ENT: Negative for injury, pain, and discharge, Neck: Negative for injury, pain, and swelling, Cardiovascular: Negative for chest pain, palpitations, and edema, Respiratory: Negative for shortness of breath, cough, wheezing, and pleuritic chest pain, Back: Negative for injury and pain, : Negative for injury, bleeding, discharge, and swelling, MS/Extremity: Negative for injury and deformity, Skin: Negative for injury, rash, and discoloration, Neuro: Negative for headache, weakness, numbness, tingling, and seizure, Psych: Negative for depression, anxiety, suicide ideation, homicidal ideation, and hallucinations. 07:45 Abdomen/GI: Positive for g-tube displacement. Exam: 07:44 Head/Face: Normocephalic, atraumatic. Eyes: Pupils equal round and reactive to light, snw extra-ocular motions intact. Lids and lashes normal. Conjunctiva and sclera are non-icteric and not injected. Cornea within normal limits. Periorbital areas with no swelling, redness, or edema. ENT: Nares patent. No nasal discharge, no septal abnormalities noted. Tympanic membranes are normal and external auditory canals are clear. Oropharynx with no redness, swelling, or masses, exudates, or evidence of obstruction, uvula midline. Mucous membranes moist. Neck: Trachea midline, no thyromegaly or masses palpated, and no cervical lymphadenopathy. Supple, full range of motion without nuchal rigidity, or vertebral point tenderness. No Meningismus. Chest/axilla: Normal chest wall appearance and motion. Nontender with no deformity. No lesions are appreciated. Cardiovascular: Regular rate and rhythm with a normal S1 and S2. No gallops, murmurs, or rubs. Normal PMI, no JVD. No pulse deficits. Respiratory: Lungs have equal breath sounds bilaterally, clear to auscultation and percussion. No rales, rhonchi or wheezes noted. No increased work of breathing, no retractions or nasal flaring. 07:44 Back: No spinal tenderness. No costovertebral tenderness. Full range of motion. Skin: Warm, dry with normal turgor. Normal color with no rashes, no lesions, and no evidence of cellulitis. MS/ Extremity: Pulses equal, no cyanosis. Neurovascular intact. Full, normal range of motion. 07:44 Constitutional: The patient appears awake, pale, unkempt. 07:44 Abdomen/GI: Inspection: scar(s), are noted in the left upper quadrant, Bowel sounds: normal, Palpation: abdomen is soft and non-tender, in all quadrants. 07:44 Neuro: Orientation: Not oriented to place, time, situation, Mentation: confused. Vital Signs: 07:14 BP 127 / 71; Pulse 62; Resp 18; Temp 97.8; Pulse Ox 95% on R/A; ph 08:18 BP 154 / 90; Pulse 74; Resp 18; Pulse Ox 95% ; sv 09:28 BP 139 / 93; Pulse 68; Resp 18; Temp 97.5; Pulse Ox 95% on R/A; ph Procedures: 07:43 Performed G-tube replacement s/p accidental removal. snw MDM: 07:10 Patient medically screened. snw 08:36 Data reviewed: vital signs, nurses notes. Data interpreted: Pulse oximetry: on room air snw is 95 %. Interpretation: acceptable. Counseling: I had a detailed discussion with the patient and/or guardian regarding: the historical points, exam findings, and any diagnostic results supporting the discharge/admit diagnosis, the presence of at least one elevated blood pressure reading (>120/80) during this emergency department visit, radiology results, the need for outpatient follow up, to return to the emergency department if symptoms worsen or persist or if there are any questions or concerns that arise at home. Special discussion: I have referred the patient to see his PCP for further evaluation of high blood pressure. Based on the history and exam findings, there is no indication for further emergent testing or inpatient evaluation. I discussed with the patient/guardian the need to see the arcgis developer for further evaluation of the symptoms. I discussed with the patient/guardian the need to see the primary care provider for further evaluation of the symptoms. 12/07 07:43 Order name: Enterostomy Tube Check w/contr; Complete Time: 08:37 snw Administered Medications: No medications were administered Disposition: 13:16 Co-signature as Attending Physician, Richard Kang MD. ma2 Disposition: 12/08/19 08:36 Discharged to Home. Impression: Encounter for fitting and adjustment of other gastrointestinal appliance and device. - Condition is Stable. - Discharge Instructions: Gastrostomy Tube Home Guide, Adult, Gastrostomy Tube Replacement, Care After. - Medication Reconciliation Form, Thank You Letter, Antibiotic Education, Prescription Opioid Use, SBAR form form. - Follow up: Emergency Department; When: As needed; Reason: Worsening of condition. Follow up: Private Physician; When: 1 - 2 days; Reason: Recheck today's complaints, Continuance of care, Re-evaluation by your physician. Signatures: Dispatcher [employer] EDFL Casie Graves, JESÚSC STORAGE FACILITY HOUSEKEEPER-Kongw Annika Mauro RN RN ph Alzahri, Mohammad, MD MD ma2 Corrections: (The following items were deleted from the chart) 10:05 08:36 12/08/2019 08:36 Discharged to Home. Impression: Encounter for fitting and ph adjustment of other gastrointestinal appliance and device. Condition is Stable. Forms are Medication Reconciliation Form, Thank You Letter, Antibiotic Education, Prescription Opioid Use. Follow up: Emergency Department; When: As needed; Reason: Worsening of condition. Follow up: Private Physician; When: 1 - 2 days; Reason: Recheck today's complaints, Continuance of care, Re-evaluation by your physician. snw
[2019-12-08 10:11] VITALS: O2SAT 95
[2019-12-08 10:14] VITALS: BP 139/93; TEMP 97.5
== END 2019-12-08 10:05 | disposition home or self-care (01) ==
LOC: ER 07:05
DX: Z46.59 Encounter for fitting and adjustment of other gastrointestinal appliance and device (principal); I10 Essential (primary) hypertension; E78.5 Hyperlipidemia, unspecified; I48.91 Unspecified atrial fibrillation; F03.90 Unspecified dementia, unspecified severity, without behavioral disturbance, psychotic disturbance, mood disturbance, and anxiety; Z86.73 Personal history of transient ischemic attack (TIA), and cerebral infarction without residual deficits
CPT/HCPCS: 49465; 99284

== ENCOUNTER 2019-12-19 23:26 | Emergency (ER) | payer OTHER ==
--- OUTSIDE RECORDS SUMMARY | 2019-12-19 23:29 | XMS REPORT | Continuity of Care Document ---
:1935 Author Organization [facility] t Address [address] [place] [address] Dr. Pimentel [address] [place] [id number] Care Team Providers Name Role Phone Unavailable Unavailable Unavailable Problems This patient has no known problems. Allergies, Adverse Reactions, Alerts This patient has no known allergies or adverse reactions. Medications This patient has no known medications. Procedures This patient has no known procedures. Results This patient has no known results.
[2019-12-19] MEDS ORDERED: ONDANSETRON 4 MG/2 ML VIAL ONE (23:50)
[2019-12-20 00:11] LABS: Absolute Lymphocytes (CBC) 0.5 K/uL (0.7-4.9); Basophils % 0.4 % (0-1.3); Hematocrit 42.1 % (36.0-45.0); Lymphocytes % 6.6 % (15.3-44.8); MPV 7.3 fL (7.6-11.3); RBC Red Blood Cell Count 4.14 M/uL (3.86-4.86)
[2019-12-20 00:17] LABS: Protime INR 1.19
[2019-12-20 00:38] LABS: ALT/SGPT 18 U/L (12-78); AST/SGOT 17 U/L (15-37); Albumin 3.3 g/dL (3.4-5.0); Alkaline Phosphatase 69 U/L (45-117); BUN Blood Urea Nitrogen 52 mg/dL (7-18); Bicarbonate 28 mmol/L (21-32); Bilirubin Direct 0.3 mg/dL (0-0.2); Bilirubin Total 0.7 mg/dL (0.2-1.0); Glucose Level 120 mg/dL (74-106); Lipase 121 U/L (73-393); Magnesium 2.4 mg/dL (1.8-2.4); NT PRO-BNP 2681 pg/mL (<450); Potassium 3.6 mmol/L (3.5-5.1); Protein, Total 7.7 g/dL (6.4-8.2); Sodium Level 145 mmol/L (136-145); Troponin (Emerg Dept Use Only) < 0.02 ng/mL (0.0-0.045)
[2019-12-20 00:43] LABS: Blood Morphology Comment NOT SEEN (NOT SEEN); Platelet Estimate ADEQ
[2019-12-20 01:36] LABS: Urine Blood 2+ (NEG); Urine Glucose NEGATIVE (NEG); Urine Protein 1+ (NEG); Urine Specific Gravity >1.030 (1.005-1.030); Urine pH 5.5 (5.0-7.0)
[2019-12-20 01:44] LABS: Urine Amorphous Sediment 1+ /HPF (NONE SEEN); Urine Bacteria >50 /HPF (<20); Urine Culture Reflex Order REFLEXED; Urine Mucus 2+ /HPF (NONE SEEN); Urine RBC >50 /HPF (NONE SEEN)
[2019-12-20 01:45] LABS: Calcium Oxalate Crystals- Ur MODERATE (NONE SEEN)
--- NOTE | 2019-12-20 03:08 | ER ---
Nurse's Notes [facility] Name: Lillian Cabrera Age: 84 yrs Sex: Female : 1935 Arrival Date: 12/19/2019 Time: 23:34 Bed 20 Private MD: Diagnosis: Urinary tract infection, site not specified;Nausea and vomiting Presentation: 12/18 23:34 Chief complaint: EMS states: she has vomiting for 2 days, last one an hour [employer]. mg2 Coronavirus screen: Proceed with normal triage. Patient denies a cough. Patient denies shortness of breath or difficulty breathing. Patient denies measured and/or subjective temperature greater than 100.4F prior to today's visit. Patient denies travel on a cruise ship or to a country the [facility] currently lists as an affected area. Patient denies contact with known and/or suspected case of COVID-19. Ebola Screen: No symptoms or risks identified at this time. Initial Sepsis Screen: Does the patient meet any 2 criteria? No. Patient's initial sepsis screen is negative. Does the patient have a suspected source of infection? No. Patient's initial sepsis screen is negative. Risk Assessment: Do you want to hurt yourself or someone else? Patient reports no desire to harm self or others. Onset of symptoms was December 18, 2019. 23:34 Method Of Arrival: EMS: [facility] [place] 23:34 Acuity: JOBY 3 mg2 Historical: - Allergies: 23:39 No Known Allergies; mg2 - PMHx: 23:39 Atrial Fib; CVA; Dementia; Glaucoma; Hyperlipidemia; Hypertension; UTI; mg2 - Immunization history:: Flu vaccine status is unknown. - Social history:: Smoking status: unknown. Screenin/03 00:18 Abuse screen: Denies threats or abuse. Denies injuries from another. Nutritional mg2 screening: No deficits noted. Tuberculosis screening: No symptoms or risk factors identified. Fall Risk Secondary diagnosis (15 points) dementia, IV access (20 points). Assessment: 00:17 General: Appears in no apparent distress. comfortable, Behavior is calm. Pain: Unable mg2 to use pain scale. Patient appears quiet. Neuro: Level of Consciousness is awake, alert, Oriented to none. Cardiovascular: Capillary refill < 3 seconds Patient's skin is warm and dry. Respiratory: Airway is patent Respiratory effort is even, unlabored, Respiratory pattern is regular, symmetrical. GI: EMS REPORTS VOMITING. : No signs and/or symptoms were reported regarding the genitourinary system. EENT: No signs and/or symptoms were reported regarding the EENT system. Derm: Skin is intact, is healthy with good turgor, Skin is pink, warm \T\ dry. normal. Musculoskeletal: Circulation, motion, and sensation intact. Capillary refill < 3 seconds. 02:30 Reassessment: Patient appears in no apparent distress at this time. Patient and/or mg2 family updated on plan of care and expected duration. Pain level reassessed. 03:30 Reassessment: Patient appears in no apparent distress at this time. Patient and/or mg2 family updated on plan of care and expected duration. Pain level reassessed. called [facility]) about the patient and transportation back to detention, she said she will try to find one and will call back. 04:35 Reassessment: report given to EMS. patient in good condition., IV dc. mg2 Vital Signs: 12/18 23:34 BP 160 / 91; Pulse 99; Resp 18; Temp 98.4; Pulse Ox 98% on 2 lpm NC; mg2 07 03:02 BP 156 / 104; Pulse 88; Resp 18; Pulse Ox 98% on 2 lpm NC; mg2 03:38 BP 155 / 100; Pulse 88; Resp 18; Temp 98.6; Pulse Ox 96% on 2 lpm NC; mg2 ED Course: 12/18 23:34 Patient arrived in ED. mg2 23:36 Triage completed. mg2 23:36 Arm band placed on. mg2 23:40 Gentry Hernandez MD is Attending Physician. tw4 23:50 Inserted saline lock: 20 gauge in right forearm, using aseptic technique. Blood mg2 collected. 23:52 Jose Guillen, MARIANA is Primary Nurse. mg2 12/19 00:19 Patient has correct armband on for positive identification. chicken boner on. Pulse mg2 ox on. NIBP on. Door closed. Warm blanket given. 00:19 No provider procedures requiring assistance completed. mg2 00:25 Radiology exam delayed due to lab results not completed at this time. (BUN/Creatinine). kw1 00:31 XRAY Chest (1 view) In Process Unspecified. EDMS 02:02 CT Abd/Pelvis - IV Contrast Only In Process Unspecified. EDMS 04:36 IV discontinued, intact, bleeding controlled, No redness/swelling at site. Pressure mg2 dressing applied. Administered Medications: 12/18 23:52 Drug: Zofran (Ondansetron) 4 mg Route: IVP; Site: left forearm; mg2 12/19 01:52 Follow up: Response: No adverse reaction mg2 03:04 Drug: Rocephin 1 grams Route: IV; Rate: calculated rate; Site: left forearm; mg2 03:30 Follow up: Response: No adverse reaction; IV Status: Completed infusion mg2 03:04 Drug: NS 0.9% 250 ml Route: IV; Rate: bolus; Site: left forearm; mg2 03:35 Follow up: Response: No adverse reaction; IV Status: Completed infusion; IV Intake: mg2 250ml Intake: 03:35 IV: 250ml; Total: 250ml. mg2 Outcome: 03:08 Discharge ordered by . snw 04:36 Discharged to detention. Report called to MARIANA Duke Transfer form completed. mg2 04:36 Condition: stable 04:36 Instructed on discharge instructions, follow up and referral plans. medication usage, Demonstrated understanding of instructions, follow-up care, medications, Prescriptions given X 2. 04:42 Patient left the ED. mg2 Signatures: Dispatcher [employer] EDMS Casie Graves, YVONNE-C NUCLEAR MEDICAL TECH-Crystal Gupta kw1 Gentry Hernandez MD MD tw4 Jose Guillen RN RN mg2
[2019-12-20] MEDS ORDERED: CEFTRIAXONE/SWI 1gm 1 GM/10 ML SYR ONE (03:14)
[2019-12-20] MEDS ORDERED: NA CHLORIDE 0.9% 250 ML ONE (03:14)
--- NOTE | 2019-12-20 04:44 | EDPHYS ---
Physician Documentation [facility] Name: Lillian Cabrera Age: 84 yrs Sex: Female : 1935 Arrival Date: 12/19/2019 Time: 23:34 Bed 20 Private MD: ED Physician Gentry Hernandez HPI: 12/19 06:41 This 84 yrs old Female presents to ER via EMS with complaints of Vomiting. tw4 06:41 The patient presents to the emergency department with nausea, vomiting. Possible tw4 causes: unknown. 06:41 Onset: The symptoms/episode began/occurred 2 day(s) ago. The symptoms are aggravated by tw4 nothing. The symptoms are alleviated by nothing. The patient has not experienced similar symptoms in the past. 06:41 Unable to obtain HPI due to baseline dementia. tw4 Historical: - Allergies: 12/18 23:39 No Known Allergies; mg2 - PMHx: 23:39 Atrial Fib; CVA; Dementia; Glaucoma; Hyperlipidemia; Hypertension; UTI; mg2 - Immunization history:: Flu vaccine status is unknown. - Social history:: Smoking status: unknown. ROS: 12/19 06:41 Constitutional: Negative for fever, chills, and weight loss, Eyes: Negative for injury, tw4 pain, redness, and discharge, Cardiovascular: Negative for chest pain, palpitations, and edema, Respiratory: Negative for shortness of breath, cough, wheezing, and pleuritic chest pain, Back: Negative for injury and pain, MS/Extremity: Negative for injury and deformity, Skin: Negative for injury, rash, and discoloration, Neuro: Negative for headache, weakness, numbness, tingling, and seizure. Abdomen/GI: Positive for nausea and vomiting, nausea, vomiting, and diarrhea, nausea, vomiting, Negative for abdominal pain, abdominal cramps, abdominal distension, anorexia, black/tarry stool, rectal pain, rectal bleeding. Exam: 06:41 Head/Face: Normocephalic, atraumatic. Chest/axilla: Normal chest wall appearance and tw4 motion. Nontender with no deformity. No lesions are appreciated. Cardiovascular: Regular rate and rhythm with a normal S1 and S2. No gallops, murmurs, or rubs. Normal PMI, no JVD. No pulse deficits. Respiratory: Lungs have equal breath sounds bilaterally, clear to auscultation and percussion. No rales, rhonchi or wheezes noted. No increased work of breathing, no retractions or nasal flaring. 06:41 MS/ Extremity: Pulses equal, no cyanosis. Neurovascular intact. Full, normal range of motion. Neuro: Awake and alert, GCS 15, oriented to person, place, time, and situation. Cranial nerves II-XII grossly intact. Motor strength 5/5 in all extremities. Sensory grossly intact. Cerebellar exam normal. Normal gait. 06:41 Constitutional: The patient appears awake. 06:41 Abdomen/GI: Inspection: abdomen appears normal, Bowel sounds: diminished, Palpation: abdomen is soft and non-tender. Vital Signs: 12/18 23:34 BP 160 / 91; Pulse 99; Resp 18; Temp 98.4; Pulse Ox 98% on 2 lpm NC; mg2 12/19 03:02 BP 156 / 104; Pulse 88; Resp 18; Pulse Ox 98% on 2 lpm NC; mg2 03:38 BP 155 / 100; Pulse 88; Resp 18; Temp 98.6; Pulse Ox 96% on 2 lpm NC; mg2 MDM: 12/18 23:40 Patient medically screened. tw4 12/19 06:41 Differential diagnosis: Nonspecific abd pain, gastritis, pancreatitis, appendicitis, tw4 diverticulitis, viral gastroenteritis, gastroenteritis. Data reviewed: vital signs, nurses notes. Data reviewed: lab test result(s), cardiac enzymes, CBC, electrolytes, hepatic panel. Data reviewed: radiologic studies, CT scan, plain films. Data interpreted: Pulse oximetry: Interpretation: normal. Counseling: I had a detailed discussion with the patient and/or guardian regarding: the historical points, exam findings, and any diagnostic results supporting the discharge/admit diagnosis, lab results, radiology results. Special discussion: Based on the patient's Hx, exam, and Dx evaluation, there is no indication for emergent surgery or inpatient Tx. It is understood by the patient/guardian that if the Sx's persist or worsen they need to return immediately for re-evaluation. I discussed with the patient/guardian in detail that at this point there is no indication for admission to the hospital. It is understood, however, that if the symptoms persist or worsen the patient needs to return immediately for re-evaluation. 12/18 23:40 Order name: CBC with Diff; Complete Time: 02:56 mg2 12/18 23:41 Order name: Basic Metabolic Panel; Complete Time: 02:56 tw4 12/18 23:41 Order name: Magnesium; Complete Time: 02:56 tw4 12/18 23:41 Order name: NT PRO-BNP; Complete Time: 02:56 tw4 12/18 23:41 Order name: PT-INR; Complete Time: 02:56 tw4 12/18 23:41 Order name: Troponin (emerg Dept Use Only); Complete Time: 02:56 tw4 12/19 00:02 Order name: Glucose, Ancillary Testing; Complete Time: 02:56 EDMS 12/19 00:03 Order name: Glucose, Ancillary Testing EDMS 12/19 00:10 Order name: Liver (Hepatic) Function; Complete Time: 02:56 EDMS 12/19 00:10 Order name: Lipase; Complete Time: 02:56 EDMS 12/19 00:18 Order name: Manual Differential; Complete Time: 02:56 EDMS 12/18 23:40 Order name: IV Saline Lock; Complete Time: 00:01 mg2 12/18 23:40 Order name: Labs collected and sent; Complete Time: 00:17 mg2 12/18 23:41 Order name: CT Abd/Pelvis - IV Contrast Only tw4 12/18 23:41 Order name: XRAY Chest (1 view) 12/18 23:41 Order name: EKG; Complete Time: 23:42 tw4 12/18 23:41 Order name: Cardiac monitoring; Complete Time: 00:17 tw4 12/18 23:41 Order name: EKG - Nurse/Tech; Complete Time: 00:17 tw4 12/18 23:41 Order name: IV Saline Lock; Complete Time: 00:17 tw4 12/18 23:41 Order name: O2 Per Protocol; Complete Time: 00:17 tw4 12/18 23:41 Order name: O2 Sat Monitoring; Complete Time: 00:17 tw4 12/19 00:57 Order name: Urine Dipstick--Ancillary (enter results); Complete Time: 02:56 tt3 12/19 01:04 Order name: Urine Microscopic Only; Complete Time: 02:56 mg2 12/19 01:47 Order name: Urine Culture EDMS EC:44 Rate is 82 beats/min. Rhythm is regular. QRS [place] is Normal. [place] interval is normal. QRS tw4 interval is normal. QT interval is normal. No Q waves. T waves are Normal. No ST changes noted. Clinical impression: NSR w/ Non-specific ST/T Changes. Interpreted by me. Reviewed by me. Administered Medications: 12/18 23:52 Drug: Zofran (Ondansetron) 4 mg Route: IVP; Site: left forearm; mg2 12/19 01:52 Follow up: Response: No adverse reaction mg2 03:04 Drug: Rocephin 1 grams Route: IV; Rate: calculated rate; Site: left forearm; mg2 03:30 Follow up: Response: No adverse reaction; IV Status: Completed infusion mg2 03:04 Drug: NS 0.9% 250 ml Route: IV; Rate: bolus; Site: left forearm; mg2 03:35 Follow up: Response: No adverse reaction; IV Status: Completed infusion; IV Intake: mg2 250ml Disposition: 12/20/19 03:08 Discharged to Home. Impression: Urinary tract infection, site not specified, Nausea and vomiting. - Condition is Stable. - Discharge Instructions: Hypertension, Urinary Tract Infection, Adult, Rehydration, Elderly. - Prescriptions for Phenergan 12.5 mg Rectal Suppository - insert 1 suppository by RECTAL route every 6 hours As needed; 12 suppository. Macrobid 100 mg Oral Capsule - take 1 capsule by ORAL route every 12 hours for 10 days; 20 capsule. - Medication Reconciliation Form, Thank You Letter, Antibiotic Education, Prescription Opioid Use form. - Follow up: Private Physician; When: 1 - 2 days; Reason: Recheck today's complaints, Continuance of care, Re-evaluation by your physician. Follow up: Emergency Department; When: As needed; Reason: Worsening of condition. - Notes: Continue current antibiotics Signatures: Dispatcher [employer] EDND Casie Graves, YVONNE-C OVERCOILER-Kongw Gentry Hernandez MD MD tw4 Jose Guillen RN RN mg2 Corrections: (The following items were deleted from the chart) 00:10 12/18 23:40 BASIC METABOLIC PANEL+C.LAB.BRZ ordered. EDMS EDMS 12/19 00:12/18 23:40 HEPATIC FUNCTION+C.LAB.BRZ ordered. EDMS EDMS 12/19 00:02 23:40 LIPASE+C.LAB.BRZ ordered. [facility] 12/19 04:16 03:08 12/20/2019 03:08 Discharged to Home. Impression: Urinary tract infection, site tw4 not specified. Condition is Stable. Forms are Medication Reconciliation Form, Thank You Letter, Antibiotic Education, Prescription Opioid Use. Follow up: Private Physician; When: 1 - 2 days; Reason: Recheck today's complaints, Continuance of care, Re-evaluation by your physician. Follow up: Emergency Department; When: As needed; Reason: Worsening of condition. snw 04:42 04:16 12/20/2019 03:08 Discharged to Home. Impression: Urinary tract infection, site mg2 not specified; Nausea and vomiting. Condition is Stable. Discharge Instructions: Hypertension, Urinary Tract Infection, Adult, Rehydration, Elderly. Prescriptions for Phenergan 12.5 mg Rectal Suppository - insert 1 suppository by RECTAL route every 6 hours As needed; 12 suppository. and Forms are Medication Reconciliation Form, Thank You Letter, Antibiotic Education, Prescription Opioid Use. Follow up: Private Physician; When: 1 - 2 days; Reason: Recheck today's complaints, Continuance of care, Re-evaluation by your physician. Follow up: Emergency Department; When: As needed; Reason: Worsening of condition. tw4
[2019-12-20 05:17] VITALS: BP 155/100; TEMP 98.6; O2SAT 96
--- NOTE | 2019-12-20 10:40 | RAD REPORT ---
EXAM DESCRIPTION: RAD - Chest Single View - 12/20/2019 12:30 am CLINICAL HISTORY: nause vomiting Chest pain. COMPARISON: Chest Single View dated 10/31/2019; Chest Single View dated 10/18/2019; Chest Single View d ated 10/16/2019; Chest Single View dated 10/15/2019 FINDINGS: Portable technique limits examination quality. The lungs are mildly emphysematous but grossly clear. The heart is normal in size. No displaced fract ures.Prominent tortuosity of the thoracic aorta. IMPRESSION: Mild diffuse COPD.
--- NOTE | 2019-12-20 20:09 | RAD REPORT ---
EXAM DESCRIPTION: CT ABDOMEN PELVIS WITH IV CONTRAST CLINICAL HISTORY: NAUSEA / VOMITING TECHNIQUE: Contiguous axial images obtained through the abdomen and pelvis following the uneventful administration of IV contrast. Coronal and sagittal reformatted images were provided. This exam was performed according to our departmental dose-optimization program, which includes autom ated exposure control, adjustment of the mA and/or kV according to patient size and/or use of iterati ve reconstruction technique. COMPARISON: None available for comparison. FINDINGS: Lung bases: Patchy left basilar groundglass opacities. Right basilar subsegmental atelecta sis/pleural parenchymal scar. The heart is enlarged. Coronary artery calcification. 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 Mild adjacent infiltrat venkat changes. No bowel wall thickening. Liver: Hepatic parenchymal calcifications compatible with remote granulomatous organism exposure. Gallbladder and biliary system: Gallstones within a mildly distended gallbladder. No gallbladder wall thickening or pericholecystic fluid. Pancreas: Unremarkable Spleen: Splenic parenchymal calcifications compatible with remote granulomatous organism exposure. Adrenals: Bilateral adrenal thickening. Kidneys: Normal renal cortical enhancement. Lobulated renal contour bilaterally with areas of cortica l thinning/scar. Bilateral renal cysts, the 2 largest exophytic at the upper pole on the left, both m easuring 4.5 cm. Staghorn calculus at the lower pole collecting system on the left. Additional smalle r calculi bilaterally. No hydronephrosis. Bowel: Gastrojejunostomy tube in place. Colonic diverticula without adjacent inflammatory change. No obstruction. No appreciable mucosal thickening. Appendix: Normal caliber appendix. No findings to suggest acute appendicitis. Urinary bladder: The urinary bladder is distended. Layering hyperdensity at the right posterior aspec t of the urinary bladder. Reproductive: Myometrial calcifications compatible with fibroids. No adnexal mass. Lymph nodes: No pathologically enlarged lymph nodes. Peritoneum: No focal fluid collection. No free air. Vessels: Moderate to severe atherosclerotic disease. No abdominal aortic aneurysm. High-grade stenosi s with areas of occlusion involving the right internal iliac artery and its branch vessels Abdominal wall: Unremarkable Bones: Multilevel spondylosis. Remote L1 anterior superior compression fracture. No acute fracture. R emote left femoral gamma nail fixation. IMPRESSION: 1. No bowel obstruction. 2. 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 Mi ld adjacent infiltrative changes which can be seen in the setting of incarceration. No bowel wall thi ckening to suggest strangulation. 3. Layering hyperdensity at the right posterior aspect of the urinary bladder thought in part relat ed to bladder calculi. Direct visualization may be necessary in order to exclude underlying bladder m ass. 4. Patchy left basilar groundglass opacities (atelectasis and/or infiltrate). 5. Other findings as above. Electronically signed by: Namita Moody MD 12/20/2019 2:33 AM CDT Due to temporary technical issues with the PACS/Fluency reporting system, reports are being signed by the in house radiologist without review as a courtesy to ensure prompt reporting. The interpreting r adiologist is fully responsible for the content of the report.
--- NOTE | 2019-12-21 08:59 | EKG ---
Test Date: 2019-12-20 Test Time: 00:12:34 Environmental Health Physician: MEASUREMENT RESULTS: Intervals: Rate: 82 FL: 170 QRSD: 94 QT: 394 QTc: 460 [place]: P: 69 FL: 170 QRS: -58 T: 51 INTERPRETIVE STATEMENTS: Sinus rhythm with premature supraventricular complexes Left axis deviation Abnormal ECG Compared to ECG 10/31/2019 10:49:47 Atrial premature complex(es) now present Sinus tachycardia no longer present Myocardial infarct finding no longer present Electronically Signed On 12-21-19 08:55:36 CDT by Callum Bergeron
== END 2019-12-20 04:42 | disposition home or self-care (01) ==
LOC: SUPCPDRO 23:26 → ER 23:26
DX: N39.0 Urinary tract infection, site not specified (principal); I10 Essential (primary) hypertension; F03.90 Unspecified dementia, unspecified severity, without behavioral disturbance, psychotic disturbance, mood disturbance, and anxiety
CPT/HCPCS: 96365; 96368; 93005; 87088; 85025; 80048; 36415; 83735; 85610; 82947; 80076; 84484; 83690; 83880; 74177; 71045; 96375; 99284; Q9967; J0696; J7030; J2405; 81003; 81015; 87086

== ENCOUNTER 2019-12-25 12:59 | Inpatient (IN) | payer OTHER ==
--- OUTSIDE RECORDS SUMMARY | 2019-12-25 13:10 | XMS REPORT | Continuity of Care Document ---
:1935 Author Organization [facility] t Address [address] [place] [address] Dr. Pimentel [address] [place] [id number] Care Team Providers Name Role Phone Unavailable Unavailable Unavailable Problems This patient has no known problems. Allergies, Adverse Reactions, Alerts This patient has no known allergies or adverse reactions. Medications This patient has no known medications. Procedures This patient has no known procedures. Results This patient has no known results.
[2019-12-25 13:31] LABS: Absolute Lymphocytes (CBC) 0.7 K/uL (0.7-4.9); Basophils % 0.1 % (0-1.3); Hematocrit 41.3 % (36.0-45.0); Lymphocytes % 10.4 % (15.3-44.8); MPV 8.2 fL (7.6-11.3); RBC Red Blood Cell Count 4.05 M/uL (3.86-4.86)
[2019-12-25 13:37] LABS: Protime INR 1.32
[2019-12-25 13:57] LABS: Albumin 2.6 g/dL (3.4-5.0); Bilirubin Direct 0.4 mg/dL (0-0.2); Ferritin 788.1 ng/mL (8-388); Potassium 3.1 mmol/L (3.5-5.1); Protein, Total 6.4 g/dL (6.4-8.2); Troponin (Emerg Dept Use Only) 0.03 ng/mL (0.0-0.045)
[2019-12-25] MEDS ORDERED: dexAMETHasone 10 MG/ML VIAL ONE (14:09)
[2019-12-25] MEDS ORDERED: PIPER/TAZO/NS 3.375gm 3.375 GM/100 ML BAG ONE (14:10)
[2019-12-25 14:18] LABS: Urine Blood TRACE (NEG); Urine Glucose NEGATIVE (NEG); Urine Protein TRACE (NEG); Urine Specific Gravity 1.015 (1.005-1.030); Urine pH 5.5 (5.0-7.0)
[2019-12-25 14:18] LABS: Urine Bacteria <20 /HPF (<20); Urine Culture Reflex Order REFLEXED; Urine Mucus 1+ /HPF (NONE SEEN)
--- NOTE | 2019-12-25 14:31 | RAD REPORT ---
EXAM DESCRIPTION: RAD - Chest Single View - 12/25/2019 1:27 pm CLINICAL HISTORY: SOB, decreased O2 saturation COMPARISON: Portable chest December 20, 2019 TECHNIQUE: AP portable chest image was obtained 12/25/2019 1:27 pm . FINDINGS: Baseline interstitial fibrotic pattern is present. Stranding in the left base is not clear ly different from comparison. No convincing evidence for a left lung field mass or infiltrate. No la eolar opacities are present in the mid and lower right lung field. This is superimposed on fibrosis. Heart and vasculature are normal. No measurable pleural effusion and no pneumothorax. No acute bony a bnormality seen. No acute aortic findings suspected. IMPRESSION: New airspace infiltrate in the mid and lower right lung field superimposed on a baseline fibrotic lung pattern. No new or progressive left lung field finding. Acute pneumonia is most likely for the right lung field finding. COVID-19 pneumonia is possible; allison wu, the pattern does not raise greater concern for COVID pneumonia versus community-acquired pneumon ia.
--- NOTE | 2019-12-25 14:48 | ER ---
Nurse's Notes [facility] Name: Lillian Cabrera Age: 84 yrs Sex: Female : 1935 Arrival Date: 12/25/2019 Time: 13:00 Bed 3 Private MD: Diagnosis: Pneumonia, unspecified organism;Dehydration Presentation: 12/24 13:03 Chief complaint: EMS states: called out for low O2 from [facility], was in the 80's, em [facility] staff reports productive cough, placed on 4 LPM, pt A\T\O x 1. Coronavirus screen: Surgical mask placed on patient. Patient moved to private room, placed in contact and droplet isolation with eye protection until further assessment. Patient reports a cough. Patient reports shortness of breath or difficulty breathing. Patient denies measured and/or subjective temperature greater than 100.4F prior to today's visit. Patient denies travel on a cruise ship or to a country the [facility] currently lists as an affected area. Patient denies contact with known and/or suspected case of COVID-19. Ebola Screen: Patient negative for fever greater than or equal to 101.5 degrees Fahrenheit, and additional compatible Ebola Virus Disease symptoms Patient denies exposure to infectious person. Patient denies travel to an Ebola-affected area in the 21 days before illness onset. No symptoms or risks identified at this time. Initial Sepsis Screen: Does the patient meet any 2 criteria? Does the patient have a suspected source of infection? Yes: Productive cough/pneumonia. Risk Assessment: Do you want to hurt yourself or someone else? Patient reports no desire to harm self or others. Onset of symptoms. 13:03 Method Of Arrival: EMS: [facility] em 13:03 Acuity: JOBY 2 em Historical: - Allergies: 13:13 No Known Allergies; em - PMHx: 13:13 UTI; Atrial Fib; Dementia; CVA; Glaucoma; Hyperlipidemia; Hypertension; em - Immunization history:: Adult Immunizations unknown. - Social history:: Smoking status: unknown. Screenin:01 Abuse screen: no apparent signs noted. em 13:01 Nutritional screening: No deficits noted. Tuberculosis screening: No symptoms or risk em factors identified. Fall Risk None identified. Assessment: 13:00 General: Appears ill, slender, Behavior is. Pain: Unable to use pain scale. Does not em appear to understand pain scale. Neuro: Level of Consciousness is obtunded, Oriented to none. Cardiovascular: Capillary refill < 3 seconds Patient's skin is warm and dry. Respiratory: Airway is patent Respiratory effort is even, Respiratory pattern is regular, tachypnea Parent/caregiver reports the patient having cough that is productive. GI: Abdomen is flat, PEG tube in place, Site clean. Derm: Skin is intact, is thin, Skin is dry, Skin is normal, Skin temperature is warm. Musculoskeletal: Range of motion: intact in all extremities. 13:50 Reassessment: respirations even and unlabored, SPO2 has improved to 96-99% on em nonrebreather, skin warm and dry, A\T\Ox0. 14:30 Reassessment: respirations even and unlabored, SPO2 has improved to 96-99% on em nonrebreather, skin warm and dry, A\T\Ox0. 15:30 Reassessment: respirations even and unlabored, skin warm and dry, A\T\Ox0. em 16:30 Reassessment: respirations even and unlabored, skin warm and dry, A\T\Ox0. em Vital Signs: 13:03 BP 107 / 77; Pulse 80; Resp 22; Temp 98.2(TE); Pulse Ox 75% on R/A; em 13:10 Pulse Ox 97% on Non-rebreather mask; em 14:24 BP 112 / 80; Pulse 80; Resp 22; Temp 99.7(C); Pulse Ox 97% on Non-rebreather mask; em 15:40 Pulse 99; Resp 26; Temp 99.6(C); Pulse Ox 95% on Non-rebreather mask; em 16:40 BP 126 / 76; Pulse 84; Resp 22; Temp 99.7(C); Pulse Ox 97% on Non-rebreather mask; em 13:03 placed on NC at 4 LPM em ED Course: 13:00 Patient arrived in ED. sv 13:01 Patient has correct armband on for positive identification. Placed in gown. Bed in low em position. Call light in reach. Side rails up X2. monitoring tech on. Pulse ox on. NIBP on. 13:02 Nolberto Mast RN is Primary Nurse. em 13:06 Kareem Diamond MD is Attending Physician. kdr 13:07 Triage completed. em 13:10 Oxygen administration via non-rebreather mask \T\ 15L/min. em 13:13 Arm band placed on. em 13:20 Initial lab(s) drawn, by me, sent to lab. Inserted saline lock: 20 gauge in right em antecubital area, using aseptic technique. Blood collected. 13:28 CXR XRAY In Process Unspecified. EDMS 13:46 Kareem Diamond MD is Attending Physician. kdr 13:49 [facility]il[facility]-C [facility]. snw 13:49 Kareem Diamond MD is Attending Physician. snw 13:50 Cruz cath inserted, using sterile technique, 16 Fr., by ED staff, balloon inflated, to em gravity drainage, urine specimen collected. 14:47 Larissa Daigle MD is Hospitalizing Provider. snw 16:41 No provider procedures requiring assistance completed. Patient admitted, IV remains in em place. Administered Medications: 14:10 Drug: Decadron - Dexamethasone 10 mg Route: IVP; Site: right antecubital; em 14:20 Follow up: Response: No adverse reaction em 14:12 Drug: Zosyn 3.375 grams Route: IVPB; Infused Over: 60 mins; Site: right antecubital; em 15:16 Follow up: Response: No adverse reaction; IV Status: Completed infusion; IV Intake: em 100ml 16:46 Drug: D5W 1000 ml Route: IV; Rate: 100 ml/hr; Site: right antecubital; em 16:50 Follow up: IV Status: Completed infusion em Intake: 15:16 IV: 100ml; Total: 100ml. em Outcome: 14:47 Decision to Hospitalize by Provider. snw 16:42 Admitted to Med/surg accompanied by tech, via wheelchair, room 428, with oxygen, Report em called to TJ 16:42 Condition: stable 16:42 Instructed on the need for admit. 17:04 Patient left the ED. em Signatures: Dispatcher [employer] Devi Rivers, Kareem Pradhan RN, MD MD kdr Waters, Shelly, FNP-C [employer] FLOOR-Nolberto Nicole RN RN em
--- NOTE | 2019-12-25 14:48 | EDPHYS ---
Physician Documentation [facility] Name: Lillian Cabrera Age: 84 yrs Sex: Female : 1935 Arrival Date: 12/25/2019 Time: 13:00 Bed 3 Private MD: ED Physician Kareem Diamond HPI: 12/24 14:42 This 84 yrs old Female presents to ER via EMS with complaints of dehydration, snw SOB. 14:42 The patient has shortness of breath at rest. Onset: The symptoms/episode began/occurred snw gradually, 2 day(s) ago, and became worse and became persistent. Duration: The symptoms are continuous. The patient's shortness of breath is aggravated by nothing. Associated signs and symptoms: Pertinent positives: This patient does not have any pertinent positive signs or symptoms associated with shortness of breath. Severity of symptoms: At their worst the symptoms were severe. It is unknown whether or not the patient has had similar symptoms in the past. The patient has been recently seen by a physician: the patient's primary care provider, Dr. Daigle. pt has rec'd total of 2 L over the past 24 hours of D5W, remains dehydrated but improved. NRB placed for room air SpO2 75%. Historical: - Allergies: 13:13 No Known Allergies; em - PMHx: 13:13 UTI; Atrial Fib; Dementia; CVA; Glaucoma; Hyperlipidemia; Hypertension; em - Immunization history:: Adult Immunizations unknown. - Social history:: Smoking status: unknown. ROS: 14:42 Eyes: Negative for injury, pain, redness, and discharge, ENT: Negative for injury, snw pain, and discharge, Neck: Negative for injury, pain, and swelling, Cardiovascular: Negative for chest pain, palpitations, and edema. 14:42 Abdomen/GI: Negative for abdominal pain, nausea, vomiting, diarrhea, and constipation, Back: Negative for injury and pain, : Negative for injury, bleeding, discharge, and swelling, MS/Extremity: Negative for injury and deformity, Skin: Negative for injury, rash, and discoloration, Neuro: Negative for headache, positive for weakness, no known numbness, tingling, or seizure. 14:42 Constitutional: Positive for malaise, poor PO intake. 14:42 Respiratory: Positive for shortness of breath, at rest. Exam: 14:30 Head/Face: Normocephalic, atraumatic. Eyes: Pupils equal round and reactive to light, snw extra-ocular motions intact. Lids and lashes normal. Conjunctiva and sclera are non-icteric and not injected. Cornea within normal limits. Periorbital areas with no swelling, redness, or edema. 14:30 Chest/axilla: Normal chest wall appearance and motion. Nontender with no deformity. No lesions are appreciated. 14:30 Abdomen/GI: Soft, non-tender, with normal bowel sounds. No distension or tympany. No guarding or rebound. No evidence of tenderness throughout. Back: No spinal tenderness. No costovertebral tenderness. Full range of motion. 14:30 Constitutional: The patient appears frail, lethargic, listless, dry, withdraws from painful stimulus (iv, lizama) 14:30 ENT: Mouth: Oral mucosa: dry. 14:30 Cardiovascular: Rate: normal, Rhythm: irregularly irregular, Pulses: no pulse deficits are appreciated, Heart sounds: murmur, Edema: is not appreciated. 14:30 ECG was reviewed by the Attending Physician. 14:30 Respiratory: moderate respiratory distress is noted, Respirations: shallow respirations, tachypnea, Breath sounds: decreased breath sounds, that are moderate. 14:30 Skin: breakdown at buttock. 14:30 Neuro: Orientation: to person, Mentation: responsive to pain, Memory: unable to test, Motor: moves all fours, Gait: not tested. seizure activity, is not displayed by the patient, Abnormal movements: there are no abnormal movements. Vital Signs: 13:03 BP 107 / 77; Pulse 80; Resp 22; Temp 98.2(TE); Pulse Ox 75% on R/A; em 13:10 Pulse Ox 97% on Non-rebreather mask; em 14:24 BP 112 / 80; Pulse 80; Resp 22; Temp 99.7(C); Pulse Ox 97% on Non-rebreather mask; em 15:40 Pulse 99; Resp 26; Temp 99.6(C); Pulse Ox 95% on Non-rebreather mask; em 16:40 BP 126 / 76; Pulse 84; Resp 22; Temp 99.7(C); Pulse Ox 97% on Non-rebreather mask; em 13:03 placed on NC at 4 LPM em MDM: 14:20 Patient medically screened. snw 14:45 Data reviewed: vital signs, nurses notes, EMS record, I have discussed the patient's snw presentation/case with the attending Emergency Department Physician;. Data interpreted: Pulse oximetry: on room air is 75 %. Interpretation: hypoxia. Plan: O2 by Mask applied. Counseling: I had a detailed discussion with the patient and/or guardian regarding: the historical points, exam findings, and any diagnostic results supporting the discharge/admit diagnosis. Physician consultation: A Pilo ROBERTSON was called at 14:46, was contacted at 14:46, regarding admission, patient's condition, would like medications started, D5W at 100 ml/hr, Zosyn, 100 ml/hr of water per peg tube q 4h. 12/24 13:10 Order name: Blood Culture Adult (2) kdr 12/24 13:10 Order name: BMP; Complete Time: 14:05 kdr 12/24 13:10 Order name: C-Reactive Protein; Complete Time: 14:05 kdr 12/24 13:10 Order name: CBC with Diff kdr 12/24 13:10 Order name: D-Dimer kdr 12/24 13:10 Order name: Ferritin; Complete Time: 14:05 kdr 12/24 13:10 Order name: Flu kdr 12/24 13:10 Order name: Lactate; Complete Time: 14:05 kdr 12/24 13:10 Order name: LFT's; Complete Time: 14:05 kdr 12/24 13:10 Order name: Lipase; Complete Time: 14:05 kdr 12/24 13:10 Order name: Procalcitonin; Complete Time: 14:19 kdr 12/24 13:10 Order name: PT-INR; Complete Time: 13:49 kdr 12/24 13:10 Order name: Ptt, Activated; Complete Time: 13:49 kdr 12/24 13:10 Order name: Strep kdr 12/24 13:10 Order name: Troponin (emerg Dept Use Only); Complete Time: 14:05 kdr 12/24 13:10 Order name: Urine Microscopic Only; Complete Time: 14:19 kdr 12/24 13:10 Order name: CXR XRAY; Complete Time: 14:35 kdr 12/24 13:10 Order name: EKG; Complete Time: 13:12 kdr 12/24 13:10 Order name: Cardiac monitoring; Complete Time: 14:23 kdr 12/24 13:10 Order name: Document PUI#; Complete Time: 14:12 kdr 12/24 13:10 Order name: Droplet/Contact Precautions; Complete Time: 14:12 kdr 12/24 13:10 Order name: EKG - Nurse/Tech; Complete Time: 14:23 kdr 12/24 13:12 Order name: D-Dimer; Complete Time: 13:49 EDMS 12/24 13:46 Order name: COVID-19 em1 12/24 13:56 Order name: Urine Dipstick--Ancillary (enter results); Complete Time: 14:19 hb 12/24 14:19 Order name: Urine Culture EDMS 12/24 13:10 Order name: Lizama; Complete Time: 14:12 kdr 12/24 13:10 Order name: IV Start; Complete Time: 14:12 kdr 12/24 13:10 Order name: Labs collected and sent; Complete Time: 14:12 kdr 12/24 13:10 Order name: Notify Health Dept [phone]/ ; Complete Time: 14:12 kdr 12/24 13:10 Order name: O2 Per Protocol; Complete Time: 14:12 kdr 12/24 13:10 Order name: O2 Sat Monitoring; Complete Time: 14:12 kdr 12/24 13:10 Order name: Urine Dipstick-Ancillary (obtain specimen); Complete Time: 14:12 kdr Administered Medications: 14:10 Drug: Decadron - Dexamethasone 10 mg Route: IVP; Site: right antecubital; em 14:20 Follow up: Response: No adverse reaction em 14:12 Drug: Zosyn 3.375 grams Route: IVPB; Infused Over: 60 mins; Site: right antecubital; em 15:16 Follow up: Response: No adverse reaction; IV Status: Completed infusion; IV Intake: em 100ml 16:46 Drug: D5W 1000 ml Route: IV; Rate: 100 ml/hr; Site: right antecubital; em 16:50 Follow up: IV Status: Completed infusion em Disposition: 18:58 Co-signature as Attending Physician, Kareem Diamond MD I agree with the assessment and kdr plan of care. Disposition: 12/25/19 14:47 Hospitalization ordered by Larsisa Daigle for Inpatient Admission. Preliminary diagnosis are Pneumonia, unspecified organism, Dehydration. - Bed requested for Telemetry/MedSurg (Inpatient). - Status is Inpatient Admission. em - Condition is Serious. - Problem is an acute exacerbation. - Symptoms have worsened. Signatures: Dispatcher [employer] EDCrystal Mello RN RN kl Rittger, Kevin, MD MD kdr Waters, Shelly, MATCHER OPERATOR-C MATCHER OPERATOR-Csnw Nolberto Mast RN RN em Attema, Lee, MATCHER OPERATOR-C MATCHER OPERATOR-Cla1 Corrections: (The following items were deleted from the chart) 16:10 14:47 Hospitalization Ordered by A Pilo ROBERTSON for Inpatient Admission. Preliminary diagnosis is Pneumonia, unspecified organism; Dehydration. Bed requested for Telemetry/MedSurg (Inpatient). Status is Inpatient Admission. Condition is Serious. Problem is an acute exacerbation. Symptoms have worsened. snw 17:04 16:10 12/25/2019 14:47 Hospitalization Ordered by A Pilo ROBERTSON for Inpatient Admission. em Preliminary diagnosis is Pneumonia, unspecified organism; Dehydration. Bed requested for Telemetry/MedSurg (Inpatient). Status is Inpatient Admission. Condition is Serious. Problem is an acute exacerbation. Symptoms have worsened. raymond
[2019-12-25] MEDS ORDERED: D5W 1,000 ML IV ONE (16:36)
[2019-12-25] MEDS ORDERED: ALBUTEROL 2.5 MG/3 ML NEB SOL NEB PRN (17:28)
[2019-12-25] MEDS: D5W 1,000 ML IV SCH (17:29)
[2019-12-25 18:00] VITALS: BMI 17.6
[2019-12-25] MEDS ORDERED: POTASSIUM 25 MEQ EFFERV TAB PO ONE ×2 (20:00→22:13)
[2019-12-25] MEDS ORDERED: PIPER/TAZO/NS 3.375gm 3.375 GM/100 ML BAG IVPB SCH (21:00)
[2019-12-25 21:58] LABS: Blood Morphology Comment NOT SEEN (NOT SEEN); Platelet Estimate ADEQ
[2019-12-25] MEDS ORDERED: JEVITY 1.5 CAL LIQUID 1,000 ML BOT FT SCH (23:00)
[2019-12-26] MEDS: JEVITY 1.5 CAL LIQUID 1,000 ML BOT FT SCH (00:01)
--- NOTE | 2019-12-26 00:01 | HP ---
Date of Admission: 12/25/2019 Chief Complaint: Cough, congestion, not feeling good. History Of Present Illness: 84-year-old female patient living at detention who recently visited [facility] emergency room, was diagnosed as having urinary tract infection and was sent back to emergency [facility] with antibiotics. She was getting her antibiotics, about 2-3 days ago we did some routine blood wo rk as patient was not feeling good at the detention. Has some cough and detention staff report ed weight loss and the patient looking very weak and sleepy, so routine blood work was done. Her sod ium level was 152, BUN around 70, creatinine around 0.9. She was started on IV fluid D5W at 75 cc/ho ur, 2 L of IV fluid was ordered. Her potassium was low and replacement for low potassium was ordered as well. Today, I talked to director of nurse at the detention who was concerned about patient's condition and informed me that the patient was not looking good. Still having some cough. No fever , but her oxygen saturation was low and she was advised to send the patient to the emergency room. A fter she was evaluated in the ER, she was admitted to the hospital with pneumonia problem. Her COVID -19 test was done in the emergency room, result is pending and patient was admitted to isolation on [facility] floor. When I saw her this evening, she was not in any distress. She was lying in bed, not using any accessory muscles of respiration. She was on supplemental oxygen. Allergies: NO KNOWN ALLERGIES. Medications: List reviewed. Review of Systems: Respiratory: As mentioned above. Constitutional: Patient has lost a significant amount of weight as reported by nursing staff. All other systems reviewed and negative. Past Surgical History: Significant for hip fracture and surgery for that, which was done in September 05, PEG tube placement in August 2019. Family History: Significant for unknown type of cancer and cardiovascular disease. Social History: Negative for smoking or alcohol use. Past Medical History: Senile dementia, mixed hyperlipidemia, glaucoma, urinary tract infection, stro ke in August 2018. Physical Examination: Vital Signs: When she came into emergency room, blood pressure 107/77, pulse 80, respiratory rate 22 , temperature 98.2, and oxygen saturation 75% on 4-5 L nasal cannula oxygen. General: Patient lying in bed, in the right lateral position, not in any distress. Does not answer any questions, awake. HEENT: Head atraumatic, normocephalic. Conjunctivae nonerythematous. Sclerae white. Mouth, no thr ush or edema noted. Ears/Nose, no mass, lesion, discharge noted. Neck: Supple. No JVD, lymph nodes, bruit, thyromegaly noted. Lungs: Presence of some rales noted in the right lower lung field. No wheezing. Not using accessor y muscles of respiration. Heart: Normal heart sounds, no murmur or gallop. Abdomen: Presence of PEG tube in the left upper anterior abdominal wall, otherwise abdomen soft, bow el sounds normal. No guarding, rigidity, tenderness, distention. Extremities: No leg edema. No calf tenderness. Skin: No rash, ulcer, cellulitis. Lymphatics: No lymph node enlargement in neck, supraclavicular, infraclavicular region. Neuro: No focal neurological deficit. Chest: Unremarkable. External Genitalia: Deferred. Rectal: Deferred. Laboratory Data: White count 6.4, hemoglobin 13.6, platelets 161. Sodium 142, potassium 3.1, chlori de 104, bicarb 28, BUN 75, creatinine 1.34, glucose 103. Lactic acid 2.6. Procalcitonin 0.93. Live r function tests unremarkable. Ferritin 788. C-reactive protein 230. Liver enzymes unremarkable. D-dimer 2027. Urinalysis negative for nitrite, esterase trace, wbc 5-10, bacteria less than [address]. [address] x-ray showing right lower lobe infiltrate. Impression: 1.Pneumonia. 2.Volume depletion. 3.Hypokalemia. 4.Senile dementia. 5.Mixed hyperlipidemia. 6.Stroke. 7.Weight loss. Plan: Patient will be admitted to the hospital for further evaluation and management of this problem . Patient is appropriate for inpatient and is expected to spend 2 midnights in hospital. We will go ahead and give IV fluid and water through feeding tube. Instead of bolus feeding, we will start her on continuous PEG tube feeding to see if that helps to help her with weight loss problem. Continue oxygen. Continue IV antibiotic which is Zosyn. Empiric steroid treatment was started. COVID-19 aidan t result pending and we will keep the patient in isolation until negative result comes back. Overall , prognosis is poor. Patient remains full code as per decision made by her son and I did call and ta lk to patient's son this evening. Details discussed with him. I also talked to him about considerat ion of hospice care at some point and he is willing to think about it and he will discuss with his ot her brother and once they make decision about hospice care, I would like to contact detention for arrangements. DANIELA/ADRIEL Voice ID: [id number]
[2019-12-26] MEDS: D5W 1,000 ML IV SCH (03:26)
[2019-12-26] MEDS ORDERED: FUROSEMIDE 20 MG/ 2ML VIAL IV ONE (04:07)
[2019-12-26 04:53] LABS: Absolute Lymphocytes (CBC) 0.8 K/uL (0.7-4.9); Basophils % 0.2 % (0-1.3); Hematocrit 39.9 % (36.0-45.0); Lymphocytes % 6.4 % (15.3-44.8); MPV 8.9 fL (7.6-11.3); RBC Red Blood Cell Count 3.97 M/uL (3.86-4.86)
[2019-12-26] MEDS ORDERED: NA CHLORIDE 0.9% 250 ML ONE (04:53)
[2019-12-26 05:04] LABS: Potassium 3.6 mmol/L (3.5-5.1)
[2019-12-26 05:27] LABS: Blood Morphology Comment NOT SEEN (NOT SEEN); Platelet Estimate ADEQ
[2019-12-26] MEDS: D5 0.45 NS 1,000 ML IV SCH ×2 (08:26→22:01)
[2019-12-26] MEDS: Levofloxacin 250mg IV 250 MG/50 ML BAG IV SCH (08:26)
--- NOTE | 2019-12-26 08:28 | RAD REPORT ---
EXAM DESCRIPTION: Facundo Single View12/26/2019 8:18 am CLINICAL HISTORY: Chest pain COMPARISON: December 2019 FINDINGS: Worsening in the right basilar opacity. Mild improvement in the mid right lung opacities Minimal left lung opacities suspected. The heart is mildly enlarged IMPRESSION: Worsening in the right basilar pneumonia but mild improvement in the mid right pneumonia .
[2019-12-26] MEDS: DIVALPROEX NA 125 MG CAP FT SCH ×3 (08:29→22:00)
[2019-12-26] MEDS: PIPER/TAZO/NS 3.375gm 3.375 GM/100 ML BAG IVPB SCH ×2 (09:53→17:46)
--- NOTE | 2019-12-26 12:52 | P.CNS ---
Date of Consult: 12/26/19 Reason for Consult: Respiratory failure pneumonia Chief Complaint: Shortness of breath hypoxemia History of Present Illness: Patient is 84 years of age with the hospital for shortness of breath came worse over the past 2 days became progressively worse was found to be very hypoxic I saw her in the morning patient was on non-rebreather are percent as currently on high-flow oxygen the check her blood gases alert week poor historian Allergies No Known Allergies Allergy (Verified 10/01/18 21:47) Home Medications: Acetaminophen 325 mg FT TID 10/31/19 Ascorbic Acid [Vitamin C] 500 mg FT BID 10/31/19 Donepezil HCl [Aricept] 10 mg FT BEDTIME 10/31/19 Mirtazapine 45 mg FT BEDTIME 10/31/19 Multivitamin [Multiple Vitamins] 1 tab FT DAILY 10/31/19 carvediloL [Coreg*] 6.25 mg FT BID 10/31/19 Azithromycin 250 mg PO DAILY 12/25/19 Azithromycin 500 mg PO BID 12/25/19 Divalproex [Depakote Sprinkle*] 125 mg PO TID 12/25/19 Docusate Sodium 100 mg PO BID 12/25/19 Nitrofuran Macro [Macrobid*] 100 mg PO BID 12/25/19 Potassium Chloride 20 meq PO BID 12/25/19 Promethazine Suppos [Phenergan] 25 mg RC Q6H 12/25/19 - Past Medical/Surgical History Diabetic: No -: dementia -: hyperlipidemia -: glaucoma -: elevated wbc -: volume depeletion -: uti (chronic) -: constipation -: muscle weakness (generalized) -: hip sx august 2018 - Social History Smoking Status: Unknown if ever smoked Alcohol use: No CD- Drugs: No Caffeine use: No Review of Systems is unable to be obtained Physical Examination Temp Pulse Resp BP Pulse Ox 97.8 F 76 20 111/82 96 12/26/19 08:00 12/26/19 08:00 12/26/19 08:00 12/26/19 08:00 12/26/19 08:00 General: Alert, Oriented x2 Respiratory: Crackles/rales (Crackles bilaterally), Rhonchi/gurgles Cardiovascular: No edema, Regular rate/rhythm, Normal S1 S2 Laboratory Data (last 24 hrs) 12/25/19 13:20: PT 15.5 H, INR 1.32, APTT 28.0 12/25/19 13:20: WBC 6.4 D, Hgb 13.6, Hct 41.3, Plt Count 169 12/25/19 13:20: Sodium 142, Potassium 3.1 L, BUN 75 H, Creatinine 1.34 H, Gl ucose 103, Total Bilirubin 1.0, AST 20, ALT 25, Alkaline Phosphatase 55, Lipase 145 - Problems (1) Respiratory failure Current Visit: Yes Status: Acute Plan: Patient is 84 years of age admitted with hypoxemia respiratory failure she does have patchy infiltrates ashby virus test is negative patient has renal failure trial of IV fluids repeat basic chemistry profile had known patient is currently on high-flow nasal cannula oxygen will check blood gases patient is afebrile Levaquin IV should be adequate can Dc Zosyn blood cultures positive for Gram positive cocciI consider IV vancomycin according to the nurse patient is ashby virus negative urinalysis is negative chest x-ray reviewed has infiltrate right greater than the left Qualifiers: Chronicity: acute
[2019-12-26 14:46] LABS: Arterial Blood Carboxyhemoglob 1.1 % (0-1.5); Blood Gas Oxyhemoglobin 87.7 % (94-97); Blood O2 Saturation 89.5 % (92-98.5)
[2019-12-26 15:01] LABS: Potassium 3.4 mmol/L (3.5-5.1)
--- NOTE | 2019-12-26 21:51 | PN ---
Date of Progress Note: 12/26/2019 Subjective: Patient was seen this morning for followup. Nursing staff called me early this morning around 4 or 4:30 a.m., reported the patient was having trouble with shortness of breath and her oxyge n saturation was dropping low, so 100% non-rebreather mask was applied and she was maintaining her ox ygen saturation between 88%-90%. Her IV fluid and tube feeding was discontinued at that time. Lasix 20 mg IV x1 dose was ordered which was given. This morning when I saw her, she was lying in bed on oxygen, not in any distress. Oxygen saturation when I was in the room was anywhere between 93%-95% Objective: Vital Signs: Reviewed. HEENT: Unremarkable. Lungs: Bilateral good equal entry with shallow breathing. Presence of some rales in the right lower lobe. Cardiac: Heart sounds normal. Abdomen: Soft, bowel sounds normal. No guarding, rigidity, tenderness, or distention. Extremities: No leg edema. Laboratory Data: White count 13.2, hemoglobin 13.7, platelets 156. Sodium 139, potassium 3.6, chlor omero 100, bicarb 28, BUN 77, creatinine 1.36, glucose 153. Impression: 1.Pneumonia. 2.Acute respiratory failure with hypoxia secondary to above. 3.Volume depletion. 4.Hypokalemia. Plan: We will go ahead and restart tube feeding per order. IV Zosyn will be continued per order. W e will add IV Levaquin. Blood culture was reported as positive for gram-positive cocci. We will hav e to follow up on the report tomorrow to see if this is contaminant or not. Pulmonary consultation w as requested from Dr. Stacy. Details were discussed with him today. Patient's COVID-19 test results came back negative. DANIELA/MODL Voice ID: [id number] Report ID: [id number]
[2019-12-26] MEDS: MIRTAZAPINE 15 MG TAB FT SCH (22:00)
[2019-12-27] MEDS: PIPER/TAZO/NS 3.375gm 3.375 GM/100 ML BAG IVPB SCH ×2 (01:20→09:39)
[2019-12-27] MEDS: Levofloxacin 250mg IV 250 MG/50 ML BAG IV SCH (06:25)
[2019-12-27] MEDS: JEVITY 1.5 CAL LIQUID 1,000 ML BOT FT SCH (06:30)
[2019-12-27 07:33] LABS: Basophils % 0.3 % (0-1.3); Hematocrit 36.2 % (36.0-45.0); Lymphocytes % 12.3 % (15.3-44.8); MPV 8.8 fL (7.6-11.3); RBC Red Blood Cell Count 3.54 M/uL (3.86-4.86)
[2019-12-27 07:40] LABS: Magnesium 2.3 mg/dL (1.8-2.4); Potassium 3.3 mmol/L (3.5-5.1)
[2019-12-27] MEDS: DIVALPROEX NA 125 MG CAP FT SCH ×3 (09:42→22:03)
[2019-12-27] MEDS: D5 0.45 NS 1,000 ML IV SCH ×2 (10:40→15:04)
--- NOTE | 2019-12-27 12:54 | P.PN ---
Subjective Date of Service: 12/27/19 Chief Complaint: Community-acquired pneumonia Subjective: Improving (Patient is clinically improving she is well alert responsive renal function improving on minimal oxygen) Review of Systems is unable to be obtained Physical Examination - Vital Signs Temperature: 97.9 F Blood Pressure: 133/81 Pulse: 65 Respirations: 16 Pulse Ox (%): 100 - Physical Exam General: Alert, Cooperative Respiratory: Crackles/rales Cardiovascular: No edema - Studies Microbiology Data (last 24 hrs): 12/25/19 13:40 Blood - Blood Aerobic Blood Culture - Final 12/25/19 13:40 Blood - Blood Blood Culture Gram Stain - Final 12/25/19 13:40 Blood - Blood Anaerobic Blood Culture - Final 12/25/19 13:40 Blood - Blood Gram Stain - Final Assessment & Plan - Problems (Diagnosis) (1) Pneumonia Current Visit: Yes Status: Acute Plan: Patient is 84 years of age admitted with pneumonia ashby virus negative currently off BiPAP 2 L of nasal cannula oxygen renal function improving labs reviewed recommend Dc Zosyn continue with levofloxacin blood cultures likely contaminant Qualifiers: Pneumonia type: due to unspecified organism
--- NOTE | 2019-12-27 14:34 | PN ---
Date of Progress Note: 12/27/2019 Subjective: Patient was seen this morning for followup. No new complaints or problems reported by nursing staff. Objective: General: Patient was lying in bed, does not communicate, does not answer any question and not using any accessory muscles of respiration. Heart: Sounds normal. Abdomen: Soft. Bowel sounds normal. No guarding, rigidity, tenderness, or distention. Extremities: No leg edema. Laboratory Data: Her blood culture showing skin contaminant, so no concern about any sepsis. White count 8.3, hemoglobin 12.5, platelets 139. Sodium 142, potassium 3.3, chloride 102, bicarb 31, BUN 65, creatinine 1.07, glucose 118. Impression: 1. Pneumonia. 2. Volume depletion. 3. Hypokalemia. Plan: We will go ahead and continue current antibiotics. Continue oxygen. Continue IV fluid and PEG tube feeding. Replace electrolyte per protocol and I will see her tomorrow for followup. DANIELA/MODL Voice ID: [id number] Report ID: [id number] MEME
[2019-12-27] MEDS ORDERED: Meropenem 500 MG VIAL IV SCH (17:00)
[2019-12-27] MEDS ORDERED: POTASSIUM 25 MEQ EFFERV TAB PO ONE ×2 (17:00→22:51)
[2019-12-27] MEDS: Meropenem 500 MG in NA CHLORIDE 0.9% 100 ML IV SCH (17:31)
[2019-12-27] MEDS: AMPICILLIN SODIUM 500 MG in NA CHLORIDE 0.9% 50 ML IVPB SCH (18:23)
[2019-12-27] MEDS: MIRTAZAPINE 15 MG TAB FT SCH (22:03)
[2019-12-28] MEDS: AMPICILLIN SODIUM 500 MG in NA CHLORIDE 0.9% 50 ML IVPB SCH ×3 (01:05→16:16)
[2019-12-28] MEDS: Meropenem 500 MG in NA CHLORIDE 0.9% 100 ML IV SCH ×3 (01:06→17:18)
[2019-12-28 08:08] LABS: Absolute Lymphocytes (CBC) 0.8 K/uL (0.7-4.9); Basophils % 0.1 % (0-1.3); Hematocrit 32.7 % (36.0-45.0); Lymphocytes % 11.3 % (15.3-44.8); MPV 8.3 fL (7.6-11.3); RBC Red Blood Cell Count 3.23 M/uL (3.86-4.86)
[2019-12-28 08:37] LABS: Magnesium 2.2 mg/dL (1.8-2.4); Potassium 3.5 mmol/L (3.5-5.1)
--- NOTE | 2019-12-28 08:44 | RAD REPORT ---
EXAM DESCRIPTION: RAD - Chest Single View - 12/28/2019 7:14 am CLINICAL HISTORY: pneumonia COMPARISON: Portable December 25 TECHNIQUE: AP portable chest image was obtained 12/28/2019 7:14 am . FINDINGS: Right base pneumonia has shown significant improvement since the prior examination. Infilt rate is still present. Cardiomediastinal silhouette is significantly distorted by patient rotation. T his rotation also limits left base opacification. There is hazy opacification in the left base and in filtrate could be masked. This can be monitored on follow-up imaging. Left costophrenic angle bluntin g is present probably the affects of rotation. Patient can be monitored for small left pleural effusi on. Heart size is normal. Pulmonary vasculature within normal limits. IMPRESSION: Partial clearing of the right base infiltrate since December 25 imaging. Patient is substantially rotated on this examination limiting left base pleural and parenchymal asses sment.
[2019-12-28] MEDS: DIVALPROEX NA 125 MG CAP FT SCH ×3 (09:53→21:55)
--- NOTE | 2019-12-28 09:56 | P.PN ---
Subjective Date of Service: 12/28/19 Chief Complaint: Highly resistant organisms in the urinary tract Patient developed some hypoxemia yesterday is currently on BiPAP she was doing well yesterday tolerating PEG tube feeds hemodynamically stable Review of Systems is unable to be obtained Physical Examination - Vital Signs Temperature: 97.1 F Blood Pressure: 125/71 Pulse: 88 Respirations: 12 Pulse Ox (%): 95 - Physical Exam General: Alert, Mild distress Respiratory: Expiratory wheezes, Rhonchi/gurgles - Studies Microbiology Data (last 24 hrs): 12/25/19 13:50 Clean Catch Urine [place] Count - Final BETWEEN 10,000 & 100,000 CFU/ML 12/25/19 13:50 Clean Catch Urine - Final Escherichia Coli Esbl Enterococcus Faecalis 12/25/19 13:40 Blood - Blood Aerobic Blood Culture - Final 12/25/19 13:40 Blood - Blood Blood Culture Gram Stain - Final 12/25/19 13:40 Blood - Blood Anaerobic Blood Culture - Final 12/25/19 13:40 Blood - Blood Gram Stain - Final Assessment & Plan - Problems (Diagnosis) (1) Pneumonia Current Visit: Yes Status: Acute Plan: Most likely she has acute lung injury from sepsis tried to wean her off from the CPAP today her kidney function is now normal currently off IV fluids Qualifiers: Pneumonia type: due to unspecified organism (2) Cystitis Current Visit: Yes Status: Acute Plan: Patient has ESBL and vancomycin resistant enterococcus is on meropenem and ampicillin will need IV antibiotics at least 10 days with meropenem due to ESBL and a PICC line
[2019-12-28] MEDS: D5 0.45 NS 1,000 ML IV SCH (11:00)
[2019-12-28] MEDS ORDERED: POTASSIUM 25 MEQ EFFERV TAB PO ONE (12:00)
--- NOTE | 2019-12-28 13:08 | PN ---
Date of Progress Note: 12/28/2019 Subjective: Patient was seen this morning for followup. She was lying in bed, not in distress. She was more awake and alert. Than last few days, she is back to her usual baseline, lying in bed. Ayanna n as I walked in, she started to raise her hand to reach out to me and was smiling. She is not orien bethel at all, but this is her baseline that when we try to talk to her, she smiles status and this is h ow she is back to her baseline again today. Not in any respiratory distress oxygen saturation while I was in the room with her was around 93% to 94%. Objective: Vital Signs: Reviewed. HEENT: Unremarkable. Lungs: Clear to auscultation. Heart: Sounds normal. Abdomen: Soft. Bowel sounds normal. No guarding, rigidity, tenderness, distention. Extremities: No leg edema. Laboratory Data: White count 6.6, hemoglobin 11.4, platelets 142. Sodium 142, potassium 3.5, chlori de 103, bicarb 34, BUN 39, creatinine 0.66, glucose 121, magnesium 2.2. Chest x-ray shows improvemen t in right lung infiltrate. Urine culture is growing E coli, which is ESBL and Enterococcus faecalis . Impression: 1.Pneumonia. 2.Urinary tract infection. 3.Volume depletion. 4.Hypokalemia. 5.Acute kidney injury. Plan: We will go ahead and continue patient's current medication, which is IV fluid, IV antibiotic. Yesterday, we change antibiotics to meropenem and ampicillin. We will continue 2 antibiotics accord ing to culture results. Overall, her blood work shows improvement in her renal functions and electro lytes. We will continue current PEG tube feeding, which is half strength PEG tube feeding and we al l continue IV fluid, but consider to reduce rate. Patient will need a PICC line and our plan is to p ossibly discharge her to go to custodial hopefully by Monday depending on overall situation. I di d call patient's son and details were discussed with him this morning. DANIELA/MODL Voice ID: [id number] Report ID: [id number]
[2019-12-28] MEDS: JEVITY 1.5 CAL LIQUID 1,000 ML BOT FT SCH (16:28)
[2019-12-28] MEDS ORDERED: D5 0.45 NS 1,000 ML IV SCH (18:00)
[2019-12-28] MEDS: MIRTAZAPINE 15 MG TAB FT SCH (21:55)
[2019-12-29] MEDS: AMPICILLIN SODIUM 500 MG in NA CHLORIDE 0.9% 50 ML IVPB SCH ×3 (00:31→16:55)
[2019-12-29] MEDS: Meropenem 500 MG in NA CHLORIDE 0.9% 100 ML IV SCH ×3 (01:53→16:55)
[2019-12-29 07:28] LABS: Absolute Lymphocytes (CBC) 0.9 K/uL (0.7-4.9); Basophils % 0.4 % (0-1.3); Hematocrit 35.3 % (36.0-45.0); Lymphocytes % 9.5 % (15.3-44.8); MPV 8.5 fL (7.6-11.3); RBC Red Blood Cell Count 3.51 M/uL (3.86-4.86)
[2019-12-29 07:30] LABS: BUN Blood Urea Nitrogen 26 mg/dL (7-18); Bicarbonate 36 mmol/L (21-32); Glucose Level 114 mg/dL (74-106); Magnesium 2.1 mg/dL (1.8-2.4); Potassium 3.9 mmol/L (3.5-5.1); Sodium Level 142 mmol/L (136-145)
[2019-12-29] MEDS: DIVALPROEX NA 125 MG CAP FT SCH ×3 (10:05→22:18)
--- NOTE | 2019-12-29 13:06 | PN ---
Date of Progress Note: 12/29/2019 Subjective: Patient was seen this morning for followup. She was sleeping, lying in bed, not in dist ress. Oxygen saturation was 93%. Objective: Vital Signs: Reviewed. HEENT: Unremarkable. Lungs: Clear to auscultation. Heart: Sounds normal. Abdomen: Soft. Bowel sounds normal. No guarding, rigidity, tenderness, distention. Extremities: No leg edema. Laboratory Data: White count 9.6, hemoglobin 12.4, platelets 150. Sodium 142, potassium 3.9, chlori de 102, bicarb 36, BUN 26, creatinine 0.57, glucose 114. Magnesium 2.1. Impression: 1.Pneumonia. 2.Urinary tract infection. 3.Volume depletion. 4.Acute kidney injury. Plan: We will continue current medications. Continue tube feeding, water through the PEG tube. We will discontinue IV fluid and we have been reducing IV fluid rate over the last 2-3 days. Her renal function is almost back to normal. Electrolyte abnormality has been corrected. She is tolerating tu be feeding very well. Continue current antibiotics, which are meropenem and ampicillin. Jemma solano have a PICC line placed probably today, and I have informed nurse today that they should make sure that once the PICC line is in place, they should keep it covered all the time so that way it will reduce chances of the patient accidental ly pulling it out. DANIELA/MODL Voice ID: [id number] Report ID: [id number]
[2019-12-29] MEDS: JEVITY 1.5 CAL LIQUID 1,000 ML BOT FT SCH (15:12)
[2019-12-29] MEDS ORDERED: POTASSIUM 25 MEQ EFFERV TAB FT ONE (20:05)
[2019-12-29] MEDS: MIRTAZAPINE 15 MG TAB FT SCH (22:18)
[2019-12-29] MEDS: DONEPEZIL HCL 5 MG TAB FT SCH (22:18)
[2019-12-30] MEDS: Meropenem 500 MG in NA CHLORIDE 0.9% 100 ML IV SCH ×3 (01:49→18:09)
[2019-12-30] MEDS: AMPICILLIN SODIUM 500 MG in NA CHLORIDE 0.9% 50 ML IVPB SCH ×3 (01:50→17:28)
[2019-12-30 06:43] LABS: Potassium 4.1 mmol/L (3.5-5.1)
[2019-12-30] MEDS ORDERED: FUROSEMIDE 20 MG/ 2ML VIAL IV ONE (07:56)
[2019-12-30] MEDS: DIVALPROEX NA 125 MG CAP FT SCH ×3 (09:50→21:35)
--- NOTE | 2019-12-30 09:59 | RAD REPORT ---
EXAM DESCRIPTION: RAD - Chest Single View - 12/30/2019 1:22 am CLINICAL HISTORY: 84 years Female, S/P PICC insertion COMPARISON: None. TECHNIQUE: Single portable x-ray view of the chest performed on 12/30/2019 at 1:14 AM FINDINGS: The lungs are well expanded. The patient is moderately rotated towards the right accentuat ing the right heart border. There is mild right perihilar vascular prominence. There is slight volume loss in the left lung base which may be due to atelectasis. There is no evidence of a pneumothorax. The cardiac silhouette is normal in size and configuration. The mediastinal contours are normal. No acute osseous abnormality is identified. No focal soft tissue abnormalities are seen. Lines and tubes: The left upper extremity PICC line catheter tip overlies the region of the superio r vena cava. IMPRESSION: 1. Marked rightward rotation of the patient. 2. The left upper extremity PICC line catheter tip overlies the region of the superior vena cava. 3. Mild right perihilar vascular prominence and slight volume loss in the left lung base. Electronically signed by: Bailee De La Garza DO 12/30/2019 1:34 AM CDT Due to temporary technical issues with the PACS/Fluency reporting system, reports are being signed by the in house radiologist without review as a courtesy to ensure prompt reporting. The interpreting r adiologist is fully responsible for the content of the report.
[2019-12-30 11:56] LABS: Arterial Blood Carboxyhemoglob 1.3 % (0-1.5); Blood Gas Oxyhemoglobin 88.6 % (94-97); Blood O2 Saturation 90.6 % (92-98.5)
[2019-12-30] MEDS: JEVITY 1.5 CAL LIQUID 1,000 ML BOT FT SCH (14:18)
[2019-12-30] MEDS: MIRTAZAPINE 15 MG TAB FT SCH (21:34)
[2019-12-30] MEDS: DONEPEZIL HCL 5 MG TAB FT SCH (21:35)
--- NOTE | 2019-12-30 23:43 | PN ---
Date of Progress Note: 12/30/2019 Subjective: Patient was seen this morning for followup. She was lying in bed, on BiPAP, which was p laced overnight. Objective: General: Sleeping, not in any distress. Vital signs: Reviewed. HEENT: Unremarkable. Lungs: Clear to auscultation. Cardiac: Heart sounds normal. Abdomen: Soft, bowel sounds normal. No guarding, rigidity, tenderness, or distention. Extremities: No leg edema. Laboratory Data: Sodium 137, potassium 4.1, chloride 100, bicarb 31, BUN 24, creatinine 0.72, glucos e 215. Impression: 1.Acute respiratory failure with hypoxia. 2.Pneumonia. 3.Urinary tract infection. 4.Volume depletion. 5.Acute kidney injury, resolved. Plan: We will continue current tube feeding and water through PEG tube. Discontinue IV fluid. Cont inue current antibiotics. Continue to follow with Dr. Stacy and details were discussed with Dr. Larissa caro this morning. I will see her tomorrow for followup. DANIELA/MODL Voice ID: [id number] Report ID: [id number]
[2019-12-31] MEDS: Meropenem 500 MG in NA CHLORIDE 0.9% 100 ML IV SCH ×3 (00:08→17:18)
[2019-12-31] MEDS: AMPICILLIN SODIUM 500 MG in NA CHLORIDE 0.9% 50 ML IVPB SCH ×3 (00:08→17:19)
[2019-12-31] MEDS ORDERED: FUROSEMIDE 20 MG/ 2ML VIAL IV ONE (04:34)
[2019-12-31] MEDS ORDERED: METOPROLOL TAR 25 MG TAB PO SCH (09:00)
[2019-12-31] MEDS: METOPROLOL TAR 25 MG TAB FT SCH ×2 (11:08→21:16)
[2019-12-31] MEDS: APIXABAN 2.5 MG TABLET FT SCH ×2 (11:08→21:17)
[2019-12-31] MEDS: DIVALPROEX NA 125 MG CAP FT SCH ×3 (11:08→21:17)
--- NOTE | 2019-12-31 12:08 | P.PN ---
Subjective Date of Service: 12/31/19 Chief Complaint: Highly resistant organisms in the urinary tract, respiratory failure Patient is hypoxic requiring BiPAP unresponsive Review of Systems is unable to be obtained Physical Examination - Vital Signs Temperature: 97.1 F Blood Pressure: 130/84 Pulse: 83 Respirations: 18 Pulse Ox (%): 98 - Physical Exam General: Mild distress Respiratory: Clear to auscultation bilaterally, Diminished Cardiovascular: No edema, Normal pulses - Studies Microbiology Data (last 24 hrs): 12/25/19 13:20 Blood - Blood Aerobic Blood Culture - Final No growth in 5 days. 12/25/19 13:20 Blood - Blood Anaerobic Blood Culture - Final No growth in 5 days. Assessment & Plan - Problems (Diagnosis) (1) Cystitis Current Visit: Yes Status: Acute Plan: Patient has ESBL and vancomycin resistant enterococcus is on meropenem and ampicillin will need IV antibiotics at least 10 days with meropenem due to ESBL and a PICC line (2) Respiratory failure Current Visit: Yes Status: Acute Plan: Patient is a hypoxic his respiratory failure ABG shows significant hypoxemia most likely she has ARDS from sepsis white count is normal renal function is also normal patient was given some Lasix a fever I will consider Dobhoff tube with tube feeds will also try high-flow oxygen Qualifiers: Chronicity: acute
--- NOTE | 2019-12-31 12:10 | EKG ---
Test Date: 2019-12-31 Test Time: 03:05:31 Loan Expeditor: RT MEASUREMENT RESULTS: Intervals: Rate: 116 VA: QRSD: 82 QT: 316 QTc: 439 [place]: P: VA: QRS: -65 T: 44 INTERPRETIVE STATEMENTS: Atrial fibrillation with rapid ventricular response with premature ventricular or aberrantly conducted complexes Left axis deviation Inferior infarct, age undetermined Anterolateral infarct, age undetermined Abnormal ECG Compared to ECG 12/25/2019 14:18:02 Sinus rhythm no longer present Atrial premature complex(es) no longer present Myocardial infarct finding still present Electronically Signed On 12-31-19 12:09:29 CDT by Callum Bergeron
[2019-12-31] MEDS: DONEPEZIL HCL 5 MG TAB FT SCH (21:16)
[2019-12-31] MEDS: MIRTAZAPINE 15 MG TAB FT SCH (21:17)
[2020-01-01] MEDS: AMPICILLIN SODIUM 500 MG in NA CHLORIDE 0.9% 50 ML IVPB SCH ×3 (00:07→17:24)
[2020-01-01] MEDS ORDERED: NA CHLORIDE 0.9% 500 ML ONE (00:20)
[2020-01-01] MEDS: Meropenem 500 MG in NA CHLORIDE 0.9% 100 ML IV SCH ×3 (01:01→17:25)
[2020-01-01 05:47] LABS: Absolute Lymphocytes (CBC) 1.4 K/uL (0.7-4.9); BUN Blood Urea Nitrogen 19 mg/dL (7-18); Basophils % 0.2 % (0-1.3); Bicarbonate 31 mmol/L (21-32); Glucose Level 92 mg/dL (74-106); Hematocrit 28.6 % (36.0-45.0); Lymphocytes % 16.7 % (15.3-44.8); MPV 8.2 fL (7.6-11.3); Magnesium 2.2 mg/dL (1.8-2.4); Potassium 4.5 mmol/L (3.5-5.1); RBC Red Blood Cell Count 2.82 M/uL (3.86-4.86); Sodium Level 139 mmol/L (136-145)
[2020-01-01 07:04] LABS: Blood Gas Oxyhemoglobin 86.8 % (94-97); Blood O2 Saturation 88.6 % (92-98.5)
--- NOTE | 2020-01-01 07:53 | P.PN ---
Subjective Date of Service: 01/01/20 Chief Complaint: Respiratory failure Patient's condition deteriorated she became more hypoxic was transferred to the ICU from the 2nd floor the little agitated on BiPAP patient was initially on high-flow oxygen as some desaturations at night Review of Systems is unable to be obtained Physical Examination - Vital Signs Temperature: 97.3 F Blood Pressure: 98/68 Pulse: 78 Respirations: 16 Pulse Ox (%): 93 - Physical Exam General: Alert, Moderate distress Respiratory: Diminished Cardiovascular: No edema, Regular rate/rhythm Assessment & Plan - Problems (Diagnosis) (1) Cystitis Current Visit: Yes Status: Acute Plan: Patient has ESBL and vancomycin resistant enterococcus is on meropenem and ampicillin will need IV antibiotics at least 10 days with meropenem due to ESBL and a PICC line (2) Respiratory failure Current Visit: Yes Status: Acute Plan: Patient is hypoxic respiratory failure I suspect that she has acute lung injury from sepsis/currently she is tolerating BiPAP labs reviewed chest x-ray is rotated consider long-term acute care facility for rating tube feeds prognosis very poor I have added a low-dose diuretic Qualifiers: Chronicity: acute
--- NOTE | 2020-01-01 08:34 | RAD REPORT ---
EXAM DESCRIPTION: [place] Single View01/01/2020 5:26 am CLINICAL HISTORY: Chest pain COMPARISON: December 29 FINDINGS: moderate opacification of the left hemithorax probably pneumonia. Small pleural effusion may be present. No significant change in the [id number] right lung alveolar opacities probably pneumonia. Heart remains enlarged. PICC line in place
[2020-01-01] MEDS: METOPROLOL TAR 25 MG TAB FT SCH ×2 (09:00→21:22)
[2020-01-01] MEDS: DIVALPROEX NA 125 MG CAP FT SCH ×3 (09:00→20:52)
[2020-01-01] MEDS: APIXABAN 2.5 MG TABLET FT SCH ×2 (10:42→20:53)
[2020-01-01] MEDS: SPIRONOLACTONE 25 MG TABLET PO SCH (10:42)
[2020-01-01] MEDS: MIRTAZAPINE 15 MG TAB FT SCH (20:53)
[2020-01-01] MEDS: DONEPEZIL HCL 5 MG TAB FT SCH (20:53)
--- NOTE | 2020-01-01 23:57 | PN ---
Date of Progress Note: 01/01/2020 Subjective: The patient was seen this morning for followup. Early this morning, she was moved from floor to ICU because of respiratory distress and hypoxia. She was on BiPAP when I saw her in ICU, maintaining adequate oxygenation, but before she moved to ICU, she had significant hypoxia problem. When I saw her, she was lying in bed, not in any distress. She had her eyes open, was trying to reach out to me to hold my hand and this is like her baseline. Objective: Vital Signs: Reviewed. HEENT: Unremarkable. Lungs: Clear to auscultation. Heart: Sounds normal. Abdomen: Soft. Bowel sounds normal. No guarding, rigidity, tenderness, or distention. Extremities: No leg edema. Laboratory Data: White count 8.5, hemoglobin 9.9. Sodium 139, potassium 4.5, chloride 104, bicarb 31, BUN 19, creatinine 0.46, glucose 92, magnesium 2.2. Impression: 1. Acute respiratory failure with hypoxia. 2. Pneumonia. 3. Urinary tract infection. 4. Atrial fibrillation. 5. Anemia. Plan: We will go ahead and continue current Eliquis. Stool guaiac was ordered. Eliquis was started yesterday. There is no evidence of any bleed, but we will order stool guaiac. Repeat blood work tomorrow and continue to follow up with Dr. Stacy. Continue current antibiotics and Dr. Stacy has recommended LTAC. Social Service consult was requested for that, but the patient's son has refused it. This morning, I did call the patient's son and gave him updates about transfer to ICU. The patient is full code, but so far, she has not required any intubation. This evening, I tried to contact the patient's son to discuss about LTAC, but I was not able to contact him. DANIELA/MODL Voice ID: [id number] Report ID: [id number] MEME
[2020-01-02] MEDS: Meropenem 500 MG in NA CHLORIDE 0.9% 100 ML IV SCH ×3 (00:44→19:11)
[2020-01-02] MEDS: AMPICILLIN SODIUM 500 MG in NA CHLORIDE 0.9% 50 ML IVPB SCH ×3 (00:44→19:11)
[2020-01-02 06:57] LABS: Absolute Lymphocytes (CBC) 1.4 K/uL (0.7-4.9); Basophils % 0.4 % (0-1.3); Hematocrit 26.9 % (36.0-45.0); Lymphocytes % 15.6 % (15.3-44.8); MPV 8.2 fL (7.6-11.3); RBC Red Blood Cell Count 2.64 M/uL (3.86-4.86)
[2020-01-02 07:04] LABS: BUN Blood Urea Nitrogen 21 mg/dL (7-18); Bicarbonate 31 mmol/L (21-32); Glucose Level 86 mg/dL (74-106); Magnesium 2.5 mg/dL (1.8-2.4); Potassium 4.2 mmol/L (3.5-5.1); Sodium Level 137 mmol/L (136-145)
--- NOTE | 2020-01-02 07:20 | RAD REPORT ---
EXAM DESCRIPTION: RAD - Chest Single View - 01/02/2020 7:02 am CLINICAL HISTORY: desats, requiring high flow O2 COMPARISON: Portable December 31 TECHNIQUE: AP portable chest image was obtained 01/02/2020 7:02 [place] supine positioning . FINDINGS: Motion artifact is present. There are numerous overlapping clothing and monitor artifacts. Patchy interstitial and alveolar opacities remain in the right lung base. Significant left base opac ification remains obscuring the left hemidiaphragm and left heart border. Patchy left upper lobe opac ification present. Overall the lung parenchymal pattern is not substantially different from the noemi rison study. Progressive lung process is not evident. Heart size is prominent but stable. Vasculature within normal limits. No pneumothorax seen. Left ple ural effusion is probably present but has not changed. No acute bony abnormality seen. No acute aortic findings suspected. IMPRESSION: Moderate left base pleural and parenchymal opacification along with right base opacifica tion. Lung parenchyma findings not significantly different from prior day study.
[2020-01-02] MEDS: METOPROLOL TAR 25 MG TAB FT SCH ×2 (09:00→20:53)
[2020-01-02] MEDS: SPIRONOLACTONE 25 MG TABLET PO SCH (09:41)
[2020-01-02] MEDS: APIXABAN 2.5 MG TABLET FT SCH ×2 (09:42→20:52)
[2020-01-02] MEDS: DIVALPROEX NA 125 MG CAP FT SCH ×3 (09:42→20:52)
[2020-01-02] MEDS: MIRTAZAPINE 15 MG TAB FT SCH (20:52)
[2020-01-02] MEDS: DONEPEZIL HCL 5 MG TAB FT SCH (20:52)
--- NOTE | 2020-01-03 00:57 | PN ---
Date of Progress Note: 01/02/2020 Subjective: The patient was seen this morning for followup. She was lying in bed, not in distress. In ICU, she was on high-flow oxygen and maintaining adequate oxygen saturation. Her mental status w as like her baseline. She was awake, but not oriented, does not answer any questions, and when I tri ed to talk to her, she was reaching out to try to grab my hands and this is her baseline. She was no t in any respiratory distress. Objective: HEENT: Unremarkable. Lungs: Clear to auscultation. Heart: Sounds normal. Abdomen: Soft. Bowel sounds normal. No guarding, rigidity, tenderness, distention. Extremities: No leg edema. Laboratory Data: White count 8.7, hemoglobin 9.4, platelets 214. Sodium 137, potassium 4.2, chlorid e 104, bicarb 31, BUN 21, creatinine 0.56, glucose 86. Impression: 1.Paroxysmal atrial fibrillation. 2.Anemia. 3.Pneumonia. 4.Acute kidney injury. 5.Volume depletion. Plan: We will continue current antibiotics. The patient was noted to have copious amount of secreti on and respiratory therapist called me this morning. We talked about it and the patient will get p.r .n. suction, but at the same time, we also advised to send sputum for culture. It was reported that whatever secretion they were able to get it with suction was clear. Her chest x-ray shows some densi ty in the left lower lung region. I suspect this could be atelectasis. In any case, pneumonia from the right lung has shown improvement. Dr. Stacy did talk to patient's son this morning and he dis cussed advanced directives and LTAC transfer. The patient's son agreed with LTAC transfer and he als o agreed with do not resuscitate order. This evening, I did call the patient's son. All the details were discussed including the patient's atrial fibrillation and use of anticoagulation, risk of bleed ing, etc. and also discussed with him about advanced directives and he has confirmed DNR order with adele sherwood when I was talking to him and he also has agreed to allow for us to send the patient to long-term a count includes the [facility] facility. facility worker has initiated this process. Hopefully, we might be able to get th is arrangements completed by tomorrow and in that case we will be able to transfer her via ground amb ulance. The patient will be transferred out of ICU to regular room tonight with all current orders. I will see her tomorrow for followup. DANIELA/MODL Voice ID: [id number] Report ID: [id number]
[2020-01-03] MEDS: AMPICILLIN SODIUM 500 MG in NA CHLORIDE 0.9% 50 ML IVPB SCH ×3 (01:21→16:00)
[2020-01-03] MEDS: Meropenem 500 MG in NA CHLORIDE 0.9% 100 ML IV SCH ×3 (01:21→16:00)
[2020-01-03 05:19] LABS: BUN Blood Urea Nitrogen 19 mg/dL (7-18); Bicarbonate 30 mmol/L (21-32); Glucose Level 79 mg/dL (74-106); Magnesium 2.4 mg/dL (1.8-2.4); Potassium 4.3 mmol/L (3.5-5.1); Sodium Level 138 mmol/L (136-145)
--- NOTE | 2020-01-03 08:58 | P.PN ---
Subjective Date of Service: 01/03/20 Chief Complaint: Respiratory failure Patient here was transferred to the ICU due to desaturation Review of Systems is unable to be obtained Physical Examination - Vital Signs Temperature: 98.1 F Blood Pressure: 124/86 Pulse: 75 Respirations: 20 Pulse Ox (%): 100 - Physical Exam General: Moderate distress, Other (Agitated) Respiratory: Diminished, Crackles/rales Cardiovascular: No edema Assessment & Plan - Problems (Diagnosis) (1) Respiratory failure Current Visit: Yes Status: Acute Plan: Patient has respiratory failure most likely acute lung injury discuss with the son in detail he agreed with DNR and referral to an LTAC patient is on nasal cannula oxygen Dc high-flow oxygen and BiPAP labs and vital signs reviewed stable for transfer prognosis very poor patient is on tube feeds patient is on low-dose diuretics Qualifiers: Chronicity: acute
[2020-01-03] MEDS: APIXABAN 2.5 MG TABLET FT SCH (09:18)
[2020-01-03] MEDS: METOPROLOL TAR 25 MG TAB FT SCH (09:18)
[2020-01-03] MEDS: SPIRONOLACTONE 25 MG TABLET PO SCH (09:18)
[2020-01-03] MEDS: DIVALPROEX NA 125 MG CAP FT SCH ×2 (09:19→14:31)
[2020-01-03 15:36] VITALS: O2SAT 92
[2020-01-03 17:58] VITALS: BP 137/81; TEMP 98.6
--- NOTE | 2020-01-04 02:42 | DS ---
Date of Discharge: 01/03/2020 Disposition: Discharged to [facility] via ground ambulance. Laboratory Data: Last chemistry done today, sodium 138, potassium 4.3, chloride 104, bicarb 30, BUN 19, creatinine 0.55, glucose 79, magnesium 2.4. Objective: HEENT: Unremarkable. Lungs: Clear to auscultation. Heart: Sounds normal. Abdomen: Soft. Bowel sounds normal. No guarding, rigidity, tenderness, distention. Extremities: No leg edema. Hospital Course: This is an 84-year-old pleasant female patient living at [facility], was sent to emergency room because of cough, congestion, not feeling good. Please see dictated H and P for more information. After the patient was evaluated in the emergency room, she was admitted to the hospital with pneumonia, volume depletion, hypokalemia. Her initial white count was 6.4, hemoglobin 13.6, platelets 16.1. Sodium 142, potassium 3.1, chloride 104, bicarb 28, BUN 75, creatinine 1.34 with glucose 103. Lactic acid 2.6. Procalcitonin 0.93. Liver function tests unremarkable. Her COVID-19 test came back negative. She was treated with empiric antibiotics for pneumonia and she also had urinary tract infection. So, both infections were treated with appropriate antibiotics. Finally, her urine culture results came back and one of the organism was E. coli ESBL, another one was Enterococcus faecalis. So, according to culture and sensitivity result, we started her on ampicillin and meropenem. PICC line was placed. The patient remained on oxygen, but from time to time, she had periods of hypoxia. Dr. Stacy from Pulmonary was consulted. The patient did require using BiPAP, but she was not cooperative with BiPAP use, so then we started using high-flow oxygen and she tolerated that very well. Hence, we did have to transfer her for close observation as we were not sure whether she would require intubation or not. The patient was full code when we transferred her to ICU. Fortunately, she did not require any intubation. She maintained adequate oxygenation with high-flow oxygen as well as BiPAP, and during day time, she was on nasal cannula oxygen about 1-1/2 to 3 L/minute, but what we have noticed is at least once a day or so especially at nighttime, she would have problem with desaturation with significant hypoxia requiring either BiPAP or high-flow oxygen and that happened for last several days in a row. Dr. Stacy and myself, we contacted the patient's son. Details were discussed with him. So far, the patient was full code according to the patient's son. After Dr. Stacy talked to family, patient's son agreed to have DNR order in place and he also agreed with Dr. Stacy's recommendation of transfer her to long-term acute care facility. Social Service was consulted. I did confirm DNR order with the patient's son. Once arrangements were completed today, she was transferred via ground ambulance in stable condition. Her pneumonia from right lung has improved, left lower lung zone has some increased opacity, which we believe it could be either acute lung injury or it could be atelectasis. There was copious amount of secretion that was suctioned out while she was in ICU by respiratory therapist and it was sent for culture. She is tolerating her tube feeding very well. The patient was transferred today in stable condition. She did have intermittent paroxysmal atrial fibrillation and metoprolol and Eliquis 2.5 mg twice a day were started. All the details were discussed with the patient's son. Final Diagnoses: 1. Acute respiratory failure with hypoxia. 2. Pneumonia. 3. Urinary tract infection. 4. Volume depletion. 5. Acute kidney injury. 6. Hypokalemia. 7. Anemia. 8. Senile dementia. 9. Mixed hyperlipidemia. 10. Stroke. 11. Weight loss. DANIELA/MODL Voice ID: [id number] Report ID: [id number] [facility] CENTERMarco Antonio
--- NOTE | 2020-01-12 14:31 | PN ---
Date of Progress Note: 12/31/2019 Subjective: The patient was seen for followup in the morning. No new complaints or problems reporte d. Lying in bed, not in distress. Objective: Vital Signs: Reviewed. HEENT: Unremarkable. Lungs: Clear to auscultation. No wheezing. No rales. Heart: Sounds normal. Abdomen: Soft. Bowel sounds normal. No guarding, rigidity, tenderness, distention. Extremities: No leg edema. Laboratory Data: There were no new labs this morning. Impression: 1.Acute respiratory failure with hypoxia. 2.Pneumonia. 3.Urinary tract infection. 4.Volume depletion. 5.Acute kidney injury. Plan: We will continue tube feeding per order. Continue current antibiotics. Continue to follow [facility] Dr. Stacy. I will see her tomorrow for followup. DANIELA/MODL Voice ID: [id number] Report ID: [id number]
== END 2020-01-03 18:44 | DRG 871 ==
LOC: ER 12:59 → ERHOLD 15:26 → 4TH 16:43 → 2ND 12-26 17:10 → 3RD-ICU 01-01 06:44 → 2ND 01-03 13:15
PROVIDERS: ADMIT Internal Medicine; ATTEND Internal Medicine
PROC: 8E0ZXY6 Isolation (ICD-10-PCS; principal; 2019-12-25)
PROC: 02HV33Z Insertion of Infusion Device into Superior Vena Cava, Percutaneous Approach (ICD-10-PCS; 2019-12-30)
DX: A41.9 Sepsis, unspecified organism (principal); J18.9 Pneumonia, unspecified organism; J96.01 Acute respiratory failure with hypoxia; Z16.12 Extended spectrum beta lactamase (ESBL) resistance; Z16.11 Resistance to penicillins; Z68.1 Body mass index [BMI] 19.9 or less, adult; N30.00 Acute cystitis without hematuria; N17.9 Acute kidney failure, unspecified; I10 Essential (primary) hypertension; Z86.73 Personal history of transient ischemic attack (TIA), and cerebral infarction without residual deficits; Z20.828 Contact with and (suspected) exposure to other viral communicable diseases; R05 Cough; Z79.899 Other long term (current) drug therapy; E86.9 Volume depletion, unspecified; E87.6 Hypokalemia; F03.90 Unspecified dementia, unspecified severity, without behavioral disturbance, psychotic disturbance, mood disturbance, and anxiety; E78.2 Mixed hyperlipidemia; R63.4 Abnormal weight loss; B96.20 Unspecified Escherichia coli [E. coli] as the cause of diseases classified elsewhere; B95.2 Enterococcus as the cause of diseases classified elsewhere; Z66 Do not resuscitate; D64.9 Anemia, unspecified; I48.0 Paroxysmal atrial fibrillation
CPT/HCPCS: 36415; 36569; 51702; 71045; 80048; 80076; 81003; 81015; 82728; 82805; 82947; 83605; 83690; 83735; 83880; 84132; 84145; 84484; 85025; 85379; 85610; 85730; 86140; 87040; 87070; 87077; 87086; 87088; 87186; 87205; 93005; 94660; 94760; 96365; 96375; 99285; J0290; J1100; J1940; J2543; J7040; J7050; J7799; U0002

== ENCOUNTER 2020-05-08 19:06 | Emergency (ER) | payer OTHER ==
--- OUTSIDE RECORDS SUMMARY | 2020-05-08 19:08 | XMS REPORT | Continuity of Care Document ---
:1935 Author Organization [facility] t Address [address] [place] [address] Dr. Pimentel [address] [place] [id number] Care Team Providers Name Role Phone Unavailable Unavailable Unavailable Problems This patient has no known problems. Allergies, Adverse Reactions, Alerts This patient has no known allergies or adverse reactions. Medications This patient has no known medications. Procedures This patient has no known procedures. Results This patient has no known results.
--- NOTE | 2020-05-08 23:00 | EDPHYS ---
Physician Documentation [facility] Name: Lillian Cabrera Age: 84 yrs Sex: Female : 1935 Arrival Date: 05/08/2020 Time: 19:23 Bed 14 Private MD: ED Physician Hoang Garcia HPI: 05/08 20:15 This 84 yrs old Female presents to ER via EMS with complaints of PEG tube cp being pulled out. 20:15 Onset: The symptoms/episode began/occurred today. EMS reports patient was referred to cp ED today for replacement of PEG tube. Patient with history of dementia and was reported to have removed PEG tube earlier today. No other complaints. Historical: - Allergies: 19:23 No Known Allergies; jb4 - Home Meds: 19:23 acetaminophen 500 mg Oral tab 1 tab every 6 hours for Pain [Active]; Aricept 23 mg Oral jb4 tab 1 tab once daily [Active]; ascorbic acid (vitamin C) 500 mg tab daily [Active]; Coreg 6.25 mg Oral tab 1 tab 2 times per day [Active]; docusate sodium 100 mg Oral tab 1 tab 2 times per day [Active]; mirtazapine 30 mg Oral tab 2 tab once daily [Active]; - PMHx: 19:23 Atrial Fib; CVA; Dementia; Glaucoma; Hyperlipidemia; Hypertension; UTI; jb4 - Immunization history:: Adult Immunizations up to date. - Social history:: Smoking status: Patient denies any tobacco usage or history of. ROS: 20:20 Unable to obtain ROS due to baseline dementia. cp Exam: 20:25 Head/Face: Normocephalic, atraumatic. cp 20:25 Constitutional: The patient appears in no acute distress, alert, awake, non-toxic, well developed, frail. 20:25 Eyes: Periorbital structures: appear normal, Sclera: no appreciated abnormality, Lids and lashes: appear normal, bilaterally. 20:25 ENT: External ear(s): are unremarkable, Nose: is normal, Mouth: Lips: dry, Oral mucosa: dry, Posterior pharynx: Airway: no evidence of obstruction, patent. 20:25 Chest/axilla: Inspection: normal. 20:25 Cardiovascular: Rate: normal. 20:25 Respiratory: the patient does not display signs of respiratory distress, Respirations: normal, no use of accessory muscles, no retractions, labored breathing, is not present. 20:25 Abdomen/GI: Inspection: distension, is not seen, Bowel sounds: active, all quadrants, Palpation: abdomen is soft and non-tender, in all quadrants, involuntary guarding, is not appreciated. Vital Signs: 19:23 BP 110 / 61; Pulse 72; Resp 16; Temp 98.5; Pulse Ox 95% on R/A; Pain 0/10; jb4 20:00 BP 137 / 90; Pulse 86; Resp 19; Temp 97.8; Pulse Ox 97% ; cr4 21:00 BP 136 / 114; Pulse 95; Resp 18; Temp 97.8; Pulse Ox 97% ; Pain 0/10; cr4 22:30 BP 133 / 81; Pulse 78; Resp 19; Pulse Ox 96% ; Pain 0/10; cr4 23:00 BP 109 / 80; Pulse 82; Resp 18; Temp 97.9; Pulse Ox 97% ; Pain 0/10; cr4 05/09 00:15 BP 106 / 82; Pulse 76; Resp 18; Pulse Ox 97% ; Pain 0/10; cr4 MDM: 05/08 22:30 Differential Diagnosis bowel obstruction, obstructed PEG tube. cp 22:57 Data reviewed: vital signs, nurses notes. Counseling: I had a detailed discussion with ann the patient and/or guardian regarding: the historical points, exam findings, and any diagnostic results supporting the discharge/admit diagnosis, radiology results, the need for outpatient follow up, to return to the emergency department if symptoms worsen or persist or if there are any questions or concerns that arise at home. ED course: PEG tube in place according to plain films with contrast. . 22:59 Patient medically screened. [facility] [place] 05/08 20:27 Order name: PEG Tube Check w/contrast cp Administered Medications: No medications were administered Disposition: 05/09 06:32 Co-signature as Attending Physician, Hoang Garcia MD. mh7 Disposition: 05/08/20 22:59 Discharged to Home. Impression: Encounter for fitting and adjustment of other gastrointestinal appliance and device. - Condition is Stable. - Discharge Instructions: Gastrostomy Tube Replacement, Gastrostomy Tube Home Guide, Adult. - Medication Reconciliation Form, Thank You Letter, Antibiotic Education, Prescription Opioid Use form. - Follow up: Private Physician; When: 1 - 2 days; Reason: Recheck today's complaints. - Problem is new. - Symptoms have improved. Signatures: Dispatcher [employer] Diego Simon PA PA jmm Ruiz, Claudia, RN RN cr4 Olayinka Burks PA PA cp Bryson, James RN RN jb4 Hoang Garcia MD MD mh7 Corrections: (The following items were deleted from the chart) 01:28 05/08 22:59 05/08/2020 22:59 Discharged to Home. Impression: Encounter for fitting and cr4 adjustment of other gastrointestinal appliance and device. Condition is Stable. Discharge Instructions: Gastrostomy Tube Replacement, Gastrostomy Tube Home Guide, Adult. Forms are Medication Reconciliation Form, Thank You Letter, Antibiotic Education, Prescription Opioid Use. Follow up: Private Physician; When: 1 - 2 days; Reason: Recheck today's complaints. Problem is new. Symptoms have improved. ann
--- NOTE | 2020-05-08 23:00 | ER ---
Nurse's Notes [facility] Name: Lillian Cabrera Age: 84 yrs Sex: Female : 1935 Arrival Date: 05/08/2020 Time: 19:23 Bed 14 Private MD: Diagnosis: Encounter for fitting and adjustment of other gastrointestinal appliance and device Presentation: 05/08 19:23 Chief complaint: EMS states: PT pulled out her G-tube, the [facility] staff wanted her to jb4 get new tubing. Vital signs are as follows 112/79, 81, 96RA, 97.5. Pt is A\T\O 0-1, this is her reported norm. Coronavirus screen: Client denies travel out of the [place] in the last 14 days. At this time, the client does not indicate any symptoms associated with coronavirus-19. Ebola Screen: No symptoms or risks identified at this time. Initial Sepsis Screen: Does the patient meet any 2 criteria? No. Patient's initial sepsis screen is negative. Does the patient have a suspected source of infection? No. Patient's initial sepsis screen is negative. Risk Assessment: Do you want to hurt yourself or someone else? Patient reports no desire to harm self or others. 19:23 Method Of Arrival: EMS: [facility] jb4 19:23 Onset of symptoms was May 08, 2020. Transition of care: patient was not received jb4 from another setting of care. 19:23 Acuity: JOBY 3 jb4 Historical: - Allergies: 19:23 No Known Allergies; jb4 - Home Meds: 19:23 acetaminophen 500 mg Oral tab 1 tab every 6 hours for Pain [Active]; Aricept 23 mg Oral jb4 tab 1 tab once daily [Active]; ascorbic acid (vitamin C) 500 mg tab daily [Active]; Coreg 6.25 mg Oral tab 1 tab 2 times per day [Active]; docusate sodium 100 mg Oral tab 1 tab 2 times per day [Active]; mirtazapine 30 mg Oral tab 2 tab once daily [Active]; - PMHx: 19:23 Atrial Fib; CVA; Dementia; Glaucoma; Hyperlipidemia; Hypertension; UTI; jb4 - Immunization history:: Adult Immunizations up to date. - Social history:: Smoking status: Patient denies any tobacco usage or history of. Screenin:00 Abuse screen: patient does not respond to questions. Nutritional screening: No deficits cr4 noted. feeding tube in place.. Tuberculosis screening: No symptoms or risk factors identified. Fall Risk Secondary diagnosis (15 points) dementia, impaired mobility, Mental Status-. Assessment: 20:00 General: Appears well groomed, cachectic, Behavior is agitated, anxious. General: cr4 Appears the patient attempts to bite and pulls on clothing.. Neuro: Level of Consciousness is awake, confused, Oriented to [employer] are equal bilaterally Moves all extremities. Gait is bedbound. Speech does not respond to questions. Does say stop and a few other short sentences,. Cardiovascular: No deficits noted. Respiratory: No deficits noted. Airway is patent Trachea midline Respiratory effort is even, unlabored, Respiratory pattern is regular, Breath sounds are clear bilaterally. cough present. GI: Abdomen is flat, stoma from previous fedding tube to mid abd. no drainage or redness noted. Bowel sounds present X 4 quads. Abd is soft and non tender X 4 quads. : patient wearing brief. EENT: Oral mucosa is dry. Poor dentition noted. Derm: Wound noted right shoulder, right hip. drsg to r hedrick and IRVIN. Wound is redness to lizette area on r shoulder. Musculoskeletal: Capillary refill < 3 seconds, patient pulls away hard to turn patient as the patient tightens up. 20:15 Reassessment: brief changed. patient had bm and voided.. cr4 21:10 Reassessment: No changes from previously documented assessment. Patient is alert, cr4 oriented x 3, equal unlabored respirations, skin warm/dry/pink. 22:10 Reassessment: No changes from previously documented assessment. Patient and/or family cr4 updated on plan of care and expected duration. Pain level reassessed. Patient is alert, oriented x 3, equal unlabored respirations, skin warm/dry/pink. patient turned to left side. 23:00 Reassessment: No changes from previously documented assessment. Patient and/or family cr4 updated on plan of care and expected duration. Pain level reassessed. patient with AMS.. 05/09 00:42 Reassessment: the patients gown and brief was changed. patient had a bm and voided.. cr4 01:15 Reassessment: Patient and/or family updated on plan of care and expected duration. Pain cr4 level reassessed. patient turned on to back.. Reassessment:. Reassessment:. Vital Signs: 05/08 19:23 BP 110 / 61; Pulse 72; Resp 16; Temp 98.5; Pulse Ox 95% on R/A; Pain 0/10; jb4 20:00 BP 137 / 90; Pulse 86; Resp 19; Temp 97.8; Pulse Ox 97% ; cr4 21:00 BP 136 / 114; Pulse 95; Resp 18; Temp 97.8; Pulse Ox 97% ; Pain 0/10; cr4 22:30 BP 133 / 81; Pulse 78; Resp 19; Pulse Ox 96% ; Pain 0/10; cr4 23:00 BP 109 / 80; Pulse 82; Resp 18; Temp 97.9; Pulse Ox 97% ; Pain 0/10; cr4 05/09 00:15 BP 106 / 82; Pulse 76; Resp 18; Pulse Ox 97% ; Pain 0/10; cr4 ED Course: 05/08 19:23 Patient arrived in ED. jb4 19:23 Arm band placed on right wrist. jb4 19:27 Hoang Garcia MD is Attending Physician. mh7 19:30 Triage completed. jb4 20:02 Olayinka Burks PA is PHCP. cp 20:03 pt's son Graham Cabrera [phone]. mw2 20:32 feeding tube insertion. cr4 20:40 Patient has correct armband on for positive identification. Bed in low position. Side cr4 rails up X2. Lights dimmed. Warm blanket given. Turned to left side. 21:30 PEG Tube Check w/contrast In Process Unspecified. EDMS 22:17 PHCP role handed off by Olayinka Burks PA [email or web address] 22:17 Diego Smith PA is PHCP. jmm 23:40 Dressings: 4X4s X 2; abdomen to peg tube. Wound care: to. cr4 05/09 00:24 Dressings: 4X4s X 1; abdomen to PEG tube site. cr4 00:47 No apparent distress. transfer transportation to receiving facility. cr4 00:47 Report given to Kendal Juarez at [facility]. Charge nurse was told of need cr4 of transportation back to [place]. ambulane to be set up. Warm blanket given. 01:24 Angela Browning, RN is Primary Nurse. cr4 01:24 No apparent distress. cr4 01:24 Patient did not have IV access during this emergency room visit. cr4 Administered Medications: No medications were administered Outcome: 05/08 22:59 Discharge ordered by . ann 05/09 01:24 Discharged to care home. [facility] cr4 Condition: stable Discharge instructions given to EMS, discharge paperwork given to [facility]. 01:28 Patient left the ED. cr4 Signatures: Dispatcher [employer] EDMS Diego Smith PA PA jmm Ruiz, Claudia, RN RN cr4 Olayinka Burks PA PA cp Bryson, James RN RN 4 Heather Kwok 2 Hoang Garcia MD MD mh7 Corrections: (The following items were deleted from the chart) 01:31 05/08 23:33 Reassessment: cr4 cr4
[2020-05-09 11:31] VITALS: BP 109/80; TEMP 97.9; O2SAT 97
--- NOTE | 2020-05-11 10:58 | RAD REPORT ---
EXAM DESCRIPTION: RAD - ENTEROSTOMY TUBE CHECK W/CONTR - 05/08/2020 9:30 pm CLINICAL HISTORY: Replaced PEG tube TECHNIQUE: Two views of the abdomen are submitted. COMPARISON: None available for comparison FINDINGS: Bowel: Enteric contrast administered through existing gastrostomy tube outlines the distal stomach and proximal small bowel. No evidence for extravasation. No dilation. Calcifications: Left renal calculi including a 3.2 cm staghorn calculus. Lobulated calcifications wit hin the right pelvis compatible with uterine fibroids. Bones: Multilevel spondylosis. No acute fracture. Lung bases: Unremarkable IMPRESSION: Gastrostomy tube in place. No evidence for extravasation. Electronically signed by: Namita Moody MD 05/08/2020 10:38 PM SYSTEMS TEST ENGINEER Due to temporary technical issues with the PACS/Fluency reporting system, reports are being signed by the in house radiologist without review as a courtesy to ensure prompt reporting. The interpreting r adiologist is fully responsible for the content of the report.
== END 2020-05-09 01:28 | disposition home or self-care (01) ==
LOC: ER 19:06
DX: Z46.59 Encounter for fitting and adjustment of other gastrointestinal appliance and device (principal)
CPT/HCPCS: 49465; 99284

== ENCOUNTER 2020-05-12 17:10 | Inpatient (IN) | payer OTHER ==
--- OUTSIDE RECORDS SUMMARY | 2020-05-12 17:13 | XMS REPORT | Continuity of Care Document ---
:1935 Author Organization [facility] t Address [address] [place] [address] Dr. Pimentel [address] [place] [id number] Care Team Providers Name Role Phone Unavailable Unavailable Unavailable Problems This patient has no known problems. Allergies, Adverse Reactions, Alerts This patient has no known allergies or adverse reactions. Medications This patient has no known medications. Procedures This patient has no known procedures. Results This patient has no known results.
[2020-05-12 17:40] LABS: Arterial Blood Carboxyhemoglob 0.9 % (0-1.5); Blood Gas Oxyhemoglobin 41.5 % (94-97); Blood O2 Saturation 42.1 % (92-98.5)
[2020-05-12] MEDS ORDERED: NOREPINEPHRINE 4mg/D5W 250mL 4 MG/250 ML BAG IV ONE (17:42)
[2020-05-12] MEDS ORDERED: NA CHLORIDE 0.9% 1,000 ML ONE (17:42)
--- NOTE | 2020-05-12 17:42 | RAD REPORT ---
EXAM DESCRIPTION: RAD - Chest Single View - 05/12/2020 5:36 pm CLINICAL HISTORY: POST ETT Chest pain. COMPARISON: Chest Single View dated 01/02/2020; Chest Single View dated 01/01/2020; Chest Single View dated 12/30/2019; Chest Single View dated 12/28/2019 FINDINGS: Portable technique limits examination quality. Tip of the ET tube appears in the right mainstem bronchus. Advise 2-3 cm of retraction. Underinflated left lung with patchy opacities in the left lung base suspicious for infiltrate. The heart is modera tely enlarged. IMPRESSION: Tip of the ET tube appears in the right mainstem bronchus. Advise 2-3 cm of retraction.
[2020-05-12] MEDS ORDERED: PIPER/TAZO/NS 3.375gm 3.375 GM/100 ML BAG ONE (17:44)
[2020-05-12] MEDS ORDERED: Levofloxacin 750mg IV 750 MG/150 ML BAG IV ONE (17:44)
[2020-05-12 17:50] LABS: Absolute Lymphocytes (CBC) 0.7 K/uL (0.7-4.9); Basophils % 0.1 % (0-1.3); Hematocrit 41.4 % (36.0-45.0); Lymphocytes % 6.6 % (15.3-44.8); MPV 7.8 fL (7.6-11.3); RBC Red Blood Cell Count 4.04 M/uL (3.86-4.86)
[2020-05-12 17:51] LABS: Protime INR 1.3
[2020-05-12] MEDS ORDERED: VANCOMYCIN/NS 1 gm 1 GM/250 ML BAG IVPB ONE (18:00)
[2020-05-12 18:02] LABS: Bilirubin Direct 0.2 mg/dL (0-0.2); Bilirubin Total 0.7 mg/dL (0.2-1.0); CKMB Creatine Kinase MB 1.7 ng/mL (0.3-3.6); Potassium 3.9 mmol/L (3.5-5.1); Protein, Total 6.9 g/dL (6.4-8.2); Troponin (Emerg Dept Use Only) 0.04 ng/mL (0.0-0.045)
[2020-05-12] MEDS ORDERED: FENTANYL/NS PCA 500 MCG/50 ML SYR IV PRN (18:05)
[2020-05-12 18:37] LABS: Blood Morphology Comment NOT SEEN (NOT SEEN); Platelet Estimate ADEQ; White Blood Cell Scan OK (OK)
--- NOTE | 2020-05-12 18:50 | ER ---
Nurse's Notes [facility] Name: Lillian Cabrera Age: 84 yrs Sex: Female : 1935 Arrival Date: 05/12/2020 Time: 17:11 Bed 3 Private MD: Diagnosis: Severe sepsis with septic shock;Left lower lobe pneumonia;UTI;Elevated Lactic;Hypoxia;Intubated Presentation: 05/12 17:10 Acuity: JOBY 1 ss 17:10 Initial Sepsis Screen: Does the patient meet any 2 criteria? RR > 20 per min. Temp aa5 <36.0*C (96.8*F)) or > 38.3*C (100.9*F). Systolic BP < 90 mmHg. Yes Does the patient have a suspected source of infection? Yes: Productive cough/pneumonia. 17:10 Coronavirus screen: white sputum, temperature <96.8*F Client presents with at least one aa5 sign or symptom that may indicate coronavirus-19. Provider contacted for isolation considerations. Ebola Screen: Patient negative for fever greater than or equal to 101.5 degrees Fahrenheit, and additional compatible Ebola Virus Disease symptoms. Risk Assessment: Do you want to hurt yourself or someone else? Unable to obtain. Onset of symptoms was May 12, 2020. 17:10 Method Of Arrival: EMS: [facility] aa5 17:10 Chief complaint: EMS states: received 911 call for hypoxemia at 75-80% RA, upon their aa5 arrival pt was 70% RA, placed on a non-rebreather with deteriorating oxygen saturation and increased work of breathing was noted by EMS, attempted BVM and pt was difficult to bag, ET tube was placed, lowest O2 sat noted was 50% per BVM by EMS. EMS reports pt was given Ketamine and Succinylcholine for intubation. EMS reports usp staff denied AMS, reports pt's baseline is making eye contact when calling her name, EMS reports mentation was as baseline reported by nursing staff upon their arrival. ET tube 7.0 and at 26 at the teeth. EMS also reports wet breath sounds and reports 100-200cc of white sputum was suctioned out upon ET tube placement. 17:10 Care prior to arrival: Oral intubation, IV initiated. 20 GA, in the left antecubital aa5 area. 17:10 Transition of care: patient was received from another setting of care (long-term care aa5 facility), [facility]. Triage Assessment: 19:00 General: Appears ill. rv Historical: - Allergies: 17:10 No Known Allergies; aa5 - PMHx: 18:03 Atrial Fib; CVA; Dementia; Glaucoma; Hyperlipidemia; Hypertension; UTI; ss - PSHx: 17:10 PEG tube; aa5 - Immunization history:: Adult Immunizations unknown. - Social history:: Smoking status: unknown. Screenin:15 Fall Risk Secondary diagnosis (15 points) CVA, IV access (20 points). Mental Status- aa5 Overestimates/Forgets Limitations (15 pts.). Total Easley Fall Scale indicates High Risk Score (45 or more points). Fall prevention measures have been instituted. Side Rails Up X 2 Placed Close to Nursing Station. 20:22 Abuse screen: unknown. Nutritional screening: No deficits noted. Tuberculosis rv screening: No symptoms or risk factors identified. Assessment: 17:10 General: Behavior is intubated and sedated. . Pain: Unable to use pain scale. Neuro: aa5 Level of Consciousness is Intubated and sedated. . Cardiovascular: Heart tones S1 S2 present Rhythm is regular. Respiratory: Airway via oral intubation Respiratory pattern is regular, symmetrical, Breath sounds are diminished bilaterally. GI: Abdomen is flat, PEG tube in place, Site clean. : Brief noted. EENT: No signs and/or symptoms were reported regarding the EENT system. Derm: Skin is dry, Skin is normal, Skin temperature is cool. Musculoskeletal: Contractures noted to ayaka legs. 17:20 Reassessment: Pt intermittently deep suctioned by RT, large amount of white sputum aa5 noted. . 17:30 Reassessment: Sputum culture collected by RT and sent to lab . aa5 17:50 Reassessment: MD at bedside attempting central line placement. . aa5 17:50 Neuro: Level of Consciousness is Pt opening eyes, unable to follow commands. . aa5 Respiratory: Airway via oral intubation Respiratory effort is assisted Respiratory pattern is regular, symmetrical. Derm: Skin is dry, Skin is normal, Skin temperature is cool. 17:50 Reassessment: Bossman hugger warming blanket applied per MD.. aa5 18:05 Reassessment: ET tube pulled back to 24 at the teeth by RT per chest x-ray results. . aa5 18:05 Reassessment: RT remains at bedside, pt intermittently suctioned by RT, white sputum aa5 noted. . 18:20 Reassessment: MD remains at bedside attempting central line. . aa5 18:40 Neuro: Level of Consciousness is Pt opens eyes, pt unable to follow commands. Fentanyl aa5 drip received from pharmacy at this time. . Respiratory: Airway via oral intubation. Derm: Skin is dry, Skin is normal, Skin temperature is cool. 19:42 Reassessment: checked X-ray result. used central line for antibiotics. peripheral lines rv are flushing well. Neuro: Level of Consciousness is awake, Pupils are PERRLA, Pupil Size: 2. Cardiovascular: Rhythm is sinus rhythm. Respiratory: Airway via oral intubation Respiratory effort is labored, Respiratory pattern is tachypnea Ventilator assessment: ET Tube: 7.0 Ventilator Mode: Assist Control (AC) Tidal Volume: 515 Respiratory Rate: 14 FiO2: 100%. PEEP: 12 HOB > 30 degrees. Vital Signs: 17:15 Weight 36.29 kg; aa5 17:15 BP 95 / 74; Pulse 68; Resp 22 A; Temp 96.4(R); Pulse Ox 53% on ETT vent; aa5 17:20 BP 82 / 66; Pulse 78; Pulse Ox 52% on ETT vent; aa5 17:25 BP 104 / 79; Pulse 72; Pulse Ox 66% on ETT vent; aa5 17:30 BP 100 / 64; Pulse 72; Pulse Ox 58% on ETT vent; aa5 17:35 BP 79 / 54; Pulse 74; Pulse Ox 62% on ETT vent; aa5 17:40 BP 85 / 53; Pulse 77; Temp 94.0(C); Pulse Ox 66% on ETT vent; aa5 17:45 BP 98 / 70; Pulse 94; Resp 24 A; Pulse Ox 66% on ETT vent; aa5 17:50 BP 91 / 61; Pulse 52; Resp 20 A; Temp 94.7(C); Pulse Ox 66% on ETT vent; aa5 17:55 BP 89 / 67; Pulse 79; Resp 18 A; Pulse Ox 66% on ETT vent; aa5 18:02 BP 104 / 86; Pulse 107; Pulse Ox 64% on 100% FiO2 ETT vent; ss 18:06 BP 112 / 74; Pulse 88; Resp 21 A; Temp 94.0(C); Pulse Ox 62% on 100% FiO2 ETT vent; ss 18:12 BP 110 / 65; Pulse 60; Resp 22 A; Pulse Ox 75% on ETT vent; aa5 18:14 aa5 18:15 BP 126 / 72; Pulse 66; Resp 18 A; Temp 94.0(C); Pulse Ox 74% on ETT vent; aa5 18:19 BP 143 / 77; Pulse 67; Pulse Ox 70% on ETT vent; aa5 18:23 BP 150 / 91; Pulse 75; Resp 24 A; Temp 93.7(C); Pulse Ox 83% on ETT vent; aa5 18:30 BP 141 / 93; Pulse 77; Resp 20 A; Pulse Ox 72% on ETT vent; aa5 18:40 BP 141 / 99; Pulse 70; Resp 22 A; Pulse Ox 72% on ETT vent; aa5 18:50 BP 130 / 85; Pulse 86; Resp 22 A; Temp 94.3(C); Pulse Ox 85% on ETT vent; aa5 18:14 Vent settings: TV520, A/C mode, rate 14, PEEP 12, 100% FiO2 aa5 ED Course: 17:10 Patient arrived in ED. aa5 17:10 Arm band placed on left wrist. Patient has correct armband on for positive aa5 identification. Placed in gown. Bed in low position. Side rails up X2. 17:10 cafeteria monitor on. Pulse ox on. NIBP on. aa5 17:26 Maurice Gurrola MD is Attending Physician. ps1 17:26 Emiliana Pérez, MARIANA is Primary Nurse. aa5 17:30 Jo cath inserted, using sterile technique, 16 Fr., by ED staff, balloon inflated, to aa5 gravity drainage, Criticore JO. 17:36 Chest Single View XRAY In Process Unspecified. EDMS 17:37 Inserted saline lock: 20 gauge in right forearm, using aseptic technique. Blood ss collected. 17:50 COVID swab sent to lab. Flu and/or RSV swab sent to lab. aa5 18:02 Triage completed. ss 18:45 Assisted provider with central line placement. Set up central line tray. Triple lumen aa5 line placed in right internal jugular. Line placed by Maurice Gurrola MD Placement verified by blood return, Dressed with Tegaderm. 18:45 One-on-one care X 90 minutes. aa5 18:49 Larissa Daigle MD is Hospitalizing Provider. ps1 18:55 CXR XRAY In Process Unspecified. EDMS 19:00 Report given to MARIANA Santos. aa5 19:00 Head of bed elevated. rv 19:42 Flu and/or RSV swab sent to lab. rv 20:24 IV is patent, with fluids infusing freely, Patient admitted, IV remains in place. rv 05/13 08:59 Primary Nurse role handed off by Emiliana Pérez, MARIANA sv 08:59 Iesha Antoine, RN is Primary Nurse. sv Administered Medications: 05/12 17:35 Drug: NS 0.9% (30 ml/kg) 30 ml/kg Route: IV; Rate: bolus; Site: right forearm; aa5 18:40 Follow up: IV Status: Completed infusion; IV Intake: 1000ml aa5 17:38 Drug: Levophed (4 mg/250 mL D5W 4 mcg/min Route: IV; Rate: calculated rate; Site: left aa5 antecubital; 18:24 Follow up: Levophed infusion paused due to increased BP. aa5 20:25 Follow up: Rate change 5 mcg/min; IV Status: Infusion continued upon admission rv 17:40 Drug: Zosyn 3.375 grams Route: IVPB; Infused Over: 60 mins; Site: right forearm; aa5 18:52 Follow up: Response: No adverse reaction; IV Status: Completed infusion aa5 18:40 Drug: fentaNYL (PF) 1 mcg/kg/h Route: IV; Rate: calculated rate; Site: left antecubital;aa5 20:24 Follow up: IV Status: Infusion continued upon admission rv 19:40 Drug: LevaQUIN 750 mg Volume: 150 ml; Route: IVPB; Infused Over: 90 mins; Site: right rv subclavian; 20:31 Follow up: IV Status: Infusion continued upon admission rv 19:42 Drug: vancoMYCIN 1 grams Route: IVPB; Infused Over: 2 hrs; Site: right hand; rv 20:31 Follow up: IV Status: Infusion continued upon admission rv Intake: 18:40 IV: 1000ml; Total: 1000ml. aa5 Outcome: 18:50 Decision to Hospitalize by Provider. ps1 20:23 Admitted to ER Hold. Please see [facility] for further documentation. rv 20:23 Condition: stable 20:23 Instructed on the need for admit. 05/13 15:56 Patient left the ED. sv Signatures: Dispatcher [employer] EDMS Devi Arias RN RN sv Emiliana Pérez RN RN aa5 Jessica Monroe RN RN ss Maurice Gurrola MD MD ps1 Tom Hahn RN RN rv Corrections: (The following items were deleted from the chart) 05/12 18:13 17:11 Patient arrived in ED. aa5 aa5 18:19 18:07 Jo cath inserted, using sterile technique, 16 Fr., by ED staff, balloon aa5 inflated, to gravity drainage, Patient tolerated is sedated Criticore JO 18:32 18:14 Vent settings: TV520, A/C mode, rate 14, PEEP 12; aa5 aa5 18:32 18:10 Reassessment: ET tube pulled back to 24 at the teeth by RT per chest x-ray aa5 results. . aa5 18:35 17:10 Chief complaint: EMS states: received 911 call for hypoxemia at 75-80% RA, upon aa5 their arrival pt was 70% RA, placed on a non-rebreather with deteriorating oxygen saturation and increased work of breathing was noted by EMS, attempted BVM and pt was difficult to bag, ET tube was placed, lowest O2 sat noted was 50% per BVM by EMS. EMS reports pt was given Ketamine and Succinylcholine for intubation. EMS reports usp staff denied AMS, reports pt's baseline is making eye contact when calling her name, EMS reports mentation was as baseline reported by nursing staff upon their arrival. ET tube 7.0 and at 26 at the teeth aa5 19:22 18:02 Arm band placed on left wrist. aa5 19:22 18:07 Patient has correct armband on for positive identification. aa5 19:29 17:20 BP 82 / 66; Pulse 78bpm; aa5 aa5 19:29 17:25 BP 104 / 79; Pulse 72bpm; aa5 aa5 19:29 17:30 BP 100 / 64; Pulse 72bpm; aa5 aa5 19:29 17:35 BP 79 / 54; Pulse 74bpm; aa5 aa5 19:29 17:40 BP 85 / 53; Pulse 77bpm; aa5 aa5 19:46 18:45 Assisted provider with central line placement. Set up central line tray. Triple aa5 lumen line placed in right internal jugular. Line placed by Maurice Gurrola MD aa5
--- NOTE | 2020-05-12 18:51 | EDPHYS ---
Physician Documentation [facility] Name: Lillian Cabrera Age: 84 yrs Sex: Female : 1935 Arrival Date: 05/12/2020 Time: 17:11 Bed 3 Private MD: ED Physician Maurice Gurrola HPI: 05/12 17:29 This 84 yrs old Female presents to ER via Unassigned with complaints of ps1 Respiratory Distress. 17:29 Patient BIBEMS from [facility]) Intubated OOH for hypoxia and respiratory distress. 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 O2 sats 60% despite intubation. Checked ET tube and in place, continued suction of white/yellow sputum. Patient is bed bound and contracted. Has PEG tube. Full code. Urine cloudy and foul aroma. . Historical: - Allergies: 17:10 No Known Allergies; aa5 - PMHx: 18:03 Atrial Fib; CVA; Dementia; Glaucoma; Hyperlipidemia; Hypertension; UTI; ss - PSHx: 17:10 PEG tube; aa5 - Immunization history:: Adult Immunizations unknown. - Social history:: Smoking status: unknown. ROS: 17:29 Unable to obtain ROS due to altered mental status, patient is on ventilator. ps1 Exam: 17:29 Head/Face: Normocephalic, atraumatic. Eyes: Pupils equal round and reactive to light, ps1 extra-ocular motions intact. Lids and lashes normal. Conjunctiva and sclera are non-icteric and not injected. 17:29 Constitutional: The patient appears comatose, contracted, obviously ill, smells of urine. 17:29 Chest/axilla: Inspection: normal. 17:29 Cardiovascular: Rate: normal, Rhythm: irregular. 17:29 Respiratory: moderate respiratory distress is noted, Respirations: labored breathing, intercostal retractions, audible rales, breathing over tube. 17:29 Abdomen/GI: Inspection: abdomen appears normal, Bowel sounds: normal, Palpation: abdomen is soft and non-tender, PEG tube. 17:29 Musculoskeletal/extremity: Extremities: the patient is contracted. 17:29 Neuro: Orientation: Not oriented to person, place, time, situation, unable to test, the patient is intubated. Vital Signs: 17:15 Weight 36.29 kg; aa5 17:15 BP 95 / 74; Pulse 68; Resp 22 A; Temp 96.4(R); Pulse Ox 53% on ETT vent; aa5 17:20 BP 82 / 66; Pulse 78; Pulse Ox 52% on ETT vent; aa5 17:25 BP 104 / 79; Pulse 72; Pulse Ox 66% on ETT vent; aa5 17:30 BP 100 / 64; Pulse 72; Pulse Ox 58% on ETT vent; aa5 17:35 BP 79 / 54; Pulse 74; Pulse Ox 62% on ETT vent; aa5 17:40 BP 85 / 53; Pulse 77; Temp 94.0(C); Pulse Ox 66% on ETT vent; aa5 17:45 BP 98 / 70; Pulse 94; Resp 24 A; Pulse Ox 66% on ETT vent; aa5 17:50 BP 91 / 61; Pulse 52; Resp 20 A; Temp 94.7(C); Pulse Ox 66% on ETT vent; aa5 17:55 BP 89 / 67; Pulse 79; Resp 18 A; Pulse Ox 66% on ETT vent; aa5 18:02 BP 104 / 86; Pulse 107; Pulse Ox 64% on 100% FiO2 ETT vent; ss 18:06 BP 112 / 74; Pulse 88; Resp 21 A; Temp 94.0(C); Pulse Ox 62% on 100% FiO2 ETT vent; ss 18:12 BP 110 / 65; Pulse 60; Resp 22 A; Pulse Ox 75% on ETT vent; aa5 18:14 aa5 18:15 BP 126 / 72; Pulse 66; Resp 18 A; Temp 94.0(C); Pulse Ox 74% on ETT vent; aa5 18:19 BP 143 / 77; Pulse 67; Pulse Ox 70% on ETT vent; aa5 18:23 BP 150 / 91; Pulse 75; Resp 24 A; Temp 93.7(C); Pulse Ox 83% on ETT vent; aa5 18:30 BP 141 / 93; Pulse 77; Resp 20 A; Pulse Ox 72% on ETT vent; aa5 18:40 BP 141 / 99; Pulse 70; Resp 22 A; Pulse Ox 72% on ETT vent; aa5 18:50 BP 130 / 85; Pulse 86; Resp 22 A; Temp 94.3(C); Pulse Ox 85% on ETT vent; aa5 18:14 Vent settings: TV520, A/C mode, rate 14, PEEP 12, 100% FiO2 aa5 Procedures: 18:44 Central Line: the site was prepped with in sterile fashion, hibiclens, a triple lumen ps1 catheter was inserted, in the right internal jugular vein, in 1 attempts. placement was verified, by CXR, by blood return, the site was dressed with Tegaderm, using sterile technique, the patient tolerated the procedure, well. MDM: 17:35 Patient medically screened. ps1 18:48 Differential Diagnosis: pneumonia, sepsis, UTI, volume depletion. Data reviewed: vital ps1 signs, nurses notes, old medical records, lab test result(s), radiologic studies, and as a result, I will admit patient. Physician consultation: A Pilo ROBERTSON was contacted at 18:50, regarding admission, to the ICU, patient's condition, and will see patient in ED. ED course: 84 y/o F with septic shock, hypoxia, UTI, LLL pneumonia. Empirical therapy with IVF and ABX. Intubated in field. RM. Retracted 3 cm. RIJ placed for hypotension requiring levophed. However, patient maintained hypoxia and low O2 sats despite aggressive suctioning and pulmonary toilet. Admitted to ICU, guarded, poor prognosis. . 05/12 17:16 Order name: Amylase, Serum; Complete Time: 18:43 ss 05/12 17:16 Order name: Basic Metabolic Panel; Complete Time: 18:43 ss 05/12 17:16 Order name: Blood Culture Adult (2) 05/12 17:16 Order name: CBC with Diff; Complete Time: 18:43 ss 05/12 17:16 Order name: Ckmb; Complete Time: 18:43 ss 05/12 17:16 Order name: CPK; Complete Time: 18:43 ss 05/12 17:16 Order name: Lactate; Complete Time: 18:43 ss 05/12 17:16 Order name: LFT's; Complete Time: 18:43 ss 05/12 17:16 Order name: Lipase; Complete Time: 18:43 ss 05/12 17:16 Order name: Procalcitonin 05/12 17:16 Order name: Protime (+inr); Complete Time: 18:43 ss 05/12 17:16 Order name: Ptt, Activated; Complete Time: 18:43 ss 05/12 17:16 Order name: Troponin (emerg Dept Use Only); Complete Time: 18:43 ss 05/12 17:16 Order name: Urine Microscopic Only 05/12 17:20 Order name: Flu iw 05/12 17:28 Order name: ABG; Complete Time: 18:43 ps1 05/12 17:28 Order name: Sputum Culture [facility] 05/12 17:28 Order name: Urine Culture [facility] 05/12 17:36 Order name: Glucose, Ancillary Testing; Complete Time: 17:37 EDAZ 05/12 18:37 Order name: CBC Smear Scan; Complete Time: 18:43 EDAZ 05/12 19:08 Order name: Urine Dipstick--Ancillary (enter results) tt3 05/12 19:12 Order name: SARS-COV-2 RT PCR EDAZ 05/12 21:43 Order name: Lactate Sepsis 2 HR Follow-up EDAZ 05/12 22:50 Order name: Glucose, Ancillary Testing EDAZ 05/13 05:26 Order name: Glucose, Ancillary Testing [facility] 05/13 09:19 Order name: CBC with Automated Diff EDAZ 05/13 09:22 Order name: Lactate EDAZ 05/13 09:23 Order name: Comprehensive Metabolic Panel EDAZ 05/13 09:23 Order name: Magnesium EDAZ 05/12 17:16 Order name: Chest Single View XRAY; Complete Time: 18:43 05/12 17:16 Order name: Accucheck; Complete Time: 17:27 05/12 17:16 Order name: Cardiac monitoring; Complete Time: 17:27 05/12 17:16 Order name: EKG - Nurse/Tech; Complete Time: 17:27 05/12 17:16 Order name: IV Saline Lock - Large Bore; Complete Time: 17:27 ss 05/12 17:16 Order name: Labs collected and sent; Complete Time: 17:27 05/12 17:16 Order name: O2 Per Protocol; Complete Time: 17:27 ss 05/12 17:16 Order name: O2 Sat Monitoring; Complete Time: 17:27 ss 05/12 17:16 Order name: Urine Dipstick-Ancillary (obtain specimen); Complete Time: 18:11 05/12 17:28 Order name: Cruz; Complete Time: 17:28 aa5 05/12 18:43 Order name: CXR XRAY ps1 05/12 22:15 Order name: CONS Physician Consult EDMS 05/13 09:18 Order name: RAD EDMS 05/13 09:23 Order name: Vancomycin Level Trough EDMS 05/13 09:32 Order name: Procalcitonin EDMS 05/13 09:53 Order name: Manual Differential EDMS 05/13 10:29 Order name: CT EDMS 05/13 11:54 Order name: Glucose, Ancillary Testing EDMS 05/13 12:31 Order name: ABG Arterial Blood Gas EDMS 05/13 15:13 Order name: US EDMS EC: Rate is 74 beats/min. Rhythm is irregularly irregular. Left axis deviation noted. Q ps1 waves are Old in lead II. No ST changes noted. Clinical impression: Atrial Fibrillation and Inferior TN - age indeterminate. Administered Medications: 17:35 Drug: NS 0.9% (30 ml/kg) 30 ml/kg Route: IV; Rate: bolus; Site: right forearm; aa5 18:40 Follow up: IV Status: Completed infusion; IV Intake: 1000ml aa5 17:38 Drug: Levophed (4 mg/250 mL D5W 4 mcg/min Route: IV; Rate: calculated rate; Site: left aa5 antecubital; 18:24 Follow up: Levophed infusion paused due to increased BP. aa5 20:25 Follow up: Rate change 5 mcg/min; IV Status: Infusion continued upon admission rv 17:40 Drug: Zosyn 3.375 grams Route: IVPB; Infused Over: 60 mins; Site: right forearm; aa5 18:52 Follow up: Response: No adverse reaction; IV Status: Completed infusion aa5 18:40 Drug: fentaNYL (PF) 1 mcg/kg/h Route: IV; Rate: calculated rate; Site: left antecubital;aa5 20:24 Follow up: IV Status: Infusion continued upon admission rv 19:40 Drug: LevaQUIN 750 mg Volume: 150 ml; Route: IVPB; Infused Over: 90 mins; Site: right rv subclavian; 20:31 Follow up: IV Status: Infusion continued upon admission rv 19:42 Drug: vancoMYCIN 1 grams Route: IVPB; Infused Over: 2 hrs; Site: right hand; rv 20:31 Follow up: IV Status: Infusion continued upon admission rv Disposition: 18:48 Critical Care:. ps1 Disposition: 05/12/20 18:50 Hospitalization ordered by Larissa Daigle for Inpatient Admission. Preliminary diagnosis are Severe sepsis with septic shock, Left lower lobe pneumonia, UTI, Elevated Lactic, Hypoxia, Intubated. - Bed requested for [facility] ER HOLD. - Status is Inpatient Admission. sv - Condition is Critical. - Problem is new. - Symptoms have improved. Critical care time excluding procedures: 18:48 Critical care time: Bedside Care: 35 minutes, Consultation: 5 minutes, Family ps1 Intervention: 10 minutes. Total time: 50 minutes Signatures: Dispatcher [employer] EDDevi Manley RN Emiliana Singh RN RN aa5 Jessica Monroe RN RN ss Garcia, Cindy, RN RN cg Singer, Phillip, MD MD ps1 Vicente, Ronaldo, RN RN rv Corrections: (The following items were deleted from the chart) 18:04 17:21 CORONAVIRUS+MR.LAB.BRZ ordered. EDAZ EDAZ 20:10 18:50 Hospitalization Ordered by A Pilo ROBERTSON for Inpatient Admission. Preliminary cg diagnosis is Severe sepsis with septic shock; Left lower lobe pneumonia; UTI; Elevated Lactic; Hypoxia; Intubated. Bed requested for Intensive Care Unit. Status is Inpatient Admission. Condition is Critical. Problem is new. Symptoms have improved. ps1 05/13 15:56 05/12 20:10 05/12/2020 18:50 Hospitalization Ordered by A Pilo ROBERTSON for Inpatient sv Admission. Preliminary diagnosis is Severe sepsis with septic shock; Left lower lobe pneumonia; UTI; Elevated Lactic; Hypoxia; Intubated. Bed requested for [facility] ER HOLD. Status is Inpatient Admission. Condition is Critical. Problem is new. Symptoms have improved. cg
--- NOTE | 2020-05-12 19:05 | RAD REPORT ---
EXAM DESCRIPTION: RAD - Chest Single View - 05/12/2020 6:57 pm CLINICAL HISTORY: RIJ and tube retraction Chest pain. COMPARISON: Chest Single View dated 05/12/2020; Chest Single View dated 01/02/2020; Chest Single View dated 01/01/2020; Chest Single View dated 12/30/2019 FINDINGS: Portable technique limits examination quality. Tip of the endotracheal tube is above the bhavin. Right internal jugular venous catheter appears in t he right subclavian vein. No pneumothorax. The lungs are mildly emphysematous.The heart is upper limi t normal in size with a tortuous thoracic aorta.
[2020-05-12 19:25] LABS: Urine Blood 3+ (NEG); Urine Glucose 3+ (NEG); Urine Protein 2+ (NEG); Urine Specific Gravity 1.025 (1.005-1.030)
[2020-05-12 19:54] LABS: Urine Bacteria >50 /HPF (<20); Urine RBC 20-50 /HPF (NONE SEEN)
[2020-05-12 19:55] LABS: Urine Amorphous Sediment 3+ /HPF (NONE SEEN); Urine Mucus 2+ /HPF (NONE SEEN)
[2020-05-12] MEDS ORDERED: NA CHLORIDE 0.9% 500 ML IV PRN (20:54)
--- NOTE | 2020-05-12 22:04 | HP ---
Date of Admission: 05/12/2020 Chief Complaint: Respiratory distress. History Of Present Illness: This is an 84-year-old female patient, who has prior history of stroke, has a feeding tube and recently her feeding tube came out as she pulled it out and she was sent to emergency room within last week to 2 weeks, and this was replaced in the emergency room and she was sent back to assisted. Today, when nurse went to give her PEG tube feeding, she noted that the patient was in respiratory distress and her oxygen saturation was ranging anywhere from 73-85% on 3 L nasal cannula and pulse rate was 115, blood pressure 135/87, and she called ambulance and sent the patient to emergency room, and I was notified by assisted staff as well. After the patient was evaluated in the ER, she was noted to have pneumonia, urinary tract infection, sepsis, and hypothermia. She was admitted to the hospital. She was intubated and admitted to the hospital to intensive care unit. I saw her in the emergency room and her son was with her at bedside. The patient does not communicate normally and today when I saw her, she was lying in bed, her eyes were open for while and after that she had her eyes closed. She does not follow any commands. Allergies: NO KNOWN ALLERGIES. Medications: List reviewed. Review of Systems: Respiratory: As mentioned above. RESIDENTIAL LIFE DIRECTOR: As mentioned above. All other systems reviewed and negative. Social History: Negative for smoking or alcohol use. Family History: Significant for unknown type of cancer and cardiovascular disease. Past Medical History: Senile dementia, mixed hyperlipidemia, glaucoma, urinary tract infection, stroke in August of 2018, weight loss, and last hospital admission was in December of this year with pneumonia and volume depletion. Past Surgical History: Significant for hip fracture and surgery for that, which was done in August 2018; PEG tube placement in August 2019. Physical Examination: Vital Signs: Height 5 feet, weight 80 pounds, temperature 96.4, pulse 68, respiratory rate 22, blood pressure 95/74, oxygen saturation 53%. General: The patient appears weaker than normal, lying in bed, not in any distress. Intubated on ventilator with her eyes open. She appears cachectic looking. HEENT: Head atraumatic, normocephalic. Conjunctivae nonerythematous. Sclerae white. Mouth, no thrush or edema noted. Ears/Nose, no mass, lesion, discharge noted. Presence of endotracheal tube present in mouth. Neck: Supple. No JVD, lymph nodes, bruit, thyromegaly noted. Lungs: Bilateral good equal air entry. Clear to auscultation. No rhonchi. No rales. Heart: Normal heart sounds. No murmur or gallop. Abdomen: Presence of PEG tube feeding from anterior abdominal wall, surrounding skin appears normal. Abdomen is soft. Bowel sounds normoactive. No guarding, rigidity, tenderness, or distention. Extremities: No leg edema. No calf tenderness. Skin: No rash, ulcer, cellulitis. Lymphatics: No lymph node enlargement in neck, supraclavicular, infraclavicular region. Neurologic: The patient does not follow any commands. Chest: Unremarkable. External Genitalia: Deferred. Rectal: Deferred. Laboratory Data: White count 10.6, hemoglobin 14.2, platelets 271. Blood gas showed pH 7.19, pCO2 68.4, pO2 33.4, oxygen saturation 42.1% on 100% FiO2, this is likely venous blood gas. Sodium 144, potassium 3.9, chloride 106, bicarb 26, BUN 41, creatinine 0.97, glucose 280. Lactic acid 6.2. Procalcitonin less than 0.05. Liver function tests unremarkable. Troponin 0.04. Impression: 1. Septic shock. 2. Acute respiratory failure with hypoxia. 3. Pneumonia. 4. Urinary tract infection. 5. Stroke. 6. Senile dementia. 7. Glaucoma. Plan: Admit the patient to hospital for further evaluation and management of this problem. The patient is appropriate for inpatient and is expected to spend 2 midnights in hospital. She received IV fluids per sepsis protocol in emergency room. IV antibiotics will be given. The patient will be on ventilator. She is full code and we will consult Dr. Stacy from Pulmonary Service. DVT prophylaxis will be given per order. We will repeat blood work tomorrow. Details and plan of treatment discussed with the patient's son at bedside. Overall, prognosis is poor. The patient is on vasopressor medication and when I saw her, her systolic blood pressure was around 99 in the emergency room. Details were discussed with son. DANIELA/ADRILE Voice ID: [id number] [facility]. NOBLE HOSPITALMarco Antonio
[2020-05-12] MEDS ORDERED: GLUCAGON 1 MG/VIAL IM PRN (22:13)
[2020-05-12] MEDS ORDERED: D50W 25 GM/50 ML SYRINGE IV PRN (22:13)
[2020-05-12] MEDS ORDERED: ACETAMINOPHEN 500 MG TAB FT PRN (22:20)
[2020-05-12] MEDS ORDERED: ONDANSETRON 4 MG/2 ML VIAL IV PRN (22:20)
[2020-05-12] MEDS ORDERED: LORazepam 2 MG/ML VIAL IV ONE (22:20)
[2020-05-12] MEDS ORDERED: LORazepam 2 MG/ML VIAL ONE (22:46)
[2020-05-12] MEDS ORDERED: D5 0.9 NS 1,000 ML IV ONE (22:46)
[2020-05-12] MEDS: D5 0.9 NS 1,000 ML IV SCH (23:00)
[2020-05-12 23:35] VITALS: BMI 15.6
[2020-05-13] MEDS: PIPER/TAZO/NS 3.375gm 3.375 GM/100 ML BAG IVPB SCH ×3 (01:00→17:57)
[2020-05-13] MEDS ORDERED: PIPER/TAZO/NS 3.375gm 3.375 GM/100 ML BAG ONE ×4 (01:57→23:38)
[2020-05-13] MEDS ORDERED: LORazepam 2 MG/ML VIAL ONE (05:15)
[2020-05-13] MEDS ORDERED: LORazepam 2 MG/ML VIAL IV PRN (05:26)
[2020-05-13] MEDS: INSULIN -REGULAR HUMAN 50 UNIT/0.5 ML ML SQ SCH ×4 (05:29→17:44)
[2020-05-13] MEDS ORDERED: FENTANYL CITR 100 MCG/2 ML IV PRN (08:30)
[2020-05-13] MEDS ORDERED: NA CHLORIDE 0.9% 250 ML IV PRN (08:30)
--- NOTE | 2020-05-13 08:32 | P.CNS ---
Date of Consult: 05/13/20 Chief Complaint: Respiratory failure History of Present Illness: Patient is 84 years of age a longterm resident admitted with respiratory distress is intubated currently unresponsive will place amount of secretions Allergies No Known Allergies Allergy (Verified 10/01/18 21:47) Home Medications: Acetaminophen 325 mg FT TID 10/31/19 Ascorbic Acid [Vitamin C] 500 mg FT BID 10/31/19 Donepezil HCl [Aricept] 10 mg FT BEDTIME 10/31/19 Mirtazapine 45 mg FT BEDTIME 10/31/19 Multivitamin [Multiple Vitamins] 1 tab FT DAILY 10/31/19 carvediloL [Coreg*] 6.25 mg FT BID 10/31/19 Azithromycin 250 mg PO DAILY 12/25/19 Azithromycin 500 mg PO BID 12/25/19 Divalproex [Depakote Sprinkle*] 125 mg PO TID 12/25/19 Docusate Sodium 100 mg PO BID 12/25/19 Nitrofuran Macro [Macrobid*] 100 mg PO BID 12/25/19 Potassium Chloride 20 meq PO BID 12/25/19 Promethazine Suppos [Phenergan] 25 mg RC Q6H 12/25/19 - Past Medical/Surgical History Diabetic: No -: dementia -: hyperlipidemia -: glaucoma -: elevated wbc -: volume depeletion -: uti (chronic) -: constipation -: muscle weakness (generalized) -: hip sx august 2018 - Social History Smoking Status: Unknown if ever smoked Alcohol use: No CD- Drugs: No Caffeine use: No Place of Residence: [place] Review of Systems is unable to be obtained Physical Examination Temp Pulse Resp BP Pulse Ox 100.5 F 95 H 19 137/98 H 100 05/13/20 06:06 05/13/20 06:06 05/13/20 06:06 05/13/20 06:06 05/13/20 06:06 General: Unresponsive Respiratory: Clear to auscultation bilaterally, Diminished Cardiovascular: No edema, Normal S1 S2 Gastrointestinal: Normal bowel sounds, Non-distended Laboratory Data (last 24 hrs) 05/12/20 17:20: PT 15.3 H, INR 1.30, APTT 28.9 05/12/20 17:20: WBC 10.6, Hgb 14.2, Hct 41.4, Plt Count 271 05/12/20 17:20: Sodium 144, Potassium 3.9, BUN 41 H, Creatinine 0.97, Glucose 280 H, Total Bilirubin 0.7, AST 14 L, ALT 22, Alkaline Phosphatase 88, Amylase 102, Lipase 103 - Problems (1) Respiratory failure Current Visit: No Status: Acute Plan: Patient is 84 years of age admitted with respiratory failure she was admitted in December of this year with the same problem currently on a ventilator chest x-ray no evidence of an infection sputum cultures are pending mild microcytosis ABG showed acidosis hypercapnia: Patient has a history of prior stroke feeding tube which is recently pulled out and was recently replaced nurse found that has sats were low Patient is on Levophed drip will plan to wean off an Dc continue with IV fluids antibiotics cultures pending 2D echocardiogram CT pulmonary angiogram history of dementia with a PEG tube Qualifiers: Chronicity: unspecified
[2020-05-13] MEDS ORDERED: PNEUMOCOCCAL VACCINE 0.5 ML IMVAC ONE (09:00)
[2020-05-13] MEDS ORDERED: VANCOMYCIN/NS 1 gm 1 GM/250 ML BAG IV ONE (09:00)
[2020-05-13] MEDS ORDERED: ENOXAPARIN 30 MG/0.3 ML SQ SCH ×2 (09:00→21:00)
[2020-05-13 09:05] LABS: Absolute Lymphocytes (CBC) 0.5 K/uL (0.7-4.9); Basophils % 0.2 % (0-1.3); Hematocrit 34.2 % (36.0-45.0); Lymphocytes % 8.5 % (15.3-44.8); MPV 7.4 fL (7.6-11.3); RBC Red Blood Cell Count 3.38 M/uL (3.86-4.86)
--- NOTE | 2020-05-13 09:17 | RAD REPORT ---
EXAM DESCRIPTION: Facundo Single View05/13/2020 9:05 am CLINICAL HISTORY: Shortness breath COMPARISON: May 12, 2020 FINDINGS: Endotracheal tube with its tip well above the bhavin. Nasogastric tube within the stomach. Right central venous line extends laterally to the right presumably within the right subclavian vein . The lungs are hyperaerated. Lungs appear clear of acute infiltrate. The aorta is tortuous/ectatic. Th e heart is normal size
[2020-05-13 09:22] LABS: Albumin 2.6 g/dL (3.4-5.0); Bilirubin Total 0.5 mg/dL (0.2-1.0); Magnesium 1.9 mg/dL (1.8-2.4); Potassium 3.8 mmol/L (3.5-5.1); Protein, Total 5.9 g/dL (6.4-8.2)
[2020-05-13 09:51] LABS: Blood Morphology Comment NOT SEEN (NOT SEEN); Platelet Estimate ADEQ; Platelets, Giant FEW
--- NOTE | 2020-05-13 10:29 | RAD REPORT ---
EXAM DESCRIPTION: CT - Chest For Pe Angio - 05/13/2020 9:57 am CLINICAL HISTORY: Chest pain COMPARISON: None. TECHNIQUE: Dynamically enhanced axial 3 mm thick images of the chest were obtained during administra tion of <100> mL Isovue 370 IV contrast. Coronal and oblique reconstruction images were generated and reviewed. Exam utilizes a protocol for optimal evaluation of pulmonary arterial tree. Maximum intensity projections 3D imaging was utilized All CT scans are performed using dose optimization technique as appropriate and may include automated exposure control or mA/KV adjustment according to patient size. FINDINGS: Thrombus is present within the subsegmental right lower lobe pulmonary artery. No thrombus within the main, right main, left main and left pulmonary arteries. A thoracic aortic aneurysm is not noted. A pleural effusion is not seen. A pericardial effusion is not seen. Mild to moderate tree-in-bud opacities right middle and right lower lobes. Soft tissue within the rig ht lower lobe bronchi. Hyperaerated lungs Endotracheal tube with its tip well above the bhavin. Nasogastric tube within the stomach. . Central venous line with its tip in the right subclavian vein IMPRESSION: Small amount right lower lobe pulmonary emboli Mild to moderate tree-in-bud opacities right lung may indicate atypical infection Soft tissue right lower lobe bronchus
[2020-05-13] MEDS ORDERED: D5 0.9 NS 1,000 ML IV ONE ×2 (10:32→23:37)
[2020-05-13] MEDS ORDERED: ENOXAPARIN 30 MG/0.3 ML SQ ONE (11:38)
[2020-05-13] MEDS: D5 0.9 NS 1,000 ML IV SCH (11:46)
[2020-05-13 12:29] LABS: Arterial Blood Carboxyhemoglob 1.3 % (0-1.5); Blood Gas Oxyhemoglobin 89.7 % (94-97); Blood O2 Saturation 91.4 % (92-98.5)
--- NOTE | 2020-05-13 12:53 | PN ---
Date of Progress Note: 05/13/2020 Subjective: The patient was seen for followup this morning. She was lying in bed, not in distress, on the ventilator overnight. She had lot of agitation problem and she started waking up and was agit ated, required some IV sedation. Ativan was ordered and subsequently dose was increased. This morni ng when I saw her, she was on ventilator, sleeping comfortably. Hemodynamically, she is stable and s he is not requiring any vasopressor medication as of this morning. Intake and output records reviewe d. Objective: Vital Signs: Early this morning; temperature was 100.5, pulse 95, respiratory rate 19, b lood pressure 137/98 with oxygen saturation 100%. When I saw her, she was on 55% FiO2. HEENT: Unremarkable. Lungs: Clear to auscultation. Heart: Sounds normal. Abdomen: Soft. Bowel sounds normal. No guarding, rigidity, tenderness, distention. Extremities: No leg edema. Laboratory Data: White count 6, hemoglobin 12.1, platelets 204. Sodium 144, potassium 3.8, chloride 111, bicarb 27, BUN 42, creatinine 0.93, glucose 177. Liver function tests unremarkable. Lactic ac id 1.2. Procalcitonin 1.87. Impression: 1.Acute respiratory failure with hypoxia and septic shock. 2.Pneumonia, aspiration pneumonia. 3.Urinary tract infection. Plan: We will go ahead and continue Zosyn and vancomycin. Pharmacy consult was requested to manage vancomycin dosing. We will continue to follow with Dr. Stacy. Lovenox was ordered for DVT prophy laxis 30 mg subcutaneous injection daily and details were discussed with the patient's son today. DANIELA/MODL Voice ID: [id number] Report ID: [id number]
--- NOTE | 2020-05-13 14:23 | ECHO ---
HEIGHT: 5 ft 0 in WEIGHT: 80 lb 0.092 oz DATE OF STUDY: 05/13/[address]: Roamn Stacy MD 2-DIMENSIONAL: YES M.MODE: YES DOPPLER: YES COLOR FLOW: YES TDS: PORTABLE: DEFINITY: BUBBLE STUDY: DIAGNOSIS: RESPIRATORY FAILURE CARDIAC HISTORY: CATHERIZATION: SURGERY: PROSTHETIC VALVE: PACEMAKER: MEASUREMENTS (cm) DIASTOLIC (NORMALS) SYSTOLIC (NORMALS) IVSd 1.0 (0.6-1.2) LA Diam 4.4 (1.9-4.0) LVEF 74% LVIDd 3.5 (3.5-5.7) LVIDs 2.0 (2.0-3.5) %FS 42% LVPWd 1.1 (0.6-1.2) Ao Diam 3.4 (2.0-3.7) 2 DIMENSIONAL ASSESSMENT: RIGHT ATRIUM: NORMAL LEFT ATRIUM: ENLARGED RIGHT VENTRICLE: NORMAL LEFT VENTRICLE: NORMAL TRICUSPID VALVE: MODERATE TRICUSPID REGURGITATION MITRAL VALVE: CALCIFIED AND THICKENED WITH MITRAL STENOSIS, MILD REGURGITATION PULMONIC VALVE: NORMAL AORTIC VALVE: THICKENED, NO AORTIC STENOSIS PERICARDIAL EFFUSION: NONE AORTIC ROOT: NORMAL LEFT VENTRICULAR WALL MOTION: NORMAL DOPPLER/COLOR FLOW: SEE BELOW COMMENTS: NORMAL LEFT VENTRICULAR EJECTION FRACTION (HYPERDYNAMIC), EJECTION FRACTION >60%. MODERATE TO SEVERE TRICUSPID REGURGITATION. HEAVILY CALCIFIED MITRAL VALVE WITH POSSIBLE MASS LIKE IS SEEN, MILD TO MODERATE MITRAL STENOSIS, MILD MITRAL REGURGITATION. MILD AORTIC INSUFFIENCY. RECOMMEND TRANSESOPHEGEAL ECHOCARDIOGRAM FOR FURTHER EVALUATION OF MITRAL VALVE. TECHNOLOGIST: VIJAY AVILA
--- NOTE | 2020-05-13 15:11 | RAD REPORT ---
EXAM DESCRIPTION: US - Extrem Venous W Compress Abner - 05/13/2020 2:52 pm CLINICAL HISTORY: PE, rule out DVT COMPARISON: CT PE study May 13 TECHNIQUE: Real-time sonographic evaluation of the bilateral lower extremity common femoral, superfi cial femoral, popliteal and posterior tibial veins was performed. FINDINGS: Normal compressibility, flow augmentation, phasic flow and spontaneous flow are identified in the left and right lower extremity common femoral, superficial femoral, popliteal and posterior t ibial veins. No intraluminal filling defects seen. IMPRESSION: No DVT in either lower extremity.
[2020-05-13] MEDS: ENOXAPARIN 40 MG/0.4 ML SQ SCH (17:57)
[2020-05-13] MEDS ORDERED: ENOXAPARIN 40 MG/0.4 ML SQ ONE (18:00)
[2020-05-14] MEDS: PIPER/TAZO/NS 3.375gm 3.375 GM/100 ML BAG IVPB SCH ×2 (00:33→08:09)
[2020-05-14] MEDS: D5 0.9 NS 1,000 ML IV SCH ×2 (00:35→15:28)
[2020-05-14] MEDS: LORazepam 2 MG/ML VIAL IV PRN ×4 (01:13→23:35)
[2020-05-14] MEDS ORDERED: LORazepam 2 MG/ML VIAL ONE ×4 (01:27→23:47)
[2020-05-14] MEDS: INSULIN -REGULAR HUMAN 50 UNIT/0.5 ML ML SQ SCH ×4 (06:00→18:00)
[2020-05-14] MEDS ORDERED: PIPER/TAZO/NS 3.375gm 3.375 GM/100 ML BAG ONE (08:06)
[2020-05-14] MEDS ORDERED: ENOXAPARIN 40 MG/0.4 ML SQ ONE ×2 (08:06→22:03)
[2020-05-14] MEDS: ENOXAPARIN 40 MG/0.4 ML SQ SCH ×2 (08:09→21:49)
[2020-05-14] MEDS ORDERED: Meropenem 1000 MG/VIAL IV SCH (09:41)
--- NOTE | 2020-05-14 10:30 | PN ---
Date of Progress Note: 05/14/2020 Subjective: The patient was seen this morning for followup. No new complaints or problems reported by nursing staff. She remains on ventilator on oxygen with FiO2 around 50% and requires Ativan for s edation from time to time. Intake and output records reviewed. Objective: Vital Signs: Reviewed. HEENT: Unremarkable. Lungs: Clear to auscultation. Heart: Sounds normal. Abdomen: Soft. Bowel sounds normal. No guarding, rigidity, tenderness, distention. Extremities: No leg edema. Impression: 1.Aspiration pneumonia. 2.Acute respiratory failure. 3.Septic shock. 4.Pulmonary embolism. Plan: The patient has NG tube and does not have any significant amount of drainage coming out of the NG tube, so I have instructed nursing staff to discontinue that and also advised to flush her PEG tu be with about 30 to 40 cc water every 6 hours or so. We will continue Lovenox for pulmonary embolism . The patient has a very small subsegmental pulmonary embolism in one lung. Continue current empiri c antibiotics and ventilator support and management per Dr. Stacy. DANIELA/MODL Voice ID: [id number] Report ID: [id number]
--- NOTE | 2020-05-14 10:50 | P.PN ---
Subjective Date of Service: 05/14/20 Chief Complaint: Respiratory failure No change in patient's condition was diagnosed of pulmonary embolism currently she is fully anti coagulated a still has copious thick secretions ESBL isolated in the urine and is on response Review of Systems is unable to be obtained Physical Examination - Vital Signs Temperature: 98.2 F Blood Pressure: 127/99 Pulse: 83 Respirations: 15 Pulse Ox (%): 98 - Physical Exam General: Unresponsive Respiratory: Clear to auscultation bilaterally, Diminished Cardiovascular: No edema, Regular rate/rhythm - Studies Microbiology Data (last 24 hrs): 05/12/20 17:20 Sputum Sputum Gram Stain - Final 05/12/20 18:15 Catheterized Urine [place] Count - Final >100,000 CFU/ML. 05/12/20 18:15 Catheterized Urine - Final Escherichia Coli Esbl Assessment & Plan - Problems (Diagnosis) (1) Respiratory failure Current Visit: No Status: Acute Plan: Patient's condition is stable on 40% oxygen change to SIMV and pressure support nonspecific changes on CT scan of the chest I doubt if she has pneumonia probably sepsis from ESBL recommend stopping vancomycin change to meropenem labs reviewed resume tube feeds will try and wean her off from the ventilator tomorrow patient has 3+ gram-negative rods in the sputum id is pending blood gases yesterday shows significant hypoxemia with hypercapnia Qualifiers: Chronicity: unspecified
[2020-05-14] MEDS: Meropenem 1,000 MG in NA CHLORIDE 0.9% 100 ML IV SCH ×2 (10:57→21:44)
[2020-05-14 13:45] LABS: Absolute Lymphocytes (CBC) 1.2 K/uL (0.7-4.9); Basophils % 0.6 % (0-1.3); Hematocrit 33.2 % (36.0-45.0); Lymphocytes % 18.8 % (15.3-44.8); MPV 7.6 fL (7.6-11.3); RBC Red Blood Cell Count 3.26 M/uL (3.86-4.86)
[2020-05-14 13:58] LABS: Magnesium 1.9 mg/dL (1.8-2.4); Potassium 3.5 mmol/L (3.5-5.1)
[2020-05-14] MEDS ORDERED: D5 0.9 NS 1,000 ML IV ONE (14:39)
[2020-05-14] MEDS ORDERED: JEVITY 1.5 CAL LIQUID 1,000 ML BOT FT SCH ×2 (15:00→16:00)
[2020-05-14] MEDS: JEVITY 1.5 CAL LIQUID 1,000 ML BOT FT SCH ×2 (21:00→21:44)
[2020-05-14] MEDS: VANCOMYCIN 500 MG in NA CHLORIDE 0.9% 100 ML IVPB SCH (21:45)
[2020-05-14] MEDS ORDERED: ENOXAPARIN 30 MG/0.3 ML SQ ONE (21:56)
[2020-05-15] MEDS: JEVITY 1.5 CAL LIQUID 1,000 ML BOT FT SCH ×5 (00:59→20:27)
[2020-05-15] MEDS ORDERED: D5 0.9 NS 1,000 ML IV ONE (02:28)
[2020-05-15] MEDS: D5 0.9 NS 1,000 ML IV SCH (04:16)
[2020-05-15] MEDS: INSULIN -REGULAR HUMAN 50 UNIT/0.5 ML ML SQ SCH ×4 (05:20→18:00)
[2020-05-15] MEDS: LORazepam 2 MG/ML VIAL IV PRN (05:42)
[2020-05-15] MEDS ORDERED: LORazepam 2 MG/ML VIAL ONE (05:55)
[2020-05-15] MEDS ORDERED: FENTANYL CITR 100 MCG/2 ML ONE (07:32)
--- NOTE | 2020-05-15 08:23 | RAD REPORT ---
EXAM DESCRIPTION: Facundo Single View05/15/2020 6:51 am CLINICAL HISTORY: Respiratory failure COMPARISON: May 13, 2020 FINDINGS: Nasogastric tube has been removed. Endotracheal tube in good position Partial resolution mild reticulonodular opacities right lung. Left lung appears clear. Heart is mildl y enlarged
[2020-05-15] MEDS: Meropenem 1,000 MG in NA CHLORIDE 0.9% 100 ML IV SCH ×2 (09:00→20:26)
[2020-05-15] MEDS: D5W 1,000 ML IV SCH (09:01)
[2020-05-15] MEDS: ENOXAPARIN 40 MG/0.4 ML SQ SCH ×2 (09:02→20:26)
[2020-05-15] MEDS ORDERED: ENOXAPARIN 40 MG/0.4 ML SQ ONE ×2 (09:11→20:36)
[2020-05-15] MEDS ORDERED: D5W 1,000 ML IV ONE (09:12)
[2020-05-15 09:31] LABS: Absolute Lymphocytes (CBC) 0.7 K/uL (0.7-4.9); Basophils % 0.1 % (0-1.3); Hematocrit 30.4 % (36.0-45.0); Lymphocytes % 11.2 % (15.3-44.8); MPV 7.7 fL (7.6-11.3); RBC Red Blood Cell Count 2.96 M/uL (3.86-4.86)
[2020-05-15] MEDS: Levofloxacin500mg IV 500 MG/100 ML BAG IV SCH (09:47)
[2020-05-15 09:54] LABS: Magnesium 1.8 mg/dL (1.8-2.4)
[2020-05-15] MEDS ORDERED: Levofloxacin500mg IV 500 MG/100 ML BAG IV ONE (09:58)
[2020-05-15] MEDS ORDERED: Meropenem 1 GM/100 ML BAG ONE (09:58)
[2020-05-15 10:04] LABS: Potassium 2.6 mmol/L (3.5-5.1)
[2020-05-15] MEDS ORDERED: KCL 20 MEQ/100 mL IVPB 20 MEQ/100 ML BAG IV SCH (11:00)
[2020-05-15] MEDS ORDERED: KCL 20 MEQ/100 mL IVPB 20 MEQ/100 ML BAG IV ONE (11:28)
[2020-05-15] MEDS ORDERED: KCL 20 MEQ/100 mL IVPB 40 MEQ/200 ML BAG IV ONE (11:29)
--- NOTE | 2020-05-15 11:42 | P.PN ---
Subjective Date of Service: 05/15/20 Chief Complaint: Respiratory failure No change in patient's condition Pseudomonas isolated from the sputum resistant to meropenem patient is now on Levaquin copious secretions ESBL in the urine chest x-ray still clear over is very rotated Review of Systems is unable to be obtained Physical Examination - Vital Signs Temperature: 97.9 F Blood Pressure: 107/72 Pulse: 75 Respirations: 14 Pulse Ox (%): 99 - Physical Exam General: Unresponsive Respiratory: Diminished, Expiratory wheezes Cardiovascular: No edema, Regular rate/rhythm - Studies Microbiology Data (last 24 hrs): 05/12/20 17:20 Sputum Sputum Gram Stain - Final 05/12/20 17:20 Sputum Culture & Sensitivity - Final Pseudomonas Aeruginosa 05/12/20 18:15 Catheterized Urine [place] Count - Final >100,000 CFU/ML. 05/12/20 18:15 Catheterized Urine - Final Escherichia Coli Esbl Assessment & Plan - Problems (Diagnosis) (1) Respiratory failure Current Visit: No Status: Acute Plan: Patient admitted with respiratory failure Pseudomonas resistant to meropenem patient is on IV levofloxacin patient has ESBL now hypernatremic agree with IV fluids the start Dobhoff tube feeds patient is on minimal oxygen still has copious secretions continue to monitor correct hypernatremia prognosis very poor evaluation for an LTAC once the secretions have decreased to plan to wean and extubate the pressure is slightly low Qualifiers: Chronicity: unspecified
--- NOTE | 2020-05-15 12:22 | PN ---
Date of Progress Note: 05/15/2020 Subjective: The patient was seen this morning for followup. No new complaints or problems reported by nursing staff. She was on ventilator in ICU and nursing staff has reported that the patient continues to have copious amount of secretion that they are during frequent suctioning. This morning when I saw her, we also noted that she had fluid leaking around from her PEG tube site area. Objective: HEENT: Unremarkable. Lungs: Clear to auscultation. Heart: Sounds normal. Abdomen: Soft. Bowel sounds normal. No guarding, rigidity, tenderness, or distention. Extremities: No leg edema. Laboratory Data: Labs reviewed. Impression: 1. Pneumonia. 2. Urinary tract infection. 3. Acute respiratory failure with hypoxia. 4. Volume depletion. 5. Hypokalemia. 6. Pulmonary embolism. Plan: Details were discussed with Dr. Stacy. We will replace electrolyte per protocol. IV fluid was changed to D5W at 75 cc/hour and I have also ordered water to be given through the feeding tube. The patient is having lot of leakage of fluid around the feeding tube, however, feeding tube she had pulled out which was replaced percutaneously in the emergency room maybe about 2 weeks ago or so and now we are noticing some leakage of fluid around it, so we will need to have our manager of change try to replace the PEG tube. We do not have any manager of change available convict guard, so we will have to wait until next week for that. Meanwhile, we will start her on Dobhoff and provide water through that. Her sputum culture grew Pseudomonas and urine culture grew E coli which is ESBL. She is on meropenem as well as Levaquin as per sensitivity result. Dr. Stacy mentioned the patient to be transferred to long-term acute care facility because of her copious amount of secretion. She may need long- term management and would be appropriate for long-term acute care facility placement, so he will request Social Service to assist us with that. I will communicate with the patient's son regarding all these details. Continue Lovenox per order. Venous Doppler was negative for DVT. DANIELA/MODL Voice ID: [id number] Report ID: [id number] MEME
[2020-05-15] MEDS: KCL 20 MEQ/100 mL IVPB 20 MEQ/100 ML BAG IV SCH ×2 (13:15→16:38)
[2020-05-15 17:06] LABS: Potassium 3.2 mmol/L (3.5-5.1)
[2020-05-15 21:15] LABS: Arterial Blood Carboxyhemoglob 1.5 % (0-1.5); Blood Gas Oxyhemoglobin 88.6 % (94-97); Blood O2 Saturation 90.7 % (92-98.5)
[2020-05-16] MEDS: JEVITY 1.5 CAL LIQUID 1,000 ML BOT FT SCH ×4 (00:31→15:02)
[2020-05-16] MEDS: D5W 1,000 ML IV SCH ×2 (01:38→11:40)
[2020-05-16] MEDS ORDERED: D5W 1,000 ML IV ONE (01:51)
[2020-05-16] MEDS: KCL 20 MEQ/100 mL IVPB 20 MEQ/100 ML BAG IV SCH ×2 (01:56→05:07)
[2020-05-16] MEDS ORDERED: KCL 20 MEQ/100 mL IVPB 40 MEQ/200 ML BAG IV ONE (02:09)
[2020-05-16] MEDS: INSULIN -REGULAR HUMAN 50 UNIT/0.5 ML ML SQ SCH ×3 (05:56→11:51)
[2020-05-16 06:09] LABS: Arterial Blood Carboxyhemoglob 1.2 % (0-1.5); Blood Gas Oxyhemoglobin 83.4 % (94-97); Blood O2 Saturation 84.9 % (92-98.5)
[2020-05-16] MEDS ORDERED: AMLODIPINE 5 MG TAB PO ONE (07:22)
[2020-05-16] MEDS ORDERED: AMLODIPINE 5 MG TAB ONE (07:40)
[2020-05-16] MEDS ORDERED: HYDRALAZINE HCL 20 MG/ML VIAL IV PRN (08:31)
[2020-05-16] MEDS: Meropenem 1,000 MG in NA CHLORIDE 0.9% 100 ML IV SCH (08:39)
[2020-05-16] MEDS: Levofloxacin500mg IV 500 MG/100 ML BAG IV SCH (08:39)
[2020-05-16] MEDS: VANCOMYCIN 500 MG in NA CHLORIDE 0.9% 100 ML IVPB SCH ×2 (08:39→09:00)
[2020-05-16] MEDS: ENOXAPARIN 40 MG/0.4 ML SQ SCH (08:40)
[2020-05-16] MEDS ORDERED: Levofloxacin500mg IV 500 MG/100 ML BAG IV ONE (08:51)
[2020-05-16] MEDS ORDERED: HYDRALAZINE HCL 20 MG/ML VIAL ONE (08:51)
[2020-05-16] MEDS ORDERED: ENOXAPARIN 40 MG/0.4 ML SQ ONE (08:52)
[2020-05-16 09:34] LABS: Absolute Lymphocytes (CBC) 0.6 K/uL (0.7-4.9); Basophils % 0.4 % (0-1.3); Hematocrit 33.5 % (36.0-45.0); Lymphocytes % 7.5 % (15.3-44.8); MPV 7.2 fL (7.6-11.3); RBC Red Blood Cell Count 3.32 M/uL (3.86-4.86)
[2020-05-16 09:49] LABS: BUN Blood Urea Nitrogen 21 mg/dL (7-18); Bicarbonate 25 mmol/L (21-32); Glucose Level 160 mg/dL (74-106); Magnesium 1.7 mg/dL (1.8-2.4); Potassium 3.5 mmol/L (3.5-5.1); Sodium Level 148 mmol/L (136-145)
--- NOTE | 2020-05-16 10:24 | P.PN ---
Subjective Date of Service: 05/16/20 Chief Complaint: Respiratory failure Patient was extubated yesterday developed respiratory distress is currently on BiPAP with severe hypertension Review of Systems is unable to be obtained Physical Examination - Vital Signs Temperature: 97.8 F Blood Pressure: 160/112 Pulse: 100 Respirations: 14 Pulse Ox (%): 100 - Physical Exam General: Unresponsive Respiratory: Clear to auscultation bilaterally, Diminished - Studies Microbiology Data (last 24 hrs): 05/12/20 17:20 Sputum Sputum Gram Stain - Final 05/12/20 17:20 Sputum Culture & Sensitivity - Final Pseudomonas Aeruginosa Assessment & Plan - Problems (Diagnosis) (1) Respiratory failure Current Visit: No Status: Acute Plan: Patient admitted with respiratory failure currently on BiPAP on 40% FiO2 with 100% sat chest x-rays again very rotated hypernatremia is improving white count is normal multiple organisms isolated Mr SA in the blood ESBL in the urine and Pseudomonas in the sputum overall prognosis very poor patient is tolerating tube feeds severe hypertension order another ABG continue with IV fluid Qualifiers: Chronicity: unspecified
[2020-05-16 10:43] LABS: Blood Morphology Comment NOT SEEN (NOT SEEN); Platelet Estimate ADEQ
[2020-05-16] MEDS ORDERED: DIGOXIN 0.25 MG/ML AMP IV SCH ×2 (11:00→14:30)
[2020-05-16] MEDS ORDERED: DIGOXIN 0.25 MG/ML AMP IV ONE (11:00)
[2020-05-16 11:15] LABS: Arterial Blood Carboxyhemoglob 1.3 % (0-1.5); Blood Gas Oxyhemoglobin 88.9 % (94-97); Blood O2 Saturation 90.7 % (92-98.5)
[2020-05-16] MEDS ORDERED: NA CHLORIDE 0.9% 250 ML IV ONE (11:46)
[2020-05-16] MEDS ORDERED: NA CHLORIDE 0.9% 250 ML ONE (12:04)
--- NOTE | 2020-05-16 12:38 | RAD REPORT ---
EXAM DESCRIPTION: RAD - Chest Single View - 05/16/2020 7:04 am CLINICAL HISTORY: resp failure Chest pain. COMPARISON: Chest Single View dated 05/15/2020; Chest Single View dated 05/13/2020; Chest Single Vie w dated 05/12/2020; Chest Single View dated 05/12/2020 FINDINGS: Portable technique limits examination quality. Exam is quite limited by the patient positioning. The lungs appear grossly clear. Endotracheal tube a ppears to have been removed since the comparative study. Heart size cannot be accurately assessed.
[2020-05-16 13:00] VITALS: TEMP 98.1
[2020-05-16] MEDS ORDERED: DIGOXIN 0.25 MG/ML AMP ONE (15:14)
[2020-05-16 15:38] VITALS: BP 119/90
[2020-05-16 17:23] VITALS: O2SAT 98
[2020-05-17] MEDS ORDERED: VANCOMYCIN 500 MG in NA CHLORIDE 0.9% 100 ML IVPB SCH (09:00)
[2020-05-17] MEDS ORDERED: AMLODIPINE 5 MG TAB PO SCH (09:00)
[2020-05-17 10:17] LABS: C.diff Antigen/Toxin Ag neg : Tox neg (NEG : NEG)
--- NOTE | 2020-05-17 14:12 | DS ---
Date of Discharge: 05/16/2020 Disposition: The patient was transferred to [facility] acute [facility] via [facility]. Physical Examination: HEENT: Unremarkable. Lungs: Clear to auscultation. Heart: Sounds normal. Abdomen: Soft. Bowel sounds normal. No guarding, rigidity, tenderness, distention. Extremities: No leg edema. Laboratory Data: Upon admission on 05/12/2020, white count 10.6, hemoglobin 14.2, platelets 271. [facility] blood work on the day of discharge on 05/16/2020, white count 8.6, hemoglobin 11.8, platelets 181. Initial chemistry on day of admission on 05/12/2020, sodium 144, potassium 3.9, chloride 106, bicar b 26, BUN 41, creatinine 0.97, glucose 280. Lactic acid 6.2. Procalcitonin less than 0.05. Liver f unction tests unremarkable. On 05/08/2020, her sodium was 157, potassium 2.6, chloride 124, bicarb 2 8, BUN 31, creatinine 0.70, glucose 101, magnesium 1.8. Last chemistry on 05/16/2020, sodium 148, po tassium 3.5, chloride 116, bicarb 25, BUN 21, creatinine 0.61, glucose 160, magnesium 1.7. Initial b lood gas pH 7.19, pCO2 68.4, PO2 33.4, oxygen saturation 42% on 100% FiO2 on 05/16/2020, pH 7.50, pCO 2 27.1, PO2 56.5, saturation 90% on 50% FiO2. Stool C diff came back negative. COVID-19 test came b ack negative. Urine culture has grown E coli which is ESBL. Sputum culture has grown pseudomonas an d blood culture grew MRSA. CAT scan of the chest showed very small subsegmental pulmonary embolism i n the right lung. Chest x-ray had shown no evidence of pneumonia. Hospital Course: 84-year-old female patient admitted to hospital after she was sent to emergency [facility] with respiratory distress. Please see dictated H and P from [facility]. Patient lives at [facility] and she was sent to emergency room with respiratory distress problem and the patient was in ac rosalinda respiratory failure with septic shock and she was intubated and remained on ventilator throughout this hospital stay until 05/15/2020. Dr. Stacy was able to extubate her. Dr. Stacy was consu lted from Pulmonary Service. Her echocardiogram had shown normal ejection fraction. She was given L ovenox 40 mg subcutaneous injection every 12 hours for a very small pulmonary embolus, which was dete cted in the right subsegmental branch. Empiric antibiotics were given. From the beginning, it was Z osyn and vancomycin and once we got the urine culture results with ESBL, Zosyn was discontinued and m eropenem was started and vancomycin was continued. Subsequently, when we received results on the spu mary ellen culture with Pseudomonas, which was resistant to meropenem. So, we did add Levaquin according to sensitivity result. Patient had large amount of respiratory secretion, which required frequent suct ioning. She also had volume depletion that required IV fluid and we started her on free water throug h her feeding tube. PICC line was ordered, but because of technical difficulty nurse was not able to place a PICC line, so the patient continued to have central line access which was placed in the [facility] room when she came in and we continued to use that during this hospital stay. Dr. Stacy rec ommended the patient to go to long-term acute care facility. So, Social Service was consulted and th e patient was at [facility] in the past. So, the patient's son agreed to send her over the re for further care and she was transferred via ground ambulance in stable condition. On 05/14/2020, Dr. Stacy extubated her and she did require BiPAP support after extubation. Overall, long-term p rognosis is poor. Final Diagnoses: 1.Septic shock. 2.Methicillin-resistant Staphylococcus aureus sepsis. 3.Urinary tract infection, organism Escherichia coli, extended spectrum beta-lactamases. 4.Pneumonia, organism Pseudomonas. 5.Acute respiratory failure with hypoxia. 6.Stroke. 7.Senile dementia. 8.Coma. 9.Hypokalemia. 10.Volume depletion. 11.Anemia, unspecified. DANIELA/MODL Voice ID: [id number] Report ID: [id number]
--- NOTE | 2020-05-20 06:13 | EKG ---
Test Date: 2020-05-16 Test Time: 10:08:50 Courtesy Booth Cashier: AMALIA MEASUREMENT RESULTS: Intervals: Rate: 133 NH: QRSD: 74 QT: 314 QTc: 467 [place]: P: NH: QRS: -65 T: 54 INTERPRETIVE STATEMENTS: Atrial fibrillation with rapid ventricular response with premature ventricular or aberrantly conducted complexes Left axis deviation Low voltage QRS Inferior infarct, age undetermined Possible Anterolateral infarct, age undetermined Abnormal ECG Compared to ECG 05/12/2020 17:26:29 Low QRS voltage now present Myocardial infarct finding still present Electronically Signed On 05-20-20 06:10:12 EXPERIMENTAL [employer]CH[employer]IC by Callum Bergeron
== END 2020-05-16 16:35 | DRG 871 ==
LOC: ER 17:10 → ERHOLD 21:56
PROVIDERS: ADMIT Internal Medicine; ATTEND Internal Medicine
PROC: 05HY33Z Insertion of Infusion Device into Upper Vein, Percutaneous Approach (ICD-10-PCS; principal; 2020-05-12)
PROC: 5A1945Z Respiratory Ventilation, 24-96 Consecutive Hours (ICD-10-PCS; 2020-05-13)
PROC: 0BH17EZ Insertion of Endotracheal Airway into Trachea, Via Natural or Artificial Opening (ICD-10-PCS; 2020-05-13)
DX: A41.51 Sepsis due to Escherichia coli [E. coli] (principal); R65.21 Severe sepsis with septic shock; J96.01 Acute respiratory failure with hypoxia; J69.0 Pneumonitis due to inhalation of food and vomit; I26.99 Other pulmonary embolism without acute cor pulmonale; J15.1 Pneumonia due to Pseudomonas; N39.0 Urinary tract infection, site not specified; Z16.12 Extended spectrum beta lactamase (ESBL) resistance; E87.0 Hyperosmolality and hypernatremia; E87.6 Hypokalemia; E86.9 Volume depletion, unspecified; F03.90 Unspecified dementia, unspecified severity, without behavioral disturbance, psychotic disturbance, mood disturbance, and anxiety; H40.9 Unspecified glaucoma; E78.5 Hyperlipidemia, unspecified; I10 Essential (primary) hypertension; B95.62 Methicillin resistant Staphylococcus aureus infection as the cause of diseases classified elsewhere; T68.XXXA Hypothermia, initial encounter; Z86.73 Personal history of transient ischemic attack (TIA), and cerebral infarction without residual deficits; Z93.1 Gastrostomy status; Z74.01 Bed confinement status; Z79.899 Other long term (current) drug therapy; Z20.828 Contact with and (suspected) exposure to other viral communicable diseases
CPT/HCPCS: 36415; 51702; 71045; 71275; 80048; 80053; 80076; 80202; 81003; 81015; 82150; 82550; 82553; 82565; 82805; 82947; 83605; 83690; 83735; 84132; 84145; 84484; 85025; 85610; 85730; 87040; 87070; 87077; 87086; 87088; 87186; 87205; 87324; 87449; 87804; 93005; 93306; 93970; 94002; 94003; 94660; 99291; 99292; J0360; J1160; J1650; J2185; J2543; J3010; J3370; J3480; J7030; J7042; J7050; Q9967; U0003

== ENCOUNTER 2020-06-18 | Emergency (ER) | payer OTHER ==
--- OUTSIDE RECORDS SUMMARY | 2020-06-18 17:40 | XMS REPORT | Continuity of Care Document ---
:1935 Author Organization [facility] t Address [address] [place] [address] Dr. Pimentel [address] [place] [id number] Care Team Providers Name Role Phone Unavailable Unavailable Unavailable Problems This patient has no known problems. Allergies, Adverse Reactions, Alerts This patient has no known allergies or adverse reactions. Medications This patient has no known medications. Procedures This patient has no known procedures. Results This patient has no known results.
--- NOTE | 2020-06-18 18:07 | EDPHYS ---
Physician Documentation [facility] Name: Lillian Cabrera Age: 84 yrs Sex: Female : 1935 Arrival Date: 06/18/2020 Time: 17:49 Bed 4 Private MD: ED Physician Olayinka Rothman HPI: 06/18 17:57 This 84 yrs old Female presents to ER via Unassigned with complaints of CPR. kasie 17:57 Preceding the arrest, the patient was found down by intermediate staff. The arrest kasie occurred at intermediate. Pre-hospital course: The arrest was not witnessed by others. Bystanders at the scene performed CPR. EMS care prior to arrival:. 18:00 The patient has not experienced similar symptoms in the past. kasie Historical: - Home Meds: 18:03 acetaminophen 500 mg Oral tab 1 tab every 6 hours for Pain [Active]; Aricept 23 mg Oral iw tab 1 tab once daily [Active]; ascorbic acid (vitamin C) 500 mg tab daily [Active]; Coreg 6.25 mg Oral tab 1 tab 2 times per day [Active]; docusate sodium 100 mg Oral tab 1 tab 2 times per day [Active]; mirtazapine 30 mg Oral tab 2 tab once daily [Active]; - PMHx: 18:03 Atrial Fib; Glaucoma; Hyperlipidemia; Hypertension; Dementia; CVA; UTI; iw - PSHx: 18:03 PEG tube; iw - Family history:: not pertinent. ROS: 18:00 Unable to obtain ROS due to obtunded state, cpr in progress. kasie Exam: 18:00 Cardiovascular: Rate: actual rate is 0 bpm, Rhythm: asystole, Pulses: not palpable, kasie Heart sounds: none, Edema: is not appreciated, JVD: is not appreciated. 18:00 Respiratory: Respiratory rate: zero 18:00 Skin: Appearance: Color: pale. 18:00 Neuro: Orientation: unresponsive, . 18:04 Eyes: Pupils: are fixed and dilated. kasie 18:04 Abdomen/GI: Inspection: abdomen appears normal, Bowel sounds: absent, Palpation: soft, Liver: no appreciated palpable abnormalities, Hernia: not appreciated. MDM: 17:50 Patient medically screened. kasie 18:00 Differential diagnosis: arrythmia, cardiac arrest, respiratory arrest, asphyxiation. kasie Data reviewed: vital signs, nurses notes, EMS record, intermediate records. Data interpreted: property assessment monitor: rate is 0 beats/min, rhythm is asystole, Pulse oximetry: is 0 %. 18:05 Physician consultation: Dewayne Daigle MD regarding , will sign certificate. kasie Administered Medications: No medications were administered Disposition: 18:00 Critical Care:. kasie Disposition: Patient pronounced on 06/18/20 17:42 by Olayinka Rothman. Impression: Respiratory arrest, Dementia in other diseases classified elsewhere. - Released to Home. Critical care time excluding procedures: 18:00 Critical care time: Bedside Care: 10 minutes, Consultation: 5 minutes, Family kasie Intervention: 10 minutes. Total time: 25 minutes Signatures: Olayinka Rothman MD MD cha Williams, Irene, RN Ruby Robertson RN RN michelle Corrections: (The following items were deleted from the chart) 19:31 18:06 06/18/2020 18:06 Patient pronounced on 06/18/2020 at 17:42 by Olayinka Rothman. michelle Impression: Respiratory arrest; Dementia in other diseases classified elsewhere. Released to Home. kasie
--- NOTE | 2020-06-18 18:07 | ER ---
Nurse's Notes [facility] Name: Lillian Cabrera Age: 84 yrs Sex: Female : 1935 Arrival Date: 06/18/2020 Time: 17:49 Bed 4 Private MD: Diagnosis: Respiratory arrest;Dementia in other diseases classified elsewhere Presentation: 06/18 17:40 Chief complaint: EMS states: CPR in progress from [facility], EMS was toned out at iw 1704, pt last seen alive at 1630, pt full code, CO staff reported pt was cyanotic, cold to touch and stiff, initially wanted EMS to pronounce pt on scene, pt asystole on monitor, epi X 2 given per EMS, Dr. Rothman at bedside to pronounce pt. Care prior to arrival: CPR via thumper performed by EMS and is still in progress Medication(s) given: Epi X 2 IV initiated. IO left tibia. Compressions began prior to arrival. 17:40 Method Of Arrival: EMS: [facility] iw 17:40 Acuity: JOBY 1 iw Historical: - Home Meds: 18:03 acetaminophen 500 mg Oral tab 1 tab every 6 hours for Pain [Active]; Aricept 23 mg Oral iw tab 1 tab once daily [Active]; ascorbic acid (vitamin C) 500 mg tab daily [Active]; Coreg 6.25 mg Oral tab 1 tab 2 times per day [Active]; docusate sodium 100 mg Oral tab 1 tab 2 times per day [Active]; mirtazapine 30 mg Oral tab 2 tab once daily [Active]; - PMHx: 18:03 Atrial Fib; Glaucoma; Hyperlipidemia; Hypertension; Dementia; CVA; UTI; iw - PSHx: 18:03 PEG tube; iw - Family history:: not pertinent. Assessment: 17:40 CPR assessment: unresponsive, pupils fixed \T\ dilated, no respiratory effort, pulses iw absent w/ compressions. Cardiac rhythm is asystole. ED Course: 17:49 Patient arrived in ED. iw 17:49 Olayinka Rothman MD is Attending Physician. kasie 17:53 Juli Toledo, RN is Primary Nurse. iw 18:02 Triage completed. iw 18:06 Olayinka Rothman MD is Pronouncing Provider. kasie Administered Medications: No medications were administered Outcome: 17:42 Outcome Patient iw 17:42 Patient : Time of 17:42 Pronounced by Olayinka Rothman MD 19:31 Patient left the ED. michelle 19:31 Patient : Body to home. rv Signatures: Olayinka Rothman MD MD cha Williams, Irene, RN RN Ruby Cuba RN RN Tom Hoover RN RN rv
== END 2020-06-18 19:31 | disposition expired ==
PROC: 5A12012 Performance of Cardiac Output, Single, Manual (ICD-10-PCS; principal; 2020-06-18)
CPT/HCPCS: 92950; 99285